=== PATIENT | female | born 1940 | race Caucasian/White ===

== ENCOUNTER → 2017-11-03 | Outpatient (CLI) | payer OTHER, SELFPAY ==
[~2017-11-03] MED LIST: ACIPHEX 20 MG T20 MG PO; ALBUTEROL INH INH; ALBUTEROL INHAL17 GM IH; ALLOPURINOL 10100 M3 PO; AMRIX30 MG PO; ANTACID650 MG PO; APAP500 PO; AUGMENTIN 500-1 EACH PO; AVELOX400 MG PO; AZITHROMYCIN; B 12 INJECTION; B12INJ IM; BACTRIM DS TAB1 EACH PO; CALCITRIOL0.25 MCG PO; CALCIUM CITRATE PO; CARAFATE 1 GM TA1 G1 PO; CARAFATE1 GM/10 ML PO; CIPRO; CIPRO250 M1 PO; CLEOCIN HCL300 MG PO; COLACE100 MG PO; CYCLOBENZAPRINE10 MG PO; DEXILANT60 MG PO; ENOXAPARIN30 MG/0.3 SQ; ERY-TAB250 MG PO; ESTRACE0.5 MG PO; FLEXERIL PO; FLUCONAZOLE 10100 MG PO; FLUZONE 2045 MCG/011; GABAPENTIN100 MG PO; HYDROCODON-ACE1 EAC5 PO; HYDROCODON-ACE1 EAC7 PO; HYDROCODONE-AP1 EAC6 PO; K-DUR 20 MEQ T20 MEQ PO; LEVAQUIN 250 M250 MG PO; LEVAQUIN 500 M500 M1 PO; LEVAQUIN 500 M500 MG PO; LEVOFLOXACIN250 MG PO; LEVOTHYROXIN0.137 M1 PO; LOPID600 MG PO; MACROBID 100 M100 M1 PO; MEDROL DOSPAK21 TA1 PO; MEDROLDOSEPACK PO; MIDODRINE HCL 55 M1 PO; NORCO 5-325 TA1 EACH PO; OSTERA TABLET1 EACH PO; OXYCODONE HCL 55 MG PO; PARICALCITOL1 MCG PO; PAXIL10 MG PO; PERCOCET 5-3251 EACH PO; PHENAZOPYRIDIN200 M2 PO; PNEUMOVAX25 MCG/0.5; POTASSIUM20 IV; PREDNISONE 10 M10 M1 PO; PREMARIN PO; PRILOSEC 20 MG20 MG PO; PROAIR HFA8.5 GM IH; PROMETHAZINE12.5 M1 PO; REGLAN 5 MG TAB5 M1 PO; REGLAN 5 MG TAB5 MG PO; ROCALTROL0.5 MCG PO; SODIUM BICARBO650 M3 PO; SYNTHROID PO; SYNTHROID137 MCG PO; TESSALON PERLE100 MG PO; TESSALON200 MG PO; TIZANIDINE HCL4 M1 PO; TOPROL XL25 MG PO; TUSSIONEX PENN115 ML PO; VANC750 IV; VANCO IV; VIT C 500 MG-E500 MG PO; VITAMIN D32000 UNIT PO; ZANTAC 150MG T150 MG PO; ZENPEP DR 20,01 EACH PO; ZENPEP PO; ZINC PO; ZOFRAN ODT4 MG PO; ZPAK PO; ZYVOX600 MG; [UNRECOGNIZED DRUG - MIXTURE]; [UNRECOGNIZED DRUG - OTHER] PO
[2017-11-03 09:04] VITALS: BP 121/68
[2017-11-03 09:54] LABS: MAGNESIUM 1.9 mg/dL (1.8-2.4); PHOSPHORUS* 3.5 mg/dL (2.5-4.9)
--- NOTE | 2017-11-03 12:55 | NUR ---
ARRIVED AMBULATORY. PORT A CATH ACCESSED. PORT PATENT WITH GOOD BLOOD RETURN AND EASY FLUSH. INFUSION COMPLETED AND TOLERATED WELL. PORT FLUSHED PER HOSPITAL POLICY. PORT LEFT ACCESSED FOR USE LATER IN THE WEEK. DENIES QUESTIONS OR NEEDS AT DISCHARGE.
[2017-11-03 14:04] LABS: CALCIUM 8.8 mg/dL (8.5-10.1); CREATININE 2.1 mg/dL (0.6-1.3)
[2017-11-03 14:09] LABS: CALCIUM 8.1 mg/dL (8.5-10.1); CREATININE 1.9 mg/dL (0.6-1.3); MAGNESIUM 1.9 mg/dL (1.8-2.4); PHOSPHORUS* 2.8 mg/dL (2.5-4.9)
== END ==
LOC: M.INFUS 09:00
PROVIDERS: Internal Medicine Nephrology
DX: N18.4 Chronic kidney disease, stage 4 (severe) (principal); E86.0 Dehydration

== ENCOUNTER → 2017-11-05 | Outpatient (CLI) | payer OTHER, SELFPAY ==
[2017-11-05 09:20] VITALS: BP 132/70
--- NOTE | 2017-11-05 09:30 | NUR ---
ASSUMED CARE OF ALYSIA FROM HOME. PT IS DOING WELL SHE IS WALKING STEADY AND HAS NO CO OF FALLING. SHE WAS EDUCATED ON PLAN OF CARE AND DISEASE PROCESS. SHE HAS NO CO OF PAIN OR NAUSEA. WILL CONTINUE TO MONITOR.
[2017-11-05 12:38] LABS: CREATININE 2.1 mg/dL (0.6-1.3); MAGNESIUM 1.6 mg/dL (1.8-2.4); PHOSPHORUS* 3.4 mg/dL (2.5-4.9); POTASSIUM 4.4 mmol/L (3.5-5.1)
[2017-11-05 12:55] VITALS: BP 122/68
--- NOTE | 2017-11-05 13:09 | NUR ---
INFUSION COMPLETED AND TOLERATED WELL. DENIES QUESTIONS OR NEEDS AT DISCHARGE.
[2017-11-05 13:27] LABS: CALCIUM 8.3 mg/dL (8.5-10.1); CREATININE 1.9 mg/dL (0.6-1.3); MAGNESIUM 1.8 mg/dL (1.8-2.4); PHOSPHORUS* 2.8 mg/dL (2.5-4.9); POTASSIUM 4.9 mmol/L (3.5-5.1)
== END ==
LOC: M.INFUS 05:03
PROVIDERS: Internal Medicine Nephrology
DX: N18.4 Chronic kidney disease, stage 4 (severe) (principal); E86.0 Dehydration

== ENCOUNTER → 2017-11-10 | Outpatient (CLI) | payer OTHER, SELFPAY ==
[2017-11-10 09:30] VITALS: BP 113/71
--- NOTE | 2017-11-10 09:51 | NUR ---
ARRIVED AMBULATORY. MADE SELF COMFORTABLE IN RECLINER. PORT A CATH ACCESSED WITH OUT DIFFICULTY. GOOD BRISKB LOOD RETURN NOTED AND FLUSHED WITH EASE. DENIES ADVERSE REACTION TO MULTIPLE PRIOR INFUSIONS OF SAME. INFUSION STARTED AND RUNNIG WELL. DENIES CURRENT NEEDS. CALL LIGHT IN REACH.
[2017-11-10 10:05] LABS: CALCIUM 8.5 mg/dL (8.5-10.1); CREATININE 2.5 mg/dL (0.6-1.3); MAGNESIUM 1.6 mg/dL (1.8-2.4); PHOSPHORUS* 4.3 mg/dL (2.5-4.9); POTASSIUM 4.6 mmol/L (3.5-5.1)
[2017-11-10 13:34] VITALS: BP 102/68
--- NOTE | 2017-11-10 13:46 | NUR ---
INFUSION COMPLETED AND TOLERATED WELL. DENIES QUESTIONS OR NEEDS AT DISCHARGE.
[2017-11-10 13:59] LABS: CALCIUM 7.8 mg/dL (8.5-10.1); CREATININE 2.2 mg/dL (0.6-1.3); MAGNESIUM 1.8 mg/dL (1.8-2.4); PHOSPHORUS* 3.2 mg/dL (2.5-4.9); POTASSIUM 4.9 mmol/L (3.5-5.1)
== END ==
LOC: M.INFUS 00:09
PROVIDERS: Internal Medicine Nephrology
DX: N18.4 Chronic kidney disease, stage 4 (severe) (principal); E86.0 Dehydration

== ENCOUNTER → 2017-11-11 | Outpatient (CLI) | payer OTHER, SELFPAY ==
[2017-11-11 08:50] VITALS: BP 110/65
== END ==
LOC: M.INFUS 06:19
DX: N18.4 Chronic kidney disease, stage 4 (severe) (principal); E86.0 Dehydration

== ENCOUNTER → 2017-11-13 | Outpatient (CLI) | payer OTHER, SELFPAY ==
[2017-11-13 09:05] VITALS: BP 121/67
[2017-11-13 10:29] LABS: MAGNESIUM 1.7 mg/dL (1.8-2.4); PHOSPHORUS* 4.3 mg/dL (2.5-4.9); POTASSIUM 4.4 mmol/L (3.5-5.1)
[2017-11-13 12:42] VITALS: BP 132/76
--- NOTE | 2017-11-13 13:48 | NUR ---
INFUSION COMPLETED AND TOLERATED WELL. PORT FLUSHED AND DEACCESSED. DENIES QUESTIONS OR NEEDS AT DISCHARGE.
[2017-11-13 16:22] LABS: CALCIUM 8.5 mg/dL (8.5-10.1); CREATININE 1.8 mg/dL (0.6-1.3); MAGNESIUM 1.9 mg/dL (1.8-2.4); PHOSPHORUS* 3.2 mg/dL (2.5-4.9); POTASSIUM 4.8 mmol/L (3.5-5.1)
== END ==
LOC: M.INFUS 06:26
PROVIDERS: Internal Medicine Nephrology
DX: N18.4 Chronic kidney disease, stage 4 (severe) (principal); E86.0 Dehydration

== ENCOUNTER → 2017-11-16 | Outpatient (CLI) | payer OTHER, SELFPAY ==
[2017-11-16 10:15] VITALS: BP 140/63
[2017-11-16 11:06] LABS: CALCIUM 8.8 mg/dL (8.5-10.1); CREATININE 1.8 mg/dL (0.6-1.3); MAGNESIUM 1.6 mg/dL (1.8-2.4); PHOSPHORUS* 3.4 mg/dL (2.5-4.9); POTASSIUM 3.9 mmol/L (3.5-5.1)
[2017-11-16 13:55] VITALS: BP 122/58
[2017-11-16 14:27] LABS: CALCIUM 8.3 mg/dL (8.5-10.1); CREATININE 1.6 mg/dL (0.6-1.3); MAGNESIUM 1.7 mg/dL (1.8-2.4); PHOSPHORUS* 2.1 mg/dL (2.5-4.9); POTASSIUM 4.3 mmol/L (3.5-5.1)
--- NOTE | 2017-11-16 15:06 | NUR ---
ARRIVED AMBULATORY. MADE SELF COMFORTABLE IN RECLINER. PORT A CATH ACCESSED WITH OUT DIFFICULTY. GOOD BRISK BLOOD RETURN NOTED AND FLUSHED WITH EASE. INFUSION COMPLETED AND TOELRATED WELL. PORT FLUSHED AND LEFT ACCESSED FOR USE LATER IN THE WEEK.
== END ==
LOC: M.INFUS 06:10
PROVIDERS: Internal Medicine Nephrology
DX: N18.4 Chronic kidney disease, stage 4 (severe) (principal); E86.0 Dehydration

== ENCOUNTER → 2017-11-18 | Outpatient (CLI) | payer OTHER, SELFPAY ==
[2017-11-18 08:55] VITALS: BP 112/60
[2017-11-18 13:07] VITALS: BP 118/48
== END ==
LOC: M.INFUS 06:14
DX: N18.4 Chronic kidney disease, stage 4 (severe) (principal); E86.0 Dehydration

== ENCOUNTER → 2017-11-20 | Outpatient (CLI) | payer OTHER, SELFPAY ==
--- NOTE | 2017-11-20 09:30 | NUR ---
ASSUMED CARE OF PATIENT THIS MORNING FROM HOME. PT IS DOING WELL, SHE WAS EDUCATED ON PLAN OF CARE AND DISEASE PROCESS. HER FAMILY WAS AT BEDSIDE. SHE HAS NO CO OF PAIN OR NAUSEA. WILL CONTINUE TO MONITOR.
[2017-11-20 10:00] VITALS: BP 124/52
[2017-11-20 15:31] LABS: CALCIUM 8.3 mg/dL (8.5-10.1); CREATININE 1.8 mg/dL (0.6-1.3); MAGNESIUM 1.7 mg/dL (1.8-2.4); PHOSPHORUS* 2.7 mg/dL (2.5-4.9); POTASSIUM 4.6 mmol/L (3.5-5.1)
[2017-11-20 16:01] LABS: CALCIUM 8.9 mg/dL (8.5-10.1); MAGNESIUM 1.5 mg/dL (1.8-2.4); PHOSPHORUS* 3.3 mg/dL (2.5-4.9); POTASSIUM 4.3 mmol/L (3.5-5.1)
== END ==
LOC: M.INFUS 04:59
PROVIDERS: Internal Medicine Nephrology
DX: N18.4 Chronic kidney disease, stage 4 (severe) (principal); E86.0 Dehydration

== ENCOUNTER → 2017-11-23 | Outpatient (CLI) | payer OTHER, SELFPAY ==
[2017-11-23 10:00] VITALS: BP 113/60
[2017-11-23 10:45] LABS: CREATININE 1.9 mg/dL (0.6-1.3); MAGNESIUM 1.7 mg/dL (1.8-2.4); PHOSPHORUS* 3.5 mg/dL (2.5-4.9); POTASSIUM 4.7 mmol/L (3.5-5.1)
[2017-11-23 13:26] VITALS: BP 118/62
--- NOTE | 2017-11-23 13:33 | NUR ---
ARRIVED AMBULATORY MADE SELF COMFORTABLE IN RECLINER. PORT A CATH ACCESSED WITHOUT DIFFICULTY. GOOD BRISK BLOOD RETURN NOTED AND FLUSHED WITH EASE. INFSUION COMPLETED AND TOELRATED WELL. PORT FLUSHED AND LEFT ACCESSED FOR USE LATER IN THE WEEK.
[2017-11-23 16:22] LABS: CALCIUM 8.2 mg/dL (8.5-10.1); CREATININE 1.9 mg/dL (0.6-1.3); MAGNESIUM 1.8 mg/dL (1.8-2.4); PHOSPHORUS* 2.3 mg/dL (2.5-4.9); POTASSIUM 4.4 mmol/L (3.5-5.1)
== END ==
LOC: M.INFUS 06:02
PROVIDERS: Internal Medicine Nephrology
DX: N18.4 Chronic kidney disease, stage 4 (severe) (principal); E86.0 Dehydration

== ENCOUNTER → 2017-11-25 | Outpatient (CLI) | payer OTHER, SELFPAY ==
[2017-11-25 11:40] VITALS: BP 135/55
--- NOTE | 2017-11-25 12:26 | NUR ---
ARRIVED AMBULATORY. MADE SELF COMFORTABLE. PORT A CATH ALREADY ACCESSED. DRESSING C.D.I AND PORT PATENT WITH GOOD FLUSH AND BRISK BLOOD RETURN. INFUSION COMPLETED AND TOLERATED WELL. PORT FLUSHED AND LEFT ACCESSED FOR USE LATER IN THE WEEK. DENEIS NEEDS OR QUESTIOSN AT DISCHARGE.
== END ==
LOC: M.INFUS 04:20
DX: N18.4 Chronic kidney disease, stage 4 (severe) (principal); E87.1 Hypo-osmolality and hyponatremia; E86.0 Dehydration

== ENCOUNTER 2017-11-27 08:58 | Emergency (ER) | payer OTHER ==
[~2017-11-27] VITALS: Ht 167.6 cm; Wt 71.7 kg
[~2017-11-27 08:58] MED LIST changes: -ACIPHEX 20 MG T20 MG PO; -LEVOFLOXACIN250 MG PO; -PHENAZOPYRIDIN200 M2 PO; -ROCALTROL0.5 MCG PO; -TUSSIONEX PENN115 ML PO; -[UNRECOGNIZED DRUG - MIXTURE]
[2017-11-27] MEDS ORDERED: ROCALTROL0.5 MCG PO (09:10)
[2017-11-27] MEDS ORDERED: [UNRECOGNIZED DRUG - MIXTURE] (09:11)
[2017-11-27 09:51] LABS: ABSOLUTE BASOPHILS 0.1 thou/uL (0.0-0.2); ABSOLUTE EOSINOPHILS 0.2 thou/uL (0.0-0.7); ABSOLUTE LYMPHOCYTES 1.9 thou/uL (0.8-5.3); ABSOLUTE MONOCYTES 0.4 thou/uL (0.0-1.2); ABSOLUTE NEUTROPHILS 3.5 thou/uL (1.6-8.1); BASOPHILS 1.2 %; EOSINOPHILS 2.8 %; HEMATOCRIT 35.3 % (37.0-47.0); HEMOGLOBIN 11.3 gm/dL (12.0-15.0); LYMPHOCYTES 31.2 %; MCH 29.5 pg (26.0-34.0); MCHC 31.9 g/dL (28.0-37.0); MCV 92.4 fL (80.0-100.0); MPV 7.6 fl. (7.2-11.1); NUCLEATED RBCS 0 /100WBC; PLATELET COUNT* 246 thou/uL (150-400); POLYS 57.8 %; RBC 3.82 mil/uL (4.20-5.00); RDW-CV 16.5 % (10.5-14.5)
[2017-11-27 10:03] LABS: CALCIUM 8.9 mg/dL (8.5-10.1); CREATININE 1.8 mg/dL (0.6-1.3); POTASSIUM 4.3 mmol/L (3.5-5.1)
[2017-11-27 10:15] LABS: ALBUMIN 3.1 g/dL (3.4-5.0); TOTAL BILIRUBIN 0.1 mg/dL (<0.1-1.0); TOTAL PROTEIN 6.9 g/dL (6.4-8.2)
[2017-11-27] MEDS ORDERED: TUSSIONEX PENN115 ML PO (10:44)
[2017-11-27] MEDS ORDERED: ACIPHEX 20 MG T20 MG PO (10:44)
[2017-11-27] MEDS ORDERED: ZOFRAN ODT4 MG PO (10:44)
[2017-11-27 10:51] VITALS: BP 124/56
== END 2017-11-27 10:52 | disposition home or self-care (01) ==
LOC: M.ERS 08:58
PROVIDERS: Emergency Medicine
DX: R11.10 Vomiting, unspecified (principal); R05 Cough; N18.3 Chronic kidney disease, stage 3 (moderate); E03.9 Hypothyroidism, unspecified; M19.90 Unspecified osteoarthritis, unspecified site; F32.9 Major depressive disorder, single episode, unspecified; K21.9 Gastro-esophageal reflux disease without esophagitis; Z87.11 Personal history of peptic ulcer disease; Z85.828 Personal history of other malignant neoplasm of skin; Z98.890 Other specified postprocedural states; Z88.6 Allergy status to analgesic agent; Z88.1 Allergy status to other antibiotic agents; Z88.8 Allergy status to other drugs, medicaments and biological substances

== ENCOUNTER → 2017-11-30 | Outpatient (CLI) | payer OTHER, SELFPAY ==
[~2017-11-30] MED LIST changes: +ACIPHEX 20 MG T20 MG PO; +LEVOFLOXACIN250 MG PO; +PHENAZOPYRIDIN200 M2 PO; +ROCALTROL0.5 MCG PO; +TUSSIONEX PENN115 ML PO; +[UNRECOGNIZED DRUG - MIXTURE]
[2017-11-30 09:10] VITALS: BP 109/54
[2017-11-30 10:35] LABS: CALCIUM 8.5 mg/dL (8.5-10.1); CREATININE 2.9 mg/dL (0.6-1.3); MAGNESIUM 1.7 mg/dL (1.8-2.4); PHOSPHORUS* 4.7 mg/dL (2.5-4.9); POTASSIUM 4.4 mmol/L (3.5-5.1)
[2017-11-30 13:08] VITALS: BP 110/60
--- NOTE | 2017-11-30 13:56 | NUR ---
ARRIVED AMBULATORY, MADE SELF COFMORTABLE IN RECLINER. PORT A CATH ACCESSED WITH OUT DIFFICULTY. GOOD BRISK BLOOD RETURN NOTED AND FLUSHED WITH EASE. INFUSION COMPLETED AND TOLERATED WELL. PORT FLUSHED AND LEFT ACCESSED FOR USE LATER IN THE WEEK. DENIES NEEDS AT DISCHARGE.
[2017-11-30 14:11] LABS: CREATININE 2.3 mg/dL (0.6-1.3); PHOSPHORUS* 3.3 mg/dL (2.5-4.9); POTASSIUM 5.1 mmol/L (3.5-5.1)
== END ==
LOC: M.INFUS 06:49
PROVIDERS: Internal Medicine Nephrology
DX: N18.4 Chronic kidney disease, stage 4 (severe) (principal); E87.1 Hypo-osmolality and hyponatremia; E86.0 Dehydration

== ENCOUNTER → 2017-12-02 | Outpatient (CLI) | payer OTHER, SELFPAY ==
[2017-12-02 08:15] VITALS: BP 120/70
[2017-12-02 11:48] VITALS: BP 118/64
--- NOTE | 2017-12-02 13:04 | NUR ---
ARRIVED AMBULATORY, MADE SELF COMFORTABLE. PORT A CATH ALREADY ACCESSED. PORT PATENT WITH GOOD BRISK BLOOD RETURN AND EASY FLUSH. INFUSION COMPLETED AND TOLERATED WELL.
== END ==
LOC: M.INFUS 04:22
DX: N18.4 Chronic kidney disease, stage 4 (severe) (principal); E87.1 Hypo-osmolality and hyponatremia; E86.0 Dehydration

== ENCOUNTER → 2017-12-04 | Outpatient (CLI) | payer OTHER, SELFPAY ==
[2017-12-04 09:03] LABS: CALCIUM 8.9 mg/dL (8.5-10.1); CREATININE 2.1 mg/dL (0.6-1.3); MAGNESIUM 1.7 mg/dL (1.8-2.4); PHOSPHORUS* 3.5 mg/dL (2.5-4.9); POTASSIUM 4.6 mmol/L (3.5-5.1)
[2017-12-04 11:10] VITALS: BP 120/75
--- NOTE | 2017-12-04 12:08 | NUR ---
COMPLETED INFUSION. UP AD KRANTHI, GAIT STEADY, RIGHT CHEST PORT FLUSHED PER PROTOCOL AND DEACCESSED, NO BLEEDING, BAND AID APPLIED. DISMISSED HOME IN GOOD CONDITION.
[2017-12-04 12:53] LABS: CALCIUM 8.1 mg/dL (8.5-10.1); CREATININE 1.7 mg/dL (0.6-1.3); POTASSIUM 4.9 mmol/L (3.5-5.1)
[2017-12-04 12:57] LABS: MAGNESIUM 1.8 mg/dL (1.8-2.4); PHOSPHORUS* 2.5 mg/dL (2.5-4.9)
== END ==
LOC: M.INFUS 01:54
PROVIDERS: Internal Medicine Nephrology
DX: N18.4 Chronic kidney disease, stage 4 (severe) (principal); E87.1 Hypo-osmolality and hyponatremia; E86.0 Dehydration

== ENCOUNTER → 2017-12-07 | Outpatient (CLI) | payer OTHER, SELFPAY ==
[2017-12-07 10:00] LABS: CALCIUM 8.8 mg/dL (8.5-10.1); CREATININE 1.9 mg/dL (0.6-1.3); MAGNESIUM 1.6 mg/dL (1.8-2.4); POTASSIUM 4.2 mmol/L (3.5-5.1)
[2017-12-07 12:57] VITALS: BP 127/80
--- NOTE | 2017-12-07 13:08 | NUR ---
ARRIVED AMBULATORY. MADE SELF COMFORTABLE IN RECLINER. PORT A CATH ACCESSED WITH OUT DIFFICULTY. GOOD BRISK BLOOD RETURN NOTED AND FLUSHED WITH EASE. INFUSION AND LABS COMPLETED ORDERED. TOLERATED WELL. PORT FLUSHED AND LEFT ACCESSED FOR USE LATER THIS WEEK. DENIES NEEDS AT DISCHARGE.
[2017-12-07 13:51] LABS: CALCIUM 8.1 mg/dL (8.5-10.1); CREATININE 1.7 mg/dL (0.6-1.3); MAGNESIUM 1.9 mg/dL (1.8-2.4); PHOSPHORUS* 3.1 mg/dL (2.5-4.9)
== END ==
LOC: M.INFUS 00:59
PROVIDERS: Internal Medicine Nephrology
DX: N18.4 Chronic kidney disease, stage 4 (severe) (principal); E87.1 Hypo-osmolality and hyponatremia; E86.0 Dehydration

== ENCOUNTER → 2017-12-09 | Outpatient (CLI) | payer OTHER, SELFPAY ==
[2017-12-09 08:30] VITALS: BP 124/70
--- NOTE | 2017-12-09 08:48 | NUR ---
ARRIVED AMBULATORY. MADE SELF COMFORTABLE IN RECLINER. PORT ACCESSED EARLIER IN THE WEEK. PORT PATENT WITH GOOD BRISK BLOOD RETURN AND EASY FLUSH. INFUSION STARTED AND RUNNING WELL. DENIES CURRENT NEEDS
[2017-12-09 12:18] VITALS: BP 120/72
--- NOTE | 2017-12-09 12:59 | NUR ---
INFUSION COMPLETED AND TOLERATED WELL. PORT FLUSHED AND LEFT ACCESSED FOR USE LATER IN THE WEEK. DENIES NEEDS AT DISCHARGE.
== END ==
LOC: M.INFUS 04:02
DX: N18.4 Chronic kidney disease, stage 4 (severe) (principal); E87.1 Hypo-osmolality and hyponatremia; E86.0 Dehydration

== ENCOUNTER → 2017-12-11 | Outpatient (CLI) | payer OTHER, SELFPAY ==
[2017-12-11 08:55] VITALS: BP 142/65
[2017-12-11 10:17] LABS: CALCIUM 8.8 mg/dL (8.5-10.1); CREATININE 1.8 mg/dL (0.6-1.3); MAGNESIUM 1.7 mg/dL (1.8-2.4); PHOSPHORUS* 3.7 mg/dL (2.5-4.9); POTASSIUM 4.6 mmol/L (3.5-5.1)
[2017-12-11 12:20] VITALS: BP 138/70
[2017-12-11 13:17] LABS: CALCIUM 8.1 mg/dL (8.5-10.1); CREATININE 1.6 mg/dL (0.6-1.3); MAGNESIUM 1.9 mg/dL (1.8-2.4); PHOSPHORUS* 2.9 mg/dL (2.5-4.9); POTASSIUM 4.8 mmol/L (3.5-5.1)
--- NOTE | 2017-12-11 13:28 | NUR ---
PORT A CATH ALREADY ACCESSED. PORT PATNET WTIH GOOD BRISK BLOOD RETURN AND EASY FLUSH. INFUSION COMPLETED AND TOLERATED WELL. PORT FLUSHED AND DEACCESSED. DENIES NEEDS AT DISCHARGE.
== END ==
LOC: M.INFUS 06:03
PROVIDERS: Internal Medicine Nephrology
DX: N18.4 Chronic kidney disease, stage 4 (severe) (principal); E87.1 Hypo-osmolality and hyponatremia; E86.0 Dehydration

== ENCOUNTER → 2017-12-14 | Outpatient (CLI) | payer OTHER, SELFPAY ==
[2017-12-14 09:18] VITALS: BP 111/83
[2017-12-14 09:50] LABS: ABSOLUTE BASOPHILS 0.1 thou/uL (0.0-0.2); ABSOLUTE EOSINOPHILS 0.3 thou/uL (0.0-0.7); ABSOLUTE LYMPHOCYTES 2.5 thou/uL (0.8-5.3); ABSOLUTE MONOCYTES 0.6 thou/uL (0.0-1.2); ABSOLUTE NEUTROPHILS 4.6 thou/uL (1.6-8.1); BASOPHILS 0.9 %; HEMATOCRIT 38.3 % (37.0-47.0); HEMOGLOBIN 12.6 gm/dL (12.0-15.0); LYMPHOCYTES 30.6 %; MCH 30.2 pg (26.0-34.0); MCV 91.5 fL (80.0-100.0); MONOCYTES 7.1 %; MPV 7.9 fl. (7.2-11.1); NUCLEATED RBCS 0 /100WBC; PLATELET COUNT* 267 thou/uL (150-400); POLYS 57.4 %; RBC 4.19 mil/uL (4.20-5.00)
[2017-12-14 09:59] LABS: CALCIUM 8.9 mg/dL (8.5-10.1); MAGNESIUM 1.7 mg/dL (1.8-2.4); PHOSPHORUS* 3.3 mg/dL (2.5-4.9)
--- NOTE | 2017-12-14 10:27 | NUR ---
ARRIVED AMBULATORY. MADE SELF COMFORTABLE. PORT A CATH ACCESSED WITH OUT DIFFFICULTY. GOOD BRISK BLOOD RETURN AND EASY FLUSH. INFUSION STARTED AND RUNNING WELL. WARM BLANKET AND BREAKFAST FOR COMFORT. CALL LIGHT IN REACH.
[2017-12-14 12:35] VITALS: BP 118/76
[2017-12-14 13:12] LABS: CREATININE 1.8 mg/dL (0.6-1.3); PHOSPHORUS* 2.9 mg/dL (2.5-4.9); POTASSIUM 5.1 mmol/L (3.5-5.1)
--- NOTE | 2017-12-14 14:44 | NUR ---
INFUSION COMPLETED ADN TOLERATED WELL. PORT FLUSHED AND LEFT ACCESSED FOR USE LATER IN THE WEEK. DENIES NEEDS AT DISCHARGE.
== END ==
LOC: M.INFUS 06:28
PROVIDERS: Internal Medicine Nephrology
DX: N18.4 Chronic kidney disease, stage 4 (severe) (principal); E87.1 Hypo-osmolality and hyponatremia; E86.0 Dehydration

== ENCOUNTER → 2017-12-16 | Outpatient (CLI) | payer OTHER, SELFPAY ==
[2017-12-16 08:15] VITALS: BP 106/83
--- NOTE | 2017-12-16 09:31 | NUR ---
ARRIVED AMBULATORY. MADE SELF COMFORTABLE IN RECLINER. PORT A CATH ALREADY ACCESSED FROM EARLIER IN THE WEEK. PORT PATENT WITH GOOD BRISK BLOOD RETURN AND EASY FLUSH. INFUSION STARTED AND RUNNING WELL. CALL LIGHT IN REACH.
[2017-12-16 11:50] VITALS: BP 116/61
--- NOTE | 2017-12-16 14:27 | NUR ---
INFUSION COMPLETED AND TOLERATED WELL.
== END ==
LOC: M.INFUS 01:35
DX: N18.4 Chronic kidney disease, stage 4 (severe) (principal); E87.1 Hypo-osmolality and hyponatremia; E86.0 Dehydration

== ENCOUNTER → 2017-12-18 | Outpatient (CLI) | payer OTHER, SELFPAY ==
[2017-12-18 08:52] VITALS: BP 121/70
[2017-12-18 10:16] LABS: CALCIUM 8.8 mg/dL (8.5-10.1); CREATININE 1.9 mg/dL (0.6-1.3); MAGNESIUM 1.7 mg/dL (1.8-2.4); POTASSIUM 4.7 mmol/L (3.5-5.1)
[2017-12-18 12:32] VITALS: BP 128/74
[2017-12-18 13:03] LABS: CREATININE 1.7 mg/dL (0.6-1.3); MAGNESIUM 1.8 mg/dL (1.8-2.4); PHOSPHORUS* 2.8 mg/dL (2.5-4.9); POTASSIUM 5.1 mmol/L (3.5-5.1)
--- NOTE | 2017-12-18 13:21 | NUR ---
INFUSION COMPLETED AND TOLERATED WELL. PORT FLUSHED AND DEACCESSED. DENIES NEEDS AT DISCAHRGE.
== END ==
LOC: M.INFUS 01:25
PROVIDERS: Internal Medicine Nephrology
DX: N18.4 Chronic kidney disease, stage 4 (severe) (principal); E87.1 Hypo-osmolality and hyponatremia; E86.0 Dehydration

== ENCOUNTER 2017-12-19 18:16 | Emergency (ER) | payer OTHER ==
[~2017-12-19] VITALS: Ht 167.6 cm; Wt 70.8 kg
[~2017-12-19 18:16] MED LIST changes: -LEVOFLOXACIN250 MG PO; -PHENAZOPYRIDIN200 M2 PO
[2017-12-19 19:29] LABS: URINE BILIRUBIN NEGATIVE (Negative); URINE BLOOD 1+ (Negative); URINE CLARITY CLOUDY; URINE COLOR YELLOW; URINE GLUCOSE-RANDOM NEGATIVE (Negative); URINE KETONES TRACE (Negative); URINE PROTEIN 1+ (Negative); URINE SPECIFIC GRAVITY 1.025 (1.005-1.030); URINE UROBILINOGEN 0.2 E.U./dl (0.2-1.0)
[2017-12-19 19:31] LABS: URINE LEUKOCYTES-REFLEX 2+ (Negative); URINE NITRITE-REFLEX POSITIVE (Negative)
[2017-12-19] MEDS ORDERED: BACTRIM DS TAB1 EACH PO (19:39)
[2017-12-19] MEDS ORDERED: PHENAZOPYRIDIN200 M2 PO (19:40)
[2017-12-19 19:45] VITALS: BP 121/60
[2017-12-19 19:45] LABS: HYALINE CASTS 0-3 Few /LPF (None Seen); MUCUS None Seen strn/LPF (None Seen); URINE WBC-REFLEX >25 Many /HPF (0-5)
[2017-12-19 19:46] LABS: CRYSTALS None Seen /LPF (None Seen); SQUAMOUS >10 Many /LPF (0-3); URINE RBC 0-2 Rare /HPF (0-2); WBC CLUMPS Few (None Seen)
== END 2017-12-19 19:46 | disposition home or self-care (01) ==
LOC: M.ERS 18:16
PROVIDERS: Physician Assistant
DX: N39.0 Urinary tract infection, site not specified (principal); M79.7 Fibromyalgia; E03.9 Hypothyroidism, unspecified; M19.90 Unspecified osteoarthritis, unspecified site; F32.9 Major depressive disorder, single episode, unspecified; K21.9 Gastro-esophageal reflux disease without esophagitis; N18.4 Chronic kidney disease, stage 4 (severe); Z90.49 Acquired absence of other specified parts of digestive tract; Z86.2 Personal history of diseases of the blood and blood-forming organs and certain disorders involving the immune mechanism; Z96.653 Presence of artificial knee joint, bilateral; Z85.828 Personal history of other malignant neoplasm of skin; Z88.8 Allergy status to other drugs, medicaments and biological substances; Z88.1 Allergy status to other antibiotic agents

== ENCOUNTER → 2017-12-21 | Outpatient (CLI) | payer OTHER, SELFPAY ==
[~2017-12-21] MED LIST changes: +LEVOFLOXACIN250 MG PO; +PHENAZOPYRIDIN200 M2 PO
[2017-12-21 08:55] VITALS: BP 112/67
[2017-12-21 09:56] LABS: CALCIUM 9.1 mg/dL (8.5-10.1); CREATININE 2.6 mg/dL (0.6-1.3); MAGNESIUM 1.8 mg/dL (1.8-2.4); PHOSPHORUS* 3.9 mg/dL (2.5-4.9); POTASSIUM 4.5 mmol/L (3.5-5.1)
[2017-12-21 12:30] VITALS: BP 118/74
[2017-12-21 14:08] LABS: CALCIUM 8.6 mg/dL (8.5-10.1); CREATININE 2.3 mg/dL (0.6-1.3); MAGNESIUM 2.1 mg/dL (1.8-2.4); PHOSPHORUS* 2.9 mg/dL (2.5-4.9); POTASSIUM 5.3 mmol/L (3.5-5.1)
--- NOTE | 2017-12-21 14:19 | NUR ---
ARRIVED AMBULATORY. MADE SELF COMFORTABLE IN RECLINER. PROT A CATH ACCESSED WTIH OUT DIFFICULTY. GOOD BRISK BLOOD RETURN NOTED AND FLUSHED WITH EASE. INFUSION COMPLETED AND TOLERATED WELL. PORT FLUSHED AND LEFT ACCESSED FOR USE LATER IN THE WEEK. DENIES NEEDS AT DISCHARGE.
== END ==
LOC: M.INFUS 00:17
PROVIDERS: Internal Medicine Nephrology
DX: N18.4 Chronic kidney disease, stage 4 (severe) (principal); E87.1 Hypo-osmolality and hyponatremia; E86.0 Dehydration

== ENCOUNTER 2017-12-23 09:13 | Inpatient (IN) | payer OTHER, SELFPAY ==
[~2017-12-23] VITALS: Ht 167.6 cm; Wt 73.8 kg
[~2017-12-23 09:13] MED LIST changes: -LEVOFLOXACIN250 MG PO
[2017-12-23 09:31] VITALS: BP 128/75
[2017-12-23 09:54] LABS: ABSOLUTE BASOPHILS 0.1 thou/uL (0.0-0.2); ABSOLUTE EOSINOPHILS 0.2 thou/uL (0.0-0.7); ABSOLUTE LYMPHOCYTES 1.9 thou/uL (0.8-5.3); ABSOLUTE MONOCYTES 0.5 thou/uL (0.0-1.2); ABSOLUTE NEUTROPHILS 6.8 thou/uL (1.6-8.1); BASOPHILS 0.5 %; HEMATOCRIT 41.7 % (37.0-47.0); HEMOGLOBIN 13.5 gm/dL (12.0-15.0); LYMPHOCYTES 19.9 %; MCHC 32.4 g/dL (28.0-37.0); MCV 92.5 fL (80.0-100.0); MONOCYTES 5.7 %; NUCLEATED RBCS 0 /100WBC; PLATELET COUNT* 331 thou/uL (150-400); POLYS 71.9 %; RBC 4.51 mil/uL (4.20-5.00); WBC 9.4 thou/uL (4.0-11.0)
[2017-12-23 10:01] LABS: ANION GAP 14 mmol/L (7-16); BUN 64 mg/dL (7-18); CHLORIDE 102 mmol/L (98-107); CO2 16 mmol/L (21-32); CREATININE 4.3 mg/dL (0.6-1.3); GLUCOSE 203 mg/dL (70-99); POTASSIUM 4.3 mmol/L (3.5-5.1); SODIUM 132 mmol/L (136-145)
[2017-12-23 10:10] LABS: INFLUENZA A ANTIGEN None Detected (None Detect); INFLUENZA B ANTIGEN None Detected (None Detect)
[2017-12-23 10:12] LABS: ALBUMIN 3.6 g/dL (3.4-5.0); ALKALINE PHOSPHATASE 162 U/L (46-116); NT-PRO BRAIN NAT PEPTIDE 296 pg/mL (<300); SGOT 16 U/L (15-37); SGPT 15 U/L (30-65); TOTAL BILIRUBIN 0.3 mg/dL (<0.1-1.0); TOTAL PROTEIN 8.3 g/dL (6.4-8.2); TROPONIN-I LEVEL <0.06 ng/mL (<0.06)
[2017-12-23 10:50] LABS: URINE BILIRUBIN NEGATIVE (Negative); URINE BLOOD NEGATIVE (Negative); URINE CLARITY CLOUDY; URINE COLOR DARK YELLOW; URINE GLUCOSE-RANDOM NEGATIVE (Negative); URINE KETONES NEGATIVE (Negative); URINE LEUKOCYTES-REFLEX 1+ (Negative); URINE PROTEIN 1+ (Negative); URINE SPECIFIC GRAVITY >= 1.030 (1.005-1.030)
[2017-12-23 10:53] LABS: ICTOTEST (BILI CONFIRMATORY) Positive (Negative); URINE NITRITE-REFLEX POSITIVE (Negative)
[2017-12-23 11:11] LABS: SQUAMOUS >10 Many /LPF (0-3)
[2017-12-23 11:12] LABS: COARSE GRANULAR CASTS 4-10 Moderate /LPF (None Seen); URIC ACID CRYSTALS 4-10 Moderate /LPF (None Seen)
[2017-12-23 11:13] LABS: BACTERIA-REFLEX >30 Many /HPF (None Seen); URINE WBC-REFLEX >25 Many /HPF (0-5)
[2017-12-23 13:21] VITALS: BP 109/63
[2017-12-23 13:50] VITALS: BP 114/57
--- NOTE | 2017-12-23 16:20 | EKG ---
[place] [address] ELECTROCARDIOGRAM REPORT Name: SMITHANGELITAMAITE CR Room: [address] ADM IN M.R.#: [id number] Admission: 12/23/17 Attend Phys: Andres Nunez MD Discharge: Date of : 42 Report #: [id number] THIS REPORT FOR: //name// [facility] ED Test Date: 2017-12-23 Test Time: 09:48:16 Pat Name: ANGELITA SMITH Department: Room: [facility] Gender: F Manager Academic: Tatiana CHAMBERLAIN : 1940 Requested By: Madi Gaxiola Order Number: [id number] MD: Osbaldo Balderrama Measurements Intervals [place] Rate: 87 P: 48 HI: 178 QRS: -2 QRSD: 118 T: 57 QT: 375 QTc: 451 Interpretive Statements Sinus rhythm Minimal ST elevation, inferior leads Compared to ECG 09/08/2016 15:44:19 ST (T wave) deviation now present Electronically Signed On 12-23-2017 16:20:23 PLUMBER SUPERVISOR by Osbaldo Balderrama [email or web address] <ELECTRONICALLY SIGNED> By: Osbaldo Balderrama MD, [facility] 12/23/17 1620 0948 0948 Osbaldo Balderrama MD, [facility] /EPI
[2017-12-23 20:00] VITALS: BP 114/67
[2017-12-23 21:00] VITALS: BP 123/54
[2017-12-24 04:00] VITALS: BP 127/60
[2017-12-24 06:54] LABS: ABSOLUTE EOSINOPHILS 0.3 thou/uL (0.0-0.7); ABSOLUTE LYMPHOCYTES 1.8 thou/uL (0.8-5.3); ABSOLUTE MONOCYTES 0.6 thou/uL (0.0-1.2); ABSOLUTE NEUTROPHILS 3.4 thou/uL (1.6-8.1); BASOPHILS 0.5 %; EOSINOPHILS 4.6 %; HEMATOCRIT 32.2 % (37.0-47.0); LYMPHOCYTES 29.6 %; MCH 30.3 pg (26.0-34.0); MCHC 32.9 g/dL (28.0-37.0); MCV 92.2 fL (80.0-100.0); MONOCYTES 9.6 %; MPV 7.8 fl. (7.2-11.1); NUCLEATED RBCS 0 /100WBC; POLYS 55.7 %; RBC 3.49 mil/uL (4.20-5.00); WBC 6.1 thou/uL (4.0-11.0)
[2017-12-24 06:56] LABS: HEMOGLOBIN 10.6 gm/dL (12.0-15.0); PLATELET COUNT* 225 thou/uL (150-400)
[2017-12-24 07:01] LABS: POTASSIUM 4.4 mmol/L (3.5-5.1)
[2017-12-24 07:02] LABS: CREATININE 3.1 mg/dL (0.6-1.3)
[2017-12-24 07:28] VITALS: BP 104/55
[2017-12-24 16:00] VITALS: BP 118/46
[2017-12-24 20:00] VITALS: BP 110/51
[2017-12-24 23:58] VITALS: BP 107/55
[2017-12-25 05:14] LABS: ABSOLUTE EOSINOPHILS 0.3 thou/uL (0.0-0.7); ABSOLUTE LYMPHOCYTES 1.9 thou/uL (0.8-5.3); ABSOLUTE MONOCYTES 0.6 thou/uL (0.0-1.2); ABSOLUTE NEUTROPHILS 3.2 thou/uL (1.6-8.1); BASOPHILS 0.8 %; EOSINOPHILS 5.3 %; HEMATOCRIT 31.7 % (37.0-47.0); HEMOGLOBIN 10.3 gm/dL (12.0-15.0); LYMPHOCYTES 32.2 %; MCHC 32.6 g/dL (28.0-37.0); MONOCYTES 9.3 %; MPV 8.2 fl. (7.2-11.1); NUCLEATED RBCS 0 /100WBC; PLATELET COUNT* 229 thou/uL (150-400); POLYS 52.4 %; RBC 3.45 mil/uL (4.20-5.00)
[2017-12-25 05:46] LABS: ALBUMIN 2.6 g/dL (3.4-5.0); CREATININE 2.3 mg/dL (0.6-1.3); POTASSIUM 4.1 mmol/L (3.5-5.1); TOTAL BILIRUBIN 0.1 mg/dL (<0.1-1.0)
[2017-12-25 07:41] VITALS: BP 108/52
[2017-12-25] MEDS ORDERED: LEVOFLOXACIN250 MG PO (12:34)
[2017-12-25 12:48] VITALS: BP 108/52
[2017-12-25 14:38] VITALS: BP 108/52
--- NOTE | 2017-12-29 12:37 | CON ---
[address] [address] CONSULTATION Name: SMITHANGELITA TAYO Room: [address] IN M.R.#: [id number] Admission: 12/23/17 Attend Phys: Andres Nunez MD Discharge: 12/25/17 Date of : 42 Report #: [id number] THIS REPORT FOR: //name// CC: Russ Goldstein DATE OF SERVICE: 12/24/2017 CONSULTING PHYSICIAN: Andres Nunez MD ADMISSION DIAGNOSIS AND CHIEF COMPLAINT: Not feeling well. HISTORY OF PRESENT ILLNESS: This is a 77-year-old very pleasant female who has past medical history of ulcerative colitis, has a high output ostomy, has a history of short gut syndrome, gets IV fluids along with potassium and magnesium replacement about 3 times a week, chronic kidney disease stage 4 with creatinine at baseline around 1.9, follows with Dr. Goldstein, and other medical problems who came in after not feeling well. The patient was diagnosed with a UTI last week and was started on Bactrim. Her creatinine was 1.9 as an outpatient on 12/18/2017, but it was 4.3 as of yesterday. Bactrim was stopped and the IV fluids were started with which creatinine is now better to 3.1. The patient also has some evidence of metabolic acidosis. She has been started on Levaquin for treatment of her UTI. The patient is feeling somewhat better today. REVIEW OF SYSTEMS: The patient was generally not feeling well. Otherwise, a 10-point review of systems done, negative. ALLERGIES: Reviewed. PAST MEDICAL HISTORY: Includes: 1. History of short gut syndrome, hypomagnesemia, hypokalemia, fibromyalgia. 2. Hypothyroidism. 3. Detached retina. 4. Continent, ileostomy for ulcerative colitis. 5. Osteoarthritis. 6. Chronic kidney disease stage 4. 7. Aortic valve stenosis. 8. GERD. 9. Subdural hematoma. PAST SURGICAL HISTORY: Includes a total colectomy, cholecystectomy, surgery for her esophagus. 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 Bilateral cataract surgeries, skin cancer removal from left leg and abdomen, right Port-A-Cath, right total knee replacement [place] [address] CONSULTATION Name: ANGELITA SMITH Room: [address]#: [id number] Admission: 12/23/17 Attend Phys: Andres Nunez MD Discharge: 12/25/17 Date of : 42 Report #: [id number] the past. FAMILY HISTORY: Noncontributory. SOCIAL HISTORY: She is a former smoker, does not use any recreational drugs and alcohol. PHYSICAL EXAMINATION: VITAL SIGNS: Blood pressure is 104/55, pulse rate is 66, temperature 36.7, respiratory rate is 16, on room air pulse ox is 98%. GENERAL: She is awake, alert, oriented x 3, in no acute distress. HEAD, EYES, EARS, NOSE, THROAT: Mucous membranes are moist. NECK: No JVD. CHEST: Clear to auscultation bilaterally. No crackles or wheezing. CARDIOVASCULAR: S1, S2 normal. No murmurs heard. ABDOMEN: Soft, nondistended, nontender. Bowel sounds are present. She has a midline dressing in place at the site of her ostomy and the dressing is clean, dry and intact. EXTREMITIES: Lower extremities symmetrical, no edema. GENITOURINARY: No CVA tenderness. Anderson in place. NEUROLOGICAL: Gross neurological function intact. PSYCHIATRIC: Mood and affect seem to be normal. LABORATORY DATA: Hemoglobin 10.6. Sodium is 136, potassium is 4.4, CO2 is 16, BUN is 57, creatinine is 3.1. Other labs were reviewed. IMAGING: Renal ultrasound, chest x-ray and abdominal CT scan were reviewed. ASSESSMENT: 1. Acute kidney injury on chronic kidney disease stage 4 due to Bactrim and dehydration. 2. Lower tract urinary tract infection. 3. Non-gap and anion gap metabolic acidosis. 4. Hypertension. PLAN: Kidney function is getting better with IV fluids. Acute kidney injury was most likely because of dehydration, first of all because she has a high output ostomy, she also had UTI going on and also because of Bactrim. I agree with stopping Bactrim, and IV fluids. Continue IV fluids normal saline at 100 mL an hour. Renal ultrasound did not show any acute abnormalities. The patient does have history of dialysis requirement in the past, but there is no need for any renal replacement therapy as of now. She has evidence of metabolic acidosis, both high anion gap and non-gap, likely because of a high output ostomy as well as because of her chronic kidney disease stage 4. We will start her on sodium bicarbonate 1300 mg b.i.d. Blood pressure is currently controlled on current blood pressure medication regimen. [address] [place] [address] CONSULTATION Name: ANGELITA SMITH Room: [address] [facility] IN M.R.#: [id number] Admission: 12/23/17 Attend Phys: Andres Nunez MD Discharge: 12/25/17 Date of : 42 Report #: [id number] Thank you for this consultation and I will continue to follow along with you. <ELECTRONICALLY SIGNED> By: Beckie Galvan MD 12/29/17 1237 1035 [id number] Galvan MD /nt
== END 2017-12-25 14:39 | disposition home or self-care (01) | DRG 682 ==
LOC: M.TBA-ER 11:09 → M.3W 11:09
PROVIDERS: Emergency Medicine Emergency Medical Services; ADMIT Internal Medicine
DX: N17.9 Acute kidney failure, unspecified (principal); G93.40 Encephalopathy, unspecified; R65.11 Systemic inflammatory response syndrome (SIRS) of non-infectious origin with acute organ dysfunction; N39.0 Urinary tract infection, site not specified; K91.2 Postsurgical malabsorption, not elsewhere classified; E87.2 Acidosis; E83.42 Hypomagnesemia; E03.9 Hypothyroidism, unspecified; M19.90 Unspecified osteoarthritis, unspecified site; I12.9 Hypertensive chronic kidney disease with stage 1 through stage 4 chronic kidney disease, or unspecified chronic kidney disease; F32.9 Major depressive disorder, single episode, unspecified; N18.4 Chronic kidney disease, stage 4 (severe); K21.9 Gastro-esophageal reflux disease without esophagitis; Z96.651 Presence of right artificial knee joint; D64.9 Anemia, unspecified; E87.6 Hypokalemia; E86.0 Dehydration; Z98.42 Cataract extraction status, left eye; Z98.41 Cataract extraction status, right eye; Z79.899 Other long term (current) drug therapy; Z93.2 Ileostomy status; Z90.49 Acquired absence of other specified parts of digestive tract; Z87.891 Personal history of nicotine dependence; Z88.8 Allergy status to other drugs, medicaments and biological substances

== ENCOUNTER → 2017-12-30 | Outpatient (CLI) | payer OTHER, SELFPAY ==
[~2017-12-30] MED LIST changes: +LEVOFLOXACIN250 MG PO
[2017-12-30 11:10] VITALS: BP 132/65
[2017-12-30 11:27] LABS: CALCIUM 9.1 mg/dL (8.5-10.1); CREATININE 2.1 mg/dL (0.6-1.3); MAGNESIUM 1.5 mg/dL (1.8-2.4); PHOSPHORUS* 4.1 mg/dL (2.5-4.9); POTASSIUM 4.4 mmol/L (3.5-5.1)
[2017-12-30 14:24] VITALS: BP 124/62
--- NOTE | 2017-12-30 14:30 | NUR ---
ARRIVED AMBULATORY. MADE SELF COMFORTABLE IN RECLINER. PORT A CATH ACCESSED WITH OUT DIFFICULTY. GOOD BRISK BLOOD RETURN NOTED AND FLUSHED WITH EASE. INFUSION COMPLETED AND TOLERATED WELL. PRE AND POST INFUSION LABS DRAWN PER STANDING ORDER. PORT FLUSHED AND LEFT ACCESSED FOR USE LATER IN THE WEEK. DENIES NEEDS AT DISCHARGE.
[2017-12-30 14:45] LABS: CALCIUM 8.1 mg/dL (8.5-10.1); CREATININE 1.8 mg/dL (0.6-1.3); MAGNESIUM 1.8 mg/dL (1.8-2.4); PHOSPHORUS* 2.6 mg/dL (2.5-4.9)
== END ==
LOC: M.INFUS 01:32
PROVIDERS: Family Medicine; Internal Medicine Nephrology
DX: N18.4 Chronic kidney disease, stage 4 (severe) (principal); E87.1 Hypo-osmolality and hyponatremia; E86.0 Dehydration

== ENCOUNTER → 2018-01-01 | Outpatient (CLI) | payer OTHER, SELFPAY ==
[2018-01-01 08:40] VITALS: BP 122/68
[2018-01-01 09:20] LABS: CALCIUM 8.4 mg/dL (8.5-10.1); CREATININE 2.2 mg/dL (0.6-1.3); MAGNESIUM 1.6 mg/dL (1.8-2.4); PHOSPHORUS* 3.9 mg/dL (2.5-4.9); POTASSIUM 3.9 mmol/L (3.5-5.1)
[2018-01-01 12:56] LABS: CALCIUM 7.9 mg/dL (8.5-10.1); CREATININE 1.8 mg/dL (0.6-1.3)
--- NOTE | 2018-01-01 12:59 | NUR ---
ARRIVED AMBULATORY. MADE SELF COMFORTABLE IN RELCINER. PORT ALREADY ACCESSED. PORT PATENT WITH GOOD BRISK BLOOD RETURN AND EASY FLUSH. INFUSION COMPLETED AND TOLERATED WELL. PORT FLUSHED AND DEACCESSED. DENEIS NEEDS AT DISHCARGE.
[2018-01-01 13:00] LABS: MAGNESIUM 1.9 mg/dL (1.8-2.4); PHOSPHORUS* 3.1 mg/dL (2.5-4.9)
== END ==
LOC: M.INFUS 00:43
PROVIDERS: Internal Medicine Nephrology
DX: N18.4 Chronic kidney disease, stage 4 (severe) (principal); E87.1 Hypo-osmolality and hyponatremia; E86.0 Dehydration

== ENCOUNTER → 2018-01-04 | Outpatient (CLI) | payer OTHER, SELFPAY ==
[2018-01-04 09:52] VITALS: BP 1124/60
[2018-01-04 10:16] LABS: CALCIUM 8.4 mg/dL (8.5-10.1); CREATININE 1.9 mg/dL (0.6-1.3); MAGNESIUM 1.7 mg/dL (1.8-2.4); PHOSPHORUS* 3.9 mg/dL (2.5-4.9); POTASSIUM 4.5 mmol/L (3.5-5.1)
--- NOTE | 2018-01-04 13:30 | NUR ---
0900:PT. MADE COMFORTABLE IN RECLINER. 0952:RT CHEST PAC ACCESSED BY Niall GALICIA RN. 1ST ATTEMPT UNSUCCESSFUL BY THIS RN, 2ND ATTEMPT SUCCESSFUL BY Niall GALICIA RN. NS STARTED AT 350ML/HR. 1122:NS + KCL + MG STARTED AT 330ML/HR. PT TOLERATED BAG #1 WELL. 1315:FLUIDS DONE AT 1308. HEPARIN FLUSH GIVEN IV AT 1311 AND PT. LEFT AT THIS TIME IN STABLE CONDITION WITH ANCA.
[2018-01-04 14:03] LABS: CREATININE 1.7 mg/dL (0.6-1.3); MAGNESIUM 1.9 mg/dL (1.8-2.4); PHOSPHORUS* 2.9 mg/dL (2.5-4.9); POTASSIUM 4.8 mmol/L (3.5-5.1)
== END ==
LOC: M.INFUS 01:58
PROVIDERS: Internal Medicine Nephrology
DX: N18.4 Chronic kidney disease, stage 4 (severe) (principal); E87.1 Hypo-osmolality and hyponatremia; E86.0 Dehydration

== ENCOUNTER → 2018-01-06 | Outpatient (CLI) | payer OTHER, SELFPAY ==
[2018-01-06 10:20] VITALS: BP 120/59
== END ==
LOC: M.INFUS 03:08
DX: N18.4 Chronic kidney disease, stage 4 (severe) (principal); E87.1 Hypo-osmolality and hyponatremia; E86.0 Dehydration

== ENCOUNTER → 2018-01-08 | Outpatient (CLI) | payer OTHER, SELFPAY ==
--- NOTE | 2018-01-08 08:55 | NUR ---
PATIENT ARRIVAL AMBULATORY FROM HOME. MADE SELF COMFORTABLE IN RECLINER. CALL LIGHT AND REMOTE GIVEN TO PATIENT. HISTORY AND ORDERS REVIEWED. REASSESSMENT AND VS OBTAINED. RT CHEST PORTACATH ALREADY ACCESSED. DRESSING C/D/I AND SITE WITHOUT REDNESS. BRISK BLOOD RETURN OBTAINED AND PORT FLUSHES WELL. IVF OF NS THEN STARTED PER EMAR AND ORDERS.
[2018-01-08 09:00] VITALS: BP 113/59
[2018-01-08 09:50] LABS: CALCIUM 8.6 mg/dL (8.5-10.1); CREATININE 1.6 mg/dL (0.6-1.3); MAGNESIUM 1.6 mg/dL (1.8-2.4); PHOSPHORUS* 3.9 mg/dL (2.5-4.9); POTASSIUM 4.5 mmol/L (3.5-5.1)
--- NOTE | 2018-01-08 12:25 | NUR ---
INFUSION THERAPY COMPLETED. PATIENT TOLERATES INFUSION WELL. PATIENT DENIES CONCERNS. POST LABS DRAWN ORDERED. PORT THEN FLUSHED WITH NS 20MLS FOLLOWED BY HEPARIN 5MLS OF 100UNIT/ML SOLUTION. PORT THEN DEACCESSED AND BANDAID APPLIED. PATIENT THEN DEPARTS FOR HOME, AMBULATORY, WITH SPOUSE PRESENT WITH CAR.
[2018-01-08 13:47] LABS: CALCIUM 7.9 mg/dL (8.5-10.1); CREATININE 1.5 mg/dL (0.6-1.3); POTASSIUM 4.9 mmol/L (3.5-5.1)
[2018-01-08 13:50] LABS: MAGNESIUM 1.8 mg/dL (1.8-2.4); PHOSPHORUS* 3.5 mg/dL (2.5-4.9)
== END ==
LOC: M.INFUS 01:53
PROVIDERS: Internal Medicine Nephrology
DX: N18.4 Chronic kidney disease, stage 4 (severe) (principal); E87.1 Hypo-osmolality and hyponatremia; E86.0 Dehydration

== ENCOUNTER → 2018-01-11 | Outpatient (CLI) | payer OTHER, SELFPAY ==
[2018-01-11 09:26] LABS: CALCIUM 8.5 mg/dL (8.5-10.1); CREATININE 1.8 mg/dL (0.6-1.3); MAGNESIUM 1.7 mg/dL (1.8-2.4); PHOSPHORUS* 3.5 mg/dL (2.5-4.9); POTASSIUM 4.1 mmol/L (3.5-5.1)
--- NOTE | 2018-01-11 12:24 | NUR ---
ARRIVED AMBULATORY. MADE SELF COMFORTABLE. PORT A CATH ACCESSED WTIH OUT DIFFICULTY. GOOD BRISK BLOOD RETUN AND EASY FLUSH. PRE AND POST LABS DRAWN FROM PORT. INFUSION COMPLETED AND TOLERATED WELL. DENIES NEEDS AT DISCHARGE.
[2018-01-11 12:28] LABS: CALCIUM 7.7 mg/dL (8.5-10.1); CREATININE 1.6 mg/dL (0.6-1.3); MAGNESIUM 1.9 mg/dL (1.8-2.4); PHOSPHORUS* 2.6 mg/dL (2.5-4.9); POTASSIUM 4.6 mmol/L (3.5-5.1)
== END ==
LOC: M.INFUS 00:10
PROVIDERS: Internal Medicine Nephrology
DX: N18.4 Chronic kidney disease, stage 4 (severe) (principal); E87.1 Hypo-osmolality and hyponatremia; E86.0 Dehydration

== ENCOUNTER → 2018-01-13 | Outpatient (CLI) | payer OTHER, SELFPAY ==
[2018-01-13 09:07] VITALS: BP 128/65
--- NOTE | 2018-01-13 14:13 | NUR ---
ARRIVED AMBULATORY. MADE SELF COMFORTABLE. PORT A CATH IS ALREADY ACCESSED FROM USE EARLIER IN THE WEEK. PORT DRESSING C/D/I. PORT PATENT WITH GOOD BRISK BLOOD RETURN AND EASY FLUSH. INFUSION COMPLETED AND TOLERATED WELL. PORT FLUSHED AND LEFT ACCESSED FOR USE LATER IN THE WEEK. DENEIS QUESTION OR NEED AT DISCHARGE.
== END ==
LOC: M.INFUS 04:41
DX: N18.4 Chronic kidney disease, stage 4 (severe) (principal); E87.1 Hypo-osmolality and hyponatremia; E86.0 Dehydration

== ENCOUNTER → 2018-01-15 | Outpatient (CLI) | payer OTHER, SELFPAY ==
[2018-01-15 08:50] VITALS: BP 126/58
[2018-01-15 10:06] LABS: CALCIUM 8.4 mg/dL (8.5-10.1); CREATININE 1.7 mg/dL (0.6-1.3); MAGNESIUM 1.5 mg/dL (1.8-2.4); PHOSPHORUS* 3.4 mg/dL (2.5-4.9)
--- NOTE | 2018-01-15 12:16 | NUR ---
ARRIVED AMBULATROY, MADE SLEF COMFORTABLE IN RECLINER. PORT A CATH ALREADY ACCESSED FROM USE EARLIER IN THE WEEK. PORT PATNET WITH GOOD BLOOD RETURN AND EASY FLUSH. PRE AND POST LABS DRAWN FROM PORT PER ORDER. INFUSION COMPLETED AND TOLERLATED WELL. PORT FLUSHED AND DEACCESSED. DENEIS QUESTIONS OR NEEDS AT DISCHARGE.
[2018-01-15 13:04] LABS: CREATININE 1.5 mg/dL (0.6-1.3); MAGNESIUM 1.8 mg/dL (1.8-2.4); PHOSPHORUS* 3.1 mg/dL (2.5-4.9); POTASSIUM 4.7 mmol/L (3.5-5.1)
== END ==
LOC: M.INFUS 01:46
PROVIDERS: Internal Medicine Nephrology
DX: N18.4 Chronic kidney disease, stage 4 (severe) (principal); E87.1 Hypo-osmolality and hyponatremia; E86.0 Dehydration

== ENCOUNTER → 2018-01-19 | Outpatient (CLI) | payer OTHER, SELFPAY ==
[2018-01-19 09:27] VITALS: BP 115/56
[2018-01-19 10:31] LABS: CALCIUM 8.7 mg/dL (8.5-10.1); CREATININE 1.8 mg/dL (0.6-1.3); MAGNESIUM 1.8 mg/dL (1.8-2.4); PHOSPHORUS* 3.9 mg/dL (2.5-4.9); POTASSIUM 4.7 mmol/L (3.5-5.1)
--- NOTE | 2018-01-19 12:35 | NUR ---
HYDRATION/MEDICATION THERAPY COMPLETED. PATIENT DENIES CONCERNS. POST INFUSION LABS DRAWN. RT CHEST PORTACATH FLUSHED WITH NS 20MLS FOLLOWED BY HEPARIN 5MLS OF 100UNIT/ML SOLUTION. PATIENT THEN DEPARTS FOR HOME WITH SPOUSE PRESENT TO DRIVE HER.
[2018-01-19 13:17] LABS: CALCIUM 8.1 mg/dL (8.5-10.1); CREATININE 1.6 mg/dL (0.6-1.3); MAGNESIUM 1.9 mg/dL (1.8-2.4); PHOSPHORUS* 3.2 mg/dL (2.5-4.9); POTASSIUM 4.9 mmol/L (3.5-5.1)
== END ==
LOC: M.INFUS 02:43
PROVIDERS: Internal Medicine Nephrology
DX: N18.4 Chronic kidney disease, stage 4 (severe) (principal); E87.1 Hypo-osmolality and hyponatremia; E87.6 Hypokalemia

== ENCOUNTER → 2018-01-22 | Outpatient (CLI) | payer OTHER, SELFPAY ==
[2018-01-22 09:00] VITALS: BP 120/61
[2018-01-22 09:48] LABS: CALCIUM 9.1 mg/dL (8.5-10.1); CREATININE 1.9 mg/dL (0.6-1.3); MAGNESIUM 1.7 mg/dL (1.8-2.4); PHOSPHORUS* 4.2 mg/dL (2.5-4.9); POTASSIUM 4.3 mmol/L (3.5-5.1)
[2018-01-22 13:00] LABS: CALCIUM 8.3 mg/dL (8.5-10.1); CREATININE 1.6 mg/dL (0.6-1.3); MAGNESIUM 1.9 mg/dL (1.8-2.4); PHOSPHORUS* 3.4 mg/dL (2.5-4.9); POTASSIUM 4.8 mmol/L (3.5-5.1)
--- NOTE | 2018-01-22 13:49 | NUR ---
ARRIVED AMBULATORY. MADE SELF COMFORTABLE IN RECLINER. PORT A CATH TO RIGHT CHEST ALREADY ACCESSED FROM USE EARLIER THIS WEEK. PORT PATNET WITH GOOD BLOOD RETURN AND EASY FLUSH. INFUSION COMPLETED AND TOLERATED WELL. PORT DEACCESSED. DENIES NEEDS OR QUESTIONS AT DISCHARGE.
== END ==
LOC: M.INFUS 01:33
PROVIDERS: Internal Medicine Nephrology
DX: N18.4 Chronic kidney disease, stage 4 (severe) (principal); E87.1 Hypo-osmolality and hyponatremia; E86.0 Dehydration

== ENCOUNTER → 2018-01-27 | Outpatient (CLI) | payer OTHER, SELFPAY ==
[2018-01-27 09:35] VITALS: BP 120/61
--- NOTE | 2018-01-27 09:50 | NUR ---
Pt arrived at 0910 and ambulated into infusion department and seated self in recliner. Pt had missed apt on thursday so will have lab drawn today and Thursday for her 2x a week lab draws. Pt's port was accessed with out difficulty at 0932 brisk blood return and lab of bmp, mag,& phos were drawn and sent to lab. Line flused easily and pt tolerated access well. 0944 500ml NS hung at 350ml/ hr. Pt does not want to order lunch tray as of now. Reviewed meds and medical history with no changes or updates needed. Port was accessed on right chest with 20g 3/4in bent needle.
[2018-01-27 10:26] LABS: CALCIUM 8.8 mg/dL (8.5-10.1); CREATININE 1.9 mg/dL (0.6-1.3); MAGNESIUM 1.6 mg/dL (1.8-2.4); PHOSPHORUS* 3.9 mg/dL (2.5-4.9); POTASSIUM 4.8 mmol/L (3.5-5.1)
[2018-01-27 13:05] VITALS: BP 118/62
--- NOTE | 2018-01-27 13:49 | NUR ---
INFUSION COMPLETED AND TOLERATED WELL. POST LABS DRAWN PER STANDING ORDER. PORT A CATH FLUSHED AND LEFT ACCESSED. DENIES NEEDS OR QUESTIONS AT DISCHARGE.
[2018-01-27 13:59] LABS: CALCIUM 8.2 mg/dL (8.5-10.1); CREATININE 1.7 mg/dL (0.6-1.3); MAGNESIUM 1.8 mg/dL (1.8-2.4); PHOSPHORUS* 3.3 mg/dL (2.5-4.9)
[2018-01-27 14:00] LABS: POTASSIUM 5.2 mmol/L (3.5-5.1)
== END ==
LOC: M.INFUS 06:06
PROVIDERS: Internal Medicine Nephrology
DX: N18.4 Chronic kidney disease, stage 4 (severe) (principal); E87.1 Hypo-osmolality and hyponatremia; E86.0 Dehydration

== ENCOUNTER → 2018-01-29 | Outpatient (CLI) | payer OTHER, SELFPAY ==
[2018-01-29 09:00] VITALS: BP 122/74
[2018-01-29 09:52] LABS: ABSOLUTE BASOPHILS 0.1 thou/uL (0.0-0.2); ABSOLUTE EOSINOPHILS 0.2 thou/uL (0.0-0.7); ABSOLUTE LYMPHOCYTES 1.5 thou/uL (0.8-5.3); ABSOLUTE MONOCYTES 0.3 thou/uL (0.0-1.2); ABSOLUTE NEUTROPHILS 3.3 thou/uL (1.6-8.1); EOSINOPHILS 3.8 %; HEMATOCRIT 34.3 % (37.0-47.0); LYMPHOCYTES 27.3 %; MCH 29.2 pg (26.0-34.0); MCHC 32.1 g/dL (28.0-37.0); MONOCYTES 6.4 %; MPV 7.7 fl. (7.2-11.1); NUCLEATED RBCS 0 /100WBC; PLATELET COUNT* 247 thou/uL (150-400); POLYS 61.5 %; RBC 3.77 mil/uL (4.20-5.00); RDW-CV 15.5 % (10.5-14.5); WBC 5.3 thou/uL (4.0-11.0)
[2018-01-29 10:17] LABS: CALCIUM 8.7 mg/dL (8.5-10.1); CREATININE 1.7 mg/dL (0.6-1.3); MAGNESIUM 1.6 mg/dL (1.8-2.4); PHOSPHORUS* 3.4 mg/dL (2.5-4.9); POTASSIUM 4.2 mmol/L (3.5-5.1); TOTAL BILIRUBIN 0.3 mg/dL (<0.1-1.0); TOTAL PROTEIN 6.7 g/dL (6.4-8.2)
[2018-01-29 11:11] LABS: ESR (SEDRATE) 25 mm/hr (0-30)
[2018-01-29 12:12] VITALS: BP 110/74
--- NOTE | 2018-01-29 12:24 | NUR ---
ARRIVED AMBULATORY. MADE SELF COMFORTABLE IN RECLINER. PORT A CATH ALEARDY ACCESSED. DIFFICULT FLUSH AND NO BLOOD RETURN. PORT DEACCESSED AND REACCESSED. GOOD BLOOD RETURN NOTED AND FLUSHED WITH EASE. LABS DRAWN PER STANDING ORDER AND EXTRA LABS FROM DR. FREEDMAN. INFUSION COMPLETED AND TOELRATED WELL. PORT DEACCESSED FOR WEEKEND. DENIES NEEDS AT DISCHARGE.
== END ==
LOC: M.INFUS 01:38
PROVIDERS: Internal Medicine Gastroenterology
DX: N18.4 Chronic kidney disease, stage 4 (severe) (principal); E87.1 Hypo-osmolality and hyponatremia; E86.0 Dehydration

== ENCOUNTER → 2018-02-03 | Outpatient (CLI) | payer OTHER ==
[2018-02-03 08:55] VITALS: BP 128/70
[2018-02-03 10:18] LABS: CALCIUM 9.1 mg/dL (8.5-10.1); CREATININE 2.1 mg/dL (0.6-1.3); MAGNESIUM 1.6 mg/dL (1.8-2.4); PHOSPHORUS* 3.8 mg/dL (2.5-4.9); POTASSIUM 4.2 mmol/L (3.5-5.1)
[2018-02-03 13:02] VITALS: BP 112/57
--- NOTE | 2018-02-03 13:08 | NUR ---
ARRIVED AMBULATORY. PORT A CATH ACCESSED WITH OUT DIFFICULTY. GOOD BLOOD RETURN AND EASY FLUSH. INFUSION COMPLETED AND TOLERATED WELL. PORT FLUSHED AND LEFT ACCESSED FOR USE LATER IN THE WEEK.
[2018-02-03 13:31] LABS: CALCIUM 8.2 mg/dL (8.5-10.1); CREATININE 1.9 mg/dL (0.6-1.3); MAGNESIUM 1.9 mg/dL (1.8-2.4); PHOSPHORUS* 2.9 mg/dL (2.5-4.9); POTASSIUM 4.4 mmol/L (3.5-5.1)
== END ==
LOC: M.INFUS 06:02
PROVIDERS: Internal Medicine Nephrology
DX: N18.4 Chronic kidney disease, stage 4 (severe) (principal); E87.1 Hypo-osmolality and hyponatremia; E86.0 Dehydration

== ENCOUNTER → 2018-02-05 | Outpatient (CLI) | payer OTHER ==
[2018-02-05 08:45] VITALS: BP 128/69
--- NOTE | 2018-02-05 09:00 | NUR ---
0840 Pt arrived to pre-op area for infusion. Ambulated to our area & seated self in recliner. Reviewed meds and medical history with no updates needed. Pt does not want to order lunch today but did bring her own bkfst. Port-a-cath is already accessed from Wednesdays infusion. Flushed easily and brisk blood return was noted. Lab draw obtained for pre-infusion bmp, mg, & phos @ 0848. Pt NS 500ml infusion started at 0854.
[2018-02-05 09:35] LABS: CALCIUM 9.1 mg/dL (8.5-10.1); CREATININE 1.9 mg/dL (0.6-1.3); MAGNESIUM 1.8 mg/dL (1.8-2.4); PHOSPHORUS* 3.5 mg/dL (2.5-4.9); POTASSIUM 4.9 mmol/L (3.5-5.1)
--- NOTE | 2018-02-05 12:10 | NUR ---
COMPLETED INFUSION WITHOUT DIFFICULTY. UP AD KRANTHI TO BATHROOM, GAIT STEADY. POST HYDRATION LABS OBTAINED. RIGHT CHEST PORT FLUSHED, LABS OBTAINED. FLUSHED PER PROTOCOL AND DE ACCESSED, BAND AID APPLIED. DISMISSED HOME IN GOOD CONDITION.
[2018-02-05 12:21] LABS: CALCIUM 8.5 mg/dL (8.5-10.1); CREATININE 1.7 mg/dL (0.6-1.3)
[2018-02-05 12:25] LABS: PHOSPHORUS* 2.8 mg/dL (2.5-4.9)
== END ==
LOC: M.INFUS 02:07
PROVIDERS: Internal Medicine Nephrology
DX: N18.4 Chronic kidney disease, stage 4 (severe) (principal); E87.1 Hypo-osmolality and hyponatremia; E86.0 Dehydration

== ENCOUNTER → 2018-02-08 | Outpatient (CLI) | payer OTHER ==
[2018-02-08 09:48] VITALS: BP 119/60
[2018-02-08 11:27] LABS: CALCIUM 8.6 mg/dL (8.5-10.1); CREATININE 1.9 mg/dL (0.6-1.3); MAGNESIUM 1.7 mg/dL (1.8-2.4); PHOSPHORUS* 3.4 mg/dL (2.5-4.9); POTASSIUM 4.6 mmol/L (3.5-5.1)
[2018-02-08 13:18] VITALS: BP 122/64
[2018-02-08 15:40] LABS: CALCIUM 8.2 mg/dL (8.5-10.1); CREATININE 1.7 mg/dL (0.6-1.3); MAGNESIUM 1.9 mg/dL (1.8-2.4); POTASSIUM 4.6 mmol/L (3.5-5.1)
--- NOTE | 2018-02-08 15:42 | NUR ---
ARRIVED AMBULATORY. MADE SELF COMFORTABLE. PORT A CATH ACCESSED WITH EASE. GOOD BRISK BLOOD RETURN AND EASY FLUSH. INFUSION COMPLETED AND TOLERATED WELL. DENIES NEEDS OR QUESTIONS AT DISCHARGE.
== END ==
LOC: M.INFUS 01:21
PROVIDERS: Internal Medicine Nephrology
DX: N18.4 Chronic kidney disease, stage 4 (severe) (principal); E87.1 Hypo-osmolality and hyponatremia; E86.0 Dehydration

== ENCOUNTER → 2018-02-10 | Outpatient (CLI) | payer OTHER ==
[2018-02-10 08:56] VITALS: BP 141/58
--- NOTE | 2018-02-10 15:15 | NUR ---
ARRIVED AMBULATRY. PORT A CATH ALREADY ACCESSED FROM EARLIER IN THE WEEK. INFUSION COMPLETED AND TOLERATED WELL. PORT FLUSHED AND LEFT ACCESSED. DENIES NEEDS AT DISCHARGE.
== END ==
LOC: M.INFUS 01:54
DX: N18.4 Chronic kidney disease, stage 4 (severe) (principal); E87.1 Hypo-osmolality and hyponatremia; E86.0 Dehydration

== ENCOUNTER → 2018-02-12 | Outpatient (CLI) | payer OTHER ==
[2018-02-12 08:50] VITALS: BP 120/61
[2018-02-12 09:39] LABS: CALCIUM 8.9 mg/dL (8.5-10.1); MAGNESIUM 1.6 mg/dL (1.8-2.4); PHOSPHORUS* 3.8 mg/dL (2.5-4.9); POTASSIUM 4.2 mmol/L (3.5-5.1)
[2018-02-12 13:28] LABS: CALCIUM 8.3 mg/dL (8.5-10.1); CREATININE 1.7 mg/dL (0.6-1.3); MAGNESIUM 1.9 mg/dL (1.8-2.4); PHOSPHORUS* 2.9 mg/dL (2.5-4.9); POTASSIUM 4.8 mmol/L (3.5-5.1)
== END ==
LOC: M.INFUS 00:34
PROVIDERS: Internal Medicine Nephrology
DX: N18.4 Chronic kidney disease, stage 4 (severe) (principal); E87.1 Hypo-osmolality and hyponatremia; E86.0 Dehydration

== ENCOUNTER → 2018-02-15 | Outpatient (CLI) | payer OTHER ==
[2018-02-15 09:30] VITALS: BP 131/69
[2018-02-15 10:34] LABS: CALCIUM 8.6 mg/dL (8.5-10.1); CREATININE 1.8 mg/dL (0.6-1.3); MAGNESIUM 1.6 mg/dL (1.8-2.4); PHOSPHORUS* 3.9 mg/dL (2.5-4.9); POTASSIUM 4.4 mmol/L (3.5-5.1)
[2018-02-15 11:40] VITALS: BP 122/71
--- NOTE | 2018-02-15 12:41 | NUR ---
ARRIVED AMBULATORY. MADE SELF COMFORTABLE IN RECLINER. PORT A CATH ACCESSED WITH OUT DIFFICULTY. GOOD BRISK BLOOD RETURN NOTED AND FLUSHED WITH EASE. INFUSION COMPLETED AND TOLERATED WELL. PORT FLUSHED WITH 20ML NACL. PT HAS SCHEDULED EGD IN [facility] AT 2PM TODAY. THEY WILL HEP LOCK WHEN PROCEDURE FINISHED. ISAI NEEDS AT DSICHARGE.
== END ==
LOC: M.INFUS 02:10
PROVIDERS: Internal Medicine Nephrology
DX: N18.4 Chronic kidney disease, stage 4 (severe) (principal); E87.1 Hypo-osmolality and hyponatremia; E86.0 Dehydration

== ENCOUNTER → 2018-02-19 | Outpatient (CLI) | payer OTHER ==
[2018-02-19 09:20] VITALS: BP 134/64
[2018-02-19 09:44] LABS: CALCIUM 8.7 mg/dL (8.5-10.1); CREATININE 1.7 mg/dL (0.6-1.3); MAGNESIUM 1.5 mg/dL (1.8-2.4); PHOSPHORUS* 3.4 mg/dL (2.5-4.9); POTASSIUM 4.3 mmol/L (3.5-5.1)
--- NOTE | 2018-02-19 12:56 | NUR ---
PT'S INFUSION PROCEEDED NORMAL. NO CHANGES, NO COMPLICATIONS.
[2018-02-19 13:41] LABS: CREATININE 1.6 mg/dL (0.6-1.3); MAGNESIUM 1.7 mg/dL (1.8-2.4); PHOSPHORUS* 2.9 mg/dL (2.5-4.9); POTASSIUM 4.2 mmol/L (3.5-5.1)
== END ==
LOC: M.INFUS 01:31
PROVIDERS: Internal Medicine Nephrology
DX: N18.4 Chronic kidney disease, stage 4 (severe) (principal); E87.1 Hypo-osmolality and hyponatremia; E86.0 Dehydration

== ENCOUNTER → 2018-02-22 | Outpatient (CLI) | payer OTHER ==
[2018-02-22 09:13] VITALS: BP 95/55
[2018-02-22 10:04] LABS: CALCIUM 8.9 mg/dL (8.5-10.1); MAGNESIUM 1.6 mg/dL (1.8-2.4); PHOSPHORUS* 3.5 mg/dL (2.5-4.9)
[2018-02-22 13:46] LABS: CALCIUM 8.4 mg/dL (8.5-10.1); CREATININE 1.8 mg/dL (0.6-1.3); MAGNESIUM 1.9 mg/dL (1.8-2.4); PHOSPHORUS* 3.4 mg/dL (2.5-4.9); POTASSIUM 4.5 mmol/L (3.5-5.1)
== END ==
LOC: M.INFUS 01:40
PROVIDERS: Internal Medicine Nephrology
DX: N18.4 Chronic kidney disease, stage 4 (severe) (principal); E87.1 Hypo-osmolality and hyponatremia; E86.0 Dehydration

== ENCOUNTER → 2018-02-24 | Outpatient (CLI) | payer OTHER ==
[2018-02-24 09:14] VITALS: BP 113/73
[2018-02-24 10:12] LABS: CREATININE 1.8 mg/dL (0.6-1.3); MAGNESIUM 1.7 mg/dL (1.8-2.4); PHOSPHORUS* 3.6 mg/dL (2.5-4.9); POTASSIUM 4.2 mmol/L (3.5-5.1)
[2018-02-24 12:50] VITALS: BP 140/71
--- NOTE | 2018-02-24 13:05 | NUR ---
Pt's infusion completed at 1250. Lab drawn from port-a-cath then flushed with 20ml NS and 5cc heprin flush. Pt left accessed bc she will be returning on Thursday for next infusion. Did note a little sluggish on the line to flush then patient pressed down on Port access and flushed and rashaun blood easily at that moment. Pt ambulated out for home discharge at 1305.
[2018-02-24 14:32] LABS: CALCIUM 8.1 mg/dL (8.5-10.1); CREATININE 1.6 mg/dL (0.6-1.3); MAGNESIUM 1.9 mg/dL (1.8-2.4); PHOSPHORUS* 2.4 mg/dL (2.5-4.9); POTASSIUM 4.2 mmol/L (3.5-5.1)
== END ==
LOC: M.INFUS 02:40
PROVIDERS: Internal Medicine Nephrology
DX: N18.4 Chronic kidney disease, stage 4 (severe) (principal); E87.1 Hypo-osmolality and hyponatremia

== ENCOUNTER → 2018-02-26 | Outpatient (CLI) | payer OTHER ==
[2018-02-26 09:15] VITALS: BP 108/60
--- NOTE | 2018-02-26 12:50 | NUR ---
0900:PT. ARRIVED AMBULATORY TO INFUSION TODAY, MADE COMFORTABLE IN RECLINER. RT. CHEST PAC WAS ACCESSED Thursday02/22/18-MARIAM. INTACT. 0922:PAC FLUSHED WITH NS, FLUSHED EASILY WITH BRISK BLOOD RETURN UPON ASPIRATION. LABS DRAWN FOR PRE-INFUSION. NS STARTED AT 350ML/HR. 1244: BAG #2 DONE AT 1235 (SEE EMAR)--PT. TOLERATED INFUSION WELL TODAY. LABS DRAWN FOR POST INFUSION, THEN PAC FLUSHED WITH 20ML NS AND THEN 5ML OF HEPARIN FLUSH (100 UNITS/ML). PAC THEN DEACCESSED BY THIS RN WITHOUT DIFFICULTY. PT. TOLERATED WELL. BANDAID APPLIED TO RT. CHEST PAC AREA. 1250:PT. LEFT IN STABLE CONDITION WITH ALL BELONGINGS. WILL MONITOR POST LABS AND FAX BOTH TO DR. TONY'S OFFICE LATER TODAY.
[2018-02-26 14:06] LABS: CALCIUM 8.4 mg/dL (8.5-10.1); CREATININE 1.6 mg/dL (0.6-1.3); PHOSPHORUS* 3.2 mg/dL (2.5-4.9); POTASSIUM 4.9 mmol/L (3.5-5.1)
[2018-02-26 17:43] LABS: MAGNESIUM 1.7 mg/dL (1.8-2.4); PHOSPHORUS* 3.9 mg/dL (2.5-4.9); POTASSIUM 4.3 mmol/L (3.5-5.1)
== END ==
LOC: M.INFUS 03:00
PROVIDERS: Internal Medicine Nephrology
DX: N18.4 Chronic kidney disease, stage 4 (severe) (principal); E87.1 Hypo-osmolality and hyponatremia

== ENCOUNTER → 2018-03-03 | Outpatient (CLI) | payer OTHER ==
[2018-03-03 08:48] VITALS: BP 123/63
[2018-03-03 09:36] LABS: CALCIUM 8.8 mg/dL (8.5-10.1); CREATININE 2.4 mg/dL (0.6-1.3); MAGNESIUM 1.7 mg/dL (1.8-2.4); PHOSPHORUS* 4.1 mg/dL (2.5-4.9); POTASSIUM 4.6 mmol/L (3.5-5.1)
[2018-03-03 12:30] VITALS: BP 118/67
--- NOTE | 2018-03-03 14:26 | NUR ---
ARRIVED AMBULATORY. MADE SELF COMFORTABLE. PORT A CATH ACCESSED WITH OUT DIFFICULTY. GOOD BRISK BLOOD RETURN AND FLUSHES WITH EASE. INFUSION COMPLETED AND TOLERATED WELL. PORT FLUSHED AND LEFT ACCESSED.
[2018-03-03 14:37] LABS: CALCIUM 8.3 mg/dL (8.5-10.1); CREATININE 2.2 mg/dL (0.6-1.3); PHOSPHORUS* 3.3 mg/dL (2.5-4.9); POTASSIUM 4.9 mmol/L (3.5-5.1)
== END ==
LOC: M.INFUS 02:10
PROVIDERS: Internal Medicine Nephrology
DX: N18.4 Chronic kidney disease, stage 4 (severe) (principal); E87.1 Hypo-osmolality and hyponatremia; E86.0 Dehydration

== ENCOUNTER → 2018-03-05 | Outpatient (CLI) | payer OTHER ==
[2018-03-05 09:18] VITALS: BP 117/62
[2018-03-05 09:27] LABS: CALCIUM 8.7 mg/dL (8.5-10.1); CREATININE 2.2 mg/dL (0.6-1.3); MAGNESIUM 1.9 mg/dL (1.8-2.4); PHOSPHORUS* 4.3 mg/dL (2.5-4.9); POTASSIUM 4.5 mmol/L (3.5-5.1)
[2018-03-05 12:27] VITALS: BP 122/60
[2018-03-05 12:56] LABS: CALCIUM 7.9 mg/dL (8.5-10.1); CREATININE 1.9 mg/dL (0.6-1.3); MAGNESIUM 2.1 mg/dL (1.8-2.4); PHOSPHORUS* 3.3 mg/dL (2.5-4.9); POTASSIUM 4.6 mmol/L (3.5-5.1)
== END ==
LOC: M.INFUS 01:36
PROVIDERS: Internal Medicine Nephrology
DX: N18.4 Chronic kidney disease, stage 4 (severe) (principal); E87.1 Hypo-osmolality and hyponatremia; E86.0 Dehydration

== ENCOUNTER → 2018-03-08 | Outpatient (CLI) | payer OTHER ==
[2018-03-08 09:15] VITALS: BP 112/60
[2018-03-08 10:46] LABS: CREATININE 2.2 mg/dL (0.6-1.3); MAGNESIUM 1.7 mg/dL (1.8-2.4); PHOSPHORUS* 3.6 mg/dL (2.5-4.9); POTASSIUM 4.3 mmol/L (3.5-5.1)
[2018-03-08 13:02] VITALS: BP 118/74
--- NOTE | 2018-03-08 13:24 | NUR ---
ARRIVED AMBULATORY. MADE SELF COMFORTABLE IN RECLINER. PORT A CATH ACCESSED WITH OUT DIFFICULTY. GOOD BRISK BLOOD RETURN NOTED AND FLUSHED WITH EASE. INFUSION COMPLETED AND TOLERATED WELL. PORT FLUSHED AND LEFT ACCESSED. DENEIS NEEDS AT DISCHARGE.
[2018-03-08 13:56] LABS: MAGNESIUM 1.9 mg/dL (1.8-2.4); PHOSPHORUS* 2.7 mg/dL (2.5-4.9); POTASSIUM 4.4 mmol/L (3.5-5.1)
== END ==
LOC: M.INFUS 00:08
PROVIDERS: Internal Medicine Nephrology
DX: N18.4 Chronic kidney disease, stage 4 (severe) (principal); E87.1 Hypo-osmolality and hyponatremia

== ENCOUNTER → 2018-03-10 | Outpatient (CLI) | payer OTHER ==
[2018-03-10 08:35] VITALS: BP 119/58
[2018-03-10 11:04] VITALS: BP 124/62
--- NOTE | 2018-03-10 12:25 | NUR ---
ARRIVED AMBULATORY. MADE SELF COMFORTABLE. PORT A CATH ALREADY ACCESSED. PORT PATENT WITH NO SIGN OF INFECTION. PT STATES SHE MUST LEAVE BY 1100 TO TAKE DAUGHTER TO THE DOCTOR. INFUSION STARTED AND RUN UNTIL 1100. PER PT REQUEST INFUSION STOPPED AND PORT FLUSHED AND LEFT ACCESSED FOR LATER USE.
== END ==
LOC: M.INFUS 05:56
DX: N18.4 Chronic kidney disease, stage 4 (severe) (principal); E87.1 Hypo-osmolality and hyponatremia; E86.0 Dehydration

== ENCOUNTER → 2018-03-12 | Outpatient (CLI) | payer OTHER ==
[2018-03-12 08:50] VITALS: BP 112/65
[2018-03-12 09:39] LABS: CALCIUM 8.6 mg/dL (8.5-10.1); MAGNESIUM 1.7 mg/dL (1.8-2.4); PHOSPHORUS* 3.4 mg/dL (2.5-4.9); POTASSIUM 4.2 mmol/L (3.5-5.1)
[2018-03-12 12:20] VITALS: BP 118/66
[2018-03-12 12:52] LABS: CALCIUM 8.1 mg/dL (8.5-10.1); CREATININE 1.7 mg/dL (0.6-1.3); POTASSIUM 4.7 mmol/L (3.5-5.1)
--- NOTE | 2018-03-12 13:33 | NUR ---
ARRIVED AMBULATORY. MADE SELF COMFORTABLE IN RECLINER. PORT A CATH ALREADY ACCESSED. PORT PATENT. INFUSION COMPLETED AND TOLERATED WELL. PORT FLUSHED AND DEACCESSED.
== END ==
LOC: M.INFUS 01:29
PROVIDERS: Internal Medicine Nephrology
DX: N18.4 Chronic kidney disease, stage 4 (severe) (principal); E87.1 Hypo-osmolality and hyponatremia; E86.0 Dehydration

== ENCOUNTER → 2018-03-15 | Outpatient (CLI) | payer OTHER ==
--- NOTE | 2018-03-15 09:20 | NUR ---
PATIENT ARRIVAL AMBULATORY FROM HOME TO OP INFUSION AREA. MADE SELF COMFORTABLE IN RECLINER. CALL LIGHT AND REMOTE WITHIN REACH. RT CHEST PORTACATH ACCESSED. SITE WITHOUT REDNESS OR SWELLING. BRISK BLOOD RETURN OBTAINED FROM BASILIO AND PORT FLUSHES WELL WITH PRE-INFUSION LAB DRAW.
[2018-03-15 09:23] VITALS: BP 126/59
[2018-03-15 11:15] LABS: CALCIUM 8.5 mg/dL (8.5-10.1); CREATININE 1.8 mg/dL (0.6-1.3); MAGNESIUM 1.6 mg/dL (1.8-2.4); PHOSPHORUS* 3.2 mg/dL (2.5-4.9); POTASSIUM 4.6 mmol/L (3.5-5.1)
--- NOTE | 2018-03-15 13:00 | NUR ---
INFUSION COMPLETED WITHOUT DIFFICULTIES. PATIENT TOLERATES WELL. DENIES CONCERNS. POST INFUSION LABS DRAWN. RT CHEST PORTACATH FLUSHED WITH NS 20MLS FOLLOWED BY HEPARIN 5MLS OF 100UNIT/ML SOLUTION. PORT THEN LEFT ACCESSED FOR INFUSION ON THURSDAY. PORT DRESSING REMAINS C/D/I. PATIENT DEPARTS FOR HOME WITH SPOUSE AT 1310.
[2018-03-15 13:27] LABS: CALCIUM 7.9 mg/dL (8.5-10.1); CREATININE 1.6 mg/dL (0.6-1.3); MAGNESIUM 1.8 mg/dL (1.8-2.4); PHOSPHORUS* 2.8 mg/dL (2.5-4.9); POTASSIUM 4.9 mmol/L (3.5-5.1)
== END ==
LOC: M.INFUS 00:06
PROVIDERS: Internal Medicine Nephrology
DX: N18.4 Chronic kidney disease, stage 4 (severe) (principal); E87.1 Hypo-osmolality and hyponatremia; E86.0 Dehydration

== ENCOUNTER → 2018-03-16 | Outpatient (CLI) | payer OTHER ==
[2018-03-16 09:05] VITALS: BP 112/60
[2018-03-16 13:05] VITALS: BP 118/62
--- NOTE | 2018-03-16 13:58 | NUR ---
INFUSION COMPLETED AND TOELRATED WELL. PORT FLUSHED AND LEFT ACCESSED FOR USE LATER IN THE WEEK. DENEIS NEEDS AT DISCHARGE.
== END ==
LOC: M.INFUS 03:51
DX: N18.4 Chronic kidney disease, stage 4 (severe) (principal); E87.1 Hypo-osmolality and hyponatremia; E86.0 Dehydration

== ENCOUNTER → 2018-03-19 | Outpatient (CLI) | payer OTHER ==
--- NOTE | 2018-03-19 09:30 | NUR ---
ARRIVED AMBULATORY. MADE SELF COMFORTABLE. SINGLE LUMEN PORT-A-CATH TO RIGHT CHEST INTACT W/DRESSING C/D/I AND PATENT W/EASY FLUSH AND GOOD BLOOD RETURN. PRE AND POST LABS DRAWN FROM PORT. PT HAD EXTRA LABS THIS WEEK FROM THE [facility] TO BE DRAWN-CBC W/DIFF AND IRON AND FERRITIN. INFUSION COMPLETED AND TOLERATED WELL. DENIES NEEDS AT DISCHARGE. SINGLE LUMEN PORT-A-CATH TO RIGHT CHEST FLUSHED W/20 ML NORMAL SALINE AND 5 ML HEPARIN FLUSH BEFORE DEACCESSING. PT DEACCESSED AND BANDAID APPLIED OVER RIGHT CHEST PORT-A-CATH ACCESS SITE.
[2018-03-19 09:35] VITALS: BP 125/64
[2018-03-19 09:56] LABS: CALCIUM 8.9 mg/dL (8.5-10.1); CREATININE 1.9 mg/dL (0.6-1.3); POTASSIUM 4.7 mmol/L (3.5-5.1)
[2018-03-19 09:59] LABS: MAGNESIUM 1.7 mg/dL (1.8-2.4); PHOSPHORUS* 4.1 mg/dL (2.5-4.9)
[2018-03-19 10:01] LABS: ABSOLUTE EOSINOPHILS 0.3 thou/uL (0.0-0.7); ABSOLUTE LYMPHOCYTES 2.2 thou/uL (0.8-5.3); ABSOLUTE MONOCYTES 0.6 thou/uL (0.0-1.2); ABSOLUTE NEUTROPHILS 4.3 thou/uL (1.6-8.1); BASOPHILS 0.6 %; HEMATOCRIT 33.4 % (37.0-47.0); HEMOGLOBIN 10.7 gm/dL (12.0-15.0); LYMPHOCYTES 29.8 %; MCH 27.9 pg (26.0-34.0); MCHC 32.1 g/dL (28.0-37.0); MCV 86.8 fL (80.0-100.0); MONOCYTES 7.7 %; MPV 7.8 fl. (7.2-11.1); NUCLEATED RBCS 0 /100WBC; PLATELET COUNT* 296 thou/uL (150-400); POLYS 57.9 %; RBC 3.85 mil/uL (4.20-5.00); RDW-CV 16.1 % (10.5-14.5); WBC 7.4 thou/uL (4.0-11.0)
[2018-03-19 10:23] LABS: % SATURATION 8 % (20-39); IRON 31 ug/dL (50-175)
[2018-03-19 13:29] LABS: CALCIUM 8.2 mg/dL (8.5-10.1); CREATININE 1.7 mg/dL (0.6-1.3); POTASSIUM 4.6 mmol/L (3.5-5.1)
[2018-03-19 13:32] LABS: MAGNESIUM 1.8 mg/dL (1.8-2.4); PHOSPHORUS* 2.9 mg/dL (2.5-4.9)
== END ==
LOC: M.INFUS 01:17
PROVIDERS: Internal Medicine Nephrology
DX: D50.8 Other iron deficiency anemias (principal); N18.4 Chronic kidney disease, stage 4 (severe); E87.1 Hypo-osmolality and hyponatremia; E86.0 Dehydration

== ENCOUNTER → 2018-03-22 | Outpatient (CLI) | payer OTHER ==
--- NOTE | 2018-03-22 09:00 | NUR ---
PATIENT ARRIVAL FROM HOME TO OP INFUSION AREA. MADE SELF COMFORTABLE IN RECLINER. HISTORY AND ORDERS REVIEWED. REASSESSMENT AND VS OBTAINED. CALL LIGHT AND REMOTE WITHIN REACH. RT CHEST PORT ACCESSED UNDER STERILE TECHNIQUE. BRISK BLOOD RETURN OBTAINED FROM PORT WITH PRE INFUSION LAB DRAWS. PORT FLUSHES EASILY. NO REDNESS OR SWELLING AT SITE OF PORT. NS IVF FLUID STARTED PER MAR. PATIENT DENIES CONCERNS.
[2018-03-22 09:05] VITALS: BP 128/66
[2018-03-22 10:22] LABS: CALCIUM 8.6 mg/dL (8.5-10.1); MAGNESIUM 1.8 mg/dL (1.8-2.4); PHOSPHORUS* 3.6 mg/dL (2.5-4.9); POTASSIUM 4.4 mmol/L (3.5-5.1)
--- NOTE | 2018-03-22 12:41 | NUR ---
MEDICATION INFUSION COMPLETED NOW. PATIENT DENIES CONCERNS. VS REMAIN STABLE. POST INFUSION LABS DRAWN ORDERED FROM RT CHEST PORT. PORT FLUSHED WITH NS 20MLS FOLLOWED BY HEPARIN 5MLS OF 100UNIT/ML SOLUTION. PORT LEFT ACCESSED FOR INFUSION AGAIN ON THURSDAY. PATIENT THEN DEPARTS FOR HOME AT 1247.
[2018-03-22 12:43] VITALS: BP 130/61
[2018-03-22 15:37] LABS: CALCIUM 8.2 mg/dL (8.5-10.1); CREATININE 1.8 mg/dL (0.6-1.3); PHOSPHORUS* 3.2 mg/dL (2.5-4.9); POTASSIUM 4.9 mmol/L (3.5-5.1)
--- NOTE | 2018-03-22 15:45 | NUR ---
LAB RESULTS FAXED TO DR. TONY'S OFFICE.
== END ==
LOC: M.INFUS 01:32
PROVIDERS: Internal Medicine Nephrology
DX: D50.8 Other iron deficiency anemias (principal); N18.4 Chronic kidney disease, stage 4 (severe); E87.1 Hypo-osmolality and hyponatremia; E86.0 Dehydration

== ENCOUNTER → 2018-03-24 | Outpatient (CLI) | payer OTHER ==
[2018-03-24 09:15] VITALS: BP 128/70
[2018-03-24 12:44] VITALS: BP 118/70
--- NOTE | 2018-03-24 15:07 | NUR ---
INFUSION COMPLETED AND TOLERATED WELL.
== END ==
LOC: M.INFUS 03:32
DX: N18.4 Chronic kidney disease, stage 4 (severe) (principal); D50.8 Other iron deficiency anemias; E87.1 Hypo-osmolality and hyponatremia; E86.0 Dehydration

== ENCOUNTER → 2018-03-26 | Outpatient (CLI) | payer OTHER ==
[2018-03-26 09:03] VITALS: BP 130/62
[2018-03-26 09:46] LABS: CALCIUM 8.4 mg/dL (8.5-10.1); MAGNESIUM 1.6 mg/dL (1.8-2.4); PHOSPHORUS* 3.1 mg/dL (2.5-4.9); POTASSIUM 4.7 mmol/L (3.5-5.1)
[2018-03-26 12:20] VITALS: BP 122/68
--- NOTE | 2018-03-26 12:28 | NUR ---
ARRIVED AMBULATORY. MADE SELF COMFORTABLE IN RECLINER. PORT PATENT WITH GOOD BLOOD RETURN AND EASY FLUSH. INFUSION COMPLETED PER ORDER WITH PRE AND POST LAB PER ORDER. PORT FLUSHED AT END AND DEACCESSED. BANDAID APPLIED
[2018-03-26 13:04] LABS: CALCIUM 7.4 mg/dL (8.5-10.1); CREATININE 1.8 mg/dL (0.6-1.3); MAGNESIUM 1.8 mg/dL (1.8-2.4); PHOSPHORUS* 2.3 mg/dL (2.5-4.9); POTASSIUM 4.6 mmol/L (3.5-5.1)
== END ==
LOC: M.INFUS 01:54
PROVIDERS: Internal Medicine Nephrology
DX: N18.4 Chronic kidney disease, stage 4 (severe) (principal); E87.1 Hypo-osmolality and hyponatremia

== ENCOUNTER → 2018-03-29 | Outpatient (CLI) | payer OTHER ==
[2018-03-29 09:20] VITALS: BP 132/74
[2018-03-29 10:26] LABS: CALCIUM 8.3 mg/dL (8.5-10.1); CREATININE 1.7 mg/dL (0.6-1.3); MAGNESIUM 1.7 mg/dL (1.8-2.4); PHOSPHORUS* 3.9 mg/dL (2.5-4.9); POTASSIUM 4.8 mmol/L (3.5-5.1)
[2018-03-29 13:00] VITALS: BP 112/60
[2018-03-29 13:47] LABS: CALCIUM 7.9 mg/dL (8.5-10.1); CREATININE 1.6 mg/dL (0.6-1.3); MAGNESIUM 2.1 mg/dL (1.8-2.4); PHOSPHORUS* 3.6 mg/dL (2.5-4.9); POTASSIUM 5.1 mmol/L (3.5-5.1)
--- NOTE | 2018-03-29 14:27 | NUR ---
ARRIVED AMBULATORY. MADE SELF COMFORTABLE IN RECLINER. PORT ACCESSED WITH OUT DIFFICULTY. GOOD BLOOD RETURN NOTED AND EASY FLUSH. INFUSION COMPLETED AND TOLERATED WELL. PORT FLUSHED AND LEFT ACCESSED. DENEIS NEEDS AT DISCHARGE.
== END ==
LOC: M.INFUS 01:41
PROVIDERS: Internal Medicine Nephrology
DX: N18.4 Chronic kidney disease, stage 4 (severe) (principal); E87.1 Hypo-osmolality and hyponatremia; E86.0 Dehydration; D50.8 Other iron deficiency anemias

== ENCOUNTER → 2018-03-31 | Outpatient (CLI) | payer OTHER ==
[2018-03-31 09:10] VITALS: BP 120/60
[2018-03-31 12:36] VITALS: BP 112/64
--- NOTE | 2018-03-31 13:10 | NUR ---
PORT INTACT AND PATNET. INFUSION COMPLETED AND TOLERATED WELL.
== END ==
LOC: M.INFUS 01:59
DX: D50.8 Other iron deficiency anemias (principal); N18.4 Chronic kidney disease, stage 4 (severe); E87.1 Hypo-osmolality and hyponatremia; E86.0 Dehydration

== ENCOUNTER → 2018-04-02 | Outpatient (CLI) | payer OTHER ==
[2018-04-02 09:06] VITALS: BP 122/59
--- NOTE | 2018-04-02 09:20 | NUR ---
ARRIVED AMBULATORY. MADE SELF COMFORTABLE IN RECLINER. PORT ALREADY ACCESSED BY INFUSION NURSE ON 03/29/18. GOOD BLOOD RETURN NOTED AND EASY FLUSH. PRE INFUSION LABS OBTAINED AND SENT TO LAB. INFUSION COMPLETED AND TOLERATED WELL. POST INFUSION LABS OBTAINED AND SENT TO LAB. PORT FLUSHED W/20 ML NS AND HEPARIN. PORT DEACCESSED W/OUT DIFFICULTY. DENIES NEEDS AT DISCHARGE.
[2018-04-02 09:58] LABS: CALCIUM 8.4 mg/dL (8.5-10.1); CREATININE 1.7 mg/dL (0.6-1.3); MAGNESIUM 1.6 mg/dL (1.8-2.4); PHOSPHORUS* 3.9 mg/dL (2.5-4.9); POTASSIUM 4.5 mmol/L (3.5-5.1)
[2018-04-02 13:23] LABS: CALCIUM 7.7 mg/dL (8.5-10.1); CREATININE 1.6 mg/dL (0.6-1.3); MAGNESIUM 1.9 mg/dL (1.8-2.4); PHOSPHORUS* 3.4 mg/dL (2.5-4.9); POTASSIUM 5.1 mmol/L (3.5-5.1)
== END ==
LOC: M.INFUS 05:45
PROVIDERS: Internal Medicine Nephrology
DX: E87.1 Hypo-osmolality and hyponatremia (principal); E86.0 Dehydration; N18.4 Chronic kidney disease, stage 4 (severe); D50.8 Other iron deficiency anemias

== ENCOUNTER → 2018-04-19 | Outpatient (CLI) | payer OTHER ==
[2018-04-19 09:15] VITALS: BP 106/56
[2018-04-19 09:43] LABS: CALCIUM 8.4 mg/dL (8.5-10.1); CREATININE 2.1 mg/dL (0.6-1.3); POTASSIUM 4.8 mmol/L (3.5-5.1)
[2018-04-19 09:46] LABS: MAGNESIUM 1.8 mg/dL (1.8-2.4); PHOSPHORUS* 4.1 mg/dL (2.5-4.9)
--- NOTE | 2018-04-19 10:31 | NUR ---
ARRIVED FOR OUTPT TREATMENT, AMBULATING WITH STEADY GAIT, SETTLED INTO RECLINER INDEPENDENTLY. RIGHT CHEST PORT ACCESSED FROM PREVIOUS VISIT WHILE ON VACATION AT ANOTHER FACILITY. DRESSING C/D/I, +BRISK BLOOD RETURN, FLUSHED EASILY. LABS OBTAINED, IVF'S INFUSING WITHOUT DIFFICULTY. CLARIFICATION ORDERS RECEIVED FROM DR. TONY OFFICE.
== END ==
LOC: M.INFUS 06:00
PROVIDERS: Internal Medicine Nephrology
DX: N18.4 Chronic kidney disease, stage 4 (severe) (principal)

== ENCOUNTER → 2018-04-28 | Outpatient (CLI) | payer OTHER ==
[2018-04-28 09:00] VITALS: BP 112/62
[2018-04-28 10:09] LABS: CALCIUM 8.9 mg/dL (8.5-10.1); CREATININE 1.7 mg/dL (0.6-1.3); MAGNESIUM 1.6 mg/dL (1.8-2.4); PHOSPHORUS* 3.4 mg/dL (2.5-4.9); POTASSIUM 4.7 mmol/L (3.5-5.1)
[2018-04-28 12:40] VITALS: BP 110/66
[2018-04-28 13:54] LABS: CALCIUM 7.8 mg/dL (8.5-10.1); CREATININE 1.5 mg/dL (0.6-1.3); MAGNESIUM 1.9 mg/dL (1.8-2.4); PHOSPHORUS* 2.7 mg/dL (2.5-4.9); POTASSIUM 4.5 mmol/L (3.5-5.1)
== END ==
LOC: M.INFUS 03:59
PROVIDERS: Internal Medicine Nephrology
DX: N18.4 Chronic kidney disease, stage 4 (severe) (principal)

== ENCOUNTER → 2018-06-04 | Outpatient (CLI) | payer OTHER ==
[2018-06-04 09:18] VITALS: BP 140/79
[2018-06-04 10:01] LABS: CALCIUM 9.1 mg/dL (8.5-10.1); CREATININE 2.2 mg/dL (0.6-1.3); MAGNESIUM 1.7 mg/dL (1.8-2.4); PHOSPHORUS* 4.1 mg/dL (2.5-4.9); POTASSIUM 4.3 mmol/L (3.5-5.1)
[2018-06-04 12:41] VITALS: BP 122/74
--- NOTE | 2018-06-04 12:57 | NUR ---
INFUSION COMPLETED AND TOLERATED WELL. PORT FLUSHED AND DEACCESSED. DENIES NEEDS AT DISCHARGE.
[2018-06-04 13:09] LABS: CALCIUM 7.9 mg/dL (8.5-10.1); MAGNESIUM 1.9 mg/dL (1.8-2.4); PHOSPHORUS* 3.4 mg/dL (2.5-4.9); POTASSIUM 4.8 mmol/L (3.5-5.1)
== END ==
LOC: M.INFUS 01:44
PROVIDERS: Internal Medicine Nephrology
DX: N18.4 Chronic kidney disease, stage 4 (severe) (principal); E86.0 Dehydration

== ENCOUNTER → 2018-06-07 | Outpatient (CLI) | payer OTHER ==
[2018-06-07 10:52] LABS: CALCIUM 8.9 mg/dL (8.5-10.1); CREATININE 2.1 mg/dL (0.6-1.3); MAGNESIUM 1.8 mg/dL (1.8-2.4); PHOSPHORUS* 4.8 mg/dL (2.5-4.9); POTASSIUM 4.7 mmol/L (3.5-5.1)
[2018-06-07 13:47] LABS: CREATININE 1.9 mg/dL (0.6-1.3); MAGNESIUM 1.9 mg/dL (1.8-2.4); PHOSPHORUS* 4.1 mg/dL (2.5-4.9); POTASSIUM 5.2 mmol/L (3.5-5.1)
--- NOTE | 2018-06-07 13:53 | NUR ---
PORT ACCESSED WITH OUT DIFFICULTY. GOOD BLOOD RETURN NOTED AND FLUSHED WITH EASE. INFUSION COMPLETED AND TOELRATED WELL. PORT FLUSHED AND LEFT ACCESSED FOR USE LATER IN THE WEEK. DEINS NEEDS AT DISCHARG.
--- NOTE | 2018-06-07 13:56 | NUR ---
PORT FLUSHED AT END WITH 5ML HEPARIN SOLUTION 1:100.
== END ==
LOC: M.INFUS 01:18
PROVIDERS: Internal Medicine Nephrology
DX: N18.4 Chronic kidney disease, stage 4 (severe) (principal); E86.0 Dehydration

== ENCOUNTER → 2018-06-09 | Outpatient (CLI) | payer OTHER ==
[2018-06-09 09:14] VITALS: BP 125/52
[2018-06-09 09:53] LABS: CALCIUM 8.8 mg/dL (8.5-10.1); MAGNESIUM 1.7 mg/dL (1.8-2.4); PHOSPHORUS* 3.8 mg/dL (2.5-4.9); POTASSIUM 4.4 mmol/L (3.5-5.1)
[2018-06-09 13:21] LABS: CALCIUM 8.4 mg/dL (8.5-10.1); CREATININE 1.8 mg/dL (0.6-1.3); MAGNESIUM 2.1 mg/dL (1.8-2.4); PHOSPHORUS* 3.2 mg/dL (2.5-4.9); POTASSIUM 4.5 mmol/L (3.5-5.1)
== END ==
LOC: M.INFUS 02:54
PROVIDERS: Internal Medicine Nephrology
DX: N18.4 Chronic kidney disease, stage 4 (severe) (principal); E86.0 Dehydration

== ENCOUNTER → 2018-06-11 | Outpatient (CLI) | payer OTHER ==
[2018-06-11 09:53] VITALS: BP 106/51
[2018-06-11 10:18] LABS: CALCIUM 8.9 mg/dL (8.5-10.1); CREATININE 2.4 mg/dL (0.6-1.3); POTASSIUM 4.1 mmol/L (3.5-5.1)
[2018-06-11 10:21] LABS: MAGNESIUM 1.7 mg/dL (1.8-2.4); PHOSPHORUS* 3.7 mg/dL (2.5-4.9)
--- NOTE | 2018-06-11 12:30 | NUR ---
PT HERE FOR OUTPT IVF'S VIA STEADY GAIT, SETTLING SELF INTO RECLINER, CALL LIGHT IN REACH. RIGHT CHEST PORT ACCESSED FROM PREVIOUS VISIT, WITH BRISK BLOOD RETURN, FLUSHED EASILY. LABS OBTAINED PRE AND POST HYDRATION. TOLERATED INFUSION WELL. UP AD KRANTHI INDEPENDENTLY. DISMISSED HOME IN GOOD CONDITI
[2018-06-11 13:07] LABS: CALCIUM 8.5 mg/dL (8.5-10.1); CREATININE 2.2 mg/dL (0.6-1.3); POTASSIUM 4.4 mmol/L (3.5-5.1)
[2018-06-11 13:10] LABS: MAGNESIUM 2.1 mg/dL (1.8-2.4); PHOSPHORUS* 2.8 mg/dL (2.5-4.9)
== END ==
LOC: M.INFUS 01:38
PROVIDERS: Family Medicine
DX: N18.4 Chronic kidney disease, stage 4 (severe) (principal); E86.0 Dehydration

== ENCOUNTER → 2018-06-16 | Outpatient (CLI) | payer OTHER ==
[2018-06-16 08:30] VITALS: BP 101/55
[2018-06-16 09:37] LABS: CALCIUM 8.9 mg/dL (8.5-10.1); CREATININE 2.1 mg/dL (0.6-1.3); MAGNESIUM 1.7 mg/dL (1.8-2.4); PHOSPHORUS* 3.4 mg/dL (2.5-4.9); POTASSIUM 4.4 mmol/L (3.5-5.1)
--- NOTE | 2018-06-16 12:13 | NUR ---
ARRIVED AMBULATORY. MADE SELF COMFORTABLE. PORT A CATH ALREADY ACCESSED. DRESSING C/D/I AND LINE PATENT WITH GOOD BLOOD RETURN AND EASY FLUSH. INFUSION COMPLETED AND TOELRATED WELL. PORT FLUSHED AND LEFT ACCESSED FOR USE LATER IN THE WEEK. DENIES QUESTIONS OR NEEDS AT DICHARGE.
[2018-06-16 12:15] LABS: CALCIUM 8.2 mg/dL (8.5-10.1); PHOSPHORUS* 2.5 mg/dL (2.5-4.9); POTASSIUM 4.8 mmol/L (3.5-5.1)
== END ==
LOC: M.INFUS 03:58
PROVIDERS: Internal Medicine Nephrology
DX: N18.4 Chronic kidney disease, stage 4 (severe) (principal); E86.0 Dehydration

== ENCOUNTER → 2018-06-18 | Outpatient (CLI) | payer OTHER ==
[2018-06-18 09:05] VITALS: BP 118/74
[2018-06-18 09:32] LABS: CALCIUM 9.1 mg/dL (8.5-10.1); CREATININE 1.9 mg/dL (0.6-1.3); MAGNESIUM 1.7 mg/dL (1.8-2.4); PHOSPHORUS* 3.8 mg/dL (2.5-4.9); POTASSIUM 4.1 mmol/L (3.5-5.1)
[2018-06-18 12:08] VITALS: BP 110/70
[2018-06-18 13:15] LABS: CALCIUM 8.4 mg/dL (8.5-10.1); CREATININE 1.8 mg/dL (0.6-1.3); PHOSPHORUS* 3.2 mg/dL (2.5-4.9); POTASSIUM 4.5 mmol/L (3.5-5.1)
--- NOTE | 2018-06-18 13:47 | NUR ---
ARRIVED AMBULATORY. MADE SELF COMFORTABLE IN RECLINER. PORT PATENT WITH DRESSING C/D/I. INFUSION COMPLETED AND TOLERATED WELL. PORT FLUSHED AND DEACCESSED. DENIES NEEDS AT DISCHARGE.
== END ==
LOC: M.INFUS 01:13
PROVIDERS: Internal Medicine Nephrology
DX: N18.4 Chronic kidney disease, stage 4 (severe) (principal); E86.0 Dehydration

== ENCOUNTER → 2018-06-21 | Outpatient (CLI) | payer OTHER ==
[2018-06-21 09:00] VITALS: BP 100/55
[2018-06-21 09:54] LABS: CALCIUM 8.6 mg/dL (8.5-10.1); CREATININE 2.4 mg/dL (0.6-1.3); MAGNESIUM 1.5 mg/dL (1.8-2.4)
[2018-06-21 12:30] VITALS: BP 112/58
--- NOTE | 2018-06-21 12:53 | NUR ---
ARRIVED AMBULATORY. MADE SELF COMFORTABLE IN RECLINER. PORT A CATH ACCESSED WTIH OUT DIFFICULTY. GOOD BRISK BLOOD RETURN NOTED AND FLUSHED WITH EASE. PRE AND POST LABS DRAWN FROM PORT PER ORDER. INFUSION COMPLETED AND TOLERATED WELL. PORT FLUSHED AND LEFT ACCESSED FOR USE LATER THIS WEEK. DENIES NEEDS AT DISCHARGE.
[2018-06-21 12:55] LABS: CALCIUM 7.6 mg/dL (8.5-10.1); CREATININE 2.2 mg/dL (0.6-1.3); POTASSIUM 4.4 mmol/L (3.5-5.1)
[2018-06-21 12:58] LABS: MAGNESIUM 1.9 mg/dL (1.8-2.4); PHOSPHORUS* 3.4 mg/dL (2.5-4.9)
== END ==
LOC: M.INFUS 05:21
PROVIDERS: Internal Medicine Nephrology
DX: N18.4 Chronic kidney disease, stage 4 (severe) (principal); E86.0 Dehydration

== ENCOUNTER → 2018-06-23 | Outpatient (CLI) | payer OTHER ==
[2018-06-23 09:00] VITALS: BP 112/72
[2018-06-23 09:37] LABS: CALCIUM 8.8 mg/dL (8.5-10.1); CREATININE 2.4 mg/dL (0.6-1.3); MAGNESIUM 1.9 mg/dL (1.8-2.4); PHOSPHORUS* 4.6 mg/dL (2.5-4.9); POTASSIUM 4.8 mmol/L (3.5-5.1)
[2018-06-23 12:30] VITALS: BP 108/68
[2018-06-23 12:59] LABS: CALCIUM 8.1 mg/dL (8.5-10.1); CREATININE 2.3 mg/dL (0.6-1.3); MAGNESIUM 2.1 mg/dL (1.8-2.4); PHOSPHORUS* 3.6 mg/dL (2.5-4.9); POTASSIUM 4.5 mmol/L (3.5-5.1)
--- NOTE | 2018-06-23 13:59 | NUR ---
ARRIVED AMBULATORY. MADE SELF COMFORTABLE IN RECLINER. PORT A CATH ALREADY ACCESSED. DRESSING C/D/I WITH NO SIGN OF INFECTION. PORT PATENT WITH GOOD BRISK BLOOD RETURN AND EASY FLUSH. INFUSION COMPLETED AND TOLERATED WELL. PORT FLUSHED AND LEFT ACCESSED FOR USE WITH INFUSION TOMORROW. DENIES QUESTIONS OR NEEDS AT DISCHARGE.
== END ==
LOC: M.INFUS 03:12
PROVIDERS: Internal Medicine Nephrology
DX: N18.4 Chronic kidney disease, stage 4 (severe) (principal); E86.0 Dehydration

== ENCOUNTER → 2018-06-24 | Outpatient (CLI) | payer OTHER ==
[2018-06-24 08:52] VITALS: BP 118/70
[2018-06-24 09:28] LABS: CALCIUM 8.4 mg/dL (8.5-10.1); CREATININE 2.3 mg/dL (0.6-1.3); PHOSPHORUS* 3.8 mg/dL (2.5-4.9)
[2018-06-24 12:15] VITALS: BP 112/68
[2018-06-24 12:46] LABS: CALCIUM 7.8 mg/dL (8.5-10.1); MAGNESIUM 2.1 mg/dL (1.8-2.4); PHOSPHORUS* 3.3 mg/dL (2.5-4.9); POTASSIUM 5.3 mmol/L (3.5-5.1)
== END ==
LOC: M.INFUS 04:45
PROVIDERS: Internal Medicine Nephrology
DX: N18.4 Chronic kidney disease, stage 4 (severe) (principal); E86.0 Dehydration

== ENCOUNTER → 2018-06-30 | Outpatient (CLI) | payer OTHER ==
[2018-06-30 08:30] VITALS: BP 123/54
[2018-06-30 09:22] LABS: CALCIUM 8.3 mg/dL (8.5-10.1); CREATININE 2.4 mg/dL (0.6-1.3); MAGNESIUM 1.6 mg/dL (1.8-2.4); PHOSPHORUS* 3.8 mg/dL (2.5-4.9); POTASSIUM 4.5 mmol/L (3.5-5.1)
[2018-06-30 11:55] VITALS: BP 118/64
--- NOTE | 2018-06-30 12:22 | NUR ---
ARRIVED AMBULATORY. MADE SELF COMFORTABLE. PORT A CATH ACCESSED WITH OUT DIFFICULTY. GOOD BRISK BLOOD RETURN NOTED AND FLUSHED WITH EASE. INFUSION COMPLETED AND TOLERATED WELL. PORT FLUSHED AND LEFT ACCESSED FOR USE LATER IN WEEK. DENIES NEEDS AT DISCHARGE.
[2018-06-30 12:46] LABS: CREATININE 2.1 mg/dL (0.6-1.3); PHOSPHORUS* 2.8 mg/dL (2.5-4.9)
== END ==
LOC: M.INFUS 03:27
PROVIDERS: Internal Medicine Nephrology
DX: N18.4 Chronic kidney disease, stage 4 (severe) (principal); E86.0 Dehydration

== ENCOUNTER → 2018-07-02 | Outpatient (CLI) | payer OTHER ==
[2018-07-02 08:50] VITALS: BP 118/57
[2018-07-02 10:05] LABS: CALCIUM 8.7 mg/dL (8.5-10.1); CREATININE 2.2 mg/dL (0.6-1.3); MAGNESIUM 1.8 mg/dL (1.8-2.4); PHOSPHORUS* 4.1 mg/dL (2.5-4.9); POTASSIUM 4.6 mmol/L (3.5-5.1)
[2018-07-02 12:08] VITALS: BP 122/61
--- NOTE | 2018-07-02 12:11 | NUR ---
ARRIVED AMBULATORY. PORT A CATH ALREADY ACESSED. DRESSING C/D/I. PORT PATENT. INFUSION COMPLETED AND TOLERATED WELL. PORT FLUSHED AND DEACCESSED. DENEIS QUESTIONS OR NEEDS AT DISCHARGE.
[2018-07-02 12:25] LABS: CALCIUM 7.8 mg/dL (8.5-10.1); CREATININE 1.9 mg/dL (0.6-1.3); MAGNESIUM 1.8 mg/dL (1.8-2.4); PHOSPHORUS* 3.1 mg/dL (2.5-4.9); POTASSIUM 4.6 mmol/L (3.5-5.1)
== END ==
LOC: M.INFUS 03:35
PROVIDERS: Internal Medicine Nephrology
DX: N18.4 Chronic kidney disease, stage 4 (severe) (principal); E86.0 Dehydration

== ENCOUNTER → 2018-07-05 | Outpatient (CLI) | payer OTHER ==
[2018-07-05 08:40] VITALS: BP 113/57
[2018-07-05 09:09] LABS: CALCIUM 8.2 mg/dL (8.5-10.1); MAGNESIUM 1.6 mg/dL (1.8-2.4); PHOSPHORUS* 3.7 mg/dL (2.5-4.9); POTASSIUM 4.8 mmol/L (3.5-5.1)
[2018-07-05 12:11] VITALS: BP 110/64
--- NOTE | 2018-07-05 12:41 | NUR ---
ARRIVED AMUBLATORY. MADE SELF COMFORTABLE. PORT A CATH ACCESSED WITH OUT DIFFICULTY. GOOD BRISK BLOOD RETURN NOTED AND FLUSHED WITH EASE. PRE AND POST LABS FROM PORT A CATH. INFUSION COMPLETED AND TOLERATED WELL. PORT FLUSHED AND LEFT ACCESSED FOR USE LATER THIS WEEK. DENIES NEEDS AT DISCHARGE.
[2018-07-05 13:08] LABS: CALCIUM 7.7 mg/dL (8.5-10.1); CREATININE 1.7 mg/dL (0.6-1.3); MAGNESIUM 1.9 mg/dL (1.8-2.4); PHOSPHORUS* 2.8 mg/dL (2.5-4.9); POTASSIUM 4.7 mmol/L (3.5-5.1)
== END ==
LOC: M.INFUS 02:02
PROVIDERS: Internal Medicine Nephrology
DX: N18.4 Chronic kidney disease, stage 4 (severe) (principal); E86.0 Dehydration

== ENCOUNTER → 2018-07-07 | Outpatient (CLI) | payer OTHER ==
[2018-07-07 08:43] VITALS: BP 120/59
[2018-07-07 12:28] VITALS: BP 124/67
[2018-07-07 14:04] LABS: CALCIUM 8.1 mg/dL (8.5-10.1); CREATININE 1.7 mg/dL (0.6-1.3); MAGNESIUM 1.9 mg/dL (1.8-2.4); PHOSPHORUS* 3.5 mg/dL (2.5-4.9); POTASSIUM 5.1 mmol/L (3.5-5.1)
--- NOTE | 2018-07-07 14:11 | NUR ---
INFUSION COMPLETED AND TOLERATED WELL. PORT FLUSHED AND LEFT ACCESSED FOR USE LATER THIS WEEK. DENIES NEEDS AT DISCHARGE.
== END ==
LOC: M.INFUS 04:25
PROVIDERS: Internal Medicine Nephrology
DX: N18.4 Chronic kidney disease, stage 4 (severe) (principal); E86.0 Dehydration

== ENCOUNTER → 2018-07-09 | Outpatient (CLI) | payer OTHER ==
[2018-07-09 09:04] VITALS: BP 125/57
[2018-07-09 10:11] LABS: CALCIUM 8.3 mg/dL (8.5-10.1); CREATININE 1.8 mg/dL (0.6-1.3); MAGNESIUM 1.5 mg/dL (1.8-2.4); PHOSPHORUS* 3.9 mg/dL (2.5-4.9); POTASSIUM 4.3 mmol/L (3.5-5.1)
[2018-07-09 12:28] VITALS: BP 120/60
[2018-07-09 13:02] LABS: CALCIUM 7.8 mg/dL (8.5-10.1); CREATININE 1.6 mg/dL (0.6-1.3); MAGNESIUM 1.7 mg/dL (1.8-2.4); PHOSPHORUS* 3.1 mg/dL (2.5-4.9); POTASSIUM 4.7 mmol/L (3.5-5.1)
--- NOTE | 2018-07-09 13:37 | NUR ---
PORT A CATH ALREADY ACCESSED. DRESSING C/D/I AND LINE PATENT. INFUSION COMPLETED AND TOLREATED WELL. LINE FLUSHED AND DEACCESSED. DENIES NEEDS AT DISCHARGE.
== END ==
LOC: M.INFUS 02:30
PROVIDERS: Internal Medicine Nephrology
DX: N18.4 Chronic kidney disease, stage 4 (severe) (principal); E86.0 Dehydration

== ENCOUNTER → 2018-07-13 | Outpatient (CLI) | payer OTHER ==
[2018-07-13 09:35] VITALS: BP 108/74
[2018-07-13 10:34] LABS: CALCIUM 8.3 mg/dL (8.5-10.1); CREATININE 2.1 mg/dL (0.6-1.3); MAGNESIUM 1.5 mg/dL (1.8-2.4); PHOSPHORUS* 4.2 mg/dL (2.5-4.9); POTASSIUM 4.4 mmol/L (3.5-5.1)
[2018-07-13 13:20] VITALS: BP 112/56
--- NOTE | 2018-07-13 13:37 | NUR ---
ARRIVED AMBULATORY, MADE SELF COMFORTABLE IN RECLINER. PORT A CATH ACCESSED WITH OUT DIFFICULTY. GOOD BRISKB LOOD RETURN NOTED AND FLUSHED WITH EASE. PRE AND POST LABS DRAWN FROM PORT. INFUSION COMPLETED AND TOELRATED WELL. PORT FLUSHED AND LEFT ACCESSED FOR USE TOMORROW. DENIES NEEDS AT DISCHARGE.
[2018-07-13 14:00] LABS: CALCIUM 7.8 mg/dL (8.5-10.1); CREATININE 1.8 mg/dL (0.6-1.3); MAGNESIUM 1.7 mg/dL (1.8-2.4); PHOSPHORUS* 3.4 mg/dL (2.5-4.9); POTASSIUM 4.9 mmol/L (3.5-5.1)
== END ==
LOC: M.INFUS 08:30
PROVIDERS: Internal Medicine Nephrology
DX: N18.4 Chronic kidney disease, stage 4 (severe) (principal); E86.0 Dehydration

== ENCOUNTER → 2018-07-14 | Outpatient (CLI) | payer OTHER ==
[2018-07-14 08:55] VITALS: BP 122/60
[2018-07-14 09:54] LABS: CALCIUM 8.7 mg/dL (8.5-10.1); CREATININE 1.9 mg/dL (0.6-1.3); MAGNESIUM 1.7 mg/dL (1.8-2.4); PHOSPHORUS* 4.1 mg/dL (2.5-4.9); POTASSIUM 4.6 mmol/L (3.5-5.1)
[2018-07-14 12:57] LABS: CALCIUM 8.1 mg/dL (8.5-10.1); CREATININE 1.6 mg/dL (0.6-1.3); MAGNESIUM 1.9 mg/dL (1.8-2.4); PHOSPHORUS* 3.7 mg/dL (2.5-4.9); POTASSIUM 4.8 mmol/L (3.5-5.1)
[2018-07-14 13:45] VITALS: BP 118/46
--- NOTE | 2018-07-14 13:56 | NUR ---
ARRIVED AMBULATORY. PORT A CATH ALREADY ACCESSED FROM USE YESTERDAY. PORT PATENT WITH GOOD BRISK BLOOD RETURN AND EASY FLUSH. PRE AND POST INFUSION LABS DRAWN PER ORDER. INFUSION COMPLETED AND TOLERATED WELL. PORT FLUSHED AND LEFT ACCESSED FOR USE LATER IN THE WEEK.
== END ==
LOC: M.INFUS 04:34
PROVIDERS: Internal Medicine Nephrology
DX: N18.4 Chronic kidney disease, stage 4 (severe) (principal); E86.0 Dehydration

== ENCOUNTER → 2018-07-16 | Outpatient (CLI) | payer OTHER ==
[2018-07-16 09:08] VITALS: BP 133/60
[2018-07-16 09:47] LABS: CALCIUM 8.6 mg/dL (8.5-10.1); CREATININE 1.9 mg/dL (0.6-1.3); MAGNESIUM 1.7 mg/dL (1.8-2.4); PHOSPHORUS* 4.3 mg/dL (2.5-4.9); POTASSIUM 4.6 mmol/L (3.5-5.1)
[2018-07-16 12:15] VITALS: BP 128/64
[2018-07-16 12:55] LABS: CREATININE 1.7 mg/dL (0.6-1.3); MAGNESIUM 1.9 mg/dL (1.8-2.4); PHOSPHORUS* 3.9 mg/dL (2.5-4.9); POTASSIUM 4.8 mmol/L (3.5-5.1)
--- NOTE | 2018-07-16 14:23 | NUR ---
ARRIVED AMBULATORY. MADE SELF COMFORTABLE IN RECLINER. PORT A CATH ALREADY ACCESSED. PORT PATENT WITH GOOD BRISK BLOOD RETURN NOTED AND FLUSHED WITH EASE. INFUSION COMPLETED AND TOLERATED WELL. PORT FLUSHED AND DEACCESSED. DENIES NEEDS AT DISCHARGE.
== END ==
LOC: M.INFUS 02:16
PROVIDERS: Internal Medicine Nephrology
DX: N18.4 Chronic kidney disease, stage 4 (severe) (principal); E86.0 Dehydration

== ENCOUNTER → 2018-07-19 | Outpatient (CLI) | payer OTHER ==
[2018-07-19 09:08] VITALS: BP 121/57
[2018-07-19 10:20] LABS: CALCIUM 8.8 mg/dL (8.5-10.1); CREATININE 2.3 mg/dL (0.6-1.3); MAGNESIUM 1.7 mg/dL (1.8-2.4); PHOSPHORUS* 3.7 mg/dL (2.5-4.9); POTASSIUM 4.3 mmol/L (3.5-5.1)
[2018-07-19 12:35] VITALS: BP 128/64
--- NOTE | 2018-07-19 12:47 | NUR ---
ARRIVED AMBULATORY. MADE SELF COMFORTABLE IN RECLINER. PORT A CATH ACCESSED WITH EASE. GOOD BRISK BLOOD RETURN AND EASY FLUSH. INFUSION COMPLETED AND TOLERATED WELL. PORT FLUHSED AND LEFT ACCESSED FOR USE LATER IN THE WEEK. DENIES NEEDS AT DISCHARGE.
[2018-07-19 13:12] LABS: CREATININE 1.9 mg/dL (0.6-1.3); POTASSIUM 4.8 mmol/L (3.5-5.1)
[2018-07-19 13:26] LABS: PHOSPHORUS* 3.2 mg/dL (2.5-4.9)
== END ==
LOC: M.INFUS 01:28
PROVIDERS: Internal Medicine Nephrology
DX: N18.4 Chronic kidney disease, stage 4 (severe) (principal); E86.0 Dehydration

== ENCOUNTER → 2018-07-21 | Outpatient (CLI) | payer OTHER ==
[2018-07-21 09:10] VITALS: BP 128/74
[2018-07-21 09:56] LABS: CALCIUM 8.4 mg/dL (8.5-10.1); CREATININE 2.1 mg/dL (0.6-1.3); MAGNESIUM 1.7 mg/dL (1.8-2.4); PHOSPHORUS* 4.3 mg/dL (2.5-4.9); POTASSIUM 4.6 mmol/L (3.5-5.1)
[2018-07-21 12:40] VITALS: BP 118/70
[2018-07-21 13:09] LABS: CREATININE 1.8 mg/dL (0.6-1.3); MAGNESIUM 1.8 mg/dL (1.8-2.4); PHOSPHORUS* 3.4 mg/dL (2.5-4.9); POTASSIUM 4.7 mmol/L (3.5-5.1)
--- NOTE | 2018-07-21 14:50 | NUR ---
PORT A CATH ALREADY ACCESSED. PORT PATENT LABS DRAWN FROM PORT PRE AND POST. INFUSION COMPLETED ADN TOLERAETD WELL. PORT LEFT ACCESSED. DENEIS NEEDS AT DISCHARGE.
== END ==
LOC: M.INFUS 03:00
PROVIDERS: Internal Medicine Nephrology
DX: N18.4 Chronic kidney disease, stage 4 (severe) (principal); E86.0 Dehydration

== ENCOUNTER → 2018-07-23 | Outpatient (CLI) | payer OTHER ==
[2018-07-23 09:00] VITALS: BP 113/56
[2018-07-23 09:49] LABS: CALCIUM 8.6 mg/dL (8.5-10.1); MAGNESIUM 1.7 mg/dL (1.8-2.4); PHOSPHORUS* 4.3 mg/dL (2.5-4.9); POTASSIUM 4.5 mmol/L (3.5-5.1)
[2018-07-23 12:46] VITALS: BP 110/64
--- NOTE | 2018-07-23 13:09 | NUR ---
ARRIVED AMBULATORY. MADE SELF COMFORTABLE. PORT ALREADY ACCESSED. PORT PATENT. INFUSION COMPLETED AND TOERLATED WELL. PRE AND POST LABS PER ORDER. PORT FLUSHED AND DEACCESSED. TOLERATED WELL. DENIES QUESTIONS OR NEEDS AT DISCHARGE.
[2018-07-23 13:22] LABS: CALCIUM 8.1 mg/dL (8.5-10.1); CREATININE 1.7 mg/dL (0.6-1.3); MAGNESIUM 1.8 mg/dL (1.8-2.4); PHOSPHORUS* 3.7 mg/dL (2.5-4.9); POTASSIUM 4.6 mmol/L (3.5-5.1)
== END ==
LOC: M.INFUS 02:52
PROVIDERS: Internal Medicine Nephrology
DX: N18.4 Chronic kidney disease, stage 4 (severe) (principal); E86.0 Dehydration

== ENCOUNTER → 2018-07-26 | Outpatient (CLI) | payer OTHER ==
[2018-07-26 09:07] VITALS: BP 121/55
[2018-07-26 09:38] LABS: CALCIUM 8.6 mg/dL (8.5-10.1); MAGNESIUM 1.7 mg/dL (1.8-2.4); PHOSPHORUS* 3.5 mg/dL (2.5-4.9); POTASSIUM 4.4 mmol/L (3.5-5.1)
[2018-07-26 12:20] VITALS: BP 118/60
--- NOTE | 2018-07-26 12:25 | NUR ---
ARRIVED AMBULATORY. MADE SELF COMFORTABLE IN RELCINER. PORT A CATH ACCESSED WITHOUT DIFFICULTY. GOOD BRISK BLOOD RETURN AND EASY FLUSH NOTED. PRE AND POST INFUSION LABS PER STANDING ORDER FROM PORT. INFUSION COMPLETED AND TOLERAETED WELL. PORT FLUSHED AND LEFT ACCESSED FOR USE LATER THIS WEEK. DENIES NEEDS AT DISCHARGE.
[2018-07-26 13:09] LABS: CALCIUM 7.9 mg/dL (8.5-10.1); CREATININE 1.7 mg/dL (0.6-1.3); PHOSPHORUS* 2.8 mg/dL (2.5-4.9); POTASSIUM 4.8 mmol/L (3.5-5.1)
== END ==
LOC: M.INFUS 01:55
PROVIDERS: Internal Medicine Nephrology
DX: N18.4 Chronic kidney disease, stage 4 (severe) (principal); E86.0 Dehydration

== ENCOUNTER → 2018-07-28 | Outpatient (CLI) | payer OTHER ==
--- NOTE | 2018-07-28 08:50 | NUR ---
ARRIVED AMBULATORY. MADE SELF COMORTABLE IN RECLINER. RIGHT SINGLE LUMEN PORT A CATH ALREADY ACCESSED BY TORIE PRAKASH ON 07/26/18. PORT FLUSHES WELL W/GOOD BRISK BLOOD RETURN. PRE INFUSION LABS OBTAINED. PT TOLERATED INFUSION. POST LABS OBTAINED. PT LEFT AMBULATORY FOR DISCHARGE HOME TO SELF CARE.
[2018-07-28 09:00] VITALS: BP 136/55
[2018-07-28 09:31] LABS: CALCIUM 8.6 mg/dL (8.5-10.1); MAGNESIUM 1.6 mg/dL (1.8-2.4); PHOSPHORUS* 3.8 mg/dL (2.5-4.9); POTASSIUM 4.3 mmol/L (3.5-5.1)
[2018-07-28 13:00] LABS: CALCIUM 8.3 mg/dL (8.5-10.1); CREATININE 1.9 mg/dL (0.6-1.3); MAGNESIUM 1.9 mg/dL (1.8-2.4); PHOSPHORUS* 3.3 mg/dL (2.5-4.9)
== END ==
LOC: M.INFUS 05:14
PROVIDERS: Internal Medicine Nephrology
DX: N18.4 Chronic kidney disease, stage 4 (severe) (principal); E86.0 Dehydration

== ENCOUNTER → 2018-07-30 | Outpatient (CLI) | payer OTHER ==
[2018-07-30 09:20] VITALS: BP 128/56
[2018-07-30 09:50] LABS: CALCIUM 8.8 mg/dL (8.5-10.1); MAGNESIUM 1.7 mg/dL (1.8-2.4); PHOSPHORUS* 4.1 mg/dL (2.5-4.9); POTASSIUM 4.3 mmol/L (3.5-5.1)
[2018-07-30 12:48] VITALS: BP 122/60
[2018-07-30 13:14] LABS: CALCIUM 8.3 mg/dL (8.5-10.1); CREATININE 1.8 mg/dL (0.6-1.3); PHOSPHORUS* 3.1 mg/dL (2.5-4.9); POTASSIUM 4.5 mmol/L (3.5-5.1)
--- NOTE | 2018-07-30 13:26 | NUR ---
ARRIVED AMBULATORY. MADE SELF COMFORTABLE IN RECLINER. PORT A CATH ACCESSED EARLIER IN THE WEEK. PORT PATENT WITH DRESSING C/D/I. INFSUION COMPLETED AND TOLERATED WELL. PRE AND POST LABS PER ORDER FROM PORT. PORT FLUSHED AND DEACCESSED. DENEIS QUESTIONS OR NEEDS AT DISCHARGE.
== END ==
LOC: M.INFUS 05:23
PROVIDERS: Internal Medicine Nephrology
DX: N18.4 Chronic kidney disease, stage 4 (severe) (principal); E86.0 Dehydration

== ENCOUNTER → 2018-08-02 | Outpatient (CLI) | payer OTHER ==
[2018-08-02 09:00] VITALS: BP 125/52
[2018-08-02 09:54] LABS: CREATININE 2.3 mg/dL (0.6-1.3); MAGNESIUM 1.7 mg/dL (1.8-2.4); PHOSPHORUS* 4.2 mg/dL (2.5-4.9); POTASSIUM 4.3 mmol/L (3.5-5.1)
[2018-08-02 12:32] VITALS: BP 122/60
[2018-08-02 12:50] LABS: PHOSPHORUS* 3.5 mg/dL (2.5-4.9); POTASSIUM 4.8 mmol/L (3.5-5.1)
== END ==
LOC: M.INFUS 01:28
PROVIDERS: Internal Medicine Nephrology
DX: D50.9 Iron deficiency anemia, unspecified (principal); N18.4 Chronic kidney disease, stage 4 (severe); E86.0 Dehydration

== ENCOUNTER → 2018-08-04 | Outpatient (CLI) | payer OTHER ==
[2018-08-04 09:10] VITALS: BP 119/57
[2018-08-04 09:40] LABS: CALCIUM 8.9 mg/dL (8.5-10.1); CREATININE 1.9 mg/dL (0.6-1.3); MAGNESIUM 1.6 mg/dL (1.8-2.4); PHOSPHORUS* 4.1 mg/dL (2.5-4.9); POTASSIUM 4.4 mmol/L (3.5-5.1)
[2018-08-04 12:35] VITALS: BP 122/64
--- NOTE | 2018-08-04 12:43 | NUR ---
ARRIVED AMBULATORY. MADE SELF COMFORTABLE IN RECLINER. PORT A CATH ALREADY ACCESSED. PORT PATNET WITH GOOD BRISK BLOOD RETURN AND EASY FLUSH. INFUSION COMPLETED AND TOLERATED WELL. DENIES NEEDS AT DISCHARGE.
[2018-08-04 13:00] LABS: CALCIUM 8.6 mg/dL (8.5-10.1); CREATININE 1.7 mg/dL (0.6-1.3); MAGNESIUM 1.8 mg/dL (1.8-2.4); PHOSPHORUS* 3.1 mg/dL (2.5-4.9); POTASSIUM 4.9 mmol/L (3.5-5.1)
== END ==
LOC: M.INFUS 04:23
PROVIDERS: Internal Medicine Nephrology
DX: N18.4 Chronic kidney disease, stage 4 (severe) (principal); E86.0 Dehydration

== ENCOUNTER → 2018-08-09 | Outpatient (CLI) | payer OTHER ==
[2018-08-09 09:00] VITALS: BP 122/74
[2018-08-09 09:30] LABS: CALCIUM 8.7 mg/dL (8.5-10.1); CREATININE 2.6 mg/dL (0.6-1.3); MAGNESIUM 1.6 mg/dL (1.8-2.4); PHOSPHORUS* 3.6 mg/dL (2.5-4.9); POTASSIUM 4.4 mmol/L (3.5-5.1)
[2018-08-09 12:30] VITALS: BP 130/74
[2018-08-09 12:54] LABS: CALCIUM 8.4 mg/dL (8.5-10.1); CREATININE 2.3 mg/dL (0.6-1.3); MAGNESIUM 1.9 mg/dL (1.8-2.4); PHOSPHORUS* 2.8 mg/dL (2.5-4.9); POTASSIUM 5.2 mmol/L (3.5-5.1)
--- NOTE | 2018-08-09 13:00 | NUR ---
ARRIVED AMBULATORY. MADE SELF COMFORTABLE IN RECLINER. PORT ACCESSED WITH OUT DIFFICULTY. GOOD BRISK BLOOD RETURN NOTED AND FLUSHED WITH EASE. INFUSION COMPLETED AND TOLERATED WELL. PORT FLUSHED AND LEFT ACCESSED FOR USE LATER IN THE WEEK. DENIES NEEDS AT DISCHARGE.
== END ==
LOC: M.INFUS 01:10
PROVIDERS: Internal Medicine Nephrology
DX: N18.4 Chronic kidney disease, stage 4 (severe) (principal); E86.0 Dehydration

== ENCOUNTER → 2018-08-11 | Outpatient (CLI) | payer OTHER ==
[2018-08-11 09:00] VITALS: BP 126/58
[2018-08-11 10:39] LABS: CALCIUM 9.1 mg/dL (8.5-10.1); CREATININE 2.5 mg/dL (0.6-1.3); MAGNESIUM 1.7 mg/dL (1.8-2.4); PHOSPHORUS* 4.2 mg/dL (2.5-4.9); POTASSIUM 4.6 mmol/L (3.5-5.1)
[2018-08-11 12:40] VITALS: BP 115/58
[2018-08-11 13:06] LABS: CALCIUM 8.5 mg/dL (8.5-10.1); CREATININE 2.1 mg/dL (0.6-1.3); MAGNESIUM 1.9 mg/dL (1.8-2.4); PHOSPHORUS* 2.7 mg/dL (2.5-4.9); POTASSIUM 4.9 mmol/L (3.5-5.1)
--- NOTE | 2018-08-11 13:29 | NUR ---
PATIENT ARIVED AT 09:00, IMPLANTABLE PORT ACCESSED ON THURSDAY. INFUSION OF NS 500ML STARTED AND COMPLETE WITH NO DIFFICULTY. ELECTORLYTE INFUSION STARTED AT APPROXIMATLEY 11:00 AND COMPLETE BY 12:40 WITH NO ADVERSE EFFECTS. IMPLANTABLE PORT FLUSHES AND PACKED WITH HEPARIN, ALL LABS FAXED TO DR SANTIZO AND [facility].
== END ==
LOC: M.INFUS 03:51
PROVIDERS: Internal Medicine Nephrology
DX: N18.4 Chronic kidney disease, stage 4 (severe) (principal); E86.0 Dehydration

== ENCOUNTER → 2018-08-13 | Outpatient (CLI) | payer OTHER ==
[2018-08-13 09:44] LABS: CREATININE 2.1 mg/dL (0.6-1.3); MAGNESIUM 1.6 mg/dL (1.8-2.4); POTASSIUM 4.6 mmol/L (3.5-5.1)
[2018-08-13 13:23] LABS: CALCIUM 8.3 mg/dL (8.5-10.1); CREATININE 1.9 mg/dL (0.6-1.3); MAGNESIUM 1.8 mg/dL (1.8-2.4); POTASSIUM 4.7 mmol/L (3.5-5.1)
== END ==
LOC: M.INFUS 04:49
PROVIDERS: Internal Medicine Nephrology
DX: N18.4 Chronic kidney disease, stage 4 (severe) (principal); E86.0 Dehydration

== ENCOUNTER → 2018-08-16 | Outpatient (CLI) | payer OTHER ==
[2018-08-16 09:23] VITALS: BP 125/52
[2018-08-16 09:54] LABS: CALCIUM 9.3 mg/dL (8.5-10.1); CREATININE 2.3 mg/dL (0.6-1.3); MAGNESIUM 1.7 mg/dL (1.8-2.4); PHOSPHORUS* 3.6 mg/dL (2.5-4.9); POTASSIUM 5.2 mmol/L (3.5-5.1)
[2018-08-16 12:57] VITALS: BP 128/60
--- NOTE | 2018-08-16 13:41 | NUR ---
ARRIVED AMBULATORY. MADE SLEF COMFORTABLE IN RELCINER. PORT A CATH ACCESSED WITH OUT DIFFICULTY. GOOD BRISK BLOOD RETURN NOTED AND FLUSHED WITH EASE. INFUSION COMPLETED AND TOLERATED WELL. PORT FLUSHED AND POST LAB DRAW AND PORT LEFT ACCESSED FOR USE WITH SCHEDULED APPOINTMENT LATER IN WEEK. DENIES QUESTIONS OR NEEDS AT DICHARGE.
[2018-08-16 15:47] LABS: CALCIUM 8.6 mg/dL (8.5-10.1); CREATININE 2.1 mg/dL (0.6-1.3); PHOSPHORUS* 3.2 mg/dL (2.5-4.9); POTASSIUM 5.7 mmol/L (3.5-5.1)
== END ==
LOC: M.INFUS 01:27
PROVIDERS: Internal Medicine Nephrology
DX: D50.9 Iron deficiency anemia, unspecified (principal); N18.4 Chronic kidney disease, stage 4 (severe); E86.0 Dehydration

== ENCOUNTER → 2018-08-18 | Outpatient (CLI) | payer OTHER ==
[2018-08-18 09:05] VITALS: BP 120/74
[2018-08-18 09:41] LABS: CALCIUM 9.3 mg/dL (8.5-10.1); CREATININE 2.4 mg/dL (0.6-1.3); MAGNESIUM 1.8 mg/dL (1.8-2.4); PHOSPHORUS* 3.8 mg/dL (2.5-4.9); POTASSIUM 4.7 mmol/L (3.5-5.1)
[2018-08-18 12:00] VITALS: BP 128/76
--- NOTE | 2018-08-18 12:20 | NUR ---
ARRIVED AMBULATORY. MADE SELF COFMORTABLE. PORT A CATH ALREADY ACCEESSED. DRESSING C/D/I. PORT PATNET WITH GOOD BLOOD RETURN AND EASTY FLUSH. INFUSION COMPLETED AND TOLERATED WELL. PT C/O BACK PAIN AND STATED HAS BEEN TO [facility] LAST TWO DAYS AND GOING TODAY. NOTICED SLOW GAIT AND LEANING FORWARD. ESCORTED HER IN AND TO CAR POST. DENIES NEEDS AT DISCHARGE.
[2018-08-18 16:45] LABS: CALCIUM 8.7 mg/dL (8.5-10.1); PHOSPHORUS* 3.5 mg/dL (2.5-4.9)
[2018-08-18 16:47] LABS: POTASSIUM 5.7 mmol/L (3.5-5.1)
== END ==
LOC: M.INFUS 01:29
PROVIDERS: Internal Medicine Nephrology
DX: N18.4 Chronic kidney disease, stage 4 (severe) (principal); E86.0 Dehydration

== ENCOUNTER → 2018-08-20 | Outpatient (CLI) | payer OTHER ==
[2018-08-20 09:00] VITALS: BP 122/70
[2018-08-20 09:40] LABS: CALCIUM 9.2 mg/dL (8.5-10.1); CREATININE 1.9 mg/dL (0.6-1.3); MAGNESIUM 1.4 mg/dL (1.8-2.4); PHOSPHORUS* 3.3 mg/dL (2.5-4.9); POTASSIUM 4.5 mmol/L (3.5-5.1)
[2018-08-20 12:20] VITALS: BP 118/70
[2018-08-20 12:35] LABS: CALCIUM 8.5 mg/dL (8.5-10.1); CREATININE 1.6 mg/dL (0.6-1.3); MAGNESIUM 1.8 mg/dL (1.8-2.4); PHOSPHORUS* 2.6 mg/dL (2.5-4.9); POTASSIUM 4.9 mmol/L (3.5-5.1)
== END ==
LOC: M.INFUS 04:59
PROVIDERS: Internal Medicine Nephrology
DX: N18.4 Chronic kidney disease, stage 4 (severe) (principal); E86.0 Dehydration

== ENCOUNTER → 2018-08-23 | Outpatient (CLI) | payer OTHER ==
[2018-08-23 09:53] LABS: CALCIUM 9.4 mg/dL (8.5-10.1); CREATININE 1.9 mg/dL (0.6-1.3); MAGNESIUM 1.5 mg/dL (1.8-2.4); POTASSIUM 4.3 mmol/L (3.5-5.1)
[2018-08-23 12:59] LABS: CALCIUM 8.5 mg/dL (8.5-10.1); CREATININE 1.7 mg/dL (0.6-1.3); MAGNESIUM 1.8 mg/dL (1.8-2.4); PHOSPHORUS* 2.4 mg/dL (2.5-4.9); POTASSIUM 4.5 mmol/L (3.5-5.1)
== END ==
LOC: M.INFUS 02:03
PROVIDERS: Internal Medicine Nephrology
DX: N18.4 Chronic kidney disease, stage 4 (severe) (principal); E86.0 Dehydration

== ENCOUNTER → 2018-08-25 | Outpatient (CLI) | payer OTHER ==
[2018-08-25 09:05] VITALS: BP 123/71
[2018-08-25 09:39] LABS: CALCIUM 9.2 mg/dL (8.5-10.1); CREATININE 2.1 mg/dL (0.6-1.3); MAGNESIUM 1.6 mg/dL (1.8-2.4); PHOSPHORUS* 2.9 mg/dL (2.5-4.9); POTASSIUM 4.8 mmol/L (3.5-5.1)
[2018-08-25 12:30] VITALS: BP 128/75
[2018-08-25 13:17] LABS: CALCIUM 8.4 mg/dL (8.5-10.1); MAGNESIUM 1.7 mg/dL (1.8-2.4); POTASSIUM 4.6 mmol/L (3.5-5.1)
--- NOTE | 2018-08-25 14:29 | NUR ---
ARRIVED AMBULATORY. MADE SELF COMFORTABLE IN RECLINER. PORT A CATH ALREADY ACCESSED FOR USE EARLIER IN WEEK. PORT PATENT WITH GOOD BRISKB LOOD RETURN AND EASY FLUSH. INFUSION COMPLETED AND TOELRAETED WELL. PORT FLUSHED AND LEFT ACCESSED FOR USE LATER IN THE WEEK. KETTY NEEDS AT DISCHARGE.
== END ==
LOC: M.INFUS 05:21
PROVIDERS: Internal Medicine Nephrology
DX: N18.4 Chronic kidney disease, stage 4 (severe) (principal); E86.0 Dehydration

== ENCOUNTER → 2018-08-27 | Outpatient (CLI) | payer OTHER ==
[2018-08-27 09:10] VITALS: BP 127/58
[2018-08-27 12:57] VITALS: BP 134/60
[2018-08-27 13:19] LABS: CALCIUM 9.2 mg/dL (8.5-10.1); CREATININE 1.9 mg/dL (0.6-1.3); MAGNESIUM 1.9 mg/dL (1.8-2.4); PHOSPHORUS* 2.9 mg/dL (2.5-4.9); POTASSIUM 4.9 mmol/L (3.5-5.1)
--- NOTE | 2018-08-27 13:33 | NUR ---
PORT A CATH PATENT. INFUSION COMPLETED AND TOLERATED WELL. PORT FLUSHED AND DEACCESSED. BANDAID APPLIED. DENIES QUESTIONS OR NEEDS AT DISHCARGE.
[2018-08-27 14:07] LABS: CALCIUM 9.7 mg/dL (8.5-10.1); CREATININE 2.1 mg/dL (0.6-1.3); MAGNESIUM 1.6 mg/dL (1.8-2.4); PHOSPHORUS* 3.3 mg/dL (2.5-4.9); POTASSIUM 4.6 mmol/L (3.5-5.1)
== END ==
LOC: M.INFUS 04:35
PROVIDERS: Internal Medicine Nephrology
DX: N18.4 Chronic kidney disease, stage 4 (severe) (principal); E86.0 Dehydration

== ENCOUNTER → 2018-08-30 | Outpatient (CLI) | payer OTHER ==
[2018-08-30 09:00] VITALS: BP 87/41
[2018-08-30 10:23] LABS: CALCIUM 9.5 mg/dL (8.5-10.1); CREATININE 2.1 mg/dL (0.6-1.3); MAGNESIUM 1.6 mg/dL (1.8-2.4); PHOSPHORUS* 3.2 mg/dL (2.5-4.9); POTASSIUM 4.7 mmol/L (3.5-5.1)
[2018-08-30 12:33] VITALS: BP 102/54
--- NOTE | 2018-08-30 12:53 | NUR ---
ARRIVED AMBULATORT. MADE SELF COMFORTABLE IN RELCINER. PORT A CATH ACCESSED WITH OUT DIFFICULTY. GOOD BRISK BLOOD RETURN AND EASY FLUSH. INFUSION COMPLETED AND TOLERATED WELL. DENIES NEEDS AT DISCHARGE.
[2018-08-30 13:15] LABS: CALCIUM 8.6 mg/dL (8.5-10.1); CREATININE 1.9 mg/dL (0.6-1.3); MAGNESIUM 1.8 mg/dL (1.8-2.4); PHOSPHORUS* 2.1 mg/dL (2.5-4.9); POTASSIUM 4.5 mmol/L (3.5-5.1)
== END ==
LOC: M.INFUS 01:49
PROVIDERS: Internal Medicine Nephrology
DX: N18.4 Chronic kidney disease, stage 4 (severe) (principal); E86.0 Dehydration

== ENCOUNTER → 2018-09-01 | Outpatient (CLI) | payer OTHER ==
[2018-09-01 09:10] VITALS: BP 100/64
[2018-09-01 09:54] LABS: CALCIUM 9.3 mg/dL (8.5-10.1); CREATININE 2.2 mg/dL (0.6-1.3); MAGNESIUM 1.7 mg/dL (1.8-2.4); PHOSPHORUS* 3.5 mg/dL (2.5-4.9); POTASSIUM 4.1 mmol/L (3.5-5.1)
[2018-09-01 12:30] VITALS: BP 118/74
[2018-09-01 13:26] LABS: CALCIUM 8.2 mg/dL (8.5-10.1); PHOSPHORUS* 2.8 mg/dL (2.5-4.9); POTASSIUM 4.7 mmol/L (3.5-5.1)
--- NOTE | 2018-09-01 14:51 | NUR ---
ARRIVED AMBULATORY. MADE SELF COMFORTABLE IN RECLINER. PORT A CATH ALREADY ACCESSED. PORT PATENT WITH GOOD BRISK BLOOD RETURN AND FLUSHED WITH EASE. INFUSION COMPLETED AND TOELRATED WELL. PORT FLUSHED AND LEFT ACCESSED FOR USE LATER IN THE WEEK. DENIES NEEDS AT DISCHARGE.
== END ==
LOC: M.INFUS 04:17
PROVIDERS: Internal Medicine Nephrology
DX: N18.4 Chronic kidney disease, stage 4 (severe) (principal); E86.0 Dehydration

== ENCOUNTER → 2018-09-03 | Outpatient (CLI) | payer OTHER ==
[2018-09-03 09:05] VITALS: BP 104/62
[2018-09-03 09:22] LABS: CALCIUM 8.9 mg/dL (8.5-10.1); CREATININE 2.1 mg/dL (0.6-1.3); MAGNESIUM 1.7 mg/dL (1.8-2.4); PHOSPHORUS* 3.2 mg/dL (2.5-4.9); POTASSIUM 4.2 mmol/L (3.5-5.1)
[2018-09-03 12:30] VITALS: BP 112/60
--- NOTE | 2018-09-03 12:51 | NUR ---
ARRIVED AMBULATORY. MADE SELF COMFORTABLE IN RECLIENR. PORT A CATH ALREADY ACCESSED. PORT PATENT WITH GOOD BRISKB LOOD RETURN AND EASY FLUSH. PRE AND POST LABS PER PORT. INFUSION COMPLETED AND TOLERATED WELL. PORT FLUSHED AND DEACCESSED. TOLERATED WELL.
[2018-09-03 13:25] LABS: CALCIUM 8.6 mg/dL (8.5-10.1); CREATININE 1.8 mg/dL (0.6-1.3); MAGNESIUM 1.9 mg/dL (1.8-2.4); PHOSPHORUS* 2.5 mg/dL (2.5-4.9); POTASSIUM 4.6 mmol/L (3.5-5.1)
== END ==
LOC: M.INFUS 05:21
PROVIDERS: Internal Medicine Nephrology
DX: N18.4 Chronic kidney disease, stage 4 (severe) (principal); E86.0 Dehydration

== ENCOUNTER → 2018-09-06 | Outpatient (CLI) | payer OTHER ==
[2018-09-06 09:00] VITALS: BP 133/78
[2018-09-06 09:50] LABS: CALCIUM 9.3 mg/dL (8.5-10.1); CREATININE 1.9 mg/dL (0.6-1.3); MAGNESIUM 1.5 mg/dL (1.8-2.4); PHOSPHORUS* 3.4 mg/dL (2.5-4.9); POTASSIUM 4.3 mmol/L (3.5-5.1)
[2018-09-06 13:48] LABS: CALCIUM 8.3 mg/dL (8.5-10.1); CREATININE 1.7 mg/dL (0.6-1.3); MAGNESIUM 1.7 mg/dL (1.8-2.4); PHOSPHORUS* 2.9 mg/dL (2.5-4.9); POTASSIUM 4.4 mmol/L (3.5-5.1)
--- NOTE | 2018-09-06 13:58 | NUR ---
ARRIVED AMBULATORY. PORT A CATH ACCESSED WITH OUT DIFFICULTY. GOOD BRISK BLOOD RETURN NOTED AND FLUSHED WITH EASE. PRE AND POST INFUSION LABS DRAWN FROM PORT. PORT FLUSHED AT END AND LEFT ACCESSED.
== END ==
LOC: M.INFUS 07:26
PROVIDERS: Internal Medicine Nephrology
DX: D50.9 Iron deficiency anemia, unspecified (principal); N18.4 Chronic kidney disease, stage 4 (severe); E86.0 Dehydration

== ENCOUNTER → 2018-09-08 | Outpatient (CLI) | payer OTHER ==
[2018-09-08 13:23] LABS: CALCIUM 8.2 mg/dL (8.5-10.1); CREATININE 1.7 mg/dL (0.6-1.3); MAGNESIUM 1.8 mg/dL (1.8-2.4); PHOSPHORUS* 2.8 mg/dL (2.5-4.9); POTASSIUM 4.4 mmol/L (3.5-5.1)
--- NOTE | 2018-09-28 11:30 | NUR ---
LATE ENTRY FOR 09/08/18 NACL START 903 STOP 1100
== END ==
LOC: M.INFUS 02:08
PROVIDERS: Internal Medicine Nephrology
DX: N18.4 Chronic kidney disease, stage 4 (severe) (principal); E86.0 Dehydration

== ENCOUNTER → 2018-09-10 | Outpatient (CLI) | payer OTHER ==
[2018-09-10 09:05] VITALS: BP 104/66
[2018-09-10 11:39] LABS: CALCIUM 8.9 mg/dL (8.5-10.1); CREATININE 1.9 mg/dL (0.6-1.3); MAGNESIUM 1.7 mg/dL (1.8-2.4); PHOSPHORUS* 3.6 mg/dL (2.5-4.9); POTASSIUM 4.6 mmol/L (3.5-5.1)
[2018-09-10 12:45] VITALS: BP 108/70
== END ==
LOC: M.INFUS 03:40
PROVIDERS: Internal Medicine Nephrology
DX: N18.4 Chronic kidney disease, stage 4 (severe) (principal); E86.0 Dehydration

== ENCOUNTER → 2018-09-13 | Outpatient (CLI) | payer OTHER ==
[2018-09-13 09:00] VITALS: BP 119/59
[2018-09-13 11:04] LABS: CALCIUM 8.9 mg/dL (8.5-10.1); CREATININE 2.2 mg/dL (0.6-1.3); MAGNESIUM 1.6 mg/dL (1.8-2.4); POTASSIUM 4.7 mmol/L (3.5-5.1)
[2018-09-13 13:41] LABS: CALCIUM 8.3 mg/dL (8.5-10.1); MAGNESIUM 1.9 mg/dL (1.8-2.4); PHOSPHORUS* 2.9 mg/dL (2.5-4.9); POTASSIUM 4.8 mmol/L (3.5-5.1)
== END ==
LOC: M.INFUS 00:35
PROVIDERS: Internal Medicine Nephrology
DX: N18.4 Chronic kidney disease, stage 4 (severe) (principal); E86.0 Dehydration

== ENCOUNTER → 2018-09-15 | Outpatient (CLI) | payer OTHER ==
[~2018-09-15] MED LIST changes: +AUGMENTIN 875-1 EACH PO; +TETRACYCLINE H500 MG PO
[2018-09-15 09:00] VITALS: BP 122/64
[2018-09-15 09:41] LABS: MAGNESIUM 1.6 mg/dL (1.8-2.4); POTASSIUM 4.5 mmol/L (3.5-5.1)
[2018-09-15 12:48] VITALS: BP 118/64
--- NOTE | 2018-09-15 12:59 | NUR ---
ARRIVED AMBULATORY. PORT A CATH ALREADY ACCESSED. PORT PATNET WITH GOOD BLOOD RETURN AND EASY FLUSH. INFUSION COMPLETED AND TOLERATED WELL. PORT FLUSHED AND LEFT ACCESSED FOR USE LATER THIS WEEK. DENIES NEEDS AT DISCHARGE.
[2018-09-15 13:24] LABS: CALCIUM 8.5 mg/dL (8.5-10.1); CREATININE 1.8 mg/dL (0.6-1.3); MAGNESIUM 1.8 mg/dL (1.8-2.4); PHOSPHORUS* 3.2 mg/dL (2.5-4.9); POTASSIUM 4.7 mmol/L (3.5-5.1)
== END ==
LOC: M.INFUS 03:03
PROVIDERS: Internal Medicine Nephrology
DX: N18.4 Chronic kidney disease, stage 4 (severe) (principal); E86.0 Dehydration

== ENCOUNTER → 2018-09-17 | Outpatient (CLI) | payer OTHER ==
[~2018-09-17] MED LIST changes: -AUGMENTIN 875-1 EACH PO; -TETRACYCLINE H500 MG PO
[2018-09-17 10:00] VITALS: BP 115/57
[2018-09-17 13:35] VITALS: BP 122/64
[2018-09-17 13:35] LABS: CALCIUM 9.1 mg/dL (8.5-10.1); CREATININE 1.9 mg/dL (0.6-1.3); MAGNESIUM 1.6 mg/dL (1.8-2.4); PHOSPHORUS* 3.4 mg/dL (2.5-4.9); POTASSIUM 4.8 mmol/L (3.5-5.1)
--- NOTE | 2018-09-17 14:15 | NUR ---
ARRIVED AMBULATORY. MADE SELF COMFORTABLE IN RECLIENR. PORT A CATH ALREADY ACCESSED. PORT PATENT WITH GOOD BRISK BLOOD RETURN AND EASY FLUSH. INFUSION COMPLETED AND TOLERATED WELL. PORT FLUSHED AND DEACCESSED. DENEIS NEEDS AT DISCHARGE.
[2018-09-17 14:43] LABS: CALCIUM 8.4 mg/dL (8.5-10.1); CREATININE 1.7 mg/dL (0.6-1.3); MAGNESIUM 1.8 mg/dL (1.8-2.4); PHOSPHORUS* 2.6 mg/dL (2.5-4.9); POTASSIUM 4.8 mmol/L (3.5-5.1)
== END ==
LOC: M.INFUS 05:56
PROVIDERS: Internal Medicine Nephrology
DX: N18.4 Chronic kidney disease, stage 4 (severe) (principal); E86.0 Dehydration

== ENCOUNTER → 2018-09-21 | Outpatient (CLI) | payer OTHER ==
[2018-09-21 10:00] VITALS: BP 108/62
[2018-09-21 10:43] LABS: CALCIUM 9.3 mg/dL (8.5-10.1); CREATININE 2.1 mg/dL (0.6-1.3); MAGNESIUM 1.6 mg/dL (1.8-2.4); PHOSPHORUS* 3.1 mg/dL (2.5-4.9); POTASSIUM 4.3 mmol/L (3.5-5.1)
[2018-09-21 13:20] VITALS: BP 115/52
[2018-09-21 13:38] LABS: CALCIUM 8.1 mg/dL (8.5-10.1); CREATININE 1.9 mg/dL (0.6-1.3); MAGNESIUM 1.8 mg/dL (1.8-2.4); PHOSPHORUS* 2.2 mg/dL (2.5-4.9); POTASSIUM 4.4 mmol/L (3.5-5.1)
== END ==
LOC: M.INFUS 04:14
PROVIDERS: Internal Medicine Nephrology
DX: N18.4 Chronic kidney disease, stage 4 (severe) (principal); E86.0 Dehydration

== ENCOUNTER → 2018-09-22 | Outpatient (CLI) | payer OTHER ==
--- NOTE | 2018-09-22 08:45 | NUR ---
PT ARRIVED AMBULATORY. MADE SELF COMFORTABLE IN RECLINER. PORT A CATH ALREADY ACCESSED. PORT PATENT W/GOOD BRISK BLOOD RETURN AND EASY FLUSH. PRE INFUSION LABS DRAWN. INFUSION COMPLETED AND TOLERATED WELL. POST INFUSION LABS DRAWN. PORT FLUSHED AND LEFT ACCESSED FOR 3RD TREATMENT THIS WEEK. DENIES NEEDS AT DISCHARGE. PT LEFT AMBULATORY FOR D/CHARGE HOME TO SELF CARE.
[2018-09-22 08:52] VITALS: BP 117/57
[2018-09-22 09:33] LABS: CALCIUM 8.8 mg/dL (8.5-10.1); CREATININE 1.9 mg/dL (0.6-1.3); POTASSIUM 4.1 mmol/L (3.5-5.1)
[2018-09-22 09:36] LABS: MAGNESIUM 1.8 mg/dL (1.8-2.4); PHOSPHORUS* 2.6 mg/dL (2.5-4.9)
[2018-09-22 12:49] LABS: CALCIUM 8.2 mg/dL (8.5-10.1); CREATININE 1.6 mg/dL (0.6-1.3); POTASSIUM 4.8 mmol/L (3.5-5.1)
[2018-09-22 12:52] LABS: MAGNESIUM 1.9 mg/dL (1.8-2.4); PHOSPHORUS* 2.4 mg/dL (2.5-4.9)
== END ==
LOC: M.INFUS 04:55
PROVIDERS: Internal Medicine Nephrology
DX: N18.4 Chronic kidney disease, stage 4 (severe) (principal); E86.0 Dehydration

== ENCOUNTER → 2018-09-23 | Outpatient (CLI) | payer OTHER ==
[2018-09-23 08:50] VITALS: BP 122/62
[2018-09-23 09:33] LABS: CALCIUM 8.8 mg/dL (8.5-10.1); CREATININE 1.7 mg/dL (0.6-1.3); MAGNESIUM 1.8 mg/dL (1.8-2.4); PHOSPHORUS* 2.6 mg/dL (2.5-4.9); POTASSIUM 4.7 mmol/L (3.5-5.1)
[2018-09-23 12:30] VITALS: BP 118/74
[2018-09-23 13:12] LABS: CALCIUM 8.3 mg/dL (8.5-10.1); CREATININE 1.5 mg/dL (0.6-1.3); PHOSPHORUS* 2.2 mg/dL (2.5-4.9); POTASSIUM 4.8 mmol/L (3.5-5.1)
== END ==
LOC: M.INFUS 08:30
PROVIDERS: Internal Medicine Nephrology
DX: N18.4 Chronic kidney disease, stage 4 (severe) (principal); E86.0 Dehydration

== ENCOUNTER → 2018-09-27 | Outpatient (CLI) | payer OTHER ==
[2018-09-27 09:26] VITALS: BP 113/54
[2018-09-27 09:39] LABS: CALCIUM 9.3 mg/dL (8.5-10.1); CREATININE 1.9 mg/dL (0.6-1.3); MAGNESIUM 1.6 mg/dL (1.8-2.4); PHOSPHORUS* 3.1 mg/dL (2.5-4.9); POTASSIUM 4.4 mmol/L (3.5-5.1)
[2018-09-27 12:20] VITALS: BP 118/64
[2018-09-27 12:43] LABS: CALCIUM 8.2 mg/dL (8.5-10.1); CREATININE 1.7 mg/dL (0.6-1.3); MAGNESIUM 1.9 mg/dL (1.8-2.4); PHOSPHORUS* 2.6 mg/dL (2.5-4.9); POTASSIUM 4.6 mmol/L (3.5-5.1)
--- NOTE | 2018-09-27 12:46 | NUR ---
ARRIVED AMBULATORY. MADE SELF COMFORTABLE IN RECLINER. PORT ACCESSED WITH OUT DIFFICULTY. GOOD BRISK BLOOD RETURN NOTED ADN EASY FLUSH. INFUSION COMPLETED AND TOLERATED WELL. PRE AND POST LABS FROM PORT. KETTY NEEDS AT DISCHARGE.
== END ==
LOC: M.INFUS 01:03
PROVIDERS: Internal Medicine Nephrology
DX: N18.4 Chronic kidney disease, stage 4 (severe) (principal); E86.0 Dehydration

== ENCOUNTER → 2018-09-29 | Outpatient (CLI) | payer OTHER ==
[2018-09-29 09:15] VITALS: BP 97/49
[2018-09-29 09:41] LABS: CALCIUM 8.6 mg/dL (8.5-10.1); CREATININE 1.7 mg/dL (0.6-1.3); MAGNESIUM 1.6 mg/dL (1.8-2.4); PHOSPHORUS* 2.7 mg/dL (2.5-4.9); POTASSIUM 4.1 mmol/L (3.5-5.1)
[2018-09-29 12:50] VITALS: BP 100/56
[2018-09-29 13:29] LABS: CALCIUM 8.5 mg/dL (8.5-10.1); CREATININE 1.6 mg/dL (0.6-1.3); PHOSPHORUS* 2.6 mg/dL (2.5-4.9); POTASSIUM 4.7 mmol/L (3.5-5.1)
--- NOTE | 2018-09-29 13:33 | NUR ---
ARRIVED AMUBLATORY. PORT A CATH ALREADY ACCESSED. PORT PATENT. PRE AND POST LABS PER PORT. INFUSION COMPELTED AND TOERLATED WELL. PORT FLUSHED AND DEACCESSED AT PT REQUEST. DENIES NEEDS AT DISCHARGE.
== END ==
LOC: M.INFUS 04:56
PROVIDERS: Internal Medicine Nephrology
DX: N18.4 Chronic kidney disease, stage 4 (severe) (principal)

== ENCOUNTER → 2018-10-06 | Outpatient (CLI) | payer OTHER ==
[2018-10-06 10:11] LABS: CALCIUM 9.3 mg/dL (8.5-10.1); CREATININE 2.4 mg/dL (0.6-1.3); MAGNESIUM 1.8 mg/dL (1.8-2.4); PHOSPHORUS* 4.1 mg/dL (2.5-4.9); POTASSIUM 4.6 mmol/L (3.5-5.1)
[2018-10-06 13:33] LABS: CALCIUM 8.2 mg/dL (8.5-10.1); CREATININE 2.2 mg/dL (0.6-1.3); PHOSPHORUS* 2.9 mg/dL (2.5-4.9); POTASSIUM 4.7 mmol/L (3.5-5.1)
== END ==
LOC: M.INFUS 02:21
PROVIDERS: Internal Medicine Nephrology
DX: N18.4 Chronic kidney disease, stage 4 (severe) (principal)

== ENCOUNTER → 2018-10-08 | Outpatient (CLI) | payer OTHER ==
[2018-10-08 09:00] VITALS: BP 122/58
[2018-10-08 09:45] LABS: CALCIUM 8.9 mg/dL (8.5-10.1); MAGNESIUM 1.9 mg/dL (1.8-2.4); PHOSPHORUS* 3.4 mg/dL (2.5-4.9); POTASSIUM 4.8 mmol/L (3.5-5.1)
[2018-10-08 14:47] LABS: CALCIUM 8.3 mg/dL (8.5-10.1); CREATININE 1.9 mg/dL (0.6-1.3); MAGNESIUM 1.8 mg/dL (1.8-2.4); PHOSPHORUS* 2.4 mg/dL (2.5-4.9); POTASSIUM 4.8 mmol/L (3.5-5.1)
== END ==
LOC: M.INFUS 04:31
PROVIDERS: Internal Medicine Nephrology
DX: N18.4 Chronic kidney disease, stage 4 (severe) (principal)

== ENCOUNTER → 2018-10-13 | Outpatient (CLI) | payer OTHER ==
[2018-10-13 09:35] VITALS: BP 118/63
[2018-10-13 10:11] LABS: CALCIUM 8.9 mg/dL (8.5-10.1); CREATININE 2.3 mg/dL (0.6-1.3); MAGNESIUM 1.6 mg/dL (1.8-2.4); PHOSPHORUS* 3.7 mg/dL (2.5-4.9); POTASSIUM 4.3 mmol/L (3.5-5.1)
[2018-10-13 12:55] VITALS: BP 120/66
--- NOTE | 2018-10-13 13:02 | NUR ---
PORT ACCESSED WITH EASE. GOOD BRISK BLOOD RETURN NOTED AND FLUSHED WITH EASE. PRE AND POST LABS DRAWN FROM PORT. INFUSION COMPLETED AND TOELRTED WELL. PORT FLUSHED AND LEFT ACCESSED FOR USE LATER IN THE WEEK. KETTY NEEDS AT DISCHARGE.
[2018-10-13 13:33] LABS: CALCIUM 8.2 mg/dL (8.5-10.1); MAGNESIUM 1.8 mg/dL (1.8-2.4); PHOSPHORUS* 3.1 mg/dL (2.5-4.9); POTASSIUM 4.7 mmol/L (3.5-5.1)
== END ==
LOC: M.INFUS 05:29
PROVIDERS: Internal Medicine Nephrology
DX: N18.4 Chronic kidney disease, stage 4 (severe) (principal); E86.0 Dehydration

== ENCOUNTER → 2018-10-15 | Outpatient (CLI) | payer OTHER ==
[2018-10-15 09:00] VITALS: BP 103/54
[2018-10-15 10:31] LABS: CALCIUM 8.8 mg/dL (8.5-10.1); MAGNESIUM 1.6 mg/dL (1.8-2.4); PHOSPHORUS* 3.7 mg/dL (2.5-4.9)
== END ==
LOC: M.INFUS 04:29
PROVIDERS: Internal Medicine Nephrology
DX: N18.4 Chronic kidney disease, stage 4 (severe) (principal); E86.0 Dehydration

== ENCOUNTER → 2018-11-05 | Outpatient (CLI) | payer OTHER ==
[~2018-11-05] MED LIST changes: +AUGMENTIN 875-1 EACH PO; +CREON DR 24,001 EACH PO; +TETRACYCLINE H500 MG PO
[2018-11-05 10:03] VITALS: BP 116/60
[2018-11-05 10:27] LABS: CALCIUM 9.2 mg/dL (8.5-10.1); CREATININE 2.4 mg/dL (0.6-1.3); POTASSIUM 4.7 mmol/L (3.5-5.1)
[2018-11-05 10:31] LABS: MAGNESIUM 1.9 mg/dL (1.8-2.4)
[2018-11-05 13:28] VITALS: BP 122/64
[2018-11-05 13:52] LABS: CALCIUM 8.4 mg/dL (8.5-10.1); CREATININE 2.2 mg/dL (0.6-1.3); PHOSPHORUS* 3.1 mg/dL (2.5-4.9); POTASSIUM 4.8 mmol/L (3.5-5.1)
--- NOTE | 2018-11-05 13:54 | NUR ---
ARRIVED AMBULATORY. MADE SELF COMEFORTABLE IN RECLINER. PORT PATENT WITH GOOD BLOOD RETURN AND EASY FLUSH. INFUSION COMPLETED AND TOELRATED WELL. PORT FLUSHED AND DEACCESSED.
== END ==
LOC: M.INFUS 04:33
PROVIDERS: Internal Medicine Nephrology
DX: N18.4 Chronic kidney disease, stage 4 (severe) (principal); E86.0 Dehydration

== ENCOUNTER 2018-11-07 12:18 | Emergency (ER) | payer OTHER ==
[~2018-11-07] VITALS: Ht 167.6 cm; Wt 65.8 kg
[~2018-11-07 12:18] MED LIST changes: -AUGMENTIN 875-1 EACH PO; -CREON DR 24,001 EACH PO; -TETRACYCLINE H500 MG PO
[2018-11-07 12:55] LABS: URINE BILIRUBIN NEGATIVE (Negative); URINE BLOOD TRACE (Negative); URINE CLARITY CLEAR; URINE COLOR YELLOW; URINE GLUCOSE-RANDOM NEGATIVE (Negative); URINE KETONES NEGATIVE (Negative); URINE LEUKOCYTES-REFLEX 1+ (Negative); URINE PROTEIN NEGATIVE (Negative); URINE SPECIFIC GRAVITY 1.025 (1.005-1.030); URINE UROBILINOGEN 0.2 E.U./dl (0.2-1.0)
[2018-11-07 12:58] LABS: URINE NITRITE-REFLEX POSITIVE (Negative)
[2018-11-07] MEDS ORDERED: BACTRIM DS TAB1 EACH PO (13:02)
[2018-11-07] MEDS ORDERED: PHENAZOPYRIDIN200 M2 PO ×2 (13:03→13:15)
[2018-11-07 13:04] LABS: BACTERIA-REFLEX >30 Many /HPF (None Seen); CASTS None Seen /LPF (None Seen); CRYSTALS None Seen /LPF (None Seen); MUCUS 4-6 Moderate strn/LPF (None Seen); SQUAMOUS 4-10 Moderate /LPF (0-3); URINE RBC 0-2 Rare /HPF (0-2); URINE WBC-REFLEX 6-15 Few /HPF (0-5)
[2018-11-07] MEDS ORDERED: AUGMENTIN 875-1 EACH PO (13:15)
[2018-11-07 13:21] VITALS: BP 133/66
== END 2018-11-07 13:21 | disposition home or self-care (01) ==
LOC: M.ERS 12:18
PROVIDERS: Emergency Medicine Emergency Medical Services
DX: N39.0 Urinary tract infection, site not specified (principal); K21.9 Gastro-esophageal reflux disease without esophagitis; M79.7 Fibromyalgia; E03.9 Hypothyroidism, unspecified; M19.90 Unspecified osteoarthritis, unspecified site; F32.9 Major depressive disorder, single episode, unspecified; N18.4 Chronic kidney disease, stage 4 (severe); Z86.2 Personal history of diseases of the blood and blood-forming organs and certain disorders involving the immune mechanism; Z85.828 Personal history of other malignant neoplasm of skin; Z88.8 Allergy status to other drugs, medicaments and biological substances; Z88.2 Allergy status to sulfonamides; Z90.49 Acquired absence of other specified parts of digestive tract; Z96.651 Presence of right artificial knee joint

== ENCOUNTER → 2018-11-08 | Outpatient (CLI) | payer OTHER ==
[~2018-11-08] MED LIST changes: +AUGMENTIN 875-1 EACH PO; +TETRACYCLINE H500 MG PO
[2018-11-08 09:30] VITALS: BP 118/74
[2018-11-08 09:34] LABS: CALCIUM 9.2 mg/dL (8.5-10.1); CREATININE 2.1 mg/dL (0.6-1.3); MAGNESIUM 1.6 mg/dL (1.8-2.4); PHOSPHORUS* 3.9 mg/dL (2.5-4.9); POTASSIUM 4.5 mmol/L (3.5-5.1)
[2018-11-08 12:30] VITALS: BP 108/64
--- NOTE | 2018-11-08 12:58 | NUR ---
ARRIVED AMUBLATORY. MADE SELF COMFORTABLE IN RECLINER. PORT A CATH ACCESSED WITH OUT DIFICULTY. GOOD BRISK BLOOD RETURN NOTED AND FLUSHED WITH EASE. INFUSION COMPELTED AND TOLERATED WELL. PORT FLUSHED AND LEFT ACCESSED FOR USE LATER IN THE WEEK.
[2018-11-08 13:29] LABS: CALCIUM 8.5 mg/dL (8.5-10.1); CREATININE 1.9 mg/dL (0.6-1.3); MAGNESIUM 1.8 mg/dL (1.8-2.4); PHOSPHORUS* 2.9 mg/dL (2.5-4.9); POTASSIUM 4.4 mmol/L (3.5-5.1)
== END ==
LOC: M.INFUS 02:15
PROVIDERS: Internal Medicine Nephrology
DX: N18.4 Chronic kidney disease, stage 4 (severe) (principal); E86.0 Dehydration

== ENCOUNTER → 2018-11-10 | Outpatient (CLI) | payer OTHER ==
[~2018-11-10] MED LIST changes: +CREON DR 24,001 EACH PO
[2018-11-10 09:15] VITALS: BP 122/75
[2018-11-10 09:47] LABS: CALCIUM 9.3 mg/dL (8.5-10.1); CREATININE 2.1 mg/dL (0.6-1.3); MAGNESIUM 1.5 mg/dL (1.8-2.4); PHOSPHORUS* 3.1 mg/dL (2.5-4.9); POTASSIUM 4.3 mmol/L (3.5-5.1)
[2018-11-10 12:27] VITALS: BP 110/74
[2018-11-10 13:27] LABS: CALCIUM 8.5 mg/dL (8.5-10.1); CREATININE 1.8 mg/dL (0.6-1.3); MAGNESIUM 1.8 mg/dL (1.8-2.4); PHOSPHORUS* 1.9 mg/dL (2.5-4.9); POTASSIUM 4.2 mmol/L (3.5-5.1)
== END ==
LOC: M.INFUS 08:30
PROVIDERS: Internal Medicine Nephrology
DX: N18.4 Chronic kidney disease, stage 4 (severe) (principal); E86.0 Dehydration

== ENCOUNTER → 2018-11-12 | Outpatient (CLI) | payer OTHER ==
[~2018-11-12] MED LIST changes: -CREON DR 24,001 EACH PO
[2018-11-12 09:05] VITALS: BP 123/70
[2018-11-12 09:41] LABS: CALCIUM 8.8 mg/dL (8.5-10.1); CREATININE 2.3 mg/dL (0.6-1.3); MAGNESIUM 1.4 mg/dL (1.8-2.4); PHOSPHORUS* 3.8 mg/dL (2.5-4.9); POTASSIUM 4.4 mmol/L (3.5-5.1)
[2018-11-12 12:47] VITALS: BP 130/74
--- NOTE | 2018-11-12 12:50 | NUR ---
ARRIVED AMBULATORY. MADE SELF COMFORTABLE IN RECLINER. PORT PATENT. PRE AND POST LABS PER ORDER FROM PORT. INFUSION COMPELTED AND TOELRATED WELL. DENIES NEEDS AT DISCHARGE.
[2018-11-12 13:13] LABS: CALCIUM 8.4 mg/dL (8.5-10.1); MAGNESIUM 1.7 mg/dL (1.8-2.4); PHOSPHORUS* 2.9 mg/dL (2.5-4.9); POTASSIUM 4.6 mmol/L (3.5-5.1)
== END ==
LOC: M.INFUS 05:19
PROVIDERS: Internal Medicine Nephrology
DX: N18.4 Chronic kidney disease, stage 4 (severe) (principal); E86.0 Dehydration

== ENCOUNTER → 2018-11-15 | Outpatient (CLI) | payer OTHER ==
[2018-11-15 09:48] VITALS: BP 121/62
[2018-11-15 10:35] LABS: CALCIUM 9.3 mg/dL (8.5-10.1); CREATININE 1.9 mg/dL (0.6-1.3); MAGNESIUM 1.6 mg/dL (1.8-2.4); PHOSPHORUS* 3.9 mg/dL (2.5-4.9); POTASSIUM 4.3 mmol/L (3.5-5.1)
[2018-11-15 13:18] VITALS: BP 128/70
[2018-11-15 13:34] LABS: CALCIUM 8.6 mg/dL (8.5-10.1); CREATININE 1.8 mg/dL (0.6-1.3); MAGNESIUM 2.7 mg/dL (1.8-2.4); PHOSPHORUS* 3.2 mg/dL (2.5-4.9); POTASSIUM 4.6 mmol/L (3.5-5.1)
--- NOTE | 2018-11-15 13:47 | NUR ---
PORT INTACT AND PATENT. PRE AND POST LABS PER ORDER. PORT FLUSHED AND LEFT ACCESSED FOR USE LATER IN WEEK. DENIES NEEDS AT DISCHARGE.
== END ==
LOC: M.INFUS 08:30
PROVIDERS: Internal Medicine Nephrology
DX: N18.4 Chronic kidney disease, stage 4 (severe) (principal); E86.0 Dehydration

== ENCOUNTER → 2018-11-17 | Outpatient (CLI) | payer OTHER ==
[2018-11-17 09:10] VITALS: BP 118/74
[2018-11-17 09:34] LABS: CALCIUM 9.6 mg/dL (8.5-10.1); CREATININE 1.9 mg/dL (0.6-1.3); MAGNESIUM 1.7 mg/dL (1.8-2.4); PHOSPHORUS* 4.1 mg/dL (2.5-4.9); POTASSIUM 4.1 mmol/L (3.5-5.1)
[2018-11-17 12:10] VITALS: BP 122/75
[2018-11-17 12:37] LABS: CALCIUM 9.1 mg/dL (8.5-10.1); CREATININE 1.9 mg/dL (0.6-1.3); MAGNESIUM 1.8 mg/dL (1.8-2.4); PHOSPHORUS* 3.3 mg/dL (2.5-4.9); POTASSIUM 4.4 mmol/L (3.5-5.1)
--- NOTE | 2018-11-17 15:28 | NUR ---
ARRIVED AMBULATORY. MADE SELF COMFORTABLE IN RECLINER. PORT ALREADY ACCESSED AND NOTED TO BE PATENT. PRE AND POST LABS PER ORDER. INFUSION COMPELTED AND TOLERATED WELL. PORT FLUSHED AND LEFT ACCESSED FRO USE LATER THIS WEEK. DENIES NEEDS AT DISCHARGE.
== END ==
LOC: M.INFUS 02:13
PROVIDERS: Internal Medicine Nephrology
DX: N18.4 Chronic kidney disease, stage 4 (severe) (principal); E86.0 Dehydration

== ENCOUNTER → 2018-11-19 | Outpatient (CLI) | payer OTHER ==
[~2018-11-19] MED LIST changes: +CREON DR 24,001 EACH PO
[2018-11-19 09:37] LABS: CALCIUM 9.2 mg/dL (8.5-10.1); CREATININE 1.8 mg/dL (0.6-1.3); MAGNESIUM 1.5 mg/dL (1.8-2.4); PHOSPHORUS* 3.9 mg/dL (2.5-4.9); POTASSIUM 4.1 mmol/L (3.5-5.1)
[2018-11-19 09:40] VITALS: BP 120/74
[2018-11-19 12:30] VITALS: BP 118/72
[2018-11-19 13:20] LABS: CALCIUM 8.8 mg/dL (8.5-10.1); CREATININE 1.6 mg/dL (0.6-1.3); MAGNESIUM 1.7 mg/dL (1.8-2.4); PHOSPHORUS* 2.4 mg/dL (2.5-4.9); POTASSIUM 4.3 mmol/L (3.5-5.1)
--- NOTE | 2018-11-19 13:27 | NUR ---
INFUSION COMPLETED AND TOELRATED WELL. PORT FLUSHED AND DEACCESSED.
== END ==
LOC: M.INFUS 04:42
PROVIDERS: Internal Medicine Nephrology
DX: N18.4 Chronic kidney disease, stage 4 (severe) (principal); E86.0 Dehydration

== ENCOUNTER → 2018-11-22 | Outpatient (CLI) | payer OTHER ==
[2018-11-22 09:10] VITALS: BP 143/45
[2018-11-22 09:43] LABS: CALCIUM 9.2 mg/dL (8.5-10.1); CREATININE 1.9 mg/dL (0.6-1.3); MAGNESIUM 1.4 mg/dL (1.8-2.4); PHOSPHORUS* 3.5 mg/dL (2.5-4.9); POTASSIUM 4.3 mmol/L (3.5-5.1)
[2018-11-22 12:20] VITALS: BP 132/57
--- NOTE | 2018-11-22 12:34 | NUR ---
ARRIVED AMUBLATORY. MADE SELF COMFORTABLE IN RECLINER. PORT ACCESSED WITH OUT DIFFICULTY. GOOD BRISK BLOOD RETURN NOTED AND EASY FLUSH. INFUSION COMPLETED AND TOELRAETD WELL. DENIES NEEDS AT DISCHARGE.
[2018-11-22 12:46] LABS: CALCIUM 8.5 mg/dL (8.5-10.1); CREATININE 1.6 mg/dL (0.6-1.3); MAGNESIUM 1.6 mg/dL (1.8-2.4); PHOSPHORUS* 2.6 mg/dL (2.5-4.9); POTASSIUM 4.3 mmol/L (3.5-5.1)
== END ==
LOC: M.INFUS 03:18
PROVIDERS: Internal Medicine Nephrology
DX: N18.4 Chronic kidney disease, stage 4 (severe) (principal); E86.0 Dehydration

== ENCOUNTER → 2018-11-24 | Outpatient (CLI) | payer OTHER ==
[2018-11-24 09:25] VITALS: BP 137/66
[2018-11-24 10:21] LABS: CALCIUM 8.9 mg/dL (8.5-10.1); CREATININE 2.1 mg/dL (0.6-1.3); MAGNESIUM 1.6 mg/dL (1.8-2.4); PHOSPHORUS* 3.7 mg/dL (2.5-4.9); POTASSIUM 4.8 mmol/L (3.5-5.1)
[2018-11-24 12:50] VITALS: BP 132/68
--- NOTE | 2018-11-24 13:07 | NUR ---
MADE SELF COMFORTABLE IN RECLINER. PORT A CATH PATENT WITH GOOD BRISK BLOOD RETURN AND EASY FLUSH. INFUSION COMPELTED AND TOLERATED WELL. PORT FLUSHED AND LEFT ACCESSED FOR USE LATER THIS WEEK. DENIES NEEDS AT DISCHARGE.
[2018-11-24 13:51] LABS: CALCIUM 8.3 mg/dL (8.5-10.1); CREATININE 1.9 mg/dL (0.6-1.3); MAGNESIUM 1.7 mg/dL (1.8-2.4); PHOSPHORUS* 2.8 mg/dL (2.5-4.9); POTASSIUM 5.2 mmol/L (3.5-5.1)
== END ==
LOC: M.INFUS 04:30
PROVIDERS: Internal Medicine Nephrology
DX: N18.4 Chronic kidney disease, stage 4 (severe) (principal); E86.0 Dehydration

== ENCOUNTER → 2018-11-26 | Outpatient (CLI) | payer OTHER ==
[2018-11-26 09:15] VITALS: BP 112/70
[2018-11-26 10:10] LABS: CALCIUM 9.1 mg/dL (8.5-10.1); MAGNESIUM 1.5 mg/dL (1.8-2.4); PHOSPHORUS* 3.9 mg/dL (2.5-4.9); POTASSIUM 4.4 mmol/L (3.5-5.1)
--- NOTE | 2018-11-26 13:06 | NUR ---
ARRIVED AMBULATORY. MADE SELF COMFORTABLE IN RECLINER. PORT A CATH ALREADY ACCESSED AND PATENT. PRE AND POST INFUSION LABS COMPLETED PER ORDER. INFUSION COMPLETED AND TOLERATED WELL. PORT FLUSHED AND DEACCESSED.
[2018-11-26 14:39] LABS: CALCIUM 8.3 mg/dL (8.5-10.1); CREATININE 1.9 mg/dL (0.6-1.3); MAGNESIUM 1.7 mg/dL (1.8-2.4); PHOSPHORUS* 3.2 mg/dL (2.5-4.9); POTASSIUM 4.4 mmol/L (3.5-5.1)
== END ==
LOC: M.INFUS 05:41
PROVIDERS: Internal Medicine Nephrology
DX: N18.4 Chronic kidney disease, stage 4 (severe) (principal); E86.0 Dehydration

== ENCOUNTER 2018-11-29 13:06 | Emergency (ER) | payer OTHER ==
[~2018-11-29] VITALS: Ht 167.6 cm; Wt 68.0 kg
[~2018-11-29 13:06] MED LIST changes: -CREON DR 24,001 EACH PO; -TETRACYCLINE H500 MG PO
[2018-11-29 14:38] LABS: URINE BILIRUBIN NEGATIVE (Negative); URINE BLOOD NEGATIVE (Negative); URINE CLARITY CLEAR; URINE COLOR YELLOW; URINE GLUCOSE-RANDOM NEGATIVE (Negative); URINE KETONES NEGATIVE (Negative); URINE LEUKOCYTES-REFLEX 1+ (Negative); URINE NITRITE-REFLEX NEGATIVE (Negative); URINE PROTEIN NEGATIVE (Negative); URINE SPECIFIC GRAVITY 1.025 (1.005-1.030); URINE UROBILINOGEN 0.2 E.U./dl (0.2-1.0)
[2018-11-29 14:43] LABS: ABSOLUTE BASOPHILS 0.1 thou/uL (0.0-0.2); ABSOLUTE EOSINOPHILS 0.4 thou/uL (0.0-0.7); ABSOLUTE MONOCYTES 0.5 thou/uL (0.0-1.2); ABSOLUTE NEUTROPHILS 3.6 thou/uL (1.6-8.1); BASOPHILS 1.3 %; EOSINOPHILS 5.6 %; HEMATOCRIT 34.7 % (37.0-47.0); HEMOGLOBIN 11.3 gm/dL (12.0-15.0); MCH 31.3 pg (26.0-34.0); MCHC 32.6 g/dL (28.0-37.0); MCV 95.9 fL (80.0-100.0); MONOCYTES 8.3 %; NUCLEATED RBCS 0 /100WBC; PLATELET COUNT* 213 thou/uL (150-400); POLYS 54.8 %; RBC 3.62 mil/uL (4.20-5.00); RDW-CV 15.9 % (10.5-14.5); WBC 6.5 thou/uL (4.0-11.0)
[2018-11-29 14:43] LABS: SQUAMOUS 4-10 Moderate /LPF (0-3)
[2018-11-29 14:44] LABS: BACTERIA-REFLEX 1-9 Few /HPF (None Seen); COARSE GRANULAR CASTS 0-3 Few /LPF (None Seen); CRYSTALS None Seen /LPF (None Seen); HYALINE CASTS 0-3 Few /LPF (None Seen); URINE RBC 0-2 Rare /HPF (0-2); WBC CASTS 0-3 /LPF
[2018-11-29 14:54] LABS: ANION GAP 8 mmol/L (7-16); BUN 30 mg/dL (7-18); CALCIUM 8.4 mg/dL (8.5-10.1); CHLORIDE 111 mmol/L (98-107); CO2 20 mmol/L (21-32); CREATININE 1.9 mg/dL (0.6-1.3); GLUCOSE 90 mg/dL (70-99); POTASSIUM 4.2 mmol/L (3.5-5.1); SODIUM 139 mmol/L (136-145)
[2018-11-29 15:01] LABS: ALBUMIN 2.8 g/dL (3.4-5.0); ALKALINE PHOSPHATASE 93 U/L (46-116); LIPASE 278 U/L (73-393); SGOT 12 U/L (15-37); SGPT 9 U/L (30-65); TOTAL BILIRUBIN 0.2 mg/dL (<0.1-1.0); TOTAL PROTEIN 6.3 g/dL (6.4-8.2); TROPONIN-I LEVEL <0.06 ng/mL (<0.06)
[2018-11-29] MEDS ORDERED: TETRACYCLINE H500 MG PO (15:12)
[2018-11-29] MEDS ORDERED: HYDROCODONE-AP1 EAC6 PO (15:13)
[2018-11-29 15:47] VITALS: BP 128/76
--- NOTE | 2018-11-29 15:56 | EKG ---
[place] [address] ELECTROCARDIOGRAM REPORT Name: ANGELITA SMITH Room: [facility]#: [id number] Admission: 11/29/18 Attend Phys: Discharge: 11/29/18 Date of : 42 Report #: [id number] THIS REPORT FOR: //name// [facility] ED Test Date: 2018-11-29 Test Time: 14:02:19 Pat Name: ANGELITA SMITH Department: Room: Gender: F Corporate Officer: SHELBY : 1940 Requested By: Madi Gaxiola Order Number: [id number] MD: Michael Hollis Measurements Intervals [place] Rate: 57 P: 10 HI: 210 QRS: -20 QRSD: 108 T: 69 QT: 450 QTc: 439 Interpretive Statements Sinus bradycardia Anterior infarct, old Compared to ECG 12/23/2017 09:48 rate slowed Electronically Signed On 11-29-2018 15:56:01 MIXER OPERATOR by Michael Hollis [email or web address] <ELECTRONICALLY SIGNED> By: Michael Hollis MD, [facility] 11/29/18 1556 1402 1402 Michael Hollis MD, FACC /EPI
== END 2018-11-29 15:26 | disposition home or self-care (01) ==
LOC: M.ERS 13:06
PROVIDERS: Emergency Medicine Emergency Medical Services
DX: N39.0 Urinary tract infection, site not specified (principal); E03.9 Hypothyroidism, unspecified; M79.7 Fibromyalgia; M19.90 Unspecified osteoarthritis, unspecified site; Z88.2 Allergy status to sulfonamides; Z88.8 Allergy status to other drugs, medicaments and biological substances

== ENCOUNTER → 2018-11-29 | Outpatient (CLI) | payer OTHER ==
[2018-11-29 09:30] VITALS: BP 118/75
[2018-11-29 10:08] LABS: CALCIUM 9.1 mg/dL (8.5-10.1); MAGNESIUM 1.5 mg/dL (1.8-2.4); PHOSPHORUS* 3.7 mg/dL (2.5-4.9); POTASSIUM 4.3 mmol/L (3.5-5.1)
[2018-11-29 12:50] VITALS: BP 121/76
--- NOTE | 2018-11-29 14:30 | NUR ---
PORT A CATH ACCESSED WITH OUT DIFFICULTY. GOOD BRISK BLOOD RETURN NOTED AND FLUSHED WITH EASE. INFUSION COMPELTED AND TOELERATED WELL. PORT FLUSHED AND LEFT ACCESSED FOR USE LATER IN THE WEEK. DENIES NEEDS AT DISCHARGE.
== END ==
LOC: M.INFUS 04:32
PROVIDERS: Internal Medicine Nephrology
DX: N18.4 Chronic kidney disease, stage 4 (severe) (principal); E86.0 Dehydration

== ENCOUNTER → 2018-12-03 | Outpatient (CLI) | payer OTHER ==
[~2018-12-03] MED LIST changes: +CREON DR 24,001 EACH PO; +TETRACYCLINE H500 MG PO
[2018-12-03 09:10] VITALS: BP 114/54
[2018-12-03 10:10] LABS: CALCIUM 8.8 mg/dL (8.5-10.1); CREATININE 2.3 mg/dL (0.6-1.3); MAGNESIUM 1.5 mg/dL (1.8-2.4); PHOSPHORUS* 5.4 mg/dL (2.5-4.9)
[2018-12-03 12:53] VITALS: BP 118/74
--- NOTE | 2018-12-03 12:55 | NUR ---
INFUSOPN COMPLETED AND TOLERATED WELL. PORT FLUSHED AND DEACCESSED.
[2018-12-03 13:40] LABS: CALCIUM 8.2 mg/dL (8.5-10.1); CREATININE 2.1 mg/dL (0.6-1.3); MAGNESIUM 1.8 mg/dL (1.8-2.4); PHOSPHORUS* 4.8 mg/dL (2.5-4.9); POTASSIUM 4.4 mmol/L (3.5-5.1)
== END ==
LOC: M.INFUS 04:31
PROVIDERS: Internal Medicine Nephrology; Surgery
DX: N18.4 Chronic kidney disease, stage 4 (severe) (principal); E86.0 Dehydration

== ENCOUNTER → 2018-12-06 | Outpatient (CLI) | payer OTHER ==
[2018-12-06 09:29] LABS: CALCIUM 9.6 mg/dL (8.5-10.1); CREATININE 2.3 mg/dL (0.6-1.3); MAGNESIUM 1.4 mg/dL (1.8-2.4); PHOSPHORUS* 5.5 mg/dL (2.5-4.9); POTASSIUM 3.8 mmol/L (3.5-5.1)
[2018-12-06 09:30] VITALS: BP 118/70
[2018-12-06 12:19] VITALS: BP 110/74
--- NOTE | 2018-12-06 12:32 | NUR ---
ARRIVED AMBULATORUY. MADE SELF COMFORTABLE IN RECLINER. PORT ACCESSED WITH OUT DIFFICULTY. GOOD BRISK BLOOD RETURN NOTED AND FLUSHED WITH EASE. INFUSION COMPLETED AND TOLERATED WELL. PORT FLUSHED AND LEFT ACCESSED. DENIES NEEDS AT DISCHARGE.
[2018-12-06 16:11] LABS: CALCIUM 8.6 mg/dL (8.5-10.1); CREATININE 2.1 mg/dL (0.6-1.3); MAGNESIUM 1.5 mg/dL (1.8-2.4); PHOSPHORUS* 4.5 mg/dL (2.5-4.9); POTASSIUM 4.1 mmol/L (3.5-5.1)
== END ==
LOC: M.INFUS 06:15
PROVIDERS: Internal Medicine Nephrology
DX: N18.4 Chronic kidney disease, stage 4 (severe) (principal); E86.0 Dehydration

== ENCOUNTER → 2018-12-10 | Outpatient (CLI) | payer OTHER ==
[2018-12-10 09:08] VITALS: BP 122/78
[2018-12-10 10:38] LABS: CALCIUM 9.3 mg/dL (8.5-10.1); CREATININE 2.3 mg/dL (0.6-1.3); MAGNESIUM 1.3 mg/dL (1.8-2.4); PHOSPHORUS* 4.3 mg/dL (2.5-4.9); POTASSIUM 3.6 mmol/L (3.5-5.1)
[2018-12-10 12:15] VITALS: BP 127/75
--- NOTE | 2018-12-10 12:47 | NUR ---
ARRIVED AMBULATORY. MADE SELF COMFORTABLE IN RECLINER. PORT A CATH ALREADY ACCESSED. PORT PATENT. INFUSION COMPLETED AND TOELRATED WELL. PORT FLUSHED AND DEACCESSED. DENIES NEEDS AT DISCHARGE.
[2018-12-10 12:56] LABS: CALCIUM 8.5 mg/dL (8.5-10.1); CREATININE 2.3 mg/dL (0.6-1.3); MAGNESIUM 1.6 mg/dL (1.8-2.4); PHOSPHORUS* 3.6 mg/dL (2.5-4.9); POTASSIUM 4.1 mmol/L (3.5-5.1)
== END ==
LOC: M.INFUS 03:23
PROVIDERS: Internal Medicine Nephrology
DX: N18.4 Chronic kidney disease, stage 4 (severe) (principal); E86.0 Dehydration

== ENCOUNTER → 2018-12-13 | Outpatient (CLI) | payer OTHER ==
[2018-12-13 09:00] VITALS: BP 126/59
[2018-12-13 09:58] LABS: CALCIUM 9.1 mg/dL (8.5-10.1); CREATININE 2.1 mg/dL (0.6-1.3); MAGNESIUM 1.3 mg/dL (1.8-2.4); PHOSPHORUS* 4.2 mg/dL (2.5-4.9); POTASSIUM 3.6 mmol/L (3.5-5.1)
[2018-12-13 12:38] VITALS: BP 128/64
[2018-12-13 13:01] LABS: CALCIUM 8.6 mg/dL (8.5-10.1); MAGNESIUM 1.7 mg/dL (1.8-2.4); PHOSPHORUS* 3.7 mg/dL (2.5-4.9)
--- NOTE | 2018-12-13 15:14 | NUR ---
ARRIVED AMBULATORY. PT STATES SHE FEELS TIERD AND NOT HERSELF. SPOKE WITH WHO STATED SHE WAS FALLING ALOT YESTERDAY AND NOTICED SOME CONFUSION. PT A+O X4 TODAY. PORT ACCESSED AND INFUSION COMPLETED AND TOLERATED WELL. PORT LEFT ACCESSED FOR USE LATER IN THE WEEK. PT AND INSTRUCTED TO COME TO ED IF CONFUSION AND FALLING CONTINUE.
--- NOTE | 2019-02-03 14:40 | NUR ---
ADDENDUM LATE ENTRY FOR 12/13/18 MEDICATION START AND STOP TIME CORRECTION SODIUM CHLORIDE START-0902 STOP 1031 POTASSIUM/MAGNESIUM START-1031 STOP 1234
== END ==
LOC: M.INFUS 01:09
PROVIDERS: Internal Medicine Nephrology
DX: N18.4 Chronic kidney disease, stage 4 (severe) (principal); E86.0 Dehydration

== ENCOUNTER → 2018-12-17 | Outpatient (CLI) | payer OTHER ==
[~2018-12-17] MED LIST changes: -CREON DR 24,001 EACH PO
[2018-12-17 09:25] VITALS: BP 108/74
[2018-12-17 10:04] LABS: CALCIUM 9.6 mg/dL (8.5-10.1); MAGNESIUM 1.5 mg/dL (1.8-2.4); PHOSPHORUS* 3.1 mg/dL (2.5-4.9)
[2018-12-17 13:15] VITALS: BP 112/70
[2018-12-17 16:00] LABS: CALCIUM 8.5 mg/dL (8.5-10.1); CREATININE 1.8 mg/dL (0.6-1.3); MAGNESIUM 1.7 mg/dL (1.8-2.4); PHOSPHORUS* 2.2 mg/dL (2.5-4.9); POTASSIUM 4.2 mmol/L (3.5-5.1)
== END ==
LOC: M.INFUS 05:06
PROVIDERS: Internal Medicine Nephrology
DX: N18.4 Chronic kidney disease, stage 4 (severe) (principal)

== ENCOUNTER → 2018-12-20 | Outpatient (CLI) | payer OTHER ==
[~2018-12-20] MED LIST changes: +CREON DR 24,001 EACH PO
[2018-12-20 10:37] LABS: CALCIUM 8.8 mg/dL (8.5-10.1); CREATININE 1.9 mg/dL (0.6-1.3); MAGNESIUM 1.3 mg/dL (1.8-2.4); PHOSPHORUS* 2.3 mg/dL (2.5-4.9); POTASSIUM 4.1 mmol/L (3.5-5.1)
== END ==
LOC: M.INFUS 12-19 00:45
PROVIDERS: Internal Medicine Nephrology
DX: N18.4 Chronic kidney disease, stage 4 (severe) (principal); E86.0 Dehydration

== ENCOUNTER → 2018-12-24 | Outpatient (CLI) | payer OTHER ==
[2018-12-24 09:00] VITALS: BP 122/84
[2018-12-24 09:29] LABS: CALCIUM 9.3 mg/dL (8.5-10.1); MAGNESIUM 1.4 mg/dL (1.8-2.4); PHOSPHORUS* 3.5 mg/dL (2.5-4.9); POTASSIUM 4.9 mmol/L (3.5-5.1)
[2018-12-24 11:58] VITALS: BP 118/74
--- NOTE | 2018-12-24 12:23 | NUR ---
PORT PATENT. INFUSION COMPLETED AND TOLERATED WELL. PORT FLUSHED AND DEACCESSED. DENIES NEEDS AT DISCHARGE.
[2018-12-24 12:32] LABS: CALCIUM 8.4 mg/dL (8.5-10.1); CREATININE 1.9 mg/dL (0.6-1.3); MAGNESIUM 1.7 mg/dL (1.8-2.4); PHOSPHORUS* 2.9 mg/dL (2.5-4.9); POTASSIUM 4.8 mmol/L (3.5-5.1)
== END ==
LOC: M.INFUS 05:02
PROVIDERS: Internal Medicine Nephrology
DX: N18.4 Chronic kidney disease, stage 4 (severe) (principal); E86.0 Dehydration

== ENCOUNTER → 2018-12-27 | Outpatient (CLI) | payer OTHER, SELFPAY ==
[2018-12-27 09:00] VITALS: BP 122/75
[2018-12-27 09:43] LABS: CALCIUM 8.9 mg/dL (8.5-10.1); MAGNESIUM 1.4 mg/dL (1.8-2.4); PHOSPHORUS* 3.3 mg/dL (2.5-4.9); POTASSIUM 4.2 mmol/L (3.5-5.1)
[2018-12-27 12:32] VITALS: BP 119/70
--- NOTE | 2018-12-27 13:30 | NUR ---
ARRIVED AMBULATORY. PORT A CATH ACCESED WITH OUT DIFFCIULTY. GOOD BRISK BLOOD RETURN NOTED AND FLUSHED WITH EASE. INFUSION COMPLETED AND TOLERATED WELL. PORT FLUSHED AND LEFT ACCESSED FOR USE LATER IN WEEK.
[2018-12-27 13:35] LABS: CALCIUM 8.3 mg/dL (8.5-10.1); CREATININE 1.9 mg/dL (0.6-1.3); MAGNESIUM 1.7 mg/dL (1.8-2.4); POTASSIUM 4.7 mmol/L (3.5-5.1)
== END ==
LOC: M.INFUS 01:15
PROVIDERS: Internal Medicine Nephrology
DX: N18.4 Chronic kidney disease, stage 4 (severe) (principal); E86.0 Dehydration

== ENCOUNTER → 2018-12-31 | Outpatient (CLI) | payer OTHER ==
[~2018-12-31] MED LIST changes: -CREON DR 24,001 EACH PO
[2018-12-31 09:05] VITALS: BP 122/75
[2018-12-31 09:53] LABS: CALCIUM 9.1 mg/dL (8.5-10.1); CREATININE 2.2 mg/dL (0.6-1.3); MAGNESIUM 1.3 mg/dL (1.8-2.4); PHOSPHORUS* 3.6 mg/dL (2.5-4.9); POTASSIUM 4.2 mmol/L (3.5-5.1)
[2018-12-31 12:08] VITALS: BP 118/74
[2018-12-31 12:50] LABS: CALCIUM 8.4 mg/dL (8.5-10.1); CREATININE 2.1 mg/dL (0.6-1.3); MAGNESIUM 1.5 mg/dL (1.8-2.4); PHOSPHORUS* 2.4 mg/dL (2.5-4.9); POTASSIUM 4.2 mmol/L (3.5-5.1)
--- NOTE | 2018-12-31 13:44 | NUR ---
ARRIVED AMBULATORY. MADE SELF COMFORTABLE IN RECLINER. PORT INTACT AND PATENT. INFUSION COMPLETED AND TOLERATED WELL. PORT FLUSHED AND DEACCESSED. DENIES NEEDS AT DISCHARGE.
== END ==
LOC: M.INFUS 04:39
PROVIDERS: Internal Medicine Nephrology
DX: N18.4 Chronic kidney disease, stage 4 (severe) (principal); E86.0 Dehydration

== ENCOUNTER → 2019-01-03 | Outpatient (CLI) | payer OTHER ==
[2019-01-03 09:35] LABS: CREATININE 2.1 mg/dL (0.6-1.3); MAGNESIUM 1.6 mg/dL (1.8-2.4); POTASSIUM 4.4 mmol/L (3.5-5.1)
[2019-01-03 12:58] LABS: CALCIUM 8.9 mg/dL (8.5-10.1); CREATININE 1.9 mg/dL (0.6-1.3); MAGNESIUM 1.8 mg/dL (1.8-2.4); PHOSPHORUS* 2.9 mg/dL (2.5-4.9); POTASSIUM 4.8 mmol/L (3.5-5.1)
== END ==
LOC: M.INFUS 01:08
PROVIDERS: Internal Medicine Nephrology
DX: N18.4 Chronic kidney disease, stage 4 (severe) (principal); E86.0 Dehydration

== ENCOUNTER → 2019-01-07 | Outpatient (CLI) | payer OTHER ==
[2019-01-07 09:10] VITALS: BP 132/74
[2019-01-07 11:21] LABS: CALCIUM 9.2 mg/dL (8.5-10.1); MAGNESIUM 1.5 mg/dL (1.8-2.4); PHOSPHORUS* 3.7 mg/dL (2.5-4.9); POTASSIUM 4.5 mmol/L (3.5-5.1)
[2019-01-07 12:22] VITALS: BP 112/74
[2019-01-07 12:42] LABS: CALCIUM 8.6 mg/dL (8.5-10.1); CREATININE 1.8 mg/dL (0.6-1.3); MAGNESIUM 1.7 mg/dL (1.8-2.4); POTASSIUM 4.6 mmol/L (3.5-5.1)
== END ==
LOC: M.INFUS 03:33
PROVIDERS: Internal Medicine Nephrology
DX: N18.4 Chronic kidney disease, stage 4 (severe) (principal); E86.0 Dehydration

== ENCOUNTER → 2019-01-12 | Outpatient (CLI) | payer OTHER, SELFPAY ==
[~2019-01-12] MED LIST changes: +CREON DR 24,001 EACH PO
[2019-01-12 09:15] VITALS: BP 112/70
[2019-01-12 09:47] LABS: CALCIUM 10.1 mg/dL (8.5-10.1); CREATININE 2.3 mg/dL (0.6-1.3); MAGNESIUM 1.4 mg/dL (1.8-2.4); PHOSPHORUS* 4.4 mg/dL (2.5-4.9); POTASSIUM 4.4 mmol/L (3.5-5.1)
[2019-01-12 12:32] VITALS: BP 108/74
[2019-01-12 13:27] LABS: CALCIUM 9.2 mg/dL (8.5-10.1); CREATININE 1.9 mg/dL (0.6-1.3); MAGNESIUM 1.6 mg/dL (1.8-2.4); PHOSPHORUS* 3.5 mg/dL (2.5-4.9); POTASSIUM 4.6 mmol/L (3.5-5.1)
== END ==
LOC: M.INFUS 04:44
PROVIDERS: Internal Medicine Nephrology
DX: N18.4 Chronic kidney disease, stage 4 (severe) (principal); E86.0 Dehydration

== ENCOUNTER → 2019-01-14 | Outpatient (CLI) | payer OTHER, SELFPAY ==
[2019-01-14 08:40] VITALS: BP 118/74
[2019-01-14 09:17] LABS: CALCIUM 9.3 mg/dL (8.5-10.1); CREATININE 2.3 mg/dL (0.6-1.3); MAGNESIUM 1.5 mg/dL (1.8-2.4); PHOSPHORUS* 3.6 mg/dL (2.5-4.9); POTASSIUM 4.4 mmol/L (3.5-5.1)
[2019-01-14 12:10] VITALS: BP 128/78
--- NOTE | 2019-01-14 12:21 | NUR ---
INFUSION COMPLETED AND TOERLATED WELL. DENIE NEEDS OR QUESTIONS AT DISCHARGE.
[2019-01-14 14:31] LABS: CALCIUM 8.6 mg/dL (8.5-10.1); CREATININE 1.9 mg/dL (0.6-1.3); MAGNESIUM 1.8 mg/dL (1.8-2.4); PHOSPHORUS* 3.3 mg/dL (2.5-4.9); POTASSIUM 4.8 mmol/L (3.5-5.1)
== END ==
LOC: M.INFUS 05:04
PROVIDERS: Internal Medicine Nephrology
DX: N18.4 Chronic kidney disease, stage 4 (severe) (principal); E86.0 Dehydration

== ENCOUNTER → 2019-01-17 | Outpatient (CLI) | payer OTHER, SELFPAY ==
[2019-01-17 09:10] VITALS: BP 115/61
[2019-01-17 11:40] LABS: CALCIUM 9.5 mg/dL (8.5-10.1); CREATININE 2.5 mg/dL (0.6-1.3); MAGNESIUM 1.5 mg/dL (1.8-2.4); PHOSPHORUS* 4.8 mg/dL (2.5-4.9); POTASSIUM 4.4 mmol/L (3.5-5.1)
[2019-01-17 12:39] VITALS: BP 121/72
--- NOTE | 2019-01-17 12:43 | NUR ---
ARRIVED AMBULATORY. MADE SELF COMFORTABLE IN RECLINER. PORT A CATH ACCESSED WITH OUT DIFFICULTY. GOOD BRISK BLOOD RETURN NOTED AND FLUSHED WITH EASE. INFUSION COMPLETED AND TOLERATED WELL. PORT FLUSHED AND LEFT ACCESSED. DENIES NEEDS AT DISCHARGE.
[2019-01-17 13:34] LABS: CALCIUM 8.8 mg/dL (8.5-10.1); CREATININE 2.2 mg/dL (0.6-1.3); MAGNESIUM 1.6 mg/dL (1.8-2.4); PHOSPHORUS* 2.9 mg/dL (2.5-4.9); POTASSIUM 4.5 mmol/L (3.5-5.1)
== END ==
LOC: M.INFUS 01:03
PROVIDERS: Internal Medicine Nephrology
DX: N18.4 Chronic kidney disease, stage 4 (severe) (principal); E86.0 Dehydration; K52.9 Noninfective gastroenteritis and colitis, unspecified

== ENCOUNTER → 2019-01-19 | Outpatient (CLI) | payer OTHER, SELFPAY ==
[2019-01-19 09:45] VITALS: BP 119/57
[2019-01-19 10:18] LABS: CALCIUM 8.9 mg/dL (8.5-10.1); CREATININE 2.1 mg/dL (0.6-1.3); MAGNESIUM 1.5 mg/dL (1.8-2.4); PHOSPHORUS* 3.8 mg/dL (2.5-4.9); POTASSIUM 4.7 mmol/L (3.5-5.1)
[2019-01-19 14:01] LABS: CALCIUM 8.4 mg/dL (8.5-10.1); MAGNESIUM 1.7 mg/dL (1.8-2.4); PHOSPHORUS* 2.4 mg/dL (2.5-4.9); POTASSIUM 4.7 mmol/L (3.5-5.1)
== END ==
LOC: M.INFUS 05:33
PROVIDERS: Internal Medicine Nephrology
DX: N18.4 Chronic kidney disease, stage 4 (severe) (principal); E86.0 Dehydration; K52.9 Noninfective gastroenteritis and colitis, unspecified

== ENCOUNTER → 2019-01-21 | Outpatient (CLI) | payer OTHER, SELFPAY ==
[2019-01-21 09:10] VITALS: BP 122/74
[2019-01-21 10:59] LABS: CALCIUM 8.9 mg/dL (8.5-10.1); CREATININE 2.5 mg/dL (0.6-1.3); MAGNESIUM 1.4 mg/dL (1.8-2.4); PHOSPHORUS* 3.4 mg/dL (2.5-4.9); POTASSIUM 4.6 mmol/L (3.5-5.1)
[2019-01-21 12:00] VITALS: BP 128/70
--- NOTE | 2019-01-21 12:13 | NUR ---
PORT A CATH PATENT WITH GOOD BRISK BLOOD RETURN AND EASY FLUSH. INFUSION COMPLETED AND TOLERATED WELL. PORT FLUSHED AND DEACCESSED. DENEIS NEEDS AT DISCHARGE.
[2019-01-21 12:46] LABS: CALCIUM 8.2 mg/dL (8.5-10.1); CREATININE 2.2 mg/dL (0.6-1.3); MAGNESIUM 1.7 mg/dL (1.8-2.4); PHOSPHORUS* 2.2 mg/dL (2.5-4.9); POTASSIUM 4.8 mmol/L (3.5-5.1)
== END ==
LOC: M.INFUS 02:06
PROVIDERS: Internal Medicine Nephrology
DX: N18.4 Chronic kidney disease, stage 4 (severe) (principal); E86.0 Dehydration; K52.9 Noninfective gastroenteritis and colitis, unspecified

== ENCOUNTER → 2019-01-24 | Outpatient (CLI) | payer OTHER, SELFPAY ==
[2019-01-24 09:05] VITALS: BP 122/70
[2019-01-24 09:45] LABS: CALCIUM 9.2 mg/dL (8.5-10.1); CREATININE 2.1 mg/dL (0.6-1.3); MAGNESIUM 1.3 mg/dL (1.8-2.4); PHOSPHORUS* 3.8 mg/dL (2.5-4.9); POTASSIUM 4.4 mmol/L (3.5-5.1)
[2019-01-24 12:15] VITALS: BP 118/70
[2019-01-24 13:04] LABS: CALCIUM 8.6 mg/dL (8.5-10.1); MAGNESIUM 1.5 mg/dL (1.8-2.4); PHOSPHORUS* 3.1 mg/dL (2.5-4.9); POTASSIUM 4.4 mmol/L (3.5-5.1)
== END ==
LOC: M.INFUS 04:40
PROVIDERS: Internal Medicine Nephrology
DX: N18.4 Chronic kidney disease, stage 4 (severe) (principal); E86.0 Dehydration; K52.9 Noninfective gastroenteritis and colitis, unspecified

== ENCOUNTER → 2019-01-26 | Outpatient (CLI) | payer OTHER, SELFPAY ==
[2019-01-26 09:05] VITALS: BP 111/62
[2019-01-26 10:30] LABS: CALCIUM 9.3 mg/dL (8.5-10.1); CREATININE 2.1 mg/dL (0.6-1.3); MAGNESIUM 1.2 mg/dL (1.8-2.4); PHOSPHORUS* 4.2 mg/dL (2.5-4.9); POTASSIUM 4.1 mmol/L (3.5-5.1)
[2019-01-26 12:36] VITALS: BP 108/68
[2019-01-26 13:22] LABS: CALCIUM 9.3 mg/dL (8.5-10.1); CREATININE 1.9 mg/dL (0.6-1.3); MAGNESIUM 1.5 mg/dL (1.8-2.4); PHOSPHORUS* 3.4 mg/dL (2.5-4.9)
== END ==
LOC: M.INFUS 04:57
PROVIDERS: Internal Medicine Nephrology
DX: N18.4 Chronic kidney disease, stage 4 (severe) (principal); E86.0 Dehydration

== ENCOUNTER → 2019-01-28 | Outpatient (CLI) | payer OTHER, SELFPAY ==
[2019-01-28 08:55] VITALS: BP 122/66
[2019-01-28 09:30] LABS: CALCIUM 9.3 mg/dL (8.5-10.1); MAGNESIUM 1.3 mg/dL (1.8-2.4); POTASSIUM 4.3 mmol/L (3.5-5.1)
[2019-01-28 13:31] LABS: CALCIUM 9.5 mg/dL (8.5-10.1); CREATININE 1.7 mg/dL (0.6-1.3); MAGNESIUM 1.6 mg/dL (1.8-2.4); PHOSPHORUS* 3.2 mg/dL (2.5-4.9); POTASSIUM 4.5 mmol/L (3.5-5.1)
== END ==
LOC: M.INFUS 04:20
PROVIDERS: Internal Medicine Nephrology
DX: N18.4 Chronic kidney disease, stage 4 (severe) (principal); E86.0 Dehydration

== ENCOUNTER → 2019-01-31 | Outpatient (CLI) | payer OTHER, SELFPAY ==
[2019-01-31 08:56] VITALS: BP 124/57
[2019-01-31 09:46] LABS: CALCIUM 10.8 mg/dL (8.5-10.1); MAGNESIUM 1.3 mg/dL (1.8-2.4); PHOSPHORUS* 4.6 mg/dL (2.5-4.9); POTASSIUM 4.3 mmol/L (3.5-5.1)
[2019-01-31 12:44] LABS: CALCIUM 10.2 mg/dL (8.5-10.1); CREATININE 1.9 mg/dL (0.6-1.3); MAGNESIUM 1.7 mg/dL (1.8-2.4); PHOSPHORUS* 4.1 mg/dL (2.5-4.9); POTASSIUM 4.7 mmol/L (3.5-5.1)
--- NOTE | 2019-01-31 12:55 | NUR ---
ARRIVED AMBULATORY. MADE SELF COMFORTABLE IN RECLINER. PORT A CATH ACCESSED. INFUSION COMPELTED ADN TOLERATED WELL. PORT FLUSHED AND LEFT ACCESSED.
== END ==
LOC: M.INFUS 01:13
PROVIDERS: Internal Medicine Nephrology
DX: N18.4 Chronic kidney disease, stage 4 (severe) (principal); E86.0 Dehydration; K52.9 Noninfective gastroenteritis and colitis, unspecified

== ENCOUNTER → 2019-02-02 | Outpatient (CLI) | payer OTHER, SELFPAY ==
[2019-02-02 09:20] VITALS: BP 114/57
[2019-02-02 10:49] LABS: CREATININE 2.4 mg/dL (0.6-1.3); MAGNESIUM 1.4 mg/dL (1.8-2.4); PHOSPHORUS* 4.7 mg/dL (2.5-4.9); POTASSIUM 4.4 mmol/L (3.5-5.1)
[2019-02-02 12:37] VITALS: BP 118/56
--- NOTE | 2019-02-02 12:45 | NUR ---
Pt ambulated in for infusion and seated self in recliner. Reviewed meds and medical history and updated her medlist with med change. Labs drawn at 0918 for pre-infusion. NS 500 started at 0918 and copleted at 1035. Mg/K+ bag then started at 1040 and completed at 1230. Post infusion labs drawn at 1232 and Hep flushed at 1235. Port-a- cath was removed d/t pt not coming the rest of the week for her infusion on Thursday. Pt ambulated out for home with at 1245.
[2019-02-02 13:03] LABS: CALCIUM 9.2 mg/dL (8.5-10.1); CREATININE 2.1 mg/dL (0.6-1.3); MAGNESIUM 1.6 mg/dL (1.8-2.4); PHOSPHORUS* 3.9 mg/dL (2.5-4.9); POTASSIUM 4.7 mmol/L (3.5-5.1)
== END ==
LOC: M.INFUS 04:20
PROVIDERS: Internal Medicine Nephrology
DX: N18.4 Chronic kidney disease, stage 4 (severe) (principal); E86.0 Dehydration

== ENCOUNTER → 2019-02-07 | Outpatient (CLI) | payer OTHER, SELFPAY ==
[2019-02-07 10:03] VITALS: BP 125/72
[2019-02-07 10:52] LABS: CALCIUM 10.3 mg/dL (8.5-10.1); CREATININE 2.8 mg/dL (0.6-1.3); MAGNESIUM 1.3 mg/dL (1.8-2.4); PHOSPHORUS* 5.2 mg/dL (2.5-4.9); POTASSIUM 4.3 mmol/L (3.5-5.1)
--- NOTE | 2019-02-07 13:22 | NUR ---
Pt ambulated into infusion lab and seated self in recliner. Greg accessed Port-a-cath and infusion began at 1015 after lab drawn. Pt tolerated infusion well and apon review of meds and medical history nothing new was needed to be added or taken away. Post labs were drawn at 1319 and port was then flushed with NS and Hep. Left patient accessed for Thursday infusion. Pt ambulated out for home at 1322.
[2019-02-07 14:59] LABS: CALCIUM 9.3 mg/dL (8.5-10.1); CREATININE 2.5 mg/dL (0.6-1.3); MAGNESIUM 1.4 mg/dL (1.8-2.4); PHOSPHORUS* 4.2 mg/dL (2.5-4.9); POTASSIUM 4.7 mmol/L (3.5-5.1)
--- NOTE | 2019-02-07 16:56 | NUR ---
Faxed lab results to Dr. Goldstein and Dr. Locke.
== END ==
LOC: M.INFUS 01:00
PROVIDERS: Internal Medicine Nephrology
DX: N18.4 Chronic kidney disease, stage 4 (severe) (principal); E86.0 Dehydration; K52.9 Noninfective gastroenteritis and colitis, unspecified

== ENCOUNTER → 2019-02-09 | Outpatient (CLI) | payer OTHER, SELFPAY ==
[~2019-02-09] VITALS: Ht 167.6 cm; Wt 68.0 kg
[2019-02-09 07:52] VITALS: BP 120/54
[2019-02-09 08:28] LABS: HEMATOCRIT 36.3 % (37.0-47.0); HEMOGLOBIN 11.7 gm/dL (12.0-15.0); MCH 30.8 pg (26.0-34.0); MCHC 32.2 g/dL (28.0-37.0); MCV 95.6 fL (80.0-100.0); MPV 8.9 fl. (7.2-11.1); RBC 3.79 mil/uL (4.20-5.00); RDW-CV 16.4 % (10.5-14.5); WBC 6.7 thou/uL (4.0-11.0)
[2019-02-09 08:39] LABS: APTT 29.3 Seconds (25.0-31.3); PROTIME 9.8 Seconds (9.20-11.50)
[2019-02-09 08:40] LABS: CALCIUM 9.8 mg/dL (8.5-10.1); CREATININE 2.3 mg/dL (0.6-1.3); MAGNESIUM 1.5 mg/dL (1.8-2.4); PHOSPHORUS* 4.4 mg/dL (2.5-4.9)
--- NOTE | 2019-02-09 10:40 | NUR ---
Pt was able to get her infusion of NS and MG/K+ IV dose by IR staff during her IR procedure.
[2019-02-09 12:19] LABS: CALCIUM 9.3 mg/dL (8.5-10.1); CREATININE 2.1 mg/dL (0.6-1.3); MAGNESIUM 1.7 mg/dL (1.8-2.4); PHOSPHORUS* 2.8 mg/dL (2.5-4.9)
== END ==
LOC: M.INT 07:13
PROVIDERS: Radiology Diagnostic Radiology
DX: Z45.2 Encounter for adjustment and management of vascular access device (principal); M79.7 Fibromyalgia; E03.9 Hypothyroidism, unspecified; M19.90 Unspecified osteoarthritis, unspecified site; Z98.890 Other specified postprocedural states; F32.9 Major depressive disorder, single episode, unspecified; D64.9 Anemia, unspecified; Z98.41 Cataract extraction status, right eye; Z98.42 Cataract extraction status, left eye; K21.9 Gastro-esophageal reflux disease without esophagitis; N18.4 Chronic kidney disease, stage 4 (severe)

== ENCOUNTER → 2019-02-14 | Outpatient (CLI) | payer OTHER, SELFPAY ==
[2019-02-14 09:48] LABS: CALCIUM 9.5 mg/dL (8.5-10.1); CREATININE 2.6 mg/dL (0.6-1.3); MAGNESIUM 1.3 mg/dL (1.8-2.4); PHOSPHORUS* 4.1 mg/dL (2.5-4.9); POTASSIUM 4.2 mmol/L (3.5-5.1)
[2019-02-14 13:30] LABS: CALCIUM 8.8 mg/dL (8.5-10.1); CREATININE 2.3 mg/dL (0.6-1.3); MAGNESIUM 1.7 mg/dL (1.8-2.4); PHOSPHORUS* 2.6 mg/dL (2.5-4.9); POTASSIUM 4.6 mmol/L (3.5-5.1)
== END ==
LOC: M.INFUS 01:02
PROVIDERS: Internal Medicine Nephrology
DX: N18.4 Chronic kidney disease, stage 4 (severe) (principal); E86.0 Dehydration

== ENCOUNTER → 2019-02-16 | Outpatient (CLI) | payer OTHER, SELFPAY ==
[2019-02-16 09:05] VITALS: BP 122/75
[2019-02-16 09:45] LABS: CALCIUM 9.6 mg/dL (8.5-10.1); CREATININE 2.3 mg/dL (0.6-1.3); MAGNESIUM 1.4 mg/dL (1.8-2.4); POTASSIUM 4.3 mmol/L (3.5-5.1)
[2019-02-16 12:52] VITALS: BP 118/68
[2019-02-16 13:19] LABS: CALCIUM 8.9 mg/dL (8.5-10.1); CREATININE 1.9 mg/dL (0.6-1.3); MAGNESIUM 1.7 mg/dL (1.8-2.4); POTASSIUM 4.7 mmol/L (3.5-5.1)
--- NOTE | 2019-02-16 14:34 | NUR ---
ARRIVED AMBULATORY. MADE SELF COMFORTABLE IN RECLINER. PORT ALEADY ACCESSED. PORT PATENT WITH GOOD BRISK BLOOD RETURN AND EASY FLUSH. PRE AND POET LABS DRAWN FROM PORT. INFUSION COMPLETED AND TOELRATED WELL. PORT FLUHED AND LEFT ACCESSED FOR USE LATER IN THE WEEK.
== END ==
LOC: M.INFUS 04:56
PROVIDERS: Internal Medicine Nephrology
DX: N18.4 Chronic kidney disease, stage 4 (severe) (principal); E86.0 Dehydration

== ENCOUNTER → 2019-02-18 | Outpatient (CLI) | payer OTHER, SELFPAY ==
[2019-02-18 09:02] VITALS: BP 132/74
[2019-02-18 09:39] LABS: CALCIUM 9.7 mg/dL (8.5-10.1); CREATININE 2.3 mg/dL (0.6-1.3); MAGNESIUM 1.4 mg/dL (1.8-2.4); POTASSIUM 4.2 mmol/L (3.5-5.1)
[2019-02-18 12:32] VITALS: BP 128/70
--- NOTE | 2019-02-18 12:49 | NUR ---
ARRIVED AMBULATORY. MADE SELF COMFORTABLE IN RECLINER. PORT PATENT. INFUSION COMPLETED AND TOELRATED WELL. PORT FLUSHED AND DEACCESSED.
[2019-02-18 13:06] LABS: CALCIUM 9.1 mg/dL (8.5-10.1); CREATININE 1.9 mg/dL (0.6-1.3); MAGNESIUM 1.7 mg/dL (1.8-2.4); PHOSPHORUS* 3.2 mg/dL (2.5-4.9); POTASSIUM 4.6 mmol/L (3.5-5.1)
== END ==
LOC: M.INFUS 05:40
PROVIDERS: Internal Medicine Nephrology
DX: N18.4 Chronic kidney disease, stage 4 (severe) (principal); E86.0 Dehydration

== ENCOUNTER → 2019-02-21 | Outpatient (CLI) | payer OTHER, SELFPAY ==
[2019-02-21 09:10] VITALS: BP 112/55
[2019-02-21 09:50] LABS: CALCIUM 9.4 mg/dL (8.5-10.1); CREATININE 2.3 mg/dL (0.6-1.3); MAGNESIUM 1.4 mg/dL (1.8-2.4); POTASSIUM 3.9 mmol/L (3.5-5.1)
[2019-02-21 14:18] LABS: CALCIUM 8.7 mg/dL (8.5-10.1); MAGNESIUM 1.6 mg/dL (1.8-2.4); PHOSPHORUS* 3.5 mg/dL (2.5-4.9); POTASSIUM 4.5 mmol/L (3.5-5.1)
== END ==
LOC: M.INFUS 02:58
PROVIDERS: Internal Medicine Nephrology
DX: E86.0 Dehydration (principal); N18.4 Chronic kidney disease, stage 4 (severe); K52.9 Noninfective gastroenteritis and colitis, unspecified

== ENCOUNTER → 2019-02-23 | Outpatient (CLI) | payer OTHER, SELFPAY ==
[2019-02-23 09:09] LABS: CALCIUM 9.9 mg/dL (8.5-10.1); CREATININE 2.1 mg/dL (0.6-1.3); MAGNESIUM 1.6 mg/dL (1.8-2.4); PHOSPHORUS* 3.7 mg/dL (2.5-4.9); POTASSIUM 4.4 mmol/L (3.5-5.1)
[2019-02-23 12:16] LABS: CREATININE 1.9 mg/dL (0.6-1.3); MAGNESIUM 1.6 mg/dL (1.8-2.4); PHOSPHORUS* 3.2 mg/dL (2.5-4.9); POTASSIUM 4.9 mmol/L (3.5-5.1)
== END ==
LOC: M.INFUS 05:13
PROVIDERS: Internal Medicine Nephrology
DX: N18.4 Chronic kidney disease, stage 4 (severe) (principal); E86.0 Dehydration; K52.9 Noninfective gastroenteritis and colitis, unspecified

== ENCOUNTER → 2019-03-04 | Outpatient (CLI) | payer OTHER, SELFPAY ==
[2019-03-04 09:39] VITALS: BP 125/67
[2019-03-04 10:09] LABS: CALCIUM 9.9 mg/dL (8.5-10.1); CREATININE 2.5 mg/dL (0.6-1.3); MAGNESIUM 1.3 mg/dL (1.8-2.4); PHOSPHORUS* 3.5 mg/dL (2.5-4.9); POTASSIUM 4.1 mmol/L (3.5-5.1)
[2019-03-04 14:44] LABS: CALCIUM 9.1 mg/dL (8.5-10.1); CREATININE 2.2 mg/dL (0.6-1.3); MAGNESIUM 1.6 mg/dL (1.8-2.4); PHOSPHORUS* 2.8 mg/dL (2.5-4.9); POTASSIUM 4.9 mmol/L (3.5-5.1)
== END ==
LOC: M.INFUS 05:03
PROVIDERS: Internal Medicine Nephrology
DX: N18.4 Chronic kidney disease, stage 4 (severe) (principal); E86.0 Dehydration

== ENCOUNTER → 2019-03-07 | Outpatient (CLI) | payer OTHER, SELFPAY ==
[2019-03-07 09:30] VITALS: BP 119/50
[2019-03-07 10:44] LABS: CALCIUM 9.7 mg/dL (8.5-10.1); CREATININE 2.5 mg/dL (0.6-1.3); MAGNESIUM 1.6 mg/dL (1.8-2.4); POTASSIUM 4.3 mmol/L (3.5-5.1)
[2019-03-07 13:59] LABS: CREATININE 2.2 mg/dL (0.6-1.3); POTASSIUM 4.3 mmol/L (3.5-5.1)
== END ==
LOC: M.INFUS 01:15
PROVIDERS: Internal Medicine Nephrology
DX: N18.4 Chronic kidney disease, stage 4 (severe) (principal); E86.0 Dehydration; K52.9 Noninfective gastroenteritis and colitis, unspecified

== ENCOUNTER → 2019-03-09 | Outpatient (CLI) | payer OTHER, SELFPAY ==
[2019-03-09 09:25] VITALS: BP 110/46
[2019-03-09 10:36] LABS: CALCIUM 9.2 mg/dL (8.5-10.1); CREATININE 2.2 mg/dL (0.6-1.3); MAGNESIUM 1.4 mg/dL (1.8-2.4); POTASSIUM 4.1 mmol/L (3.5-5.1)
[2019-03-09 12:55] VITALS: BP 115/52
[2019-03-09 13:29] LABS: CALCIUM 8.3 mg/dL (8.5-10.1); CREATININE 1.9 mg/dL (0.6-1.3); MAGNESIUM 1.6 mg/dL (1.8-2.4); PHOSPHORUS* 2.6 mg/dL (2.5-4.9); POTASSIUM 4.8 mmol/L (3.5-5.1)
--- NOTE | 2019-03-09 14:10 | NUR ---
ARRIVED AMBULATORY. MADE SELF COMFORTABLE IN RECLINER. PORT A CATH ALREADY ACCESSED. PORT PATENT WITH GOOD BRISK BLOOD RETURN AND EASY FLUSH. INFUSION COMPLETED AND TOLERATED WELL. DENIES QUESTIONS OR NEEDS AT DISCHARGE.
== END ==
LOC: M.INFUS 05:13
PROVIDERS: Internal Medicine Nephrology
DX: N18.4 Chronic kidney disease, stage 4 (severe) (principal); E86.0 Dehydration

== ENCOUNTER → 2019-03-11 | Outpatient (CLI) | payer OTHER, SELFPAY ==
[2019-03-11 09:41] LABS: CALCIUM 9.1 mg/dL (8.5-10.1); CREATININE 2.1 mg/dL (0.6-1.3); MAGNESIUM 1.5 mg/dL (1.8-2.4); PHOSPHORUS* 2.9 mg/dL (2.5-4.9); POTASSIUM 4.5 mmol/L (3.5-5.1)
--- NOTE | 2019-03-11 13:13 | NUR ---
ARRIVED AMBULATORY. MADE SELF COMFORTABLE IN RECLINER. PORT PATENT WITH GOOD BLOOD RETURN AND EASY FLUSH. INFUSION COMPLETED AND TOLERATED WELL. PORT FLUSHED AND DEACCESSED. DENIES NEEDS AT DISCHARGE.
[2019-03-11 16:28] LABS: CALCIUM 8.3 mg/dL (8.5-10.1); CREATININE 1.8 mg/dL (0.6-1.3); MAGNESIUM 1.8 mg/dL (1.8-2.4); PHOSPHORUS* 1.8 mg/dL (2.5-4.9); POTASSIUM 4.7 mmol/L (3.5-5.1)
== END ==
LOC: M.INFUS 02-25 08:30
PROVIDERS: Internal Medicine Nephrology
DX: E86.0 Dehydration (principal); N18.4 Chronic kidney disease, stage 4 (severe); K52.9 Noninfective gastroenteritis and colitis, unspecified

== ENCOUNTER → 2019-03-14 | Outpatient (CLI) | payer OTHER, SELFPAY ==
[2019-03-14 09:35] VITALS: BP 122/74
[2019-03-14 11:04] LABS: CALCIUM 9.5 mg/dL (8.5-10.1); CREATININE 2.1 mg/dL (0.6-1.3); MAGNESIUM 1.5 mg/dL (1.8-2.4); PHOSPHORUS* 4.3 mg/dL (2.5-4.9); POTASSIUM 4.2 mmol/L (3.5-5.1)
[2019-03-14 13:15] VITALS: BP 118/70
[2019-03-14 14:15] LABS: CALCIUM 8.9 mg/dL (8.5-10.1); CREATININE 1.9 mg/dL (0.6-1.3); MAGNESIUM 1.6 mg/dL (1.8-2.4); PHOSPHORUS* 3.2 mg/dL (2.5-4.9); POTASSIUM 4.5 mmol/L (3.5-5.1)
== END ==
LOC: M.INFUS 02-28 08:30
PROVIDERS: Internal Medicine Nephrology
DX: E86.0 Dehydration (principal); K52.9 Noninfective gastroenteritis and colitis, unspecified; N18.4 Chronic kidney disease, stage 4 (severe)

== ENCOUNTER → 2019-03-18 | Outpatient (CLI) | payer OTHER, SELFPAY ==
[2019-03-18 09:00] VITALS: BP 117/59
[2019-03-18 11:05] LABS: CALCIUM 9.8 mg/dL (8.5-10.1); CREATININE 2.2 mg/dL (0.6-1.3); MAGNESIUM 1.4 mg/dL (1.8-2.4); PHOSPHORUS* 5.1 mg/dL (2.5-4.9); POTASSIUM 4.3 mmol/L (3.5-5.1)
[2019-03-18 12:55] VITALS: BP 120/62
--- NOTE | 2019-03-18 13:00 | NUR ---
INFUSION COMPLETED AND TOLERATED WELL. PORT FLUSHED AND DEACCESSED. DENIES NEEDS AT DISCHARGE.
[2019-03-18 13:24] LABS: CALCIUM 8.9 mg/dL (8.5-10.1); CREATININE 1.9 mg/dL (0.6-1.3); MAGNESIUM 1.7 mg/dL (1.8-2.4); PHOSPHORUS* 4.3 mg/dL (2.5-4.9); POTASSIUM 4.9 mmol/L (3.5-5.1)
== END ==
LOC: M.INFUS 00:40
PROVIDERS: Internal Medicine Nephrology
DX: D50.9 Iron deficiency anemia, unspecified (principal)

== ENCOUNTER → 2019-03-21 | Outpatient (CLI) | payer OTHER, SELFPAY ==
[2019-03-21 09:32] LABS: CALCIUM 9.5 mg/dL (8.5-10.1); CREATININE 2.2 mg/dL (0.6-1.3); MAGNESIUM 1.5 mg/dL (1.8-2.4); PHOSPHORUS* 4.3 mg/dL (2.5-4.9); POTASSIUM 4.3 mmol/L (3.5-5.1)
--- NOTE | 2019-03-21 12:51 | NUR ---
INFUSION COMPELTED AND TOLERATED WELL. PORT FLUSHED AND LEFT ACCESSED. KETTY QUESTIONS OR NEEDS AT DISCHARGE.
[2019-03-21 13:04] LABS: CALCIUM 8.7 mg/dL (8.5-10.1); CREATININE 1.9 mg/dL (0.6-1.3); MAGNESIUM 1.8 mg/dL (1.8-2.4); PHOSPHORUS* 3.1 mg/dL (2.5-4.9); POTASSIUM 4.8 mmol/L (3.5-5.1)
== END ==
LOC: M.INFUS 00:57
PROVIDERS: Internal Medicine Nephrology
DX: N18.4 Chronic kidney disease, stage 4 (severe) (principal); E86.0 Dehydration; K52.9 Noninfective gastroenteritis and colitis, unspecified

== ENCOUNTER → 2019-03-23 | Outpatient (CLI) | payer OTHER, SELFPAY ==
[2019-03-23 08:44] VITALS: BP 123/53
[2019-03-23 09:19] LABS: CALCIUM 9.2 mg/dL (8.5-10.1); CREATININE 2.1 mg/dL (0.6-1.3); MAGNESIUM 1.6 mg/dL (1.8-2.4); PHOSPHORUS* 3.3 mg/dL (2.5-4.9); POTASSIUM 4.3 mmol/L (3.5-5.1)
[2019-03-23 13:22] LABS: CALCIUM 8.2 mg/dL (8.5-10.1); CREATININE 1.8 mg/dL (0.6-1.3); MAGNESIUM 1.9 mg/dL (1.8-2.4); PHOSPHORUS* 2.5 mg/dL (2.5-4.9); POTASSIUM 4.5 mmol/L (3.5-5.1)
--- NOTE | 2019-03-23 13:40 | NUR ---
ARRIV AMBULATORY. PORT ALREADY ACCESSED. PORT PATENT WTIHJ GOOD BLOOD RETURN AND EASY FLUSH. INFUSION INCLUDING WEEKLY IRON COMPLETED AND TOLERATED WELL. PRE AND POST LABS PER STANDING ORDER. PORT FLUHED AND LEFT ACCESSED FOR USE LATER THIS WEEK. DENIES NEEDS AT DISCHARGE.
== END ==
LOC: M.INFUS 05:34
PROVIDERS: Internal Medicine Nephrology
DX: E86.0 Dehydration (principal); N18.4 Chronic kidney disease, stage 4 (severe); D63.1 Anemia in chronic kidney disease; D50.9 Iron deficiency anemia, unspecified

== ENCOUNTER → 2019-03-25 | Outpatient (CLI) | payer OTHER, SELFPAY ==
[2019-03-25 09:30] VITALS: BP 122/74
[2019-03-25 10:23] LABS: CALCIUM 9.7 mg/dL (8.5-10.1); CREATININE 1.8 mg/dL (0.6-1.3); MAGNESIUM 1.5 mg/dL (1.8-2.4); PHOSPHORUS* 3.4 mg/dL (2.5-4.9); POTASSIUM 4.3 mmol/L (3.5-5.1)
[2019-03-25 13:00] VITALS: BP 118/74
--- NOTE | 2019-03-25 13:28 | NUR ---
ARRIVED AMBULATORY. MADE SELF COMFORTABLE IN RECLINER. PORT ALREADY ACCESSED. PORT PATENT. INFUSION COMPLETED AND TOLERATED WELL. PORT FLUSHED AND DEACCESSED. DENEIS NEEDS AT DISCHARGE.
[2019-03-25 14:45] LABS: CALCIUM 8.9 mg/dL (8.5-10.1); CREATININE 1.7 mg/dL (0.6-1.3); MAGNESIUM 1.7 mg/dL (1.8-2.4); PHOSPHORUS* 2.2 mg/dL (2.5-4.9); POTASSIUM 4.1 mmol/L (3.5-5.1)
== END ==
LOC: M.INFUS 05:12
PROVIDERS: Internal Medicine Nephrology
DX: N18.4 Chronic kidney disease, stage 4 (severe) (principal); E86.0 Dehydration; K52.9 Noninfective gastroenteritis and colitis, unspecified

== ENCOUNTER → 2019-03-28 | Outpatient (CLI) | payer OTHER, SELFPAY ==
[2019-03-28 09:25] VITALS: BP 115/55
[2019-03-28 10:20] LABS: CALCIUM 9.6 mg/dL (8.5-10.1); CREATININE 1.8 mg/dL (0.6-1.3); MAGNESIUM 1.3 mg/dL (1.8-2.4); PHOSPHORUS* 3.7 mg/dL (2.5-4.9); POTASSIUM 4.4 mmol/L (3.5-5.1)
[2019-03-28 15:25] LABS: CALCIUM 9.1 mg/dL (8.5-10.1); CREATININE 1.7 mg/dL (0.6-1.3); MAGNESIUM 1.6 mg/dL (1.8-2.4); POTASSIUM 4.3 mmol/L (3.5-5.1)
== END ==
LOC: M.INFUS 00:57
PROVIDERS: Internal Medicine Nephrology
DX: N18.4 Chronic kidney disease, stage 4 (severe) (principal); E86.0 Dehydration

== ENCOUNTER → 2019-03-31 | Outpatient (CLI) | payer OTHER, SELFPAY ==
[2019-03-31 08:55] VITALS: BP 101/57
[2019-03-31 10:57] LABS: CALCIUM 9.7 mg/dL (8.5-10.1); CREATININE 2.2 mg/dL (0.6-1.3); POTASSIUM 4.1 mmol/L (3.5-5.1)
[2019-03-31 11:07] LABS: MAGNESIUM 1.4 mg/dL (1.8-2.4)
[2019-03-31 12:55] VITALS: BP 122/68
[2019-03-31 14:07] LABS: CALCIUM 9.2 mg/dL (8.5-10.1); CREATININE 1.8 mg/dL (0.6-1.3); MAGNESIUM 1.7 mg/dL (1.8-2.4); PHOSPHORUS* 4.3 mg/dL (2.5-4.9)
[2019-03-31 14:08] LABS: POTASSIUM 5.4 mmol/L (3.5-5.1)
== END ==
LOC: M.INFUS 02:35
PROVIDERS: Internal Medicine Nephrology
DX: E86.0 Dehydration (principal); D50.9 Iron deficiency anemia, unspecified; K52.9 Noninfective gastroenteritis and colitis, unspecified

== ENCOUNTER → 2019-04-01 | Outpatient (CLI) | payer OTHER, SELFPAY ==
[2019-04-01 08:30] VITALS: BP 125/59
[2019-04-01 10:41] LABS: CALCIUM 9.3 mg/dL (8.5-10.1); MAGNESIUM 1.5 mg/dL (1.8-2.4); PHOSPHORUS* 4.4 mg/dL (2.5-4.9); POTASSIUM 4.7 mmol/L (3.5-5.1)
[2019-04-01 12:40] VITALS: BP 122/62
[2019-04-01 12:42] LABS: CALCIUM 8.8 mg/dL (8.5-10.1); CREATININE 1.9 mg/dL (0.6-1.3); MAGNESIUM 1.6 mg/dL (1.8-2.4); PHOSPHORUS* 3.6 mg/dL (2.5-4.9); POTASSIUM 4.8 mmol/L (3.5-5.1)
== END ==
LOC: M.INFUS 00:16
PROVIDERS: Internal Medicine Nephrology
DX: N18.4 Chronic kidney disease, stage 4 (severe) (principal); E86.0 Dehydration; K52.9 Noninfective gastroenteritis and colitis, unspecified

== ENCOUNTER → 2019-04-05 | Outpatient (CLI) | payer OTHER, SELFPAY ==
[2019-04-05 09:35] VITALS: BP 122/74
[2019-04-05 10:16] LABS: MAGNESIUM 1.4 mg/dL (1.8-2.4); PHOSPHORUS* 4.8 mg/dL (2.5-4.9); POTASSIUM 4.1 mmol/L (3.5-5.1)
[2019-04-05 13:04] VITALS: BP 118/70
[2019-04-05 13:56] LABS: CALCIUM 9.2 mg/dL (8.5-10.1); CREATININE 1.8 mg/dL (0.6-1.3); MAGNESIUM 1.7 mg/dL (1.8-2.4); PHOSPHORUS* 3.8 mg/dL (2.5-4.9); POTASSIUM 4.6 mmol/L (3.5-5.1)
== END ==
LOC: M.INFUS 08:30
PROVIDERS: Internal Medicine Nephrology
DX: N18.4 Chronic kidney disease, stage 4 (severe) (principal); E86.0 Dehydration

== ENCOUNTER → 2019-04-07 | Outpatient (CLI) | payer OTHER, SELFPAY ==
[2019-04-07 09:39] LABS: CREATININE 1.9 mg/dL (0.6-1.3); MAGNESIUM 1.3 mg/dL (1.8-2.4); PHOSPHORUS* 4.3 mg/dL (2.5-4.9); POTASSIUM 4.3 mmol/L (3.5-5.1)
[2019-04-07 09:50] VITALS: BP 136/60
[2019-04-07 12:45] VITALS: BP 128/67
--- NOTE | 2019-04-07 13:01 | NUR ---
INFUSION COMPLETED AND TOELRATED WELL. PORT FLUSHED AND DEACCESSED. DENIES NEEDS AT DISCHARGE.
[2019-04-07 14:25] LABS: CREATININE 1.6 mg/dL (0.6-1.3); MAGNESIUM 1.7 mg/dL (1.8-2.4); PHOSPHORUS* 3.7 mg/dL (2.5-4.9); POTASSIUM 4.6 mmol/L (3.5-5.1)
== END ==
LOC: M.INFUS 04:51
PROVIDERS: Internal Medicine Nephrology
DX: N18.4 Chronic kidney disease, stage 4 (severe) (principal); D50.9 Iron deficiency anemia, unspecified; E86.0 Dehydration

== ENCOUNTER → 2019-04-11 | Outpatient (CLI) | payer OTHER, SELFPAY ==
[2019-04-11 08:55] VITALS: BP 132/74
[2019-04-11 09:31] LABS: CALCIUM 10.9 mg/dL (8.5-10.1); CREATININE 2.5 mg/dL (0.6-1.3); MAGNESIUM 1.3 mg/dL (1.8-2.4); PHOSPHORUS* 5.1 mg/dL (2.5-4.9); POTASSIUM 4.6 mmol/L (3.5-5.1)
[2019-04-11 12:34] VITALS: BP 118/70
--- NOTE | 2019-04-11 12:44 | NUR ---
INFUSION COMPLETED AND TOELRATED WELL. PORT FLUSHED AND LEFT ACCESSED. DENIES NEEDS AT DISCHARGE.
[2019-04-11 13:10] LABS: CREATININE 2.1 mg/dL (0.6-1.3); MAGNESIUM 1.2 mg/dL (1.8-2.4); PHOSPHORUS* 4.3 mg/dL (2.5-4.9); POTASSIUM 4.9 mmol/L (3.5-5.1)
== END ==
LOC: M.INFUS 01:12
PROVIDERS: Internal Medicine Nephrology
DX: N18.4 Chronic kidney disease, stage 4 (severe) (principal); E86.0 Dehydration

== ENCOUNTER → 2019-04-13 | Outpatient (CLI) | payer OTHER, SELFPAY ==
[2019-04-13 09:15] VITALS: BP 122/74
[2019-04-13 09:38] LABS: HEMATOCRIT 37.3 % (37.0-47.0); HEMOGLOBIN 12.2 gm/dL (12.0-15.0); MCH 30.7 pg (26.0-34.0); MCHC 32.8 g/dL (28.0-37.0); MCV 93.6 fL (80.0-100.0); MPV 8.3 fl. (7.2-11.1); RBC 3.98 mil/uL (4.20-5.00); RDW-CV 15.6 % (10.5-14.5); WBC 8.3 thou/uL (4.0-11.0)
[2019-04-13 09:44] LABS: CALCIUM 10.6 mg/dL (8.5-10.1); MAGNESIUM 1.3 mg/dL (1.8-2.4); PHOSPHORUS* 4.2 mg/dL (2.5-4.9); POTASSIUM 4.2 mmol/L (3.5-5.1)
[2019-04-13 12:02] VITALS: BP 118/62
[2019-04-13 14:08] LABS: CALCIUM 9.4 mg/dL (8.5-10.1); CREATININE 1.7 mg/dL (0.6-1.3); MAGNESIUM 1.5 mg/dL (1.8-2.4); PHOSPHORUS* 2.8 mg/dL (2.5-4.9); POTASSIUM 4.4 mmol/L (3.5-5.1)
== END ==
LOC: M.INFUS 05:13
PROVIDERS: Internal Medicine Nephrology
DX: N18.4 Chronic kidney disease, stage 4 (severe) (principal)

== ENCOUNTER → 2019-04-15 | Outpatient (CLI) | payer OTHER, SELFPAY ==
[2019-04-15 09:00] VITALS: BP 111/65
[2019-04-15 09:47] LABS: CALCIUM 10.3 mg/dL (8.5-10.1); CREATININE 2.1 mg/dL (0.6-1.3); MAGNESIUM 1.4 mg/dL (1.8-2.4); PHOSPHORUS* 3.9 mg/dL (2.5-4.9); POTASSIUM 4.4 mmol/L (3.5-5.1)
[2019-04-15 15:13] LABS: CALCIUM 9.4 mg/dL (8.5-10.1); CREATININE 1.8 mg/dL (0.6-1.3); MAGNESIUM 1.8 mg/dL (1.8-2.4); PHOSPHORUS* 2.7 mg/dL (2.5-4.9); POTASSIUM 4.9 mmol/L (3.5-5.1)
== END ==
LOC: M.INFUS 04:41
PROVIDERS: Internal Medicine Nephrology
DX: N18.4 Chronic kidney disease, stage 4 (severe) (principal); E86.0 Dehydration

== ENCOUNTER → 2019-04-18 | Outpatient (CLI) | payer OTHER, SELFPAY ==
[2019-04-18 09:49] VITALS: BP 119/56
[2019-04-18 10:21] LABS: CALCIUM 9.8 mg/dL (8.5-10.1); CREATININE 2.1 mg/dL (0.6-1.3); MAGNESIUM 1.5 mg/dL (1.8-2.4); POTASSIUM 4.2 mmol/L (3.5-5.1)
--- NOTE | 2019-04-18 12:45 | NUR ---
Pt ambulated in to infusion area and seated self in recliner @ 0918. Ckd meds and increase in Vt D was noted. Pt denies any other changes to medical care. Port -a- cath to right chest accessed without difficulty @ 0940 with 3/4 in bent 20g. Sterile dressing applied. Flushed well and Pre-infusion labs drawn at 0942. NS 500 xyrty5nm at 0943 at 350cc/hr IVPB and completed with out side effects at 1110. MG .5gm with K+ 20meq starting IVPB at 1114 and completed at 1238. Pt tolerated infusion well. Post infusion labs drawn at 1240. Flushed port with NS then Hep solution. Pt ambulated out for appointment for Echo. Port-a-cath left accessed for infusion later this week.
[2019-04-18 13:08] LABS: CREATININE 1.8 mg/dL (0.6-1.3); MAGNESIUM 1.7 mg/dL (1.8-2.4); PHOSPHORUS* 2.8 mg/dL (2.5-4.9); POTASSIUM 4.3 mmol/L (3.5-5.1)
--- NOTE | 2019-04-18 16:07 | 2DMMODE ---
[place] [address] 2 D/M-MODE ECHOCARDIOGRAM Name: SMITHANGELITA TAYO Room: [facility]#: [id number] Admission: 04/18/19 Attend Phys: Aminata Kaye Discharge: Date of : 42 Date of Service: 04/18/19 1607 Report #: [id number] THIS REPORT FOR: //name// APPROVED REPORT Study performed: 04/18/2019 12:59:40 EXAM: Comprehensive 2D, Doppler, and color-flow Echocardiogram Patient Location: Out-Patient BSA: 1.76 HR: 64 bpm BP: 124/72 mmHg Other Information Study Quality: Good 2D Dimensions IVSd: 10.24 (7-11mm) LVOT Diam: 20.35 (18-24mm) LVDd: 45.36 mm PWd: 11.68 (7-11mm) Ascending Ao: 32.98 (22-36mm) LVDs: 30.05 (25-40mm) Aortic Root: 28.13 mm Volumes Left Atrial Volume (Systole) LA ESV Index: 17.20 mL/m2 Aortic Valve AoV Peak Ruben.: 1.90 m/s AO Peak Gr.: 14.45 mmHg LVOT Max P.29 mmHg AO Mean Gr.: 8.83 mmHg LVOT Mean P.79 mmHg LVOT Max V: 1.25 m/s AO V2 VTI: 45.94 cm LVOT Mean V: 0.75 m/s PIPER (VTI): 2.04 cm2 LVOT V1 VTI: 28.75 cm Mitral Valve E/A Ratio: 1.01 MV Decel. Time: 207.19 ms MV E Max Ruben.: 0.83 m/s MV PHT: 60.09 ms MVA (PHT): 3.66 cm2 TDI E/Lateral E': 7.55 E/Medial E': 6.92 [place] [address] 2 D/M-MODE ECHOCARDIOGRAM Name: ANGELITA SMITH Room: [facility]#: [id number] Admission: 04/18/19 Attend Phys: Aminata Kaye Discharge: Date of : 42 Date of Service: 04/18/19 1607 Report #: [id number] Medial E' Ruben.: 0.12 m/s Lateral E' Ruben.: 0.11 m/s Pulmonary Valve PV Peak Ruben.: 0.93 m/s PV Peak Gr.: 3.45 mmHg Tricuspid Valve RAP Estimate: 5.00 mmHg TR Peak Gr.: 17.54 mmHg RVSP: 22.54 mmHg PA Pressure: 22.54 mmHg Left Ventricle The left ventricle is normal size. There is normal LV segmental wall motion. There is normal left ventricular wall thickness. Left ventricular systolic function is normal. The left ventricular ejection fraction is within the normal range. LVEF is 55-60%. Grade I - abnormal relaxation pattern. Right Ventricle The right ventricle is normal size. The right ventricular systolic function is normal. Atria The left atrium size is normal. The right atrium size is normal. Aortic Valve Mild aortic valve sclerosis. No aortic regurgitation is present. No hemodynamically significant valvular aortic stenosis. Mitral Valve The mitral valve is normal in structure. Mild mitral regurgitation. No evidence of mitral valve stenosis. Tricuspid Valve The tricuspid valve is normal in structure. Mild tricuspid regurgitation. Pulmonic Valve The pulmonary valve is normal in structure. Mild pulmonic regurgitation. Great Vessels The aortic root is normal in size. IVC is normal in size and collapses >50% [place] [address] 2 D/M-MODE ECHOCARDIOGRAM Name: ANGELITA SMITH Room: [facility]#: [id number] Admission: 04/18/19 Attend Phys: Aminata Kaye Discharge: Date of : 42 Date of Service: 04/18/19 1607 Report #: [id number] Pericardium There is no pericardial effusion. <Conclusion> The left ventricle is normal size. There is normal left ventricular wall thickness. Left ventricular systolic function is normal. The left ventricular ejection fraction is within the normal range. LVEF is 55-60%. Grade I - abnormal relaxation pattern. The right ventricle is normal size. The left atrium size is normal. Mild aortic valve sclerosis. No aortic regurgitation is present. No hemodynamically significant valvular aortic stenosis. The mitral valve is normal in structure. Mild mitral regurgitation. The tricuspid valve is normal in structure. Mild tricuspid regurgitation. IVC is normal in size and collapses >50% with inspiration. There is no pericardial effusion. There is normal LV segmental wall motion. <ELECTRONICALLY SIGNED> By: Osbaldo Balderrama MD, FACC 04/18/19 1607 1607 1607 Osbaldo Balderrama MD, FACC /INF
== END ==
LOC: M.INFUS 01:04
PROVIDERS: Internal Medicine Nephrology
DX: N18.4 Chronic kidney disease, stage 4 (severe) (principal); E86.0 Dehydration

== ENCOUNTER → 2019-04-20 | Outpatient (CLI) | payer OTHER, SELFPAY ==
[2019-04-20 09:10] VITALS: BP 126/68
[2019-04-20 09:42] LABS: CALCIUM 9.3 mg/dL (8.5-10.1); CREATININE 1.9 mg/dL (0.6-1.3); MAGNESIUM 1.6 mg/dL (1.8-2.4); PHOSPHORUS* 3.5 mg/dL (2.5-4.9); POTASSIUM 4.5 mmol/L (3.5-5.1)
[2019-04-20 12:23] VITALS: BP 122/66
[2019-04-20 12:54] LABS: CALCIUM 8.6 mg/dL (8.5-10.1); CREATININE 1.7 mg/dL (0.6-1.3); MAGNESIUM 1.7 mg/dL (1.8-2.4); PHOSPHORUS* 2.6 mg/dL (2.5-4.9); POTASSIUM 4.7 mmol/L (3.5-5.1)
== END ==
LOC: M.INFUS 05:20
PROVIDERS: Internal Medicine Nephrology; Surgery Surgery of the Hand
DX: N18.4 Chronic kidney disease, stage 4 (severe) (principal); D50.9 Iron deficiency anemia, unspecified; E86.0 Dehydration

== ENCOUNTER → 2019-04-22 | Outpatient (CLI) | payer OTHER, SELFPAY ==
[2019-04-22 09:00] VITALS: BP 121/71
[2019-04-22 10:07] LABS: CALCIUM 9.9 mg/dL (8.5-10.1); CREATININE 1.9 mg/dL (0.6-1.3); MAGNESIUM 1.5 mg/dL (1.8-2.4); PHOSPHORUS* 3.8 mg/dL (2.5-4.9); POTASSIUM 4.3 mmol/L (3.5-5.1)
[2019-04-22 12:20] VITALS: BP 122/68
[2019-04-22 13:10] LABS: CALCIUM 9.1 mg/dL (8.5-10.1); CREATININE 1.7 mg/dL (0.6-1.3); MAGNESIUM 1.7 mg/dL (1.8-2.4); PHOSPHORUS* 3.1 mg/dL (2.5-4.9); POTASSIUM 4.5 mmol/L (3.5-5.1)
== END ==
LOC: M.INFUS 04:58
PROVIDERS: Internal Medicine Nephrology
DX: N18.4 Chronic kidney disease, stage 4 (severe) (principal)

== ENCOUNTER → 2019-04-25 | Outpatient (CLI) | payer OTHER, SELFPAY ==
[2019-04-25 09:40] LABS: CALCIUM 9.9 mg/dL (8.5-10.1); CREATININE 1.8 mg/dL (0.6-1.3); MAGNESIUM 1.5 mg/dL (1.8-2.4); POTASSIUM 4.1 mmol/L (3.5-5.1)
[2019-04-25 13:28] VITALS: BP 117/74
== END ==
LOC: M.INFUS 00:39
PROVIDERS: Internal Medicine Nephrology
DX: N18.4 Chronic kidney disease, stage 4 (severe) (principal); E86.0 Dehydration

== ENCOUNTER → 2019-04-27 | Outpatient (CLI) | payer OTHER, SELFPAY ==
[2019-04-27 08:57] VITALS: BP 111/54
[2019-04-27 09:27] LABS: CALCIUM 9.7 mg/dL (8.5-10.1); CREATININE 1.7 mg/dL (0.6-1.3); MAGNESIUM 1.5 mg/dL (1.8-2.4); PHOSPHORUS* 3.7 mg/dL (2.5-4.9); POTASSIUM 4.3 mmol/L (3.5-5.1)
[2019-04-27 12:15] VITALS: BP 122/78
[2019-04-27 12:40] LABS: CALCIUM 8.8 mg/dL (8.5-10.1); CREATININE 1.6 mg/dL (0.6-1.3); MAGNESIUM 1.7 mg/dL (1.8-2.4); PHOSPHORUS* 2.5 mg/dL (2.5-4.9); POTASSIUM 4.7 mmol/L (3.5-5.1)
--- NOTE | 2019-04-27 12:52 | NUR ---
PORT IS ALREADY ACCESSED FOR USE EARLIER IN THE WEEK. PORT PATENT WITH GOOD BRISK BLOOD RETURN AND EASY FLUSH. INFUSION COMPLETED AND TOLERATED WELL. PORT FLUSHED AND LEFT ACCESSED FOR USE LATER THIS WEEK.
== END ==
LOC: M.INFUS 00:40
PROVIDERS: Internal Medicine Nephrology
DX: N18.4 Chronic kidney disease, stage 4 (severe) (principal); E86.0 Dehydration

== ENCOUNTER → 2019-05-02 | Outpatient (CLI) | payer OTHER, SELFPAY ==
[2019-05-02 08:50] VITALS: BP 123/56
[2019-05-02 09:35] LABS: CALCIUM 10.7 mg/dL (8.5-10.1); CREATININE 2.2 mg/dL (0.6-1.3); MAGNESIUM 1.6 mg/dL (1.8-2.4); PHOSPHORUS* 4.2 mg/dL (2.5-4.9); POTASSIUM 4.4 mmol/L (3.5-5.1)
[2019-05-02 12:25] VITALS: BP 120/64
--- NOTE | 2019-05-02 12:40 | NUR ---
INFUSION COMPLETED AND TOLERTED WELL.
[2019-05-02 12:44] LABS: CALCIUM 9.6 mg/dL (8.5-10.1); MAGNESIUM 1.7 mg/dL (1.8-2.4); PHOSPHORUS* 2.8 mg/dL (2.5-4.9); POTASSIUM 4.4 mmol/L (3.5-5.1)
== END ==
LOC: M.INFUS 01:16
PROVIDERS: Internal Medicine Nephrology
DX: N18.4 Chronic kidney disease, stage 4 (severe) (principal); E86.0 Dehydration

== ENCOUNTER → 2019-05-04 | Outpatient (CLI) | payer OTHER, SELFPAY ==
[2019-05-04 10:17] LABS: CALCIUM 10.1 mg/dL (8.5-10.1); CREATININE 2.3 mg/dL (0.6-1.3); MAGNESIUM 1.2 mg/dL (1.8-2.4); PHOSPHORUS* 4.5 mg/dL (2.5-4.9); POTASSIUM 4.2 mmol/L (3.5-5.1)
[2019-05-04 13:14] LABS: CALCIUM 9.6 mg/dL (8.5-10.1); MAGNESIUM 1.4 mg/dL (1.8-2.4); PHOSPHORUS* 3.5 mg/dL (2.5-4.9); POTASSIUM 4.5 mmol/L (3.5-5.1)
== END ==
LOC: M.INFUS 05:16
PROVIDERS: Internal Medicine Nephrology
DX: N18.4 Chronic kidney disease, stage 4 (severe) (principal); E86.0 Dehydration

== ENCOUNTER → 2019-05-06 | Outpatient (CLI) | payer OTHER, SELFPAY ==
[2019-05-06 08:40] VITALS: BP 116/68
[2019-05-06 09:01] LABS: CALCIUM 10.1 mg/dL (8.5-10.1); MAGNESIUM 1.3 mg/dL (1.8-2.4); PHOSPHORUS* 3.7 mg/dL (2.5-4.9); POTASSIUM 4.2 mmol/L (3.5-5.1)
[2019-05-06 12:00] VITALS: BP 118/72
--- NOTE | 2019-05-06 12:06 | NUR ---
INFSUION COMPLETED AND TOLERATED WELL. PORT FLUSHED AND DEACCESSED.
[2019-05-06 12:30] LABS: CALCIUM 9.3 mg/dL (8.5-10.1); CREATININE 1.8 mg/dL (0.6-1.3); MAGNESIUM 1.6 mg/dL (1.8-2.4); PHOSPHORUS* 2.4 mg/dL (2.5-4.9); POTASSIUM 4.3 mmol/L (3.5-5.1)
== END ==
LOC: M.INFUS 04:38
PROVIDERS: Internal Medicine Nephrology
DX: E86.0 Dehydration (principal); N18.4 Chronic kidney disease, stage 4 (severe)

== ENCOUNTER → 2019-05-09 | Outpatient (CLI) | payer OTHER, SELFPAY ==
[2019-05-09 09:05] VITALS: BP 100/56
[2019-05-09 09:41] LABS: CREATININE 2.1 mg/dL (0.6-1.3); MAGNESIUM 1.2 mg/dL (1.8-2.4); PHOSPHORUS* 4.6 mg/dL (2.5-4.9); POTASSIUM 4.2 mmol/L (3.5-5.1)
[2019-05-09 09:42] LABS: CALCIUM 11.3 mg/dL (8.5-10.1)
[2019-05-09 13:06] LABS: CALCIUM 9.9 mg/dL (8.5-10.1); CREATININE 1.7 mg/dL (0.6-1.3); MAGNESIUM 1.6 mg/dL (1.8-2.4); POTASSIUM 4.8 mmol/L (3.5-5.1)
== END ==
LOC: M.INFUS 02:21
PROVIDERS: Internal Medicine Nephrology
DX: E86.0 Dehydration (principal); N18.4 Chronic kidney disease, stage 4 (severe)

== ENCOUNTER → 2019-05-11 | Outpatient (CLI) | payer OTHER, SELFPAY ==
[2019-05-11 08:40] VITALS: BP 105/55
[2019-05-11 09:12] LABS: CALCIUM 10.5 mg/dL (8.5-10.1); CREATININE 1.9 mg/dL (0.6-1.3); MAGNESIUM 1.3 mg/dL (1.8-2.4); PHOSPHORUS* 3.8 mg/dL (2.5-4.9); POTASSIUM 4.3 mmol/L (3.5-5.1)
[2019-05-11 12:10] VITALS: BP 115/60
[2019-05-11 12:51] LABS: CALCIUM 9.9 mg/dL (8.5-10.1); CREATININE 1.8 mg/dL (0.6-1.3); MAGNESIUM 1.6 mg/dL (1.8-2.4); PHOSPHORUS* 3.3 mg/dL (2.5-4.9); POTASSIUM 4.9 mmol/L (3.5-5.1)
== END ==
LOC: M.INFUS 05:03
PROVIDERS: Internal Medicine Nephrology
DX: E86.0 Dehydration (principal); N18.4 Chronic kidney disease, stage 4 (severe)

== ENCOUNTER → 2019-05-16 | Outpatient (CLI) | payer OTHER, SELFPAY ==
[2019-05-16 09:18] VITALS: BP 108/54
[2019-05-16 09:59] LABS: CALCIUM 9.7 mg/dL (8.5-10.1); CREATININE 2.6 mg/dL (0.6-1.3); MAGNESIUM 1.4 mg/dL (1.8-2.4); PHOSPHORUS* 4.2 mg/dL (2.5-4.9)
[2019-05-16 12:30] VITALS: BP 110/58
--- NOTE | 2019-05-16 12:50 | NUR ---
ARRIVED AMBULATORY. MADE SELF COMFORTABLE IN RECLINER. PORT A CTH ACCESSED WITH OUT DIFFICULTY AND NOTED TO BE WIDLEY PATENT. INFUSION COMPELTED AND TOLERATED WELL. PORT FLUSHED AND LEFT ACCESSED FOR INFUSION NEEDS LATER IN WEEK. DENIES NEEDS AT DISCHARGE.
[2019-05-16 13:13] LABS: CALCIUM 8.9 mg/dL (8.5-10.1); CREATININE 2.3 mg/dL (0.6-1.3); MAGNESIUM 1.7 mg/dL (1.8-2.4); PHOSPHORUS* 3.4 mg/dL (2.5-4.9); POTASSIUM 4.3 mmol/L (3.5-5.1)
== END ==
LOC: M.INFUS 04:54
PROVIDERS: Internal Medicine Nephrology
DX: E86.0 Dehydration (principal); N18.4 Chronic kidney disease, stage 4 (severe)

== ENCOUNTER → 2019-05-18 | Outpatient (CLI) | payer OTHER, SELFPAY ==
[2019-05-18 08:45] VITALS: BP 127/55
[2019-05-18 09:53] LABS: CALCIUM 9.9 mg/dL (8.5-10.1); CREATININE 2.2 mg/dL (0.6-1.3); MAGNESIUM 1.5 mg/dL (1.8-2.4); POTASSIUM 4.2 mmol/L (3.5-5.1)
[2019-05-18 15:07] LABS: CALCIUM 9.2 mg/dL (8.5-10.1); CREATININE 2.1 mg/dL (0.6-1.3); MAGNESIUM 1.8 mg/dL (1.8-2.4); PHOSPHORUS* 2.8 mg/dL (2.5-4.9); POTASSIUM 4.7 mmol/L (3.5-5.1)
== END ==
LOC: M.INFUS 03:39
PROVIDERS: Internal Medicine Nephrology
DX: N18.4 Chronic kidney disease, stage 4 (severe) (principal); E86.0 Dehydration

== ENCOUNTER → 2019-05-20 | Outpatient (CLI) | payer OTHER, SELFPAY ==
[2019-05-20 09:42] LABS: HEMOGLOBIN 11.8 gm/dL (12.0-15.0); MCH 29.7 pg (26.0-34.0); MCV 92.9 fL (80.0-100.0); MPV 8.2 fl. (7.2-11.1); RBC 3.98 mil/uL (4.20-5.00); RDW-CV 15.9 % (10.5-14.5); WBC 6.7 thou/uL (4.0-11.0)
[2019-05-20 10:04] LABS: ALBUMIN 3.1 g/dL (3.4-5.0); CALCIUM 9.9 mg/dL (8.5-10.1); CREATININE 1.9 mg/dL (0.6-1.3); TOTAL BILIRUBIN 0.3 mg/dL (<0.1-1.0); TOTAL PROTEIN 6.9 g/dL (6.4-8.2)
[2019-05-20 13:09] LABS: CALCIUM 9.1 mg/dL (8.5-10.1); CREATININE 1.6 mg/dL (0.6-1.3); MAGNESIUM 1.6 mg/dL (1.8-2.4); PHOSPHORUS* 2.4 mg/dL (2.5-4.9); POTASSIUM 4.7 mmol/L (3.5-5.1)
--- NOTE | 2019-05-20 14:23 | NUR ---
INFUSION COMPLETED AND TOELRATED WELL. PORT FLUSHED AND DEACCESED.
== END ==
LOC: M.INFUS 04:07
PROVIDERS: Internal Medicine Gastroenterology; Internal Medicine Nephrology
DX: N18.4 Chronic kidney disease, stage 4 (severe) (principal); D51.9 Vitamin B12 deficiency anemia, unspecified; D50.9 Iron deficiency anemia, unspecified; E86.0 Dehydration

== ENCOUNTER → 2019-05-23 | Outpatient (CLI) | payer OTHER, SELFPAY ==
[2019-05-23 09:50] LABS: CALCIUM 9.9 mg/dL (8.5-10.1); MAGNESIUM 1.4 mg/dL (1.8-2.4); PHOSPHORUS* 3.8 mg/dL (2.5-4.9); POTASSIUM 4.4 mmol/L (3.5-5.1)
[2019-05-23 13:09] LABS: CALCIUM 9.2 mg/dL (8.5-10.1); MAGNESIUM 1.5 mg/dL (1.8-2.4); PHOSPHORUS* 2.3 mg/dL (2.5-4.9); POTASSIUM 4.5 mmol/L (3.5-5.1)
--- NOTE | 2019-05-23 14:27 | NUR ---
ARRIVED AMBULATORY. MADE SELF COMFORTABLE IN RECLINER. PORT ACCESSED WITH OUT DIFFICULTY. GOOD BRISK BLOOD RETURN NOTED AND FLUSED WITH EASE. INFUSION COMPLETED AND TOLERATED WELL. PORT FLUSHED AND LEFT ACCESSED FOR USE LATER IN WEEK.
== END ==
LOC: M.INFUS 04:37
PROVIDERS: Internal Medicine Nephrology
DX: N18.4 Chronic kidney disease, stage 4 (severe) (principal); E86.0 Dehydration

== ENCOUNTER → 2019-05-25 | Outpatient (CLI) | payer OTHER, SELFPAY ==
[2019-05-25 09:00] VITALS: BP 122/74
[2019-05-25 10:11] LABS: CALCIUM 9.7 mg/dL (8.5-10.1); CREATININE 2.1 mg/dL (0.6-1.3); MAGNESIUM 1.5 mg/dL (1.8-2.4); PHOSPHORUS* 3.6 mg/dL (2.5-4.9); POTASSIUM 4.5 mmol/L (3.5-5.1)
[2019-05-25 12:12] VITALS: BP 122/78
[2019-05-25 12:53] LABS: CALCIUM 8.9 mg/dL (8.5-10.1); CREATININE 1.9 mg/dL (0.6-1.3); MAGNESIUM 1.6 mg/dL (1.8-2.4); PHOSPHORUS* 2.8 mg/dL (2.5-4.9)
== END ==
LOC: M.INFUS 05:28
PROVIDERS: Internal Medicine Nephrology
DX: N18.4 Chronic kidney disease, stage 4 (severe) (principal); E86.0 Dehydration

== ENCOUNTER → 2019-05-27 | Outpatient (CLI) | payer OTHER, SELFPAY ==
[2019-05-27 08:45] VITALS: BP 123/75
[2019-05-27 09:13] LABS: CALCIUM 9.8 mg/dL (8.5-10.1); MAGNESIUM 1.6 mg/dL (1.8-2.4); PHOSPHORUS* 3.6 mg/dL (2.5-4.9); POTASSIUM 4.8 mmol/L (3.5-5.1)
[2019-05-27 12:15] VITALS: BP 118/62
[2019-05-27 12:30] LABS: CREATININE 1.8 mg/dL (0.6-1.3); MAGNESIUM 1.8 mg/dL (1.8-2.4); PHOSPHORUS* 2.8 mg/dL (2.5-4.9); POTASSIUM 4.8 mmol/L (3.5-5.1)
--- NOTE | 2019-05-27 12:45 | NUR ---
ARRIVED AMBULATORY. MADE SELF COMFORTABLE IN RECLINER. PORT A CATH ACCESSED ON 05/26/19 IS INTACT AND PATENT WITH NO SIGN OF INFECTION. INFUSION COMPLETED AND TOERLATED WELL. PORT FLUSHED AND DEACCESSED. DENEIS NEEDS AT DISCHARGE.
== END ==
LOC: M.INFUS 05:08
PROVIDERS: Internal Medicine Nephrology
DX: N18.4 Chronic kidney disease, stage 4 (severe) (principal)

== ENCOUNTER → 2019-05-30 | Outpatient (CLI) | payer OTHER, SELFPAY ==
[2019-05-30 09:10] VITALS: BP 118/70
[2019-05-30 09:38] LABS: CALCIUM 9.9 mg/dL (8.5-10.1); MAGNESIUM 1.4 mg/dL (1.8-2.4); PHOSPHORUS* 3.4 mg/dL (2.5-4.9); POTASSIUM 4.4 mmol/L (3.5-5.1)
[2019-05-30 12:25] VITALS: BP 112/68
--- NOTE | 2019-05-30 13:35 | NUR ---
ARRIVED AMBULATROY. MADE SELF COMFORTABLE IN RECLINER. PORT A CATH ACCESSED WITH OUT DICCICULTY. GOOD BRISK BLOOD RETURN NOTED AND FLUSHED WITH EASE. PRE AND POST LAB FROM PORT. INFUSION COMPLETED AND TOLERATED WELL. PORT FLUSHED AND LEFT ACCESSED FOR USE LATER IN WEEK. DENIES QUESTIONS OR NEEDS AT DISCHARGE.
[2019-05-30 13:53] LABS: CALCIUM 8.9 mg/dL (8.5-10.1); CREATININE 1.8 mg/dL (0.6-1.3); MAGNESIUM 1.8 mg/dL (1.8-2.4); POTASSIUM 4.6 mmol/L (3.5-5.1)
== END ==
LOC: M.INFUS 05:03
PROVIDERS: Internal Medicine Nephrology
DX: N18.4 Chronic kidney disease, stage 4 (severe) (principal); E86.0 Dehydration

== ENCOUNTER → 2019-06-06 | Outpatient (CLI) | payer OTHER, SELFPAY ==
[2019-06-06 10:30] VITALS: BP 124/55
[2019-06-06 10:51] LABS: CALCIUM 9.4 mg/dL (8.5-10.1); CREATININE 2.5 mg/dL (0.6-1.3); MAGNESIUM 1.6 mg/dL (1.8-2.4); PHOSPHORUS* 3.8 mg/dL (2.5-4.9); POTASSIUM 4.4 mmol/L (3.5-5.1)
--- NOTE | 2019-06-06 10:56 | NUR ---
ARRIVED AMBULATORY. MADE SELF COMFORTABLE. PORT A CATH ACCESSED WITH OUT DIFFICULTY. GOOD BRISK BLOOD RETURN AND FLUSED WITH EASE. PT WAS ON VACATIONLAST WEEK AND HAS NOT HAD INFUSION X 1 WEEK. CR NOTED TO BE ELEVATED AT 2.5 INFUSION STARTED AND RUNING WELL.
[2019-06-06 13:50] VITALS: BP 120/62
--- NOTE | 2019-06-06 14:16 | NUR ---
INFUSION COMPLETED AND TOLERATED WELL. POST LABS DRAWN. PORT FLUSHED AND LEFT INTACT FOR USE LATER IN THE WEEK.
[2019-06-06 14:29] LABS: CALCIUM 8.9 mg/dL (8.5-10.1); CREATININE 2.2 mg/dL (0.6-1.3); MAGNESIUM 1.8 mg/dL (1.8-2.4); PHOSPHORUS* 3.1 mg/dL (2.5-4.9)
== END ==
LOC: M.INFUS 01:26
PROVIDERS: Internal Medicine Nephrology
DX: N18.4 Chronic kidney disease, stage 4 (severe) (principal); E86.0 Dehydration

== ENCOUNTER → 2019-06-08 | Outpatient (CLI) | payer OTHER, SELFPAY ==
[2019-06-08 10:30] VITALS: BP 118/70
[2019-06-08 11:12] LABS: CALCIUM 9.9 mg/dL (8.5-10.1); CREATININE 2.3 mg/dL (0.6-1.3); MAGNESIUM 1.7 mg/dL (1.8-2.4); PHOSPHORUS* 3.6 mg/dL (2.5-4.9); POTASSIUM 4.6 mmol/L (3.5-5.1)
[2019-06-08 14:05] VITALS: BP 110/68
--- NOTE | 2019-06-08 14:35 | NUR ---
ARRIVED AMBULATORY. PORT ALREADY ACCESSED FROM [facility] THIS WEEK. PORT PATNET WITH GOOD BLOOD RETURN AND EASY FLUSH. INFUSION COMPLETED AND TOLERATED WELL. PORT FLUSHED AND LEFT ACCESSED FRO USE THIS THURSDAY. DENIES NEEDS AT DISCHARGE
[2019-06-08 15:20] LABS: CREATININE 2.1 mg/dL (0.6-1.3); MAGNESIUM 1.9 mg/dL (1.8-2.4); PHOSPHORUS* 2.2 mg/dL (2.5-4.9); POTASSIUM 4.8 mmol/L (3.5-5.1)
== END ==
LOC: M.INFUS 05:18
PROVIDERS: Internal Medicine Nephrology
DX: N18.4 Chronic kidney disease, stage 4 (severe) (principal); E86.0 Dehydration

== ENCOUNTER → 2019-06-10 | Outpatient (CLI) | payer OTHER, SELFPAY ==
[2019-06-10 10:34] VITALS: BP 111/56
[2019-06-10 11:13] LABS: CALCIUM 10.2 mg/dL (8.5-10.1); CREATININE 2.1 mg/dL (0.6-1.3); MAGNESIUM 1.5 mg/dL (1.8-2.4); PHOSPHORUS* 3.3 mg/dL (2.5-4.9); POTASSIUM 4.6 mmol/L (3.5-5.1)
[2019-06-10 14:41] LABS: CREATININE 1.8 mg/dL (0.6-1.3); MAGNESIUM 1.8 mg/dL (1.8-2.4); POTASSIUM 4.7 mmol/L (3.5-5.1)
[2019-06-10 14:58] LABS: PHOSPHORUS* 2.6 mg/dL (2.5-4.9)
--- NOTE | 2019-06-10 14:58 | NUR ---
ARRIVED AMBULATORY. MADE SELF COMFORTABLE IN RECLINER. PORT ALREADY ACCESSED. PORT PATENT WITH GOOD BLOOD RETURN AND EASY FLUSH. INFUSION COMPLETED AND TOLERATED WELL.
== END ==
LOC: M.INFUS 05:35
PROVIDERS: Internal Medicine Nephrology
DX: N18.4 Chronic kidney disease, stage 4 (severe) (principal); E86.0 Dehydration

== ENCOUNTER → 2019-06-13 | Outpatient (CLI) | payer OTHER, SELFPAY ==
[2019-06-13 09:00] VITALS: BP 118/75
[2019-06-13 09:37] LABS: CALCIUM 9.9 mg/dL (8.5-10.1); CREATININE 1.9 mg/dL (0.6-1.3); MAGNESIUM 1.4 mg/dL (1.8-2.4); POTASSIUM 4.3 mmol/L (3.5-5.1)
[2019-06-13 12:30] VITALS: BP 120/68
[2019-06-13 12:47] LABS: CREATININE 1.7 mg/dL (0.6-1.3); MAGNESIUM 1.7 mg/dL (1.8-2.4); PHOSPHORUS* 3.2 mg/dL (2.5-4.9); POTASSIUM 4.5 mmol/L (3.5-5.1)
--- NOTE | 2019-06-13 13:39 | NUR ---
ARRIVED AMBULATORY. MADE SELF COMFORTABLE. PORT A CATH ACCESSED WITH OUT DIFFICULTY. GOOD BRISK BLOOD RETURN NOTED AND FLUSHED WITH EASE. INFUSION COMPLETED AND TOLERATED WELL. PORT FLUSHED AND LEFT ACCESSED FOR THE WEEK 2 MORE INFUSIONS OF SAME ARE SCHEDULED. KETTY QUESTIONS OR NEEDS AT DISCHARGE.
== END ==
LOC: M.INFUS 01:03
PROVIDERS: Internal Medicine Nephrology
DX: N18.4 Chronic kidney disease, stage 4 (severe) (principal); E86.0 Dehydration

== ENCOUNTER → 2019-06-17 | Outpatient (CLI) | payer OTHER, SELFPAY ==
[2019-06-17 10:00] VITALS: BP 120/60
[2019-06-17 10:27] LABS: CALCIUM 9.7 mg/dL (8.5-10.1); POTASSIUM 4.3 mmol/L (3.5-5.1)
[2019-06-17 10:30] LABS: MAGNESIUM 1.5 mg/dL (1.8-2.4); PHOSPHORUS* 3.9 mg/dL (2.5-4.9)
[2019-06-17 15:37] LABS: CALCIUM 8.6 mg/dL (8.5-10.1); CREATININE 1.8 mg/dL (0.6-1.3); MAGNESIUM 1.9 mg/dL (1.8-2.4); POTASSIUM 4.7 mmol/L (3.5-5.1)
== END ==
LOC: M.INFUS 05:11
PROVIDERS: Internal Medicine Nephrology
DX: N18.4 Chronic kidney disease, stage 4 (severe) (principal); E86.0 Dehydration

== ENCOUNTER → 2019-06-20 | Outpatient (CLI) | payer OTHER, SELFPAY ==
[2019-06-20 10:15] VITALS: BP 104/58
[2019-06-20 11:00] LABS: CALCIUM 9.6 mg/dL (8.5-10.1); CREATININE 2.3 mg/dL (0.6-1.3); MAGNESIUM 1.6 mg/dL (1.8-2.4); PHOSPHORUS* 3.4 mg/dL (2.5-4.9); POTASSIUM 4.3 mmol/L (3.5-5.1)
[2019-06-20 13:30] VITALS: BP 102/60
[2019-06-20 13:52] LABS: CALCIUM 8.7 mg/dL (8.5-10.1); CREATININE 1.9 mg/dL (0.6-1.3); MAGNESIUM 1.9 mg/dL (1.8-2.4); PHOSPHORUS* 2.8 mg/dL (2.5-4.9); POTASSIUM 4.5 mmol/L (3.5-5.1)
== END ==
LOC: M.INFUS 05:02
PROVIDERS: Internal Medicine Nephrology
DX: N18.4 Chronic kidney disease, stage 4 (severe) (principal); E86.0 Dehydration

== ENCOUNTER → 2019-06-22 | Outpatient (CLI) | payer OTHER, SELFPAY ==
[2019-06-22 09:35] VITALS: BP 122/70
[2019-06-22 10:09] LABS: CALCIUM 9.4 mg/dL (8.5-10.1); CREATININE 1.9 mg/dL (0.6-1.3); MAGNESIUM 1.5 mg/dL (1.8-2.4); PHOSPHORUS* 3.9 mg/dL (2.5-4.9); POTASSIUM 4.1 mmol/L (3.5-5.1)
[2019-06-22 12:50] VITALS: BP 122/75
[2019-06-22 13:06] LABS: CREATININE 1.8 mg/dL (0.6-1.3); MAGNESIUM 1.8 mg/dL (1.8-2.4); PHOSPHORUS* 3.1 mg/dL (2.5-4.9); POTASSIUM 4.8 mmol/L (3.5-5.1)
== END ==
LOC: M.INFUS 05:03
PROVIDERS: Internal Medicine Nephrology
DX: N18.4 Chronic kidney disease, stage 4 (severe) (principal); E86.0 Dehydration

== ENCOUNTER → 2019-06-24 | Outpatient (CLI) | payer OTHER, SELFPAY ==
[2019-06-24 09:50] VITALS: BP 107/59
[2019-06-24 10:19] LABS: CALCIUM 9.7 mg/dL (8.5-10.1); CREATININE 1.9 mg/dL (0.6-1.3); MAGNESIUM 1.5 mg/dL (1.8-2.4); PHOSPHORUS* 4.4 mg/dL (2.5-4.9); POTASSIUM 4.5 mmol/L (3.5-5.1)
[2019-06-24 12:58] VITALS: BP 112/68
--- NOTE | 2019-06-24 13:17 | NUR ---
INFUSION COMPLETED AND TOLERATED WELL. PORT FLUSHED AND DEACCESSED. DENEIS NEEDS AT DISCHARGE.
[2019-06-24 13:41] LABS: CREATININE 1.7 mg/dL (0.6-1.3); MAGNESIUM 1.6 mg/dL (1.8-2.4); PHOSPHORUS* 3.3 mg/dL (2.5-4.9); POTASSIUM 4.1 mmol/L (3.5-5.1)
--- NOTE | 2019-07-06 14:28 | NUR ---
ADDENDUM: LATE ENTRY FOR 06/24/19 TIME FOR SODIUM CHLORIDE ADMISITERED IS START 0954 STOP 1132 TIME FOR POTASSIUM/MAGNESIUM ADMINISTED IS START 1132 STOP 1250
== END ==
LOC: M.INFUS 05:10
PROVIDERS: Internal Medicine Nephrology
DX: N18.4 Chronic kidney disease, stage 4 (severe) (principal); E86.0 Dehydration

== ENCOUNTER → 2019-06-27 | Outpatient (CLI) | payer OTHER, SELFPAY ==
[2019-06-27 09:10] VITALS: BP 116/78
[2019-06-27 10:23] LABS: CALCIUM 9.9 mg/dL (8.5-10.1); MAGNESIUM 1.4 mg/dL (1.8-2.4); PHOSPHORUS* 4.1 mg/dL (2.5-4.9); POTASSIUM 4.2 mmol/L (3.5-5.1)
[2019-06-27 13:10] VITALS: BP 112/74
--- NOTE | 2019-06-27 13:23 | NUR ---
ARRIVED AMBULATORY. MADE SELF COMFORTABLE IN RECLINER. PORT A CATH ACCESSED WITH OUT DIFFICULTY. GOOD BRISK BLOOD RETURN AND EASY FLUSH. INFUSION COMPLETED AND TOELRATED WELL. PPORT FLUSHED AND LEFT ACCESSED FOR USE LATER IN THE WEEK. DENIES NEEDS AT DISCHARGE.
[2019-06-27 13:29] LABS: CALCIUM 9.4 mg/dL (8.5-10.1); CREATININE 1.9 mg/dL (0.6-1.3); MAGNESIUM 1.7 mg/dL (1.8-2.4); PHOSPHORUS* 2.5 mg/dL (2.5-4.9); POTASSIUM 4.2 mmol/L (3.5-5.1)
== END ==
LOC: M.INFUS 00:11
PROVIDERS: Internal Medicine Nephrology
DX: N18.4 Chronic kidney disease, stage 4 (severe) (principal); E86.0 Dehydration

== ENCOUNTER → 2019-06-29 | Outpatient (CLI) | payer OTHER, SELFPAY ==
[2019-06-29 09:35] VITALS: BP 119/57
[2019-06-29 10:29] LABS: POTASSIUM 4.2 mmol/L (3.5-5.1)
[2019-06-29 10:32] LABS: MAGNESIUM 1.4 mg/dL (1.8-2.4); PHOSPHORUS* 4.2 mg/dL (2.5-4.9)
--- NOTE | 2019-06-29 13:37 | NUR ---
PT ARRIVED AMBULATORY. MADE SELF COMFORTABLE IN RECLINER. RIGHT CHEST PORT A CATH ALREADY ACCESSED BY OLINDA LA RN ON THURSDAY, JUNE 27, 2019. RIGHT CHEST PORT A CATH FLUSHES EASILY AND GOOD BRISK BLOOD RETURN NOTED. PRE INFUSION LABS DRAWN AND SENT TO LABORATORY. INFUSION COMPLETED AND TOLERATED WELL. POST INFUSION LABS DRAWN AND SENT TO LABORATORY. PORT FLUSHED AND LEFT ACCESSED FOR LATER USE THIS WEEK. DENIES QUESTIONS OR NEEDS AT DISCHARGE.
[2019-06-29 13:39] LABS: CALCIUM 9.2 mg/dL (8.5-10.1); CREATININE 1.8 mg/dL (0.6-1.3); POTASSIUM 4.8 mmol/L (3.5-5.1)
[2019-06-29 13:42] LABS: MAGNESIUM 1.7 mg/dL (1.8-2.4); PHOSPHORUS* 3.7 mg/dL (2.5-4.9)
== END ==
LOC: M.INFUS 04:56
PROVIDERS: Internal Medicine Nephrology
DX: N18.4 Chronic kidney disease, stage 4 (severe) (principal); E86.0 Dehydration

== ENCOUNTER → 2019-07-01 | Outpatient (CLI) | payer OTHER, SELFPAY ==
[2019-07-01 10:15] VITALS: BP 119/57
[2019-07-01 10:59] LABS: CALCIUM 9.6 mg/dL (8.5-10.1); CREATININE 1.9 mg/dL (0.6-1.3); MAGNESIUM 1.4 mg/dL (1.8-2.4); PHOSPHORUS* 4.4 mg/dL (2.5-4.9); POTASSIUM 4.4 mmol/L (3.5-5.1)
[2019-07-01 13:21] VITALS: BP 122/60
[2019-07-01 14:54] LABS: CALCIUM 8.8 mg/dL (8.5-10.1); CREATININE 1.9 mg/dL (0.6-1.3); MAGNESIUM 1.6 mg/dL (1.8-2.4); PHOSPHORUS* 3.4 mg/dL (2.5-4.9); POTASSIUM 4.5 mmol/L (3.5-5.1)
== END ==
LOC: M.INFUS 01:50
PROVIDERS: Internal Medicine Nephrology
DX: N18.4 Chronic kidney disease, stage 4 (severe) (principal); E86.0 Dehydration

== ENCOUNTER → 2019-07-04 | Outpatient (CLI) | payer OTHER, SELFPAY ==
[2019-07-04 09:10] VITALS: BP 116/61
[2019-07-04 10:35] LABS: CALCIUM 9.6 mg/dL (8.5-10.1); CREATININE 1.9 mg/dL (0.6-1.3); MAGNESIUM 1.4 mg/dL (1.8-2.4); PHOSPHORUS* 3.7 mg/dL (2.5-4.9); POTASSIUM 3.9 mmol/L (3.5-5.1)
[2019-07-04 13:15] VITALS: BP 118/64
[2019-07-04 13:36] LABS: CALCIUM 8.7 mg/dL (8.5-10.1); CREATININE 1.7 mg/dL (0.6-1.3); MAGNESIUM 1.6 mg/dL (1.8-2.4); PHOSPHORUS* 2.8 mg/dL (2.5-4.9); POTASSIUM 4.4 mmol/L (3.5-5.1)
== END ==
LOC: M.INFUS 06:21
PROVIDERS: Internal Medicine Nephrology
DX: N18.4 Chronic kidney disease, stage 4 (severe) (principal); E86.0 Dehydration

== ENCOUNTER → 2019-07-08 | Outpatient (CLI) | payer OTHER, SELFPAY ==
[2019-07-08 09:42] VITALS: BP 111/71
[2019-07-08 09:52] LABS: CALCIUM 9.4 mg/dL (8.5-10.1); CREATININE 2.8 mg/dL (0.6-1.3); MAGNESIUM 1.4 mg/dL (1.8-2.4); PHOSPHORUS* 4.3 mg/dL (2.5-4.9); POTASSIUM 4.5 mmol/L (3.5-5.1)
[2019-07-08 12:35] VITALS: BP 113/75
--- NOTE | 2019-07-08 12:43 | NUR ---
ARRIVED AMBULATORY. PORT INTACT AND PATENT. INFUSION COMPLETED AND TOELRATED WELL. PORT FLUSHED AND DEACCESSED. DENIES QUESTIONS AT DISCHARGE.
[2019-07-08 15:53] LABS: CALCIUM 8.6 mg/dL (8.5-10.1); CREATININE 2.5 mg/dL (0.6-1.3); MAGNESIUM 1.8 mg/dL (1.8-2.4); PHOSPHORUS* 3.2 mg/dL (2.5-4.9); POTASSIUM 5.1 mmol/L (3.5-5.1)
== END ==
LOC: M.INFUS 04:47
PROVIDERS: Internal Medicine Nephrology
DX: N18.4 Chronic kidney disease, stage 4 (severe) (principal); E86.0 Dehydration

== ENCOUNTER 2019-07-12 14:06 | Inpatient (IN) | payer OTHER, SELFPAY ==
[~2019-07-12] VITALS: Ht 167.6 cm; Wt 67.1 kg
[2019-07-12 14:12] VITALS: BP 121/57
[2019-07-12 14:52] LABS: ABSOLUTE BASOPHILS 0.1 thou/uL (0.0-0.2); ABSOLUTE EOSINOPHILS 0.3 thou/uL (0.0-0.7); ABSOLUTE LYMPHOCYTES 1.7 thou/uL (0.8-5.3); ABSOLUTE MONOCYTES 0.6 thou/uL (0.0-1.2); ABSOLUTE NEUTROPHILS 4.7 thou/uL (1.6-8.1); BASOPHILS 0.9 %; EOSINOPHILS 3.9 %; HEMATOCRIT 40.8 % (37.0-47.0); HEMOGLOBIN 13.2 gm/dL (12.0-15.0); LYMPHOCYTES 23.1 %; MCH 30.6 pg (26.0-34.0); MCHC 32.3 g/dL (28.0-37.0); MCV 94.6 fL (80.0-100.0); MONOCYTES 7.9 %; MPV 8.1 fl. (7.2-11.1); NUCLEATED RBCS 0 /100WBC; PLATELET COUNT* 290 thou/uL (150-400); POLYS 64.2 %; RBC 4.31 mil/uL (4.20-5.00); RDW-CV 15.8 % (10.5-14.5); WBC 7.3 thou/uL (4.0-11.0)
[2019-07-12 15:07] LABS: APTT 21.6 Seconds (25.0-31.3)
[2019-07-12 15:14] LABS: ANION GAP 9 mmol/L (7-16); BUN 53 mg/dL (7-18); CHLORIDE 106 mmol/L (98-107); CO2 22 mmol/L (21-32); GLUCOSE 116 mg/dL (70-99); POTASSIUM 4.8 mmol/L (3.5-5.1); SODIUM 137 mmol/L (136-145)
[2019-07-12 15:25] LABS: ALBUMIN 3.4 g/dL (3.4-5.0); ALKALINE PHOSPHATASE 115 U/L (46-116); NT-PRO BRAIN NAT PEPTIDE 392 pg/mL (<300); SGOT 17 U/L (15-37); SGPT 24 U/L (30-65); TOTAL BILIRUBIN 0.3 mg/dL (<0.1-1.0); TOTAL PROTEIN 7.5 g/dL (6.4-8.2); TROPONIN-I LEVEL <0.06 ng/mL (<0.06)
[2019-07-12 15:46] LABS: URINE BILIRUBIN NEGATIVE (Negative); URINE BLOOD NEGATIVE (Negative); URINE CLARITY CLEAR; URINE COLOR YELLOW; URINE GLUCOSE-RANDOM NEGATIVE (Negative); URINE KETONES NEGATIVE (Negative); URINE LEUKOCYTES-REFLEX NEGATIVE (Negative); URINE NITRITE-REFLEX NEGATIVE (Negative); URINE PROTEIN NEGATIVE (Negative); URINE SPECIFIC GRAVITY 1.025 (1.005-1.030); URINE UROBILINOGEN 0.2 E.U./dl (0.2-1.0)
[2019-07-12 16:13] VITALS: BP 106/51
[2019-07-12 16:53] VITALS: BP 117/75
[2019-07-12 20:00] VITALS: BP 107/58
[2019-07-13 05:39] LABS: ABSOLUTE EOSINOPHILS 0.3 thou/uL (0.0-0.7); ABSOLUTE LYMPHOCYTES 1.8 thou/uL (0.8-5.3); ABSOLUTE MONOCYTES 0.5 thou/uL (0.0-1.2); ABSOLUTE NEUTROPHILS 3.5 thou/uL (1.6-8.1); BASOPHILS 0.8 %; EOSINOPHILS 5.2 %; HEMATOCRIT 34.6 % (37.0-47.0); HEMOGLOBIN 11.3 gm/dL (12.0-15.0); LYMPHOCYTES 28.7 %; MCH 30.6 pg (26.0-34.0); MCHC 32.6 g/dL (28.0-37.0); MCV 93.7 fL (80.0-100.0); MONOCYTES 8.2 %; MPV 7.8 fl. (7.2-11.1); NUCLEATED RBCS 0 /100WBC; PLATELET COUNT* 229 thou/uL (150-400); POLYS 57.1 %; RBC 3.69 mil/uL (4.20-5.00); RDW-CV 15.7 % (10.5-14.5); WBC 6.1 thou/uL (4.0-11.0)
[2019-07-13 05:47] LABS: CREATININE 2.3 mg/dL (0.6-1.3); POTASSIUM 4.4 mmol/L (3.5-5.1)
[2019-07-13 08:00] VITALS: BP 112/88
[2019-07-13 15:15] VITALS: BP 112/88
[2019-07-13 16:00] VITALS: BP 116/77
--- NOTE | 2019-07-13 18:13 | EKG ---
[place] [address] ELECTROCARDIOGRAM REPORT Name: ANGELITA SMITH Room: [address] ADM IN M.R.#: [id number] Admission: 07/12/19 Attend Phys: Andres Nunez MD Discharge: Date of : 42 Report #: [id number] THIS REPORT FOR: //name// [facility] ED Test Date: 2019-07-12 Test Time: 14:52:56 Pat Name: ANGELITA SMITH Department: Room: [facility] Gender: F Senior Net C Developer: [place] : 1940 Requested By: Isrrael Avendaño Order Number: [id number] MD: Ronak Elliott Measurements Intervals [place] Rate: 60 P: 8 MD: 200 QRS: -10 QRSD: 118 T: 46 QT: 419 QTc: 419 Interpretive Statements Sinus rhythm Ventricular premature complex Anterior infarct, old Compared to ECG 11/29/2018 14:02:19 Ventricular premature complex(es) now present Sinus bradycardia no longer present Myocardial infarct finding still present Electronically Signed On 07-13-2019 18:13:26 CDT by Ronak Elliott [email or web address] <ELECTRONICALLY SIGNED> By: Ronak Elliott MD, FACC 07/13/19 1813 1452 1452 Ronak Elliott MD, [facility] /EPI
--- NOTE | 2019-07-14 11:44 | CON ---
[address] [address] CONSULTATION Name: ANGELITA SMITH Room: [address] IN M.R.#: [id number] Admission: 07/12/19 Attend Phys: Andres Nunez MD Discharge: 07/13/19 Date of : 42 Report #: [id number] THIS REPORT FOR: //name// CC: Andres Patelon This is a consultation by Dr. Nunez for acute kidney injury on chronic kidney disease. HISTORY OF PRESENT ILLNESS: The patient is a very pleasant 79-year-old female who is well known to our practice. She has been followed by my partner, Dr. Goldstein, for many years. She has a high output ileostomy, and because of that she is IV fluid dependant. She gets fluids 3 times a week, gets approximately a liter of fluids with potassium and magnesium supplementation. Her last infusion was a few days ago. Because of the holidays, her schedule did get disrupted. She felt very fatigued, weak and tired. She denies any more than usual loose stools. No nausea or vomiting. No fevers, rigors or chills. She was brought in yesterday for the same complaint. She was found to be in acute kidney injury with creatinine over 3; her baseline is 2.1 to 2.3. She had received fluid overnight. She feels much better this morning. She has not been out of the bed yet this morning, hence does not know if she will be okay walking, which has been planned for the rest of the day. PAST MEDICAL HISTORY: Chronic kidney disease stage 4. Baseline creatinine 2.1 to 2.3. Chronic dehydration from high output ileostomy. She is IV fluid dependant, get them 3 times a week. 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 History of fibromyalgia. She also has history of total colectomy, cholecystectomy, surgery for her esophagus, compartment syndrome in the left leg requiring surgery, bilateral cataract surgery, skin cancer removal, Port-A-Cath placement. PERSONAL, SOCIAL AND FAMILY HISTORY: Reviewed. No smoking, no alcohol is reported. REVIEW OF SYSTEMS: She feels much better this morning. No fevers, rigors or chills. No chest pain, no shortness of breath. No abdominal pain, etc. PHYSICAL EXAMINATION: VITAL SIGNS: Blood pressure 112/88, pulse of 56. LUNGS: Diminished, but clear. HEENT: Mucous membranes are moist. ABDOMEN: Soft. Ileostomy is noted with liquid stools. EXTREMITIES: Showed no significant edema. NEUROLOGIC: [place] [address] CONSULTATION Name: ANGELITA SMITH Room: [address] IN [facility].#: [id number] Admission: 07/12/19 Attend Phys: Andres Nunez MD Discharge: 07/13/19 Date of : 42 Report #: [id number] SKIN AND JOINT: Normal. LABORATORY DATA: White count is 6.1, hemoglobin is 11.3. Sodium 135, potassium 4.4, chloride 109, bicarbonate 16, anion gap of 10, BUN 47, creatinine 2.3 down from 3.0 on admission yesterday, BUN was 53 on admission yesterday. Calcium is 9. Magnesium level has not been checked. We will add on to the lab. Urinalysis was relatively clear, but concentrated urine. Urine sodium was less than 5. ASSESSMENT: 1. Acute kidney injury. 2. Chronic kidney disease stage 4. 3. Chronic ileostomy with chronic fluid losses, high output ostomy, and need for intravenous infusions regularly. 4. History of fibromyalgia. 5. History of ulcerative colitis, and ileostomy for the same. PLAN: 1. Acute kidney injury has resolved. 2. Renal function almost back to baseline. 3. Intravenous fluids to continue. 4. Give 1 more liter of saline, and then if needed a discharge can be planned. 5. Check a magnesium level. 6. Thank you for the consultation. We will continue to follow and provide necessary support. I discussed personally with Dr. Nunez. <ELECTRONICALLY SIGNED> By: Yenifer Maldonado MD 07/14/19 1144 0840 [id number] Maldonado MD /nt
== END 2019-07-13 18:35 | disposition home or self-care (01) | DRG 683 ==
LOC: M.ERS 14:06 → M.TBA-ER 15:30 → M.ORTHSURG 15:30
PROVIDERS: Family Medicine; ADMIT Internal Medicine
DX: N17.9 Acute kidney failure, unspecified (principal); J98.11 Atelectasis; K91.2 Postsurgical malabsorption, not elsewhere classified; N18.4 Chronic kidney disease, stage 4 (severe); M79.7 Fibromyalgia; E03.9 Hypothyroidism, unspecified; M19.90 Unspecified osteoarthritis, unspecified site; F32.9 Major depressive disorder, single episode, unspecified; E86.0 Dehydration; K21.9 Gastro-esophageal reflux disease without esophagitis; Z96.651 Presence of right artificial knee joint; Z90.49 Acquired absence of other specified parts of digestive tract; Z93.2 Ileostomy status; Z98.42 Cataract extraction status, left eye; Z98.41 Cataract extraction status, right eye; Z85.828 Personal history of other malignant neoplasm of skin; Z79.899 Other long term (current) drug therapy; Z88.1 Allergy status to other antibiotic agents; Z88.2 Allergy status to sulfonamides; Z88.8 Allergy status to other drugs, medicaments and biological substances

== ENCOUNTER → 2019-07-15 | Outpatient (CLI) | payer OTHER, SELFPAY ==
[2019-07-15 09:02] VITALS: BP 122/70
[2019-07-15 12:20] VITALS: BP 118/60
[2019-07-15 12:46] LABS: CALCIUM 9.3 mg/dL (8.5-10.1); CREATININE 1.9 mg/dL (0.6-1.3); MAGNESIUM 1.5 mg/dL (1.8-2.4); PHOSPHORUS* 3.1 mg/dL (2.5-4.9)
[2019-07-15 13:06] LABS: CALCIUM 8.7 mg/dL (8.5-10.1); CREATININE 1.7 mg/dL (0.6-1.3); MAGNESIUM 1.8 mg/dL (1.8-2.4); PHOSPHORUS* 2.2 mg/dL (2.5-4.9)
== END ==
LOC: M.INFUS 05:05
PROVIDERS: Internal Medicine Nephrology
DX: N18.4 Chronic kidney disease, stage 4 (severe) (principal); E86.0 Dehydration

== ENCOUNTER → 2019-07-18 | Outpatient (CLI) | payer OTHER, SELFPAY ==
[2019-07-18 10:15] VITALS: BP 118/70
[2019-07-18 10:23] LABS: CALCIUM 9.8 mg/dL (8.5-10.1); CREATININE 1.8 mg/dL (0.6-1.3); MAGNESIUM 1.2 mg/dL (1.8-2.4); PHOSPHORUS* 3.8 mg/dL (2.5-4.9); POTASSIUM 4.2 mmol/L (3.5-5.1)
[2019-07-18 13:21] LABS: CALCIUM 8.9 mg/dL (8.5-10.1); CREATININE 1.7 mg/dL (0.6-1.3); MAGNESIUM 1.3 mg/dL (1.8-2.4); PHOSPHORUS* 2.6 mg/dL (2.5-4.9); POTASSIUM 4.1 mmol/L (3.5-5.1)
== END ==
LOC: M.INFUS 05:21
PROVIDERS: Internal Medicine Nephrology
DX: N18.4 Chronic kidney disease, stage 4 (severe) (principal); E86.0 Dehydration

== ENCOUNTER → 2019-07-22 | Outpatient (CLI) | payer OTHER, SELFPAY ==
[2019-07-22 09:40] VITALS: BP 132/74
[2019-07-22 10:13] LABS: CALCIUM 10.1 mg/dL (8.5-10.1); CREATININE 2.2 mg/dL (0.6-1.3); MAGNESIUM 1.3 mg/dL (1.8-2.4); PHOSPHORUS* 4.4 mg/dL (2.5-4.9); POTASSIUM 4.3 mmol/L (3.5-5.1)
[2019-07-22 12:30] VITALS: BP 122/70
--- NOTE | 2019-07-22 13:12 | NUR ---
ARRIVED AMBULATORY. MADE SELF COMFORTABLE IN RECLINER. PORT INTACT AND PATNET. INFUSION COMPLETED AND TOERLATED WELL. PORT FLUSHED AND DEACCESSED.
[2019-07-22 13:28] LABS: CALCIUM 9.3 mg/dL (8.5-10.1); MAGNESIUM 1.6 mg/dL (1.8-2.4); POTASSIUM 4.4 mmol/L (3.5-5.1)
== END ==
LOC: M.INFUS 04:56
PROVIDERS: Internal Medicine Nephrology
DX: N18.4 Chronic kidney disease, stage 4 (severe) (principal); E86.0 Dehydration

== ENCOUNTER → 2019-07-25 | Outpatient (CLI) | payer OTHER, SELFPAY ==
[2019-07-25 09:18] VITALS: BP 129/68
[2019-07-25 11:07] LABS: CALCIUM 9.6 mg/dL (8.5-10.1); CREATININE 2.8 mg/dL (0.6-1.3); MAGNESIUM 1.4 mg/dL (1.8-2.4); PHOSPHORUS* 4.2 mg/dL (2.5-4.9); POTASSIUM 4.6 mmol/L (3.5-5.1)
[2019-07-25 12:55] VITALS: BP 135/74
[2019-07-25 13:49] LABS: CALCIUM 8.8 mg/dL (8.5-10.1); CREATININE 2.5 mg/dL (0.6-1.3); MAGNESIUM 1.7 mg/dL (1.8-2.4); PHOSPHORUS* 3.1 mg/dL (2.5-4.9); POTASSIUM 4.9 mmol/L (3.5-5.1)
--- NOTE | 2019-07-25 15:32 | NUR ---
ARRIVED AMBULATORY. MADE SELF COMFORTABLE IN RECLINER. PORT A CATH ACCESSED WITH OUT DIFFICULTY. GOOD BRISK BLOOD RETURN NOTED AND FLUSHED WITH EASE. INFUSION COMPELTED AND TOLERATED WELL. PORT FLUSED AND LEFT ACCESSED FOR USE LATER IN WEEK. DENIES NEEDS AT DISCHARGE.
== END ==
LOC: M.INFUS 01:56
PROVIDERS: Internal Medicine Nephrology
DX: N18.4 Chronic kidney disease, stage 4 (severe) (principal); E86.0 Dehydration

== ENCOUNTER → 2019-07-27 | Outpatient (CLI) | payer OTHER, SELFPAY ==
[2019-07-27 10:05] VITALS: BP 128/64
[2019-07-27 10:11] LABS: CALCIUM 9.9 mg/dL (8.5-10.1); CREATININE 2.5 mg/dL (0.6-1.3); MAGNESIUM 1.5 mg/dL (1.8-2.4); PHOSPHORUS* 4.1 mg/dL (2.5-4.9); POTASSIUM 4.5 mmol/L (3.5-5.1)
[2019-07-27 13:15] VITALS: BP 118/70
--- NOTE | 2019-07-27 13:35 | NUR ---
ARRIVED AMBULATORY. MADE SELF COMFORTABLE. PORT A CATH TO RIGHT CHST INTACT AND PATENT. INFUSION COMPLETED AND TOLERATED WELL. PORT FLUSHED AND LEFT ACCESSED FOR USE LATER IN WEEK.
[2019-07-27 13:39] LABS: CALCIUM 9.1 mg/dL (8.5-10.1); CREATININE 2.2 mg/dL (0.6-1.3); MAGNESIUM 1.9 mg/dL (1.8-2.4); PHOSPHORUS* 3.3 mg/dL (2.5-4.9); POTASSIUM 5.2 mmol/L (3.5-5.1)
== END ==
LOC: M.INFUS 05:24
PROVIDERS: Internal Medicine Nephrology
DX: N18.4 Chronic kidney disease, stage 4 (severe) (principal); E86.0 Dehydration

== ENCOUNTER → 2019-07-29 | Outpatient (CLI) | payer OTHER, SELFPAY ==
[2019-07-29 07:38] LABS: ABSOLUTE BASOPHILS 0.1 thou/uL (0.0-0.2); ABSOLUTE EOSINOPHILS 0.3 thou/uL (0.0-0.7); ABSOLUTE LYMPHOCYTES 1.7 thou/uL (0.8-5.3); ABSOLUTE MONOCYTES 0.6 thou/uL (0.0-1.2); ABSOLUTE NEUTROPHILS 4.9 thou/uL (1.6-8.1); BASOPHILS 1.2 %; EOSINOPHILS 4.6 %; HEMATOCRIT 37.9 % (37.0-47.0); HEMOGLOBIN 12.5 gm/dL (12.0-15.0); LYMPHOCYTES 22.3 %; MCH 30.5 pg (26.0-34.0); MCV 92.6 fL (80.0-100.0); MONOCYTES 7.5 %; MPV 8.2 fl. (7.2-11.1); NUCLEATED RBCS 0 /100WBC; PLATELET COUNT* 299 thou/uL (150-400); POLYS 64.4 %; RDW-CV 15.6 % (10.5-14.5); WBC 7.5 thou/uL (4.0-11.0)
[2019-07-29 07:46] LABS: CALCIUM 10.4 mg/dL (8.5-10.1); CREATININE 2.4 mg/dL (0.6-1.3); POTASSIUM 4.7 mmol/L (3.5-5.1)
== END ==
LOC: M.LAB 05:22
PROVIDERS: Anesthesiology
DX: Z01.812 Encounter for preprocedural laboratory examination (principal); E86.0 Dehydration

== ENCOUNTER → 2019-07-29 | Outpatient (CLI) | payer OTHER, SELFPAY ==
[2019-07-29 10:30] VITALS: BP 121/62
[2019-07-29 11:00] LABS: CALCIUM 10.1 mg/dL (8.5-10.1); CREATININE 2.3 mg/dL (0.6-1.3); MAGNESIUM 1.5 mg/dL (1.8-2.4); PHOSPHORUS* 3.8 mg/dL (2.5-4.9); POTASSIUM 4.5 mmol/L (3.5-5.1)
[2019-07-29 11:43] VITALS: BP 122/62
--- NOTE | 2019-07-29 11:45 | NUR ---
PATIENT ARRIVED TO UNIT AT 09:15 POST ENDOSCOPY PROCEDURE FROM [facility]. VITALS STABLE WITH NO COMPLAINTS OF PAIN, SOA OR DIFFICULTIES OF ANY MENTION AFTER ASSESSED. RECIEVED 450ML OF NORMAL SALINE DURING PROCEDURE PER [facility]EL[facility]. OPTED OUT OF FIRST 500 ML OF SALINE HYDRATION FOR TODAY IN OUTPATIENT INFUSION CENTER. PATIENT RECIEVED 500 ML OF MAGNESIUM, PHOSPHOROUS AND SALINE PER ORDER. PATIENT TOLERATED PROCEDURE WELL AND DISCHARGED WITH TO HOME.
[2019-07-29 12:25] LABS: CALCIUM 9.2 mg/dL (8.5-10.1); CREATININE 2.1 mg/dL (0.6-1.3); MAGNESIUM 1.7 mg/dL (1.8-2.4); PHOSPHORUS* 3.2 mg/dL (2.5-4.9); POTASSIUM 4.7 mmol/L (3.5-5.1)
== END ==
LOC: M.INFUS 05:29
PROVIDERS: Internal Medicine Nephrology
DX: N18.4 Chronic kidney disease, stage 4 (severe) (principal); E86.0 Dehydration

== ENCOUNTER 2019-07-30 13:15 | Emergency (ER) | payer OTHER, SELFPAY ==
[~2019-07-30] VITALS: Ht 167.6 cm; Wt 65.8 kg
[2019-07-30 14:05] LABS: URINE BILIRUBIN NEGATIVE (Negative); URINE BLOOD NEGATIVE (Negative); URINE CLARITY CLEAR; URINE COLOR YELLOW; URINE GLUCOSE-RANDOM NEGATIVE (Negative); URINE KETONES NEGATIVE (Negative); URINE LEUKOCYTES-REFLEX NEGATIVE (Negative); URINE NITRITE-REFLEX NEGATIVE (Negative); URINE PROTEIN NEGATIVE (Negative); URINE SPECIFIC GRAVITY 1.015 (1.005-1.030); URINE UROBILINOGEN 0.2 E.U./dl (0.2-1.0)
[2019-07-30 14:14] LABS: ABSOLUTE EOSINOPHILS 0.3 thou/uL (0.0-0.7); ABSOLUTE LYMPHOCYTES 1.8 thou/uL (0.8-5.3); ABSOLUTE MONOCYTES 0.6 thou/uL (0.0-1.2); ABSOLUTE NEUTROPHILS 4.7 thou/uL (1.6-8.1); BASOPHILS 0.3 %; EOSINOPHILS 4.6 %; HEMATOCRIT 33.8 % (37.0-47.0); HEMOGLOBIN 11.4 gm/dL (12.0-15.0); LYMPHOCYTES 24.5 %; MCH 31.1 pg (26.0-34.0); MCHC 33.8 g/dL (28.0-37.0); MONOCYTES 7.9 %; NUCLEATED RBCS 0 /100WBC; PLATELET COUNT* 254 thou/uL (150-400); POLYS 62.7 %; RBC 3.68 mil/uL (4.20-5.00); RDW-CV 16.2 % (10.5-14.5); WBC 7.5 thou/uL (4.0-11.0)
[2019-07-30 14:21] LABS: ANION GAP 13 mmol/L (7-16); BUN 34 mg/dL (7-18); CALCIUM 10.1 mg/dL (8.5-10.1); CHLORIDE 106 mmol/L (98-107); CO2 17 mmol/L (21-32); CREATININE 2.1 mg/dL (0.6-1.3); GLUCOSE 99 mg/dL (70-99); POTASSIUM 4.2 mmol/L (3.5-5.1); SODIUM 136 mmol/L (136-145)
[2019-07-30 14:34] LABS: ALBUMIN 3.1 g/dL (3.4-5.0); ALKALINE PHOSPHATASE 89 U/L (46-116); SGOT 14 U/L (15-37); SGPT 16 U/L (30-65); TOTAL BILIRUBIN 0.3 mg/dL (<0.1-1.0); TOTAL PROTEIN 6.6 g/dL (6.4-8.2); TROPONIN-I LEVEL <0.06 ng/mL (<0.06)
[2019-07-30 16:57] VITALS: BP 113/50
--- NOTE | 2019-07-31 12:20 | EKG ---
[place] [address] ELECTROCARDIOGRAM REPORT Name: ANGELITA SMITH Olivia Room: [facility] [id number] Admission: 07/30/19 Attend Phys: Discharge: 07/30/19 Date of : 42 Report #: [id number] THIS REPORT FOR: //name// [facility] ED Test Date: 2019-07-30 Test Time: 14:51:09 Pat Name: ANGELITA SMITH Department: Room: Gender: F Delivery Manager: [place] : 1940 Requested By: Madi Gaxiola Order Number: [id number] MD: Michael Hollis Measurements Intervals [place] Rate: 57 P: 45 IA: 207 QRS: 12 QRSD: 117 T: 25 QT: 442 QTc: 431 Interpretive Statements Sinus rhythm Nonspecific intraventricular conduction delay Anteroseptal infarct, age indeterminate Compared to ECG 07/12/2019 14:52:56 Ventricular premature complex(es) no longer present Myocardial infarct finding still present Electronically Signed On 07-31-2019 12:20:09 CDT by Michael Hollis [email or web address] <ELECTRONICALLY SIGNED> By: Michael Hollis MD, [facility] 07/31/19 1220 1451 1451 Michael Hollis MD, [facility] /EPI
== END 2019-07-30 17:01 | disposition home or self-care (01) ==
LOC: M.ERS 13:15
PROVIDERS: Emergency Medicine Emergency Medical Services
DX: R53.1 Weakness (principal); R42 Dizziness and giddiness; R11.2 Nausea with vomiting, unspecified; M79.7 Fibromyalgia; E03.9 Hypothyroidism, unspecified; M19.90 Unspecified osteoarthritis, unspecified site; F32.9 Major depressive disorder, single episode, unspecified; K21.9 Gastro-esophageal reflux disease without esophagitis; N18.4 Chronic kidney disease, stage 4 (severe); Z85.828 Personal history of other malignant neoplasm of skin; Z86.2 Personal history of diseases of the blood and blood-forming organs and certain disorders involving the immune mechanism; Z90.49 Acquired absence of other specified parts of digestive tract; Z88.2 Allergy status to sulfonamides; Z88.1 Allergy status to other antibiotic agents; Z88.6 Allergy status to analgesic agent; Z88.8 Allergy status to other drugs, medicaments and biological substances; Z96.651 Presence of right artificial knee joint

== ENCOUNTER → 2019-08-01 | Outpatient (CLI) | payer OTHER, SELFPAY ==
[2019-08-01 08:35] VITALS: BP 122/64
[2019-08-01 09:58] LABS: CALCIUM 9.8 mg/dL (8.5-10.1); CREATININE 2.1 mg/dL (0.6-1.3); MAGNESIUM 1.4 mg/dL (1.8-2.4); PHOSPHORUS* 3.1 mg/dL (2.5-4.9); POTASSIUM 4.1 mmol/L (3.5-5.1)
[2019-08-01 12:07] VITALS: BP 118/50
--- NOTE | 2019-08-01 12:13 | NUR ---
ARRIVED AMBULATORY. MADE SELF COMFORTABLE IN RECLINER. PORT A CATH ACCESSED WITH OUT DIFFICULTY. GOOD BRISK BLOOD RETURN AND WASY FLUSH. INFUSION COMPLETED AND TOLERATED WELL. PORT FLUSHED AND LEFT ACCESSED.
== END ==
LOC: M.INFUS 04:58
PROVIDERS: Internal Medicine Nephrology
DX: N18.4 Chronic kidney disease, stage 4 (severe) (principal); E86.0 Dehydration

== ENCOUNTER → 2019-08-03 | Outpatient (CLI) | payer OTHER, SELFPAY ==
[~2019-08-03] MED LIST changes: +AZITHROMYCIN 2250 MG PO; +IPRAT-ALBUT 0.5-3 ML INH; +NEBULIZER MISCELL; +PROMETH-CODEIN 65 ML PO
[2019-08-03 09:45] VITALS: BP 113/69
[2019-08-03 10:15] LABS: CALCIUM 9.8 mg/dL (8.5-10.1); MAGNESIUM 1.4 mg/dL (1.8-2.4); PHOSPHORUS* 3.3 mg/dL (2.5-4.9); POTASSIUM 4.1 mmol/L (3.5-5.1)
[2019-08-03 12:59] VITALS: BP 116/68
[2019-08-03 13:40] LABS: CALCIUM 8.6 mg/dL (8.5-10.1); CREATININE 1.7 mg/dL (0.6-1.3); MAGNESIUM 1.6 mg/dL (1.8-2.4); PHOSPHORUS* 2.2 mg/dL (2.5-4.9); POTASSIUM 3.8 mmol/L (3.5-5.1)
== END ==
LOC: M.INFUS 04:58
PROVIDERS: Internal Medicine Nephrology
DX: N18.4 Chronic kidney disease, stage 4 (severe) (principal); E86.0 Dehydration

== ENCOUNTER → 2019-08-05 | Outpatient (CLI) | payer OTHER, SELFPAY ==
[2019-08-05 09:05] VITALS: BP 135/58
[2019-08-05 09:31] LABS: CALCIUM 9.6 mg/dL (8.5-10.1); CREATININE 2.1 mg/dL (0.6-1.3); MAGNESIUM 1.4 mg/dL (1.8-2.4); PHOSPHORUS* 3.5 mg/dL (2.5-4.9)
[2019-08-05 12:00] VITALS: BP 126/64
[2019-08-05 12:53] LABS: CALCIUM 8.7 mg/dL (8.5-10.1); CREATININE 1.8 mg/dL (0.6-1.3); MAGNESIUM 1.7 mg/dL (1.8-2.4); PHOSPHORUS* 2.6 mg/dL (2.5-4.9); POTASSIUM 4.6 mmol/L (3.5-5.1)
== END ==
LOC: M.INFUS 05:07
PROVIDERS: Internal Medicine Nephrology
DX: N18.4 Chronic kidney disease, stage 4 (severe) (principal); E86.0 Dehydration

== ENCOUNTER → 2019-08-08 | Outpatient (CLI) | payer OTHER, SELFPAY ==
[2019-08-08 09:45] VITALS: BP 122/70
[2019-08-08 10:06] LABS: CALCIUM 10.2 mg/dL (8.5-10.1); CREATININE 2.2 mg/dL (0.6-1.3); MAGNESIUM 1.7 mg/dL (1.8-2.4); PHOSPHORUS* 3.5 mg/dL (2.5-4.9); POTASSIUM 4.6 mmol/L (3.5-5.1)
[2019-08-08 12:55] VITALS: BP 110/63
--- NOTE | 2019-08-08 13:03 | NUR ---
ARRIVED AMBULATORY. MADE SELF COMFORTABLE IN RECLINER. PORT ACCESSED WITH EASE. INFUSION COMPLETED AND TOLERATED WELL. PORT LEFT ACCESSED FOR USE LATER IN WEEK.
[2019-08-08 13:19] LABS: CALCIUM 8.9 mg/dL (8.5-10.1); MAGNESIUM 1.8 mg/dL (1.8-2.4); PHOSPHORUS* 2.3 mg/dL (2.5-4.9); POTASSIUM 4.6 mmol/L (3.5-5.1)
== END ==
LOC: M.INFUS 01:24
PROVIDERS: Internal Medicine Nephrology
DX: N18.4 Chronic kidney disease, stage 4 (severe) (principal); E86.0 Dehydration

== ENCOUNTER → 2019-08-10 | Outpatient (CLI) | payer OTHER, SELFPAY ==
[~2019-08-10] MED LIST changes: -LEVOTHYROXIN0.137 M1 PO; +SYNTHROID112 MC1 PO
[2019-08-10 09:00] VITALS: BP 127/64
[2019-08-10 09:21] LABS: CALCIUM 9.6 mg/dL (8.5-10.1); CREATININE 2.1 mg/dL (0.6-1.3); MAGNESIUM 1.6 mg/dL (1.8-2.4); PHOSPHORUS* 3.5 mg/dL (2.5-4.9); POTASSIUM 4.2 mmol/L (3.5-5.1)
[2019-08-10 12:10] VITALS: BP 122/74
--- NOTE | 2019-08-10 12:25 | NUR ---
ARRIVED AMBULATORY. MADE SELF COMFORTABLE IN RECLINER. PORT ALREADY ACCESSED. PORT PATENT WITH GOOD BLOOD RETURN AND EASY FLUSH. INFUSION COMPLETED AND TOELRATED WELL. PORT FLUSHED AND LEFT ACCESSED FOR USE LATER IN WEEK. DENIES NEEDS AT DISCHARGE.
[2019-08-10 12:55] LABS: CALCIUM 8.4 mg/dL (8.5-10.1); CREATININE 1.8 mg/dL (0.6-1.3); MAGNESIUM 1.8 mg/dL (1.8-2.4); PHOSPHORUS* 2.5 mg/dL (2.5-4.9); POTASSIUM 4.6 mmol/L (3.5-5.1)
== END ==
LOC: M.INFUS 04:49
PROVIDERS: Internal Medicine Nephrology
DX: N18.4 Chronic kidney disease, stage 4 (severe) (principal); E86.0 Dehydration

== ENCOUNTER → 2019-08-12 | Outpatient (CLI) | payer OTHER ==
[~2019-08-12] MED LIST changes: +LEVOTHYROXIN0.137 M1 PO; -SYNTHROID112 MC1 PO
[2019-08-12 10:39] LABS: CALCIUM 9.5 mg/dL (8.5-10.1); CREATININE 2.2 mg/dL (0.6-1.3); MAGNESIUM 1.7 mg/dL (1.8-2.4); PHOSPHORUS* 3.3 mg/dL (2.5-4.9); POTASSIUM 3.8 mmol/L (3.5-5.1)
[2019-08-12 14:07] LABS: CALCIUM 8.6 mg/dL (8.5-10.1); MAGNESIUM 1.9 mg/dL (1.8-2.4); PHOSPHORUS* 2.6 mg/dL (2.5-4.9); POTASSIUM 4.3 mmol/L (3.5-5.1)
[2019-08-12 14:10] VITALS: BP 108/56
== END ==
LOC: M.INFUS 05:14
PROVIDERS: Internal Medicine Nephrology
DX: N18.4 Chronic kidney disease, stage 4 (severe) (principal); E86.0 Dehydration

== ENCOUNTER → 2019-08-17 | Outpatient (CLI) | payer OTHER ==
[2019-08-17 10:23] LABS: CALCIUM 9.9 mg/dL (8.5-10.1); CREATININE 2.7 mg/dL (0.6-1.3); MAGNESIUM 1.6 mg/dL (1.8-2.4); PHOSPHORUS* 4.1 mg/dL (2.5-4.9); POTASSIUM 4.2 mmol/L (3.5-5.1)
[2019-08-17 13:00] VITALS: BP 134/48
[2019-08-17 13:34] LABS: CALCIUM 9.1 mg/dL (8.5-10.1); CREATININE 2.3 mg/dL (0.6-1.3); POTASSIUM 4.3 mmol/L (3.5-5.1)
== END ==
LOC: M.INFUS 05:20
PROVIDERS: Internal Medicine Nephrology
DX: N18.4 Chronic kidney disease, stage 4 (severe) (principal); E86.0 Dehydration

== ENCOUNTER → 2019-08-19 | Outpatient (CLI) | payer OTHER ==
[2019-08-19 10:00] VITALS: BP 117/59
[2019-08-19 10:09] LABS: CALCIUM 10.1 mg/dL (8.5-10.1); CREATININE 2.3 mg/dL (0.6-1.3); MAGNESIUM 1.8 mg/dL (1.8-2.4); PHOSPHORUS* 3.9 mg/dL (2.5-4.9); POTASSIUM 4.5 mmol/L (3.5-5.1)
[2019-08-19 12:50] VITALS: BP 120/64
--- NOTE | 2019-08-19 13:47 | NUR ---
ARRIVED AMUBLATORY. MADE SELF COMFORTABLE IN RECLINER. PORT A CATH INTACT AND PATENT. INFUSION COMPELTED AND TOLERATED WELL. PORT FLUSHED AND DEACCESSED.
[2019-08-19 15:13] LABS: ALBUMIN 2.8 g/dL (3.4-5.0); CALCIUM 9.4 mg/dL (8.5-10.1); CREATININE 2.2 mg/dL (0.6-1.3); PHOSPHORUS* 3.1 mg/dL (2.5-4.9); POTASSIUM 4.5 mmol/L (3.5-5.1); TOTAL BILIRUBIN 0.2 mg/dL (<0.1-1.0); TOTAL PROTEIN 6.3 g/dL (6.4-8.2)
== END ==
LOC: M.INFUS 04:47
PROVIDERS: Internal Medicine Nephrology
DX: N18.4 Chronic kidney disease, stage 4 (severe) (principal); E86.0 Dehydration

== ENCOUNTER 2019-08-22 15:00 | Emergency (ER) | payer OTHER ==
[~2019-08-22] VITALS: Ht 167.6 cm; Wt 64.0 kg
[~2019-08-22 15:00] MED LIST changes: -AZITHROMYCIN 2250 MG PO; -IPRAT-ALBUT 0.5-3 ML INH; -NEBULIZER MISCELL; -PROMETH-CODEIN 65 ML PO
[2019-08-22 15:29] LABS: ABSOLUTE EOSINOPHILS 0.3 thou/uL (0.0-0.7); ABSOLUTE LYMPHOCYTES 2.3 thou/uL (0.8-5.3); ABSOLUTE MONOCYTES 0.5 thou/uL (0.0-1.2); BASOPHILS 0.2 %; EOSINOPHILS 2.8 %; HEMATOCRIT 38.1 % (37.0-47.0); HEMOGLOBIN 12.7 gm/dL (12.0-15.0); LYMPHOCYTES 22.4 %; MCH 31.2 pg (26.0-34.0); MCHC 33.3 g/dL (28.0-37.0); MCV 93.7 fL (80.0-100.0); MONOCYTES 5.4 %; MPV 8.2 fl. (7.2-11.1); NUCLEATED RBCS 0 /100WBC; PLATELET COUNT* 326 thou/uL (150-400); POLYS 69.2 %; RBC 4.06 mil/uL (4.20-5.00); RDW-CV 16.8 % (10.5-14.5); WBC 10.1 thou/uL (4.0-11.0)
[2019-08-22 15:31] LABS: URINE BILIRUBIN NEGATIVE (Negative); URINE BLOOD NEGATIVE (Negative); URINE CLARITY CLEAR; URINE COLOR YELLOW; URINE GLUCOSE-RANDOM NEGATIVE (Negative); URINE KETONES NEGATIVE (Negative); URINE LEUKOCYTES-REFLEX 1+ (Negative); URINE PROTEIN 1+ (Negative); URINE UROBILINOGEN 0.2 E.U./dl (0.2-1.0)
[2019-08-22 15:39] LABS: APTT 27.1 Seconds (25.0-31.3); INR 0.9; PROTIME 9.6 Seconds (9.20-11.50)
[2019-08-22 15:40] LABS: CALCIUM 9.9 mg/dL (8.5-10.1); CREATININE 2.7 mg/dL (0.6-1.3); POTASSIUM 3.8 mmol/L (3.5-5.1)
[2019-08-22 15:50] LABS: ALBUMIN 3.4 g/dL (3.4-5.0); TOTAL BILIRUBIN 0.2 mg/dL (<0.1-1.0); TOTAL PROTEIN 7.8 g/dL (6.4-8.2)
[2019-08-22 15:51] LABS: URINE NITRITE-REFLEX POSITIVE (Negative)
[2019-08-22 15:54] LABS: BACTERIA-REFLEX >30 Many /HPF (None Seen); CASTS None Seen /LPF (None Seen); CRYSTALS None Seen /LPF (None Seen); SQUAMOUS 0-3 Few /LPF (0-3); URINE RBC None Seen /HPF (0-2); URINE WBC-REFLEX >25 Many /HPF (0-5)
[2019-08-22 16:42] VITALS: BP 118/48
--- NOTE | 2019-08-23 13:31 | EKG ---
[place] [address] ELECTROCARDIOGRAM REPORT Name: ANGELITA SMITH Room: [facility]#: [id number] Admission: 08/22/19 Attend Phys: Discharge: 08/22/19 Date of : 42 Report #: [id number] THIS REPORT FOR: //name// [facility] ED Test Date: 2019-08-22 Test Time: 15:35:20 Pat Name: ANGELITA SMITH Department: Room: Gender: F Medical Pathologist: : 1940 Requested By: Isrrael Avendaño Order Number: [id number] MD: Ronak Elliott Measurements Intervals [place] Rate: 59 P: 15 DC: 207 QRS: -13 QRSD: 109 T: 61 QT: 434 QTc: 430 Interpretive Statements Sinus rhythm Multiple ventricular premature complexes Incomplete left bundle branch block Borderline low voltage, extremity leads Consider anterior infarct Compared to ECG 07/30/2019 14:51:09 Ventricular premature complex(es) now present Left bundle-branch block now present Myocardial infarct finding still present Electronically Signed On 08-23-2019 13:30:56 CDT by Ronak Elliott [email or web address] <ELECTRONICALLY SIGNED> By: Ronak Elliott MD, FACC 08/23/19 1330 1535 1535 Ronak Elliott MD, [facility] /EPI
== END 2019-08-22 16:44 | disposition home or self-care (01) ==
LOC: M.ERS 15:00
PROVIDERS: Family Medicine
DX: R53.1 Weakness (principal); M79.7 Fibromyalgia; M19.90 Unspecified osteoarthritis, unspecified site; F32.9 Major depressive disorder, single episode, unspecified; N18.4 Chronic kidney disease, stage 4 (severe); K21.9 Gastro-esophageal reflux disease without esophagitis; Z86.2 Personal history of diseases of the blood and blood-forming organs and certain disorders involving the immune mechanism; Z88.1 Allergy status to other antibiotic agents; Z90.49 Acquired absence of other specified parts of digestive tract; Z88.2 Allergy status to sulfonamides; Z88.8 Allergy status to other drugs, medicaments and biological substances; Z88.6 Allergy status to analgesic agent; Z85.828 Personal history of other malignant neoplasm of skin; Z96.651 Presence of right artificial knee joint

== ENCOUNTER → 2019-08-22 | Outpatient (CLI) | payer OTHER, SELFPAY ==
[2019-08-22 10:24] LABS: CALCIUM 10.6 mg/dL (8.5-10.1); MAGNESIUM 1.9 mg/dL (1.8-2.4); PHOSPHORUS* 4.6 mg/dL (2.5-4.9)
[2019-08-22 13:53] LABS: CALCIUM 9.3 mg/dL (8.5-10.1); CREATININE 2.7 mg/dL (0.6-1.3); MAGNESIUM 2.1 mg/dL (1.8-2.4); PHOSPHORUS* 3.6 mg/dL (2.5-4.9); POTASSIUM 4.3 mmol/L (3.5-5.1)
--- NOTE | 2019-08-22 14:59 | NUR ---
ARRIVED AMBULATORY. MADE SELF COMFORTABLE. PORT A CATH ACCESSED. GOOD BRISK BLOOD RETURN NOTED AND FLUSHED WITH EASE. INFUSION COMPLETED AND TOLERATED WELL. PORT FLUSHED. PT REPORTS FATIGUE. STATED SHE WAS GOING TO ED AT DISCHARGE.
== END ==
LOC: M.INFUS 01:43
PROVIDERS: Internal Medicine Nephrology
DX: N18.4 Chronic kidney disease, stage 4 (severe) (principal); E86.0 Dehydration

== ENCOUNTER → 2019-08-24 | Outpatient (CLI) | payer OTHER ==
[~2019-08-24] MED LIST changes: +AZITHROMYCIN 2250 MG PO; +IPRAT-ALBUT 0.5-3 ML INH; +NEBULIZER MISCELL; +PROMETH-CODEIN 65 ML PO
[2019-08-24 09:55] VITALS: BP 111/55
[2019-08-24 10:37] LABS: CALCIUM 9.9 mg/dL (8.5-10.1); CREATININE 2.8 mg/dL (0.6-1.3); MAGNESIUM 1.9 mg/dL (1.8-2.4); PHOSPHORUS* 3.8 mg/dL (2.5-4.9); POTASSIUM 3.9 mmol/L (3.5-5.1)
[2019-08-24 13:00] VITALS: BP 116/56
--- NOTE | 2019-08-24 14:21 | NUR ---
ARRIVED AMBULATORY. MADE SELF COMFORTABLE IN RECLINER. PORT ALREADY ACCESSED AND PATENT. INFUSION COMPLETED AND TOLERATED WELL. PORT FLUSHED AND LEFT ACCESSED FOR LATER USE. DENIES NEEDS AT DISCHARGE.
[2019-08-24 14:46] LABS: CALCIUM 9.1 mg/dL (8.5-10.1); CREATININE 2.4 mg/dL (0.6-1.3); MAGNESIUM 2.1 mg/dL (1.8-2.4); PHOSPHORUS* 3.1 mg/dL (2.5-4.9); POTASSIUM 4.4 mmol/L (3.5-5.1)
== END ==
LOC: M.INFUS 04:59
PROVIDERS: Internal Medicine Nephrology
DX: N18.4 Chronic kidney disease, stage 4 (severe) (principal); E86.0 Dehydration

== ENCOUNTER → 2019-08-26 | Outpatient (CLI) | payer OTHER ==
[2019-08-26 09:15] VITALS: BP 118/65
[2019-08-26 10:32] LABS: CALCIUM 10.5 mg/dL (8.5-10.1); CREATININE 2.2 mg/dL (0.6-1.3); MAGNESIUM 1.8 mg/dL (1.8-2.4); PHOSPHORUS* 3.8 mg/dL (2.5-4.9); POTASSIUM 3.8 mmol/L (3.5-5.1)
[2019-08-26 12:28] VITALS: BP 112/62
[2019-08-26 12:51] LABS: CALCIUM 9.7 mg/dL (8.5-10.1); MAGNESIUM 2.1 mg/dL (1.8-2.4); PHOSPHORUS* 2.9 mg/dL (2.5-4.9); POTASSIUM 4.2 mmol/L (3.5-5.1)
== END ==
LOC: M.INFUS 04:35
PROVIDERS: Internal Medicine Nephrology
DX: N18.4 Chronic kidney disease, stage 4 (severe) (principal); E86.0 Dehydration

== ENCOUNTER → 2019-08-29 | Outpatient (CLI) | payer OTHER ==
[2019-08-29 09:24] LABS: CALCIUM 10.3 mg/dL (8.5-10.1); CREATININE 2.6 mg/dL (0.6-1.3); MAGNESIUM 1.8 mg/dL (1.8-2.4); POTASSIUM 4.2 mmol/L (3.5-5.1)
[2019-08-29 15:32] LABS: ANION GAP 13 mmol/L (7-16); BUN 38 mg/dL (7-18); CALCIUM 9.2 mg/dL (8.5-10.1); CHLORIDE 110 mmol/L (98-107); CHOLESTEROL 162 mg/dL (<200); CO2 15 mmol/L (21-32); CREATININE 2.2 mg/dL (0.6-1.3); GLUCOSE 126 mg/dL (70-99); HDL CHOLESTEROL 37 mg/dL (>40); LDL CHOLESTEROL 54 mg/dL (<100); PHOSPHORUS* 3.2 mg/dL (2.5-4.9); POTASSIUM 4.4 mmol/L (3.5-5.1); SODIUM 138 mmol/L (136-145); TC:HDL 4.4 Ratio (Not establshd); TRIGLYCERIDE 355 mg/dL (<150); VLDL 71 mg/dL (<40)
[2019-08-29 15:35] LABS: SERUM ASSESSMENT Clear
== END ==
LOC: M.INFUS 04:46
PROVIDERS: Internal Medicine Nephrology
DX: N18.4 Chronic kidney disease, stage 4 (severe) (principal); E86.0 Dehydration; R00.2 Palpitations; R07.9 Chest pain, unspecified

== ENCOUNTER → 2019-08-31 | Outpatient (CLI) | payer OTHER ==
[2019-08-31 09:35] VITALS: BP 148/59
[2019-08-31 10:47] LABS: CALCIUM 10.2 mg/dL (8.5-10.1); CREATININE 2.2 mg/dL (0.6-1.3); MAGNESIUM 1.8 mg/dL (1.8-2.4); PHOSPHORUS* 3.6 mg/dL (2.5-4.9)
[2019-08-31 12:45] VITALS: BP 122/64
== END ==
LOC: M.INFUS 04:04
PROVIDERS: Internal Medicine Nephrology
DX: E86.0 Dehydration (principal); N18.4 Chronic kidney disease, stage 4 (severe)

== ENCOUNTER → 2019-09-02 | Outpatient (CLI) | payer OTHER, SELFPAY ==
[2019-09-02 09:20] VITALS: BP 107/65
[2019-09-02 09:48] LABS: CALCIUM 10.2 mg/dL (8.5-10.1); CREATININE 2.5 mg/dL (0.6-1.3); MAGNESIUM 1.9 mg/dL (1.8-2.4); PHOSPHORUS* 3.5 mg/dL (2.5-4.9); POTASSIUM 4.1 mmol/L (3.5-5.1)
[2019-09-02 12:28] VITALS: BP 112/47
--- NOTE | 2019-09-02 12:35 | NUR ---
PT ARRIVED TO UNIT AT 0910, SETTLED INTO RECLINER, LABS DRAWN AND 1ST INFUSION STARTED BY 0922. PT TOLERATED INFUSIONS WELL. ASSISTED SELF UP TO BATHROOM. 2ND INFUSION DONE AT 1227, LABS DRAWN, PORT FLUSHED WITH HEPARIN, DEACCESSED AND PT.DISCHARGED AT THIS TIME.
[2019-09-02 12:58] LABS: CREATININE 2.3 mg/dL (0.6-1.3); MAGNESIUM 2.1 mg/dL (1.8-2.4); PHOSPHORUS* 2.8 mg/dL (2.5-4.9); POTASSIUM 4.1 mmol/L (3.5-5.1)
== END ==
LOC: M.INFUS 01:30
PROVIDERS: Internal Medicine Nephrology
DX: E86.0 Dehydration (principal); N18.4 Chronic kidney disease, stage 4 (severe)

== ENCOUNTER → 2019-09-05 | Outpatient (CLI) | payer OTHER, SELFPAY ==
[2019-09-05 09:40] VITALS: BP 123/68
[2019-09-05 10:43] LABS: CALCIUM 10.3 mg/dL (8.5-10.1); CREATININE 2.9 mg/dL (0.6-1.3); MAGNESIUM 1.9 mg/dL (1.8-2.4); PHOSPHORUS* 3.8 mg/dL (2.5-4.9); POTASSIUM 4.1 mmol/L (3.5-5.1)
[2019-09-05 13:25] VITALS: BP 132/74
[2019-09-05 15:28] LABS: CALCIUM 9.4 mg/dL (8.5-10.1); CREATININE 2.6 mg/dL (0.6-1.3); PHOSPHORUS* 2.7 mg/dL (2.5-4.9); POTASSIUM 4.4 mmol/L (3.5-5.1)
--- NOTE | 2019-09-05 16:05 | NUR ---
ARRIVED AMBULATORY. MADE SELF COMFORTABLE. PORT A CATH ACCESSED WITH OUT DIFFICULTY. GOOD BRISK BLOOD RETURN NOTED AND FLUSHED WITUH EASE. INFUSION COMPLETED AND TOLERATED WELL. PORT FLUSHED AND LEFT ACCESSED FOR USE LATER THIS WEEK.
== END ==
LOC: M.INFUS 01:17
PROVIDERS: Internal Medicine Nephrology
DX: E86.0 Dehydration (principal); N18.4 Chronic kidney disease, stage 4 (severe)

== ENCOUNTER → 2019-09-07 | Outpatient (CLI) | payer OTHER ==
[2019-09-07 09:35] VITALS: BP 132/74
[2019-09-07 10:11] LABS: CALCIUM 9.8 mg/dL (8.5-10.1); CREATININE 3.1 mg/dL (0.6-1.3); MAGNESIUM 1.9 mg/dL (1.8-2.4); PHOSPHORUS* 4.7 mg/dL (2.5-4.9); POTASSIUM 4.3 mmol/L (3.5-5.1)
[2019-09-07 12:40] VITALS: BP 120/75
--- NOTE | 2019-09-07 12:55 | NUR ---
ARRIVED AMBULATORY. PORT ALREADY ACCESSED. PORT PATENT. INFUSION CCOMPLETED AND TOELRATED WELL. PRE INFUSION LAB NOTED TO HAVE ELEVATED CR. CALL PLACED TO DR. TONY'S OFFICE TO UPPDATED ON CURRENT LABS. MSG LEFT
[2019-09-07 13:19] LABS: CALCIUM 8.9 mg/dL (8.5-10.1); CREATININE 2.8 mg/dL (0.6-1.3); MAGNESIUM 2.2 mg/dL (1.8-2.4); PHOSPHORUS* 3.6 mg/dL (2.5-4.9); POTASSIUM 4.7 mmol/L (3.5-5.1)
== END ==
LOC: M.INFUS 05:25
PROVIDERS: Internal Medicine Nephrology
DX: N18.4 Chronic kidney disease, stage 4 (severe) (principal); E86.0 Dehydration

== ENCOUNTER → 2019-09-09 | Outpatient (CLI) | payer OTHER ==
[2019-09-09 09:35] VITALS: BP 146/78
[2019-09-09 10:54] LABS: ALBUMIN 3.1 g/dL (3.4-5.0); CALCIUM 9.5 mg/dL (8.5-10.1); CREATININE 2.6 mg/dL (0.6-1.3); MAGNESIUM 1.7 mg/dL (1.8-2.4); PHOSPHORUS* 3.4 mg/dL (2.5-4.9); POTASSIUM 3.9 mmol/L (3.5-5.1); TOTAL BILIRUBIN 0.3 mg/dL (<0.1-1.0); TOTAL PROTEIN 7.2 g/dL (6.4-8.2)
--- NOTE | 2019-09-09 13:20 | NUR ---
BLOOD CULTURES DRAWN FROM SEPARATE AC SPACES RIGHT AND LEFT.
[2019-09-09 13:53] LABS: ALBUMIN 2.7 g/dL (3.4-5.0); CALCIUM 8.3 mg/dL (8.5-10.1); CREATININE 2.4 mg/dL (0.6-1.3); MAGNESIUM 1.9 mg/dL (1.8-2.4); PHOSPHORUS* 2.6 mg/dL (2.5-4.9); POTASSIUM 4.4 mmol/L (3.5-5.1); TOTAL BILIRUBIN 0.2 mg/dL (<0.1-1.0); TOTAL PROTEIN 6.4 g/dL (6.4-8.2)
== END ==
LOC: M.INFUS 01:44
PROVIDERS: Internal Medicine Nephrology
DX: N18.4 Chronic kidney disease, stage 4 (severe) (principal); E86.0 Dehydration

== ENCOUNTER 2019-09-11 09:58 | Emergency (ER) | payer OTHER ==
[~2019-09-11] VITALS: Ht 167.6 cm; Wt 65.3 kg
[~2019-09-11 09:58] MED LIST changes: -AZITHROMYCIN 2250 MG PO; -IPRAT-ALBUT 0.5-3 ML INH; -NEBULIZER MISCELL; -PROMETH-CODEIN 65 ML PO
[2019-09-11 10:33] LABS: URINE BILIRUBIN NEGATIVE (Negative); URINE BLOOD NEGATIVE (Negative); URINE CLARITY SL CLOUDY; URINE COLOR YELLOW; URINE GLUCOSE-RANDOM NEGATIVE (Negative); URINE KETONES NEGATIVE (Negative); URINE LEUKOCYTES-REFLEX NEGATIVE (Negative); URINE NITRITE-REFLEX NEGATIVE (Negative); URINE PROTEIN TRACE (Negative); URINE SPECIFIC GRAVITY 1.025 (1.005-1.030); URINE UROBILINOGEN 0.2 E.U./dl (0.2-1.0)
[2019-09-11 10:36] LABS: SQUAMOUS >10 Many /LPF (0-3)
[2019-09-11 10:37] LABS: CRYSTALS None Seen /LPF (None Seen); HYALINE CASTS 4-10 Moderate /LPF (None Seen); MUCUS 4-6 Moderate strn/LPF (None Seen); URINE RBC 0-2 Rare /HPF (0-2); URINE WBC-REFLEX 0-5 Rare /HPF (0-5)
[2019-09-11 10:44] LABS: ABSOLUTE BASOPHILS 0.1 thou/uL (0.0-0.2); ABSOLUTE EOSINOPHILS 0.5 thou/uL (0.0-0.7); ABSOLUTE LYMPHOCYTES 1.6 thou/uL (0.8-5.3); ABSOLUTE MONOCYTES 0.6 thou/uL (0.0-1.2); ABSOLUTE NEUTROPHILS 7.1 thou/uL (1.6-8.1); BASOPHILS 0.8 %; EOSINOPHILS 4.6 %; HEMATOCRIT 35.8 % (37.0-47.0); HEMOGLOBIN 12.1 gm/dL (12.0-15.0); LYMPHOCYTES 16.2 %; MCH 31.1 pg (26.0-34.0); MCHC 33.7 g/dL (28.0-37.0); MCV 92.1 fL (80.0-100.0); MPV 7.6 fl. (7.2-11.1); NUCLEATED RBCS 0 /100WBC; PLATELET COUNT* 290 thou/uL (150-400); POLYS 72.4 %; RBC 3.89 mil/uL (4.20-5.00); RDW-CV 16.5 % (10.5-14.5); WBC 9.8 thou/uL (4.0-11.0)
[2019-09-11 10:51] LABS: CALCIUM 9.6 mg/dL (8.5-10.1); CREATININE 2.5 mg/dL (0.6-1.3); POTASSIUM 4.1 mmol/L (3.5-5.1)
[2019-09-11 10:56] LABS: ALBUMIN 3.2 g/dL (3.4-5.0); MAGNESIUM 1.7 mg/dL (1.8-2.4); TOTAL BILIRUBIN 0.4 mg/dL (<0.1-1.0); TOTAL PROTEIN 7.4 g/dL (6.4-8.2)
[2019-09-11] MEDS ORDERED: MEDROLDOSEPACK PO (11:27)
[2019-09-11] MEDS ORDERED: AZITHROMYCIN 2250 MG PO (11:27)
[2019-09-11] MEDS ORDERED: IPRAT-ALBUT 0.5-3 ML INH (11:27)
[2019-09-11] MEDS ORDERED: PROMETH-CODEIN 65 ML PO (11:29)
[2019-09-11] MEDS ORDERED: NEBULIZER MISCELL (11:30)
[2019-09-11 11:47] LABS: INFLUENZA A ANTIGEN Negative (Negative); INFLUENZA B ANTIGEN Negative (Negative)
[2019-09-11 11:49] VITALS: BP 132/66
--- NOTE | 2019-09-12 12:10 | EKG ---
[place] [address] ELECTROCARDIOGRAM REPORT Name: SMITHANGELITA Room: [facility]#: [id number] Admission: 09/11/19 Attend Phys: Discharge: 09/11/19 Date of : 42 Report #: [id number] THIS REPORT FOR: //name// [facility] ED Test Date: 2019-09-11 Test Time: 10:47:05 Pat Name: ANGELITA SMITH Department: Room: Gender: F Locomotive Engineer Electric: : 1940 Requested By: Erum Esparza Order Number: [id number] MD: Osbaldo Balderrama Measurements Intervals [place] Rate: 50 P: -15 CT: 213 QRS: 2 QRSD: 116 T: 54 QT: 470 QTc: 429 Interpretive Statements Sinus rhythm Ventricular premature complex Borderline prolonged CT interval Nonspecific intraventricular conduction delay Low voltage, extremity leads Probable anteroseptal infarct, old Compared to ECG 08/22/2019 15:35:20 Intraventricular conduction delay now present Left bundle-branch block no longer present Myocardial infarct finding still present Electronically Signed On 09-12-2019 12:10:03 HARDWARE INSTALLER by Osbaldo Balderrama [email or web address] <ELECTRONICALLY SIGNED> By: Osbaldo Balderrama MD, [facility] 09/12/19 1210 1047 1047 Osbaldo Balderrama MD, [facility] /EPI
== END 2019-09-11 11:50 | disposition home or self-care (01) ==
LOC: M.ERS 09:58
PROVIDERS: Personal Emergency Response Attendant
DX: J20.9 Acute bronchitis, unspecified (principal); E03.9 Hypothyroidism, unspecified; N18.4 Chronic kidney disease, stage 4 (severe); K21.9 Gastro-esophageal reflux disease without esophagitis; M79.7 Fibromyalgia; M19.90 Unspecified osteoarthritis, unspecified site; F32.9 Major depressive disorder, single episode, unspecified; Z90.49 Acquired absence of other specified parts of digestive tract; Z86.2 Personal history of diseases of the blood and blood-forming organs and certain disorders involving the immune mechanism; Z85.828 Personal history of other malignant neoplasm of skin; Z96.651 Presence of right artificial knee joint; Z88.1 Allergy status to other antibiotic agents; Z88.2 Allergy status to sulfonamides; Z88.8 Allergy status to other drugs, medicaments and biological substances

== ENCOUNTER → 2019-09-12 | Outpatient (CLI) | payer OTHER, SELFPAY ==
[~2019-09-12] MED LIST changes: +AZITHROMYCIN 2250 MG PO; +IPRAT-ALBUT 0.5-3 ML INH; -LEVOTHYROXIN0.137 M1 PO; +NEBULIZER MISCELL; +PROMETH-CODEIN 65 ML PO; +SYNTHROID112 MC1 PO
[2019-09-12 09:11] VITALS: BP 98/65
[2019-09-12 10:49] LABS: ALBUMIN 3.1 g/dL (3.4-5.0); CALCIUM 9.4 mg/dL (8.5-10.1); CREATININE 2.3 mg/dL (0.6-1.3); MAGNESIUM 1.6 mg/dL (1.8-2.4); PHOSPHORUS* 3.1 mg/dL (2.5-4.9); TOTAL BILIRUBIN 0.2 mg/dL (<0.1-1.0)
[2019-09-12 13:23] VITALS: BP 106/67
[2019-09-12 15:36] LABS: CALCIUM 9.1 mg/dL (8.5-10.1); CREATININE 2.2 mg/dL (0.6-1.3); MAGNESIUM 1.9 mg/dL (1.8-2.4); PHOSPHORUS* 2.2 mg/dL (2.5-4.9)
== END ==
LOC: M.INFUS 08:30
PROVIDERS: Internal Medicine Nephrology
DX: N18.4 Chronic kidney disease, stage 4 (severe) (principal); E86.0 Dehydration

== ENCOUNTER → 2019-09-14 | Outpatient (CLI) | payer OTHER ==
[2019-09-14 09:35] VITALS: BP 126/66
[2019-09-14 10:03] LABS: CALCIUM 9.7 mg/dL (8.5-10.1); CREATININE 2.4 mg/dL (0.6-1.3); MAGNESIUM 1.7 mg/dL (1.8-2.4); PHOSPHORUS* 3.5 mg/dL (2.5-4.9); POTASSIUM 3.9 mmol/L (3.5-5.1)
[2019-09-14 13:33] LABS: CALCIUM 9.1 mg/dL (8.5-10.1); CREATININE 2.2 mg/dL (0.6-1.3); MAGNESIUM 1.8 mg/dL (1.8-2.4); PHOSPHORUS* 2.6 mg/dL (2.5-4.9); POTASSIUM 3.9 mmol/L (3.5-5.1)
== END ==
LOC: M.INFUS 03:24
PROVIDERS: Internal Medicine Nephrology
DX: N18.4 Chronic kidney disease, stage 4 (severe) (principal); R33.9 Retention of urine, unspecified; E86.0 Dehydration

== ENCOUNTER → 2019-09-16 | Outpatient (CLI) | payer OTHER ==
[~2019-09-16] MED LIST changes: +LEVOTHYROXIN0.137 M1 PO; -SYNTHROID112 MC1 PO
[2019-09-16 09:00] VITALS: BP 123/74
[2019-09-16 09:31] LABS: CALCIUM 9.2 mg/dL (8.5-10.1); CREATININE 2.2 mg/dL (0.6-1.3); MAGNESIUM 1.6 mg/dL (1.8-2.4); PHOSPHORUS* 3.5 mg/dL (2.5-4.9); POTASSIUM 4.3 mmol/L (3.5-5.1)
[2019-09-16 12:15] VITALS: BP 122/70
[2019-09-16 12:55] LABS: CALCIUM 8.7 mg/dL (8.5-10.1); MAGNESIUM 1.7 mg/dL (1.8-2.4); PHOSPHORUS* 2.4 mg/dL (2.5-4.9)
--- NOTE | 2019-09-16 13:00 | NUR ---
INFUSION COMPLTED AND TOLERATED WELL. PORT FLUSHED AND DEACCESSED.
== END ==
LOC: M.INFUS 04:53
PROVIDERS: Internal Medicine Nephrology
DX: N18.4 Chronic kidney disease, stage 4 (severe) (principal); E86.0 Dehydration

== ENCOUNTER → 2019-09-19 | Outpatient (CLI) | payer OTHER ==
[2019-09-19 10:15] VITALS: BP 139/78
[2019-09-19 10:52] LABS: CALCIUM 8.8 mg/dL (8.5-10.1); MAGNESIUM 1.4 mg/dL (1.8-2.4); PHOSPHORUS* 3.4 mg/dL (2.5-4.9); POTASSIUM 3.7 mmol/L (3.5-5.1)
[2019-09-19 13:00] VITALS: BP 122/80
[2019-09-19 13:48] LABS: CALCIUM 8.8 mg/dL (8.5-10.1); MAGNESIUM 1.7 mg/dL (1.8-2.4); PHOSPHORUS* 3.2 mg/dL (2.5-4.9); POTASSIUM 4.3 mmol/L (3.5-5.1)
--- NOTE | 2019-09-19 13:54 | NUR ---
ARRIVED AMBULATORY. MADE SELF COMFORTABLE IN RECLINER. PORT A CATH TO RIGHT CHEST ACCESSED WITH OUT DIFFICULTY. GOOD BRISK BLOOD RETURN NOTED AND FLUSHED WITH EASE. INFUSION COMPLETED AND TOLERATED WELL. PORT FLUSHED AND LEFT ACCESSED FOR USE LATER IN WEEK. DENIES NEEDS AT DISCHARGE.
== END ==
LOC: M.INFUS 04:38
PROVIDERS: Internal Medicine Nephrology
DX: N18.4 Chronic kidney disease, stage 4 (severe) (principal); E86.0 Dehydration

== ENCOUNTER → 2019-09-21 | Outpatient (CLI) | payer OTHER ==
[2019-09-21 09:18] VITALS: BP 112/63
[2019-09-21 09:55] LABS: CALCIUM 8.7 mg/dL (8.5-10.1); MAGNESIUM 1.5 mg/dL (1.8-2.4); PHOSPHORUS* 3.1 mg/dL (2.5-4.9); POTASSIUM 3.8 mmol/L (3.5-5.1)
[2019-09-21 12:45] VITALS: BP 120/66
[2019-09-21 14:12] LABS: CALCIUM 8.4 mg/dL (8.5-10.1); CREATININE 1.8 mg/dL (0.6-1.3); MAGNESIUM 1.7 mg/dL (1.8-2.4); PHOSPHORUS* 2.6 mg/dL (2.5-4.9); POTASSIUM 4.2 mmol/L (3.5-5.1)
== END ==
LOC: M.INFUS 05:19
PROVIDERS: Internal Medicine Nephrology
DX: N18.4 Chronic kidney disease, stage 4 (severe) (principal); E86.0 Dehydration

== ENCOUNTER → 2019-09-26 | Outpatient (CLI) | payer OTHER, SELFPAY ==
[2019-09-26 09:10] VITALS: BP 122/74
[2019-09-26 10:15] LABS: CREATININE 3.6 mg/dL (0.6-1.3); MAGNESIUM 1.8 mg/dL (1.8-2.4); PHOSPHORUS* 5.2 mg/dL (2.5-4.9); POTASSIUM 5.4 mmol/L (3.5-5.1)
[2019-09-26 12:40] VITALS: BP 122/74
[2019-09-26 13:18] LABS: CREATININE 3.3 mg/dL (0.6-1.3); MAGNESIUM 1.7 mg/dL (1.8-2.4); PHOSPHORUS* 4.4 mg/dL (2.5-4.9); POTASSIUM 5.5 mmol/L (3.5-5.1)
--- NOTE | 2019-09-26 14:01 | NUR ---
arrived ambulatory. made self comfortable in recliner. port a cath accessed with out difficulty. good briks blood return and easy flush. pre and post labs evalated and noted to have high kidney function numbers. faxed results to dr. arnett"s office, also called and spoke with avi to alert her to the fax.
== END ==
LOC: M.INFUS 01:53
PROVIDERS: Internal Medicine Nephrology
DX: N18.4 Chronic kidney disease, stage 4 (severe) (principal); E86.0 Dehydration

== ENCOUNTER → 2019-09-28 | Outpatient (CLI) | payer OTHER ==
[~2019-09-28] MED LIST changes: -LEVOTHYROXIN0.137 M1 PO; +SYNTHROID112 MC1 PO
[2019-09-28 09:20] VITALS: BP 122/74
[2019-09-28 09:54] LABS: CALCIUM 9.7 mg/dL (8.5-10.1); CREATININE 3.4 mg/dL (0.6-1.3); MAGNESIUM 1.9 mg/dL (1.8-2.4); PHOSPHORUS* 5.4 mg/dL (2.5-4.9); POTASSIUM 5.5 mmol/L (3.5-5.1)
[2019-09-28 12:55] VITALS: BP 118/65
[2019-09-28 14:22] LABS: CALCIUM 8.6 mg/dL (8.5-10.1); POTASSIUM 5.8 mmol/L (3.5-5.1)
== END ==
LOC: M.INFUS 05:05
PROVIDERS: Internal Medicine Nephrology
DX: N18.4 Chronic kidney disease, stage 4 (severe) (principal); E86.0 Dehydration

== ENCOUNTER → 2019-09-30 | Outpatient (CLI) | payer OTHER ==
[2019-09-30 09:15] VITALS: BP 130/66
[2019-09-30 10:14] LABS: CALCIUM 9.3 mg/dL (8.5-10.1); CREATININE 2.4 mg/dL (0.6-1.3); MAGNESIUM 1.7 mg/dL (1.8-2.4); PHOSPHORUS* 3.7 mg/dL (2.5-4.9); POTASSIUM 4.7 mmol/L (3.5-5.1)
[2019-09-30 12:35] VITALS: BP 128/60
== END ==
LOC: M.INFUS 05:16
PROVIDERS: Internal Medicine Nephrology
DX: N18.4 Chronic kidney disease, stage 4 (severe) (principal); E86.0 Dehydration

== ENCOUNTER → 2019-10-03 | Outpatient (CLI) | payer OTHER ==
[2019-10-03 09:05] VITALS: BP 118/74
[2019-10-03 10:10] LABS: CALCIUM 8.9 mg/dL (8.5-10.1); MAGNESIUM 1.9 mg/dL (1.8-2.4); PHOSPHORUS* 3.1 mg/dL (2.5-4.9); POTASSIUM 4.5 mmol/L (3.5-5.1)
[2019-10-03 13:58] LABS: CALCIUM 8.6 mg/dL (8.5-10.1); CREATININE 1.8 mg/dL (0.6-1.3); MAGNESIUM 2.1 mg/dL (1.8-2.4); PHOSPHORUS* 2.4 mg/dL (2.5-4.9); POTASSIUM 4.6 mmol/L (3.5-5.1)
== END ==
LOC: M.INFUS 04:40
PROVIDERS: Internal Medicine Nephrology
DX: N18.4 Chronic kidney disease, stage 4 (severe) (principal); E86.0 Dehydration

== ENCOUNTER → 2019-10-05 | Outpatient (CLI) | payer OTHER ==
[2019-10-05 09:00] VITALS: BP 122/60
[2019-10-05 09:40] LABS: CALCIUM 9.3 mg/dL (8.5-10.1); CREATININE 1.9 mg/dL (0.6-1.3); MAGNESIUM 1.6 mg/dL (1.8-2.4); PHOSPHORUS* 3.7 mg/dL (2.5-4.9); POTASSIUM 4.4 mmol/L (3.5-5.1)
[2019-10-05 12:42] VITALS: BP 132/62
[2019-10-05 13:03] LABS: CALCIUM 8.7 mg/dL (8.5-10.1); CREATININE 1.7 mg/dL (0.6-1.3); MAGNESIUM 1.8 mg/dL (1.8-2.4); PHOSPHORUS* 3.1 mg/dL (2.5-4.9); POTASSIUM 4.7 mmol/L (3.5-5.1)
--- NOTE | 2019-10-05 13:03 | NUR ---
ARRIVED AMBULATORY. MADE SELF COMFORTABLE IN RECLINER. PORT A CATH ALREADY ACCESSED. PORT PATENT. INFUSION COMPLETED AND TOELRATED WELL. PORT FLUSHED AND LEFT ACCESSED FOR USE LATER IN THE WEEK. DENIES QUESTIONS OR NEEDS AT DISCHARGE.
== END ==
LOC: M.INFUS 05:39
PROVIDERS: Internal Medicine Nephrology
DX: N18.4 Chronic kidney disease, stage 4 (severe) (principal); E86.0 Dehydration

== ENCOUNTER → 2019-10-10 | Outpatient (CLI) | payer OTHER, SELFPAY ==
[2019-10-10 09:10] VITALS: BP 119/58; BP 122/74
[2019-10-10 09:35] LABS: CALCIUM 9.2 mg/dL (8.5-10.1); CREATININE 2.4 mg/dL (0.6-1.3); MAGNESIUM 1.5 mg/dL (1.8-2.4); PHOSPHORUS* 4.1 mg/dL (2.5-4.9); POTASSIUM 4.7 mmol/L (3.5-5.1)
[2019-10-10 12:00] VITALS: BP 122/64
--- NOTE | 2019-10-10 12:21 | NUR ---
ARRIVED AMBULATORY. MADE SLEF COMFORTABLE PORT A CATH ACCESSED WITH OUT DIFFICULTY. GOOD BRISK BLOOD RETURN NOTED AND FLUSH WITH EASE. INFUSION COMPLETED AND TOELRATED WELL. PORT FLUSHED AND LEFT ACCESSED FOR USE LATER IN THE WEEK.
== END ==
LOC: M.INFUS 01:20
PROVIDERS: Internal Medicine Nephrology
DX: N18.4 Chronic kidney disease, stage 4 (severe) (principal); E86.0 Dehydration

== ENCOUNTER → 2019-10-12 | Outpatient (CLI) | payer OTHER, SELFPAY ==
[2019-10-12 09:13] VITALS: BP 121/68
[2019-10-12 10:04] LABS: CALCIUM 9.2 mg/dL (8.5-10.1); CREATININE 2.2 mg/dL (0.6-1.3); MAGNESIUM 1.6 mg/dL (1.8-2.4); PHOSPHORUS* 3.4 mg/dL (2.5-4.9); POTASSIUM 4.6 mmol/L (3.5-5.1)
[2019-10-12 12:30] VITALS: BP 122/76
== END ==
LOC: M.INFUS 04:07
PROVIDERS: Internal Medicine Nephrology
DX: N18.4 Chronic kidney disease, stage 4 (severe) (principal); E86.0 Dehydration

== ENCOUNTER → 2019-10-14 | Outpatient (CLI) | payer OTHER, SELFPAY ==
[2019-10-14 09:35] VITALS: BP 139/74
[2019-10-14 10:07] LABS: CALCIUM 9.8 mg/dL (8.5-10.1); CREATININE 2.2 mg/dL (0.6-1.3); POTASSIUM 4.1 mmol/L (3.5-5.1)
[2019-10-14 10:10] LABS: MAGNESIUM 1.8 mg/dL (1.8-2.4); PHOSPHORUS* 3.6 mg/dL (2.5-4.9)
[2019-10-14 13:28] VITALS: BP 142/76
[2019-10-14 14:03] LABS: CREATININE 2.1 mg/dL (0.6-1.3); MAGNESIUM 1.9 mg/dL (1.8-2.4); PHOSPHORUS* 2.6 mg/dL (2.5-4.9); POTASSIUM 4.2 mmol/L (3.5-5.1)
== END ==
LOC: M.INFUS 05:54
PROVIDERS: Internal Medicine Nephrology
DX: N18.4 Chronic kidney disease, stage 4 (severe) (principal); E86.0 Dehydration

== ENCOUNTER 2019-10-17 15:22 | Inpatient (IN) | payer OTHER, SELFPAY ==
[~2019-10-17] VITALS: Ht 167.6 cm; Wt 67.1 kg
[2019-10-17 15:42] VITALS: BP 115/55
[2019-10-17 16:56] LABS: ABSOLUTE BASOPHILS 0.1 thou/uL (0.0-0.2); ABSOLUTE LYMPHOCYTES 1.4 thou/uL (0.8-5.3); ABSOLUTE MONOCYTES 0.6 thou/uL (0.0-1.2); ABSOLUTE NEUTROPHILS 7.4 thou/uL (1.6-8.1); BASOPHILS 0.6 %; EOSINOPHILS 0.5 %; HEMATOCRIT 29.7 % (37.0-47.0); HEMOGLOBIN 9.7 gm/dL (12.0-15.0); LYMPHOCYTES 14.7 %; MCH 30.6 pg (26.0-34.0); MCHC 32.6 g/dL (28.0-37.0); MCV 93.7 fL (80.0-100.0); MONOCYTES 6.6 %; MPV 8.4 fl. (7.2-11.1); NUCLEATED RBCS 0 /100WBC; PLATELET COUNT* 235 thou/uL (150-400); POLYS 77.6 %; RBC 3.17 mil/uL (4.20-5.00); WBC 9.5 thou/uL (4.0-11.0)
[2019-10-17 17:27] LABS: CALCIUM 9.4 mg/dL (8.5-10.1); CREATININE 2.4 mg/dL (0.6-1.3); POTASSIUM 3.9 mmol/L (3.5-5.1)
[2019-10-17 17:31] LABS: ALBUMIN 3.2 g/dL (3.4-5.0); TOTAL BILIRUBIN 0.3 mg/dL (<0.1-1.0); TOTAL PROTEIN 6.1 g/dL (6.4-8.2)
--- NOTE | 2019-10-17 18:18 | NUR ---
REPORT GIVEN TO TORIE LAL WHO IS TO ASSUME PT CARE INPATIENT NURSE.
[2019-10-17 18:19] LABS: URINE BILIRUBIN NEGATIVE (Negative); URINE BLOOD NEGATIVE (Negative); URINE CLARITY CLEAR; URINE COLOR YELLOW; URINE GLUCOSE-RANDOM NEGATIVE (Negative); URINE KETONES NEGATIVE (Negative); URINE LEUKOCYTES-REFLEX NEGATIVE (Negative); URINE NITRITE-REFLEX NEGATIVE (Negative); URINE PROTEIN TRACE (Negative); URINE SPECIFIC GRAVITY 1.025 (1.005-1.030); URINE UROBILINOGEN 0.2 E.U./dl (0.2-1.0)
[2019-10-17 18:23] VITALS: BP 107/31
[2019-10-17 21:00] VITALS: BP 101/37
--- NOTE | 2019-10-18 00:03 | NUR ---
PT ADMITTED TO ROOM 311 PRIOR TO BEGINNING OF SHIFT. HX ASSESSMENT DONE. MEDS GIVEN PER EMAR. PT UP AD KRANTHI. ALERT AND ORIENTED. DENIES PAIN. PT ON CLEAR LIQUIDS. UNABLE TO KEEP DOWN JELLO. WILL CONTINUE TO MONITOR.
[2019-10-18 05:42] LABS: HEMATOCRIT 30.5 % (37.0-47.0); HEMOGLOBIN 9.8 gm/dL (12.0-15.0); MCH 30.4 pg (26.0-34.0); MCHC 32.2 g/dL (28.0-37.0); MCV 94.4 fL (80.0-100.0); MPV 9.1 fl. (7.2-11.1); RBC 3.23 mil/uL (4.20-5.00); WBC 9.7 thou/uL (4.0-11.0)
--- NOTE | 2019-10-18 05:52 | NUR ---
PT ALERT AND ORIENTED. VSS ON RA. PT SLEPT WELL THIS SHIFT. RT CHEST PORT WITH NS @ 125. UP AD KRANTHI. NEPHRO CONSULT CALLED THIS AM. PT DENIES PAIN. CALL LIGHT WITHIN REACH. WILL CONTINUE PLAN OF CARE.
[2019-10-18 06:10] LABS: CREATININE 2.1 mg/dL (0.6-1.3); MAGNESIUM 1.7 mg/dL (1.8-2.4); POTASSIUM 4.1 mmol/L (3.5-5.1); TOTAL BILIRUBIN 0.2 mg/dL (<0.1-1.0); TOTAL PROTEIN 6.2 g/dL (6.4-8.2)
[2019-10-18 08:30] VITALS: BP 129/50
[2019-10-18 12:36] VITALS: BP 96/38
[2019-10-18 15:15] VITALS: BP 110/41
--- NOTE | 2019-10-18 16:28 | NUR ---
Pt alert, oriented, talking on the phone. Pt did not want to end conversation to speak in more detail with SW at this time. Pt nurse reported that pt often has visitors and is talkative. Pt lives at home with . Pt has dtr listed as contact as well. SW to continue to follow to assist with safe dc planning.
--- NOTE | 2019-10-18 16:48 | EKG ---
[place] [address] ELECTROCARDIOGRAM REPORT Name: SMITHANGELITA Room: [address] ADM IN .R.#: [id number] Admission: 10/17/19 Attend Phys: Marge Bethea MD Discharge: Date of : 42 Report #: [id number] THIS REPORT FOR: //name// [facility] ED Test Date: 2019-10-17 Test Time: 15:53:47 Pat Name: ANGELITA SMTIH Department: Room: [facility] Gender: F Urban Renewal Manager: : 1940 Requested By: Lucho Littlejohn Order Number: [id number] MD: Michael Hollis Measurements Intervals [place] Rate: 56 P: 57 NC: 190 QRS: 13 QRSD: 117 T: 24 QT: 454 QTc: 439 Interpretive Statements Sinus bradycardia Nonspecific intraventricular conduction delay Low voltage, extremity leads Probable anteroseptal infarct, old Compared to ECG 09/11/2019 10:47:05 supraventricular premature complex(es) no longer present Myocardial infarct finding still present Electronically Signed On 10-18-2019 16:48:07 FUR FARMER by Michael Hollis [email or web address] <ELECTRONICALLY SIGNED> By: Michael Hollis MD, [facility] 10/18/19 1648 1553 1553 Michael Hollis MD, [facility] /EPI
[2019-10-18 18:15] LABS: ALBUMIN 2.8 g/dL (3.4-5.0); CALCIUM 8.2 mg/dL (8.5-10.1); CREATININE 2.1 mg/dL (0.6-1.3); PHOSPHORUS* 3.1 mg/dL (2.5-4.9); POTASSIUM 3.8 mmol/L (3.5-5.1)
[2019-10-18 19:40] VITALS: BP 107/48
--- NOTE | 2019-10-18 20:05 | NUR ---
PATIENT ALERT AND ORIENTED X4. PATIENT AMBULATING IN ROOM THROUGHOUT SHIFT. ALL SAFETY MEASURES MAINTAINED. PATIENT DENIES FURTHER NEEDS AT THIS TIME. DR. LOUISE NOTIFIED OF ALYSIA'S BLOOD PRESSURES.
[2019-10-19 04:03] LABS: ABSOLUTE BASOPHILS 0.1 thou/uL (0.0-0.2); ABSOLUTE EOSINOPHILS 0.1 thou/uL (0.0-0.7); ABSOLUTE LYMPHOCYTES 1.3 thou/uL (0.8-5.3); ABSOLUTE MONOCYTES 0.6 thou/uL (0.0-1.2); ABSOLUTE NEUTROPHILS 7.6 thou/uL (1.6-8.1); BASOPHILS 1.3 %; EOSINOPHILS 1.2 %; HEMATOCRIT 29.4 % (37.0-47.0); HEMOGLOBIN 9.5 gm/dL (12.0-15.0); LYMPHOCYTES 13.4 %; MCH 30.9 pg (26.0-34.0); MCHC 32.4 g/dL (28.0-37.0); MCV 95.4 fL (80.0-100.0); MONOCYTES 6.4 %; MPV 8.6 fl. (7.2-11.1); NUCLEATED RBCS 0 /100WBC; PLATELET COUNT* 214 thou/uL (150-400); POLYS 77.7 %; RBC 3.09 mil/uL (4.20-5.00); WBC 9.8 thou/uL (4.0-11.0)
[2019-10-19 04:27] LABS: PREALBUMIN 26.1 mg/dL (18.0-35.7)
[2019-10-19 04:29] LABS: ALBUMIN 2.8 g/dL (3.4-5.0); CALCIUM 8.5 mg/dL (8.5-10.1); CREATININE 1.9 mg/dL (0.6-1.3); POTASSIUM 4.1 mmol/L (3.5-5.1); TOTAL BILIRUBIN 0.2 mg/dL (<0.1-1.0); TOTAL PROTEIN 5.7 g/dL (6.4-8.2)
--- NOTE | 2019-10-19 05:49 | NUR ---
PT ALERT AND ORIENTED. VSS ON RA. ASSESSMENT DOCUMENTED. PT SLEPT VERY LITTLE THIS SHIFT. MEDS GIVEN PER EMAR. UP AD KRANTHI. ANTICIPATED DC TO HOME TODAY. CALL LIGHT WITHIN REACH. HOURLY ROUNDINGS MADE. WILL CONTINUE PLAN OF CARE.
[2019-10-19 06:36] LABS: ESR (SEDRATE) 12 mm/hr (0-30)
[2019-10-19 08:00] VITALS: BP 124/46
[2019-10-19 09:58] VITALS: BP 124/46
[2019-10-19] MEDS ORDERED: SODIUM BICARBO650 M3 PO (12:23)
--- NOTE | 2019-10-19 12:47 | NUR ---
IVF D/C.PORT FLUSHED WITH SALINE. PORT LEFT ACCESSED PT IS USING IT FOR OUTPT INFUSION. OK PER DR SYED.
--- NOTE | 2019-10-24 19:22 | CON ---
[address] [address] CONSULTATION Name: SMITHANGELITA Olivia Room: [address] IN M.R.#: [id number] Admission: 10/17/19 Attend Phys: Marge Bethea MD Discharge: 10/19/19 Date of : 42 Report #: [id number] THIS REPORT FOR: //name// CC: Russ Bethea DATE OF SERVICE: 10/18/2019 REFERRING PHYSICIAN: Marge Bethea MD REASON FOR CONSULTATION: Recurrent nausea and vomiting. IMPRESSION: 1. Recurrent nausea and vomiting, resolved. 2. Gastroparesis with need to be on motilium 10 mg 2 tablets at least twice daily. 3. Chronic acid reflux with need to be on famotidine instead of ranitidine for the same. 4. Status post esophagectomy with gastric pull through for achalasia followed by severe reflux. 5. Chronic kidney disease requiring IV fluids twice weekly under the direction of Nephrology. 6. Anemia of chronic disease, stable. 7. Status post total proctocolectomy with permanent BCIR (V[facility] Continent Ileal [place]). 8. Depression secondary to all these medical issues. RECOMMENDATIONS: 1. We will allow the patient to go ahead and eat at this point in time. 2. We will have the patient's bringing her motilium and begin 10 mg 2 tablets twice daily 30 minutes before breakfast and before dinner; if necessary take up to 20 mg 3 times daily. 3. She will have a substitute for famotidine 40 mg for ranitidine to take twice daily 30 minutes before breakfast and dinner. 4. If she is tolerating diet without any further nausea and vomiting, is likely she will be able to go home tomorrow. 5. I have asked her to bring in her motilium for gastroparesis as she is intolerant of Reglan and cannot afford erythromycin or azithromycin. I have discussed those plans with the patient as well as her who are agreeable to the same. HISTORY OF PRESENT ILLNESS: The patient is a very pleasant 79-year-old white female well known to me with multitude of GI issues. [place] [address] CONSULTATION Name: SMITH,ANGELITA R Room: [address]#: [id number] Admission: 10/17/19 Attend Phys: Marge Bethea MD Discharge: 10/19/19 Date of : 42 Report #: [id number] hospital because she could not keep anything down. She has had problems with nausea and vomiting. She has known history of gastroparesis. She cannot tolerate Reglan because it makes her have too many stools and cannot afford erythromycin for the same. She recently underwent upper endoscopy this past summer, which revealed grade D esophagitis with postsurgical changes compatible with esophagectomy with gastric pull-through with retained food. She also has a history of chronic ulcerative colitis for which she has undergone total proctocolectomy with permanent BCIR (Vásquez Continent Ileal [place]), which has worked well for her. She has had some revisions of the same, but has done well. She is feeling better today and not having any other issues. She is admitted to the hospital for IV fluids, IV antiemetics and for further evaluation and treatment. ALLERGIES: ERTAPENEM, INFLIXIMAB, NONSTEROIDALS, OCTREOTIDE, CEFAZOLIN, SULFA AND BACLOFEN. MEDICATIONS: At this time include estradiol, metoprolol, ranitidine, levothyroxine, allopurinol and she has IV fluids twice weekly. PAST MEDICAL AND SURGICAL HISTORY: Remarkable for achalasia and a history of severe reflux with complications requiring total esophagectomy. She has had previous Heller myotomy for her esophagectomy, but then had problems with postoperative poor emptying of her esophagus, requiring further surgery and has a subtotal esophagectomy with esophagogastric anastomosis with postoperative gastroparesis. She has hypothyroidism. She has a continent ileostomy for ulcerative colitis. She had previous cholecystectomy. She has had some hemangiomas as well. She has problems with anxiety and depression. She has had cataract surgeries, chronic kidney disease stage 3, aortic stenosis, which is followed by Dr. Elliott. She had thoracic surgery, bleeding ulcers, total knee replacement as well. SOCIAL HISTORY: She does not smoke or drink. FAMILY HISTORY: Negative. PHYSICAL EXAMINATION: GENERAL: Pleasant 79-year-old white female who is awake and alert. CARDIOPULMONARY: Revealed a 2/6 systolic ejection murmur compatible with aortic stenosis. LUNGS: Clear. ABDOMEN: Soft and nontender. No rebound or guarding noted. LABORATORY DATA: Reviewed. DISCUSSION: At the present time, the patient is doing well at this point in time and feels that she is ready to go home. We will follow her as an [address] [place] [address] CONSULTATION Name: ANGELITA SMITH Room: [facility] IN M.R.#: [id number] Admission: 10/17/19 Attend Phys: Marge Bethea MD Discharge: 10/19/19 Date of : 42 Report #: [id number] outpatient at this time, but have her started back on her motilium. I have discussed the plans with the patient as well as her who are agreeable to the same. <ELECTRONICALLY SIGNED> By: Mayur Whitaker DO 10/24/19 1922 13 [id number] Whitaker DO /nt
== END 2019-10-19 12:47 | disposition home or self-care (01) | DRG 683 ==
LOC: M.ERS 15:22 → M.3W 18:01 → M.TBA-ER 18:01 → M.3W 18:30
PROVIDERS: Internal Medicine; Internal Medicine Gastroenterology; Physician Assistant; ADMIT Internal Medicine
DX: N17.9 Acute kidney failure, unspecified (principal); E44.0 Moderate protein-calorie malnutrition; E86.0 Dehydration; M79.7 Fibromyalgia; E03.9 Hypothyroidism, unspecified; M19.90 Unspecified osteoarthritis, unspecified site; N18.4 Chronic kidney disease, stage 4 (severe); E83.42 Hypomagnesemia; K31.84 Gastroparesis; D63.8 Anemia in other chronic diseases classified elsewhere; F32.9 Major depressive disorder, single episode, unspecified; K21.9 Gastro-esophageal reflux disease without esophagitis; Z96.651 Presence of right artificial knee joint; Z88.1 Allergy status to other antibiotic agents; Z91.09 Other allergy status, other than to drugs and biological substances; Z85.828 Personal history of other malignant neoplasm of skin; Z90.49 Acquired absence of other specified parts of digestive tract; Z68.23 Body mass index [BMI] 23.0-23.9, adult; Z93.2 Ileostomy status; Z98.42 Cataract extraction status, left eye; Z98.41 Cataract extraction status, right eye; Z88.2 Allergy status to sulfonamides; Z93.3 Colostomy status

== ENCOUNTER → 2019-10-21 | Outpatient (CLI) | payer OTHER, SELFPAY ==
[2019-10-21 08:35] VITALS: BP 144/83
[2019-10-21 09:27] LABS: CALCIUM 9.6 mg/dL (8.5-10.1); CREATININE 1.9 mg/dL (0.6-1.3); MAGNESIUM 1.8 mg/dL (1.8-2.4); PHOSPHORUS* 2.9 mg/dL (2.5-4.9); POTASSIUM 3.8 mmol/L (3.5-5.1)
== END ==
LOC: M.INFUS 05:17
PROVIDERS: Internal Medicine Nephrology
DX: N18.4 Chronic kidney disease, stage 4 (severe) (principal); E86.0 Dehydration

== ENCOUNTER → 2019-10-26 | Outpatient (CLI) | payer OTHER, SELFPAY ==
[2019-10-26 09:40] VITALS: BP 122/74
[2019-10-26 10:47] LABS: CALCIUM 9.8 mg/dL (8.5-10.1); CREATININE 1.8 mg/dL (0.6-1.3); MAGNESIUM 1.4 mg/dL (1.8-2.4); PHOSPHORUS* 3.1 mg/dL (2.5-4.9); POTASSIUM 3.8 mmol/L (3.5-5.1)
[2019-10-26 12:55] VITALS: BP 122/75
--- NOTE | 2019-10-26 13:08 | NUR ---
ARRIVED AMBULATORY. MADE SELF COMFORTABLE IN RECLINER. PORT A CATH ACCESSED. AND PATENT. INFUSION COMPLETED PER STANDING ORDER. TOLERATED WELL. PORT FLUSHED AND LEFT ACCESSED FOR USE LATER THIS WEEK. DENEIS QUESTIONE OR NEEDS AT DISCHARGE.
[2019-10-26 16:42] LABS: CALCIUM 8.6 mg/dL (8.5-10.1); CREATININE 1.6 mg/dL (0.6-1.3); MAGNESIUM 1.6 mg/dL (1.8-2.4); PHOSPHORUS* 2.1 mg/dL (2.5-4.9); POTASSIUM 3.9 mmol/L (3.5-5.1)
== END ==
LOC: M.INFUS 05:29
PROVIDERS: Internal Medicine Nephrology
DX: N18.4 Chronic kidney disease, stage 4 (severe) (principal); E86.0 Dehydration

== ENCOUNTER → 2019-10-28 | Outpatient (CLI) | payer OTHER, SELFPAY ==
[2019-10-28 09:40] LABS: CALCIUM 9.7 mg/dL (8.5-10.1); CREATININE 1.9 mg/dL (0.6-1.3); MAGNESIUM 1.6 mg/dL (1.8-2.4); PHOSPHORUS* 3.3 mg/dL (2.5-4.9); POTASSIUM 4.4 mmol/L (3.5-5.1)
[2019-10-28 09:50] VITALS: BP 118/70
[2019-10-28 12:15] VITALS: BP 110/68
--- NOTE | 2019-10-28 12:47 | NUR ---
INFUSION COMPLETED AND TOLERATED WELL. PORT FLUSHED AND DEACCESSED.
== END ==
LOC: M.INFUS 05:01
PROVIDERS: Internal Medicine Nephrology
DX: N18.4 Chronic kidney disease, stage 4 (severe) (principal); E86.0 Dehydration

== ENCOUNTER → 2019-10-31 | Outpatient (CLI) | payer OTHER, SELFPAY ==
[2019-10-31 09:08] VITALS: BP 118/74
[2019-10-31 09:53] LABS: CALCIUM 10.1 mg/dL (8.5-10.1); CREATININE 2.2 mg/dL (0.6-1.3); MAGNESIUM 1.6 mg/dL (1.8-2.4); PHOSPHORUS* 4.5 mg/dL (2.5-4.9); POTASSIUM 4.6 mmol/L (3.5-5.1)
[2019-10-31 12:40] VITALS: BP 114/70
[2019-10-31 12:58] LABS: CALCIUM 9.1 mg/dL (8.5-10.1); CREATININE 1.9 mg/dL (0.6-1.3); MAGNESIUM 1.7 mg/dL (1.8-2.4); PHOSPHORUS* 3.2 mg/dL (2.5-4.9); POTASSIUM 4.6 mmol/L (3.5-5.1)
== END ==
LOC: M.INFUS 03:04
PROVIDERS: Internal Medicine Nephrology
DX: N18.4 Chronic kidney disease, stage 4 (severe) (principal); E86.0 Dehydration

== ENCOUNTER → 2019-11-04 | Outpatient (CLI) | payer OTHER, SELFPAY ==
[2019-11-04 09:20] VITALS: BP 130/64
[2019-11-04 10:23] LABS: CALCIUM 10.6 mg/dL (8.5-10.1); MAGNESIUM 1.4 mg/dL (1.8-2.4); PHOSPHORUS* 3.8 mg/dL (2.5-4.9); POTASSIUM 4.1 mmol/L (3.5-5.1)
--- NOTE | 2019-11-04 12:39 | NUR ---
INFUSION COMPLETED AND TOLERAED WELL. [PORT FLUSHED AND DEACCESSED.
== END ==
LOC: M.INFUS 04:51
PROVIDERS: Internal Medicine Nephrology
DX: N18.4 Chronic kidney disease, stage 4 (severe) (principal); E86.0 Dehydration

== ENCOUNTER → 2019-11-07 | Outpatient (CLI) | payer OTHER, SELFPAY ==
[2019-11-07 08:32] VITALS: BP 116/63
[2019-11-07 09:21] LABS: CREATININE 1.9 mg/dL (0.6-1.3); MAGNESIUM 1.2 mg/dL (1.8-2.4); PHOSPHORUS* 3.5 mg/dL (2.5-4.9); POTASSIUM 4.2 mmol/L (3.5-5.1)
[2019-11-07 11:35] VITALS: BP 140/72
--- NOTE | 2019-11-07 11:48 | NUR ---
ARRIVED AMBULATORY. MADE SELF COMFORTABLE IN RECLINER. PORT A CATH ACCESSED WTIH OUT DIFFICULTY. GOOD BRISK BLOOD RETRUN AND EASY FLUSH. INFUSION COMPLETED AND TOELRATED WELL. KETTY QUESTIONS OR NEEDS AT DISCHARGE.
[2019-11-07 12:16] LABS: CALCIUM 9.1 mg/dL (8.5-10.1); CREATININE 1.8 mg/dL (0.6-1.3); MAGNESIUM 1.5 mg/dL (1.8-2.4); PHOSPHORUS* 2.7 mg/dL (2.5-4.9); POTASSIUM 4.4 mmol/L (3.5-5.1)
== END ==
LOC: M.INFUS 04:52
PROVIDERS: Internal Medicine Nephrology
DX: E86.0 Dehydration (principal); N18.4 Chronic kidney disease, stage 4 (severe)

== ENCOUNTER → 2019-11-11 | Outpatient (CLI) | payer MEDICARE, SELFPAY ==
[2019-11-11 09:45] VITALS: BP 126/63
[2019-11-11 10:56] LABS: CALCIUM 10.1 mg/dL (8.5-10.1); CREATININE 2.2 mg/dL (0.6-1.3); MAGNESIUM 1.4 mg/dL (1.8-2.4); PHOSPHORUS* 4.2 mg/dL (2.5-4.9); POTASSIUM 4.8 mmol/L (3.5-5.1)
[2019-11-11 13:00] VITALS: BP 131/66
== END ==
LOC: M.INFUS 09:38
PROVIDERS: Internal Medicine Nephrology
DX: N18.4 Chronic kidney disease, stage 4 (severe) (principal); E86.0 Dehydration

== ENCOUNTER → 2019-11-14 | Outpatient (CLI) | payer MEDICARE, SELFPAY ==
[2019-11-14 11:49] LABS: CALCIUM 9.5 mg/dL (8.5-10.1); CREATININE 2.4 mg/dL (0.6-1.3); MAGNESIUM 1.3 mg/dL (1.8-2.4); PHOSPHORUS* 3.8 mg/dL (2.5-4.9); POTASSIUM 4.2 mmol/L (3.5-5.1)
[2019-11-14 13:37] LABS: CALCIUM 8.7 mg/dL (8.5-10.1); CREATININE 2.2 mg/dL (0.6-1.3); MAGNESIUM 1.6 mg/dL (1.8-2.4); PHOSPHORUS* 2.8 mg/dL (2.5-4.9); POTASSIUM 4.7 mmol/L (3.5-5.1)
== END ==
LOC: M.INFUS 01:18
PROVIDERS: Internal Medicine Nephrology
DX: N18.4 Chronic kidney disease, stage 4 (severe) (principal); E86.0 Dehydration

== ENCOUNTER → 2019-11-16 | Outpatient (CLI) | payer MEDICARE, SELFPAY ==
[2019-11-16 09:10] VITALS: BP 107/54
[2019-11-16 11:03] LABS: CALCIUM 9.7 mg/dL (8.5-10.1); CREATININE 2.1 mg/dL (0.6-1.3); MAGNESIUM 1.4 mg/dL (1.8-2.4); PHOSPHORUS* 3.3 mg/dL (2.5-4.9); POTASSIUM 4.7 mmol/L (3.5-5.1)
[2019-11-16 13:00] VITALS: BP 112/70
[2019-11-16 13:50] LABS: CALCIUM 8.8 mg/dL (8.5-10.1); CREATININE 1.8 mg/dL (0.6-1.3); MAGNESIUM 1.7 mg/dL (1.8-2.4); PHOSPHORUS* 2.1 mg/dL (2.5-4.9)
--- NOTE | 2019-11-16 13:50 | NUR ---
INFUSION COMPLETED AND TOELRATED WELL. PORT FLUSHED AND LEFT ACCESSED FOR USE LATER IN WEEK. DENIES QUESTIONS OR NEEDS AT DISCHARGE.
== END ==
LOC: M.INFUS 04:58
PROVIDERS: Internal Medicine Nephrology
DX: D50.9 Iron deficiency anemia, unspecified (principal); N18.4 Chronic kidney disease, stage 4 (severe); E86.0 Dehydration

== ENCOUNTER → 2019-11-18 | Outpatient (CLI) | payer MEDICARE, SELFPAY ==
[2019-11-18 09:35] VITALS: BP 115/57
[2019-11-18 12:50] VITALS: BP 122/68
--- NOTE | 2019-11-18 13:03 | NUR ---
INFUSION COMPLETED AND TOLERATED WELL. PORT FLUSHED AND DEACCESSED. DENIES QUESTIONS OR NEEDS AT DISCHARGE.
[2019-11-18 13:07] LABS: CREATININE 2.1 mg/dL (0.6-1.3); POTASSIUM 4.3 mmol/L (3.5-5.1)
[2019-11-18 13:10] LABS: MAGNESIUM 1.4 mg/dL (1.8-2.4); PHOSPHORUS* 3.2 mg/dL (2.5-4.9)
[2019-11-18 13:14] LABS: CALCIUM 9.3 mg/dL (8.5-10.1); CREATININE 1.9 mg/dL (0.6-1.3); MAGNESIUM 1.7 mg/dL (1.8-2.4); PHOSPHORUS* 1.9 mg/dL (2.5-4.9); POTASSIUM 4.3 mmol/L (3.5-5.1)
== END ==
LOC: M.INFUS 04:11
PROVIDERS: Internal Medicine Nephrology
DX: N18.4 Chronic kidney disease, stage 4 (severe) (principal); E86.0 Dehydration

== ENCOUNTER → 2019-11-21 | Outpatient (CLI) | payer MEDICARE, SELFPAY ==
[2019-11-21 09:25] VITALS: BP 130/69
[2019-11-21 12:50] VITALS: BP 135/75
[2019-11-21 13:04] LABS: CALCIUM 8.4 mg/dL (8.5-10.1); CREATININE 1.9 mg/dL (0.6-1.3); MAGNESIUM 1.5 mg/dL (1.8-2.4); PHOSPHORUS* 1.8 mg/dL (2.5-4.9); POTASSIUM 4.1 mmol/L (3.5-5.1)
--- NOTE | 2019-11-21 13:06 | NUR ---
ARRIVED AMBULATORY. MADE SLEF COMFORTABLE IN RECLINER. PORT ACCESSED WITH OUT DIFFICULTY. INFUSION COMPLETED AND TOLERATED WELL. PORT FLUSHED AND LEFT ACCESSED FOR USE THIS WEEK. DENIES QUESTIONS OR NEEDS AT DISCHARGE.
[2019-11-21 16:11] LABS: CALCIUM 9.5 mg/dL (8.5-10.1); CREATININE 2.1 mg/dL (0.6-1.3); MAGNESIUM 1.3 mg/dL (1.8-2.4); PHOSPHORUS* 2.7 mg/dL (2.5-4.9); POTASSIUM 3.7 mmol/L (3.5-5.1)
== END ==
LOC: M.INFUS 01:24
PROVIDERS: Internal Medicine Nephrology
DX: N18.4 Chronic kidney disease, stage 4 (severe) (principal); E86.0 Dehydration

== ENCOUNTER → 2019-11-23 | Outpatient (CLI) | payer MEDICARE, SELFPAY ==
[2019-11-23 09:30] VITALS: BP 135/62
[2019-11-23 10:14] LABS: CALCIUM 9.4 mg/dL (8.5-10.1); CREATININE 1.9 mg/dL (0.6-1.3); MAGNESIUM 1.4 mg/dL (1.8-2.4); PHOSPHORUS* 2.8 mg/dL (2.5-4.9); POTASSIUM 3.7 mmol/L (3.5-5.1)
[2019-11-23 12:40] VITALS: BP 120/68
[2019-11-23 13:32] LABS: CALCIUM 8.2 mg/dL (8.5-10.1); CREATININE 1.7 mg/dL (0.6-1.3); MAGNESIUM 1.7 mg/dL (1.8-2.4); PHOSPHORUS* 2.3 mg/dL (2.5-4.9); POTASSIUM 4.5 mmol/L (3.5-5.1)
--- NOTE | 2019-11-23 13:43 | NUR ---
ARRIVED AMBULATORY. MADE SELF COMFORTABLE IN RECLINER. PT NOTED YESTERDAY PORT NEEDLE WAS "COMING OUT" SHE REMOVED IT AND DISPOSED. PORT SITE C/D/I AND FREE FROM SIGN OF INFECTION. PORT REACCESSED. GOOD BRISK BLOOD RETURN AND EASY FLUSH. INFUSION COMPLETED AND TOLERATED WELL. PORT FLUSHED AND LEFT ACCESSED FOR USE LATER IN WEEK. DENIES QUESTION OR NEED AT DISCHARGE.
== END ==
LOC: M.INFUS 07:14
PROVIDERS: Internal Medicine Nephrology
DX: N18.4 Chronic kidney disease, stage 4 (severe) (principal); E86.0 Dehydration

== ENCOUNTER → 2019-11-28 | Outpatient (CLI) | payer MEDICARE, SELFPAY ==
[2019-11-28 09:35] VITALS: BP 122/70
[2019-11-28 10:46] LABS: CALCIUM 8.7 mg/dL (8.5-10.1); CREATININE 2.1 mg/dL (0.6-1.3); MAGNESIUM 1.2 mg/dL (1.8-2.4); PHOSPHORUS* 3.2 mg/dL (2.5-4.9); POTASSIUM 3.8 mmol/L (3.5-5.1)
[2019-11-28 12:50] VITALS: BP 118/76
[2019-11-28 15:52] LABS: CREATININE 1.8 mg/dL (0.6-1.3); MAGNESIUM 1.4 mg/dL (1.8-2.4); PHOSPHORUS* 2.6 mg/dL (2.5-4.9); POTASSIUM 4.2 mmol/L (3.5-5.1)
== END ==
LOC: M.INFUS 05:44
PROVIDERS: Internal Medicine Nephrology
DX: N18.4 Chronic kidney disease, stage 4 (severe) (principal); E86.0 Dehydration

== ENCOUNTER → 2019-12-02 | Outpatient (CLI) | payer MEDICARE, SELFPAY ==
[2019-12-02 09:45] VITALS: BP 122/74
[2019-12-02 10:49] LABS: CALCIUM 9.6 mg/dL (8.5-10.1); CREATININE 2.1 mg/dL (0.6-1.3); MAGNESIUM 1.4 mg/dL (1.8-2.4); PHOSPHORUS* 3.4 mg/dL (2.5-4.9); POTASSIUM 4.4 mmol/L (3.5-5.1)
[2019-12-02 13:30] VITALS: BP 128/78
[2019-12-02 14:01] LABS: CALCIUM 8.2 mg/dL (8.5-10.1); CREATININE 1.9 mg/dL (0.6-1.3); MAGNESIUM 1.6 mg/dL (1.8-2.4); PHOSPHORUS* 2.9 mg/dL (2.5-4.9); POTASSIUM 4.9 mmol/L (3.5-5.1)
== END ==
LOC: M.INFUS 04:05
PROVIDERS: Internal Medicine Nephrology
DX: N18.4 Chronic kidney disease, stage 4 (severe) (principal); E86.0 Dehydration; R11.2 Nausea with vomiting, unspecified; D50.9 Iron deficiency anemia, unspecified

== ENCOUNTER → 2019-12-06 | Outpatient (CLI) | payer MEDICARE, SELFPAY ==
[2019-12-06 10:00] VITALS: BP 114/68
[2019-12-06 12:48] LABS: CALCIUM 9.5 mg/dL (8.5-10.1); CREATININE 2.9 mg/dL (0.6-1.3); MAGNESIUM 1.5 mg/dL (1.8-2.4); PHOSPHORUS* 4.4 mg/dL (2.5-4.9); POTASSIUM 4.5 mmol/L (3.5-5.1)
[2019-12-06 14:04] LABS: CALCIUM 8.5 mg/dL (8.5-10.1); CREATININE 2.6 mg/dL (0.6-1.3); POTASSIUM 4.7 mmol/L (3.5-5.1)
[2019-12-06 14:08] LABS: MAGNESIUM 1.5 mg/dL (1.8-2.4); PHOSPHORUS* 3.3 mg/dL (2.5-4.9)
--- NOTE | 2019-12-06 16:11 | NUR ---
REPORT GIVEN TO JIM VOGT TO CONTINUE CARE AND MONITORING OF PATIENT HYDRATION INFUSION. PATIENT A AND O X 3, VSS, DENIES PAIN AT THIS TIME. LABS TO BE DRAWN AT END OF INFUSION AND IMPLANTABLE PORT TO BE PACKED WITH HEPARIN AND LEFT ACCESSED.
== END ==
LOC: M.INFUS 09:50
PROVIDERS: Internal Medicine; Internal Medicine Nephrology
DX: N18.4 Chronic kidney disease, stage 4 (severe) (principal); E86.0 Dehydration

== ENCOUNTER → 2019-12-07 | Outpatient (CLI) | payer MEDICARE, SELFPAY ==
[2019-12-07 09:00] VITALS: BP 122/68
[2019-12-07 11:28] LABS: CALCIUM 8.9 mg/dL (8.5-10.1); CREATININE 2.3 mg/dL (0.6-1.3); MAGNESIUM 1.6 mg/dL (1.8-2.4); PHOSPHORUS* 3.6 mg/dL (2.5-4.9); POTASSIUM 4.1 mmol/L (3.5-5.1)
[2019-12-07 13:17] LABS: CALCIUM 8.2 mg/dL (8.5-10.1); MAGNESIUM 1.7 mg/dL (1.8-2.4); PHOSPHORUS* 3.1 mg/dL (2.5-4.9); POTASSIUM 4.9 mmol/L (3.5-5.1)
== END ==
LOC: M.INFUS 04:35
PROVIDERS: Internal Medicine Nephrology
DX: N18.4 Chronic kidney disease, stage 4 (severe) (principal); E86.0 Dehydration

== ENCOUNTER → 2019-12-09 | Outpatient (CLI) | payer MEDICARE, SELFPAY ==
[2019-12-09 09:20] VITALS: BP 118/55
[2019-12-09 09:59] LABS: CALCIUM 9.2 mg/dL (8.5-10.1); CREATININE 2.2 mg/dL (0.6-1.3); MAGNESIUM 1.5 mg/dL (1.8-2.4); PHOSPHORUS* 3.6 mg/dL (2.5-4.9); POTASSIUM 4.7 mmol/L (3.5-5.1)
[2019-12-09 12:32] VITALS: BP 122/60
[2019-12-09 13:09] LABS: CALCIUM 8.6 mg/dL (8.5-10.1); CREATININE 1.8 mg/dL (0.6-1.3); MAGNESIUM 1.7 mg/dL (1.8-2.4); PHOSPHORUS* 2.6 mg/dL (2.5-4.9); POTASSIUM 4.7 mmol/L (3.5-5.1)
== END ==
LOC: M.INFUS 05:17
PROVIDERS: Internal Medicine Nephrology
DX: N18.4 Chronic kidney disease, stage 4 (severe) (principal); E86.0 Dehydration

== ENCOUNTER → 2019-12-12 | Outpatient (CLI) | payer MEDICARE, SELFPAY ==
[2019-12-12 10:00] VITALS: BP 122/74
[2019-12-12 11:15] LABS: CALCIUM 9.4 mg/dL (8.5-10.1); MAGNESIUM 1.3 mg/dL (1.8-2.4); PHOSPHORUS* 3.5 mg/dL (2.5-4.9); POTASSIUM 4.1 mmol/L (3.5-5.1)
[2019-12-12 12:35] VITALS: BP 118/68
--- NOTE | 2019-12-12 12:47 | NUR ---
ARRIVED AMBULATORY. MADE SLE FCOMFORTABLE IN RECLINER. PORT A CATH ACCESSED WITH OUT DIFFICULTY GOOD BRISK BLOOD RETURN NOTED ANMD FLUSHED WITH EASE. NACL START TIME 1010 STOP TIME 1100 INFUSION COMPELTED AND TOELRATED WELL. DENEIS QUESTIONS OR NEEDS AT DISCHARGE.
[2019-12-12 13:28] LABS: CALCIUM 8.5 mg/dL (8.5-10.1); CREATININE 1.7 mg/dL (0.6-1.3); MAGNESIUM 1.7 mg/dL (1.8-2.4); PHOSPHORUS* 2.8 mg/dL (2.5-4.9)
[2019-12-12 13:35] LABS: POTASSIUM 4.4 mmol/L (3.5-5.1)
== END ==
LOC: M.INFUS 09:32
PROVIDERS: Internal Medicine Nephrology
DX: N18.4 Chronic kidney disease, stage 4 (severe) (principal); E86.0 Dehydration

== ENCOUNTER → 2019-12-14 | Outpatient (CLI) | payer MEDICARE, SELFPAY ==
[2019-12-14 09:17] VITALS: BP 110/85
[2019-12-14 09:53] LABS: CALCIUM 10.2 mg/dL (8.5-10.1); CREATININE 1.8 mg/dL (0.6-1.3); MAGNESIUM 1.3 mg/dL (1.8-2.4); PHOSPHORUS* 3.5 mg/dL (2.5-4.9)
[2019-12-14 13:00] VITALS: BP 118/75
[2019-12-14 14:13] LABS: CALCIUM 8.9 mg/dL (8.5-10.1); CREATININE 1.6 mg/dL (0.6-1.3); MAGNESIUM 1.4 mg/dL (1.8-2.4); PHOSPHORUS* 2.7 mg/dL (2.5-4.9); POTASSIUM 4.3 mmol/L (3.5-5.1)
== END ==
LOC: M.INFUS 02:29
PROVIDERS: Internal Medicine Nephrology
DX: N18.4 Chronic kidney disease, stage 4 (severe) (principal); E86.0 Dehydration

== ENCOUNTER → 2019-12-16 | Outpatient (CLI) | payer MEDICARE, SELFPAY ==
[2019-12-16 09:05] VITALS: BP 110/57
[2019-12-16 09:57] LABS: CALCIUM 9.8 mg/dL (8.5-10.1); CREATININE 1.8 mg/dL (0.6-1.3); MAGNESIUM 1.3 mg/dL (1.8-2.4); POTASSIUM 3.9 mmol/L (3.5-5.1)
--- NOTE | 2019-12-16 12:38 | NUR ---
INFUSION COMPELTED AND TOELRATED WELL. PORT FLUSHED AND DEACCESSED. DENIES QUESTIONS OR NEEDS AT DISCHARGE.
[2019-12-16 13:51] LABS: CALCIUM 8.9 mg/dL (8.5-10.1); CREATININE 1.5 mg/dL (0.6-1.3); MAGNESIUM 1.5 mg/dL (1.8-2.4); PHOSPHORUS* 3.4 mg/dL (2.5-4.9); POTASSIUM 4.5 mmol/L (3.5-5.1)
== END ==
LOC: M.INFUS 05:09
PROVIDERS: Internal Medicine Nephrology
DX: D50.9 Iron deficiency anemia, unspecified (principal); N18.4 Chronic kidney disease, stage 4 (severe); E86.0 Dehydration

== ENCOUNTER → 2019-12-19 | Outpatient (CLI) | payer MEDICARE, SELFPAY ==
[2019-12-19 09:25] VITALS: BP 112/59
[2019-12-19 10:06] LABS: CALCIUM 9.7 mg/dL (8.5-10.1); CREATININE 1.9 mg/dL (0.6-1.3); MAGNESIUM 1.3 mg/dL (1.8-2.4); PHOSPHORUS* 4.1 mg/dL (2.5-4.9); POTASSIUM 4.1 mmol/L (3.5-5.1)
[2019-12-19 12:38] VITALS: BP 122/64
--- NOTE | 2019-12-19 12:45 | NUR ---
ARRIVED AMBULATORY. MADE SELF COMFORTABLE. PORT ACCESSED WITH OUT DIFFICULTY. GOOD BLOOD RETURN AND EASY FLUSH. INFUSION COMPLETED AND TOLERATED WELL. DENIES QUESTIONS OR NEEDS AT DISCHARGE.
== END ==
LOC: M.INFUS 01:05
PROVIDERS: Internal Medicine Nephrology
DX: N18.4 Chronic kidney disease, stage 4 (severe) (principal); E86.0 Dehydration

== ENCOUNTER → 2019-12-23 | Outpatient (CLI) | payer MEDICARE, SELFPAY ==
[2019-12-23 09:22] VITALS: BP 115/53
[2019-12-23 10:01] LABS: CALCIUM 10.5 mg/dL (8.5-10.1); CREATININE 1.9 mg/dL (0.6-1.3); PHOSPHORUS* 4.2 mg/dL (2.5-4.9); POTASSIUM 4.3 mmol/L (3.5-5.1)
[2019-12-23 13:00] VITALS: BP 122/55
[2019-12-23 13:33] LABS: CALCIUM 9.2 mg/dL (8.5-10.1); CREATININE 1.7 mg/dL (0.6-1.3); MAGNESIUM 1.3 mg/dL (1.8-2.4); PHOSPHORUS* 3.5 mg/dL (2.5-4.9); POTASSIUM 5.2 mmol/L (3.5-5.1)
--- NOTE | 2019-12-23 14:16 | NUR ---
INFUSION COMPELTED AND TOLERATED WELL. PORT FLUSHED AND DEACCESSED.
== END ==
LOC: M.INFUS 03:35
PROVIDERS: Internal Medicine Nephrology
DX: N18.4 Chronic kidney disease, stage 4 (severe) (principal); E86.0 Dehydration

== ENCOUNTER → 2019-12-26 | Outpatient (CLI) | payer MEDICARE, SELFPAY ==
[2019-12-26 09:10] VITALS: BP 132/74
[2019-12-26 10:19] LABS: CREATININE 2.3 mg/dL (0.6-1.3); MAGNESIUM 1.4 mg/dL (1.8-2.4); PHOSPHORUS* 4.3 mg/dL (2.5-4.9); POTASSIUM 4.5 mmol/L (3.5-5.1)
[2019-12-26 12:50] VITALS: BP 122/64
--- NOTE | 2019-12-26 13:34 | NUR ---
INFUSION COMPLETED AND TOERLATED WELL. PORT LEFT ACCESSED FOR USE LATER IN WEEK. DENIES QUESTIONS OR NEEDS AT DISCHARGE.
== END ==
LOC: M.INFUS 01:38
PROVIDERS: Internal Medicine Nephrology
DX: N18.4 Chronic kidney disease, stage 4 (severe) (principal); E86.0 Dehydration

== ENCOUNTER → 2019-12-28 | Outpatient (CLI) | payer MEDICARE, SELFPAY ==
[2019-12-28 09:55] VITALS: BP 122/76
[2019-12-28 11:16] LABS: MAGNESIUM 1.5 mg/dL (1.8-2.4); POTASSIUM 4.7 mmol/L (3.5-5.1)
[2019-12-28 13:15] VITALS: BP 122/70
[2019-12-28 14:08] LABS: CALCIUM 8.7 mg/dL (8.5-10.1); CREATININE 1.8 mg/dL (0.6-1.3); MAGNESIUM 1.7 mg/dL (1.8-2.4); PHOSPHORUS* 3.2 mg/dL (2.5-4.9); POTASSIUM 5.3 mmol/L (3.5-5.1)
--- NOTE | 2019-12-28 14:44 | NUR ---
INFUSION COMPLETED AND TOELRATED WELL. DENIES QUESTIONS OR NEEDS AT DISCHARGE.
== END ==
LOC: M.INFUS 00:23
PROVIDERS: Internal Medicine Nephrology
DX: N18.4 Chronic kidney disease, stage 4 (severe) (principal); D50.9 Iron deficiency anemia, unspecified; E86.0 Dehydration

== ENCOUNTER → 2019-12-30 | Outpatient (CLI) | payer MEDICARE, SELFPAY ==
[2019-12-30 09:00] VITALS: BP 132/74
[2019-12-30 10:35] LABS: CALCIUM 10.2 mg/dL (8.5-10.1); CREATININE 2.1 mg/dL (0.6-1.3); MAGNESIUM 1.5 mg/dL (1.8-2.4); PHOSPHORUS* 3.8 mg/dL (2.5-4.9); POTASSIUM 4.3 mmol/L (3.5-5.1)
[2019-12-30 13:00] VITALS: BP 122/76
--- NOTE | 2019-12-30 13:23 | NUR ---
ARRIVED AMBULATROY. MADE SELF COMFORTABLE IN RECLINER. PORT ALREADY ACCESSED AND NOTED TO BE PATENT. INFUSION COMPLETED AND TOLERATED WELL. PORT FLUSHED AND DEACCESSED. DENIES QUESTIONS OR NEEDS AT DISCHARGE.
[2019-12-30 14:22] LABS: CALCIUM 8.8 mg/dL (8.5-10.1); CREATININE 1.8 mg/dL (0.6-1.3); MAGNESIUM 1.7 mg/dL (1.8-2.4); PHOSPHORUS* 3.3 mg/dL (2.5-4.9); POTASSIUM 5.1 mmol/L (3.5-5.1)
== END ==
LOC: M.INFUS 03:35
PROVIDERS: Internal Medicine Nephrology
DX: N18.4 Chronic kidney disease, stage 4 (severe) (principal); E86.0 Dehydration

== ENCOUNTER → 2020-01-02 | Outpatient (CLI) | payer MEDICARE, SELFPAY ==
[2020-01-02 09:13] VITALS: BP 101/60
[2020-01-02 09:51] LABS: CALCIUM 10.2 mg/dL (8.5-10.1); CREATININE 1.9 mg/dL (0.6-1.3); MAGNESIUM 1.4 mg/dL (1.8-2.4); PHOSPHORUS* 4.3 mg/dL (2.5-4.9); POTASSIUM 4.1 mmol/L (3.5-5.1)
[2020-01-02 12:30] VITALS: BP 118/65
--- NOTE | 2020-01-02 12:35 | NUR ---
ARRIVED AMBULATORY. MADE SELF COMFORTABLE IN RELCINER. PORT ACCESSED WITH OUT DIFFICUTY. PRE AND POST LABS PER ORDER. INFUSION COMPLETED AND TOLERATED WELL. DENIES QUESTION OR NEDDS AT DISCHARGE.
== END ==
LOC: M.INFUS 03:44
PROVIDERS: Internal Medicine Nephrology
DX: N18.4 Chronic kidney disease, stage 4 (severe) (principal); E86.0 Dehydration

== ENCOUNTER → 2020-01-04 | Outpatient (CLI) | payer MEDICARE, SELFPAY ==
[2020-01-04 09:15] VITALS: BP 122/70
[2020-01-04 09:54] LABS: MAGNESIUM 1.3 mg/dL (1.8-2.4); PHOSPHORUS* 3.9 mg/dL (2.5-4.9); POTASSIUM 4.2 mmol/L (3.5-5.1)
[2020-01-04 12:25] VITALS: BP 118/70
[2020-01-04 12:57] LABS: CALCIUM 8.9 mg/dL (8.5-10.1); CREATININE 1.8 mg/dL (0.6-1.3); MAGNESIUM 1.6 mg/dL (1.8-2.4); PHOSPHORUS* 2.9 mg/dL (2.5-4.9); POTASSIUM 4.7 mmol/L (3.5-5.1)
== END ==
LOC: M.INFUS 02:10
PROVIDERS: Internal Medicine Nephrology
DX: N18.4 Chronic kidney disease, stage 4 (severe) (principal); E86.0 Dehydration

== ENCOUNTER → 2020-01-06 | Outpatient (CLI) | payer MEDICARE ==
[2020-01-06 09:35] VITALS: BP 110/52
[2020-01-06 10:29] LABS: CALCIUM 10.2 mg/dL (8.5-10.1); CREATININE 2.1 mg/dL (0.6-1.3); MAGNESIUM 1.4 mg/dL (1.8-2.4); POTASSIUM 4.1 mmol/L (3.5-5.1)
[2020-01-06 12:40] VITALS: BP 118/58
--- NOTE | 2020-01-06 12:50 | NUR ---
INFSUION COMPELTED AND TOLERATED WELL. PORT FLUSHED AND DEACCESSED. DENEIS QUESTIONS OR NEEDS AT DISCHARGE.
[2020-01-06 13:08] LABS: CALCIUM 9.2 mg/dL (8.5-10.1); CREATININE 1.8 mg/dL (0.6-1.3); MAGNESIUM 1.8 mg/dL (1.8-2.4); PHOSPHORUS* 3.5 mg/dL (2.5-4.9); POTASSIUM 5.4 mmol/L (3.5-5.1)
== END ==
LOC: M.INFUS 04:02
PROVIDERS: Internal Medicine Nephrology
DX: N18.4 Chronic kidney disease, stage 4 (severe) (principal); E86.0 Dehydration

== ENCOUNTER → 2020-01-09 | Outpatient (CLI) | payer MEDICARE ==
[2020-01-09 09:05] VITALS: BP 112/62
[2020-01-09 11:16] LABS: CALCIUM 9.8 mg/dL (8.5-10.1); CREATININE 2.3 mg/dL (0.6-1.3); MAGNESIUM 1.4 mg/dL (1.8-2.4); PHOSPHORUS* 4.5 mg/dL (2.5-4.9); POTASSIUM 4.1 mmol/L (3.5-5.1)
[2020-01-09 12:22] VITALS: BP 122/68
--- NOTE | 2020-01-09 12:35 | NUR ---
ARRIVED AMBULATORY. MADE SLEF COMFORTABLE. PORT A CATH ACCESSED WITH OUTD DIFFICULTY. GOOD BRISK BLOOD RETURN NOTED AND FLUSHED WITH EASE. INFUSION COMPLETED AND TOLERATED WELL. PORT FLUSHED AND LEFT ACCESSED. KETTY QUESTIONS OR NEEDS AT DISCHARGE.
[2020-01-09 12:47] LABS: CREATININE 1.9 mg/dL (0.6-1.3); MAGNESIUM 1.7 mg/dL (1.8-2.4); PHOSPHORUS* 3.7 mg/dL (2.5-4.9)
== END ==
LOC: M.INFUS 02:21
PROVIDERS: Internal Medicine Nephrology
DX: N18.4 Chronic kidney disease, stage 4 (severe) (principal); E86.0 Dehydration

== ENCOUNTER → 2020-01-11 | Outpatient (CLI) | payer MEDICARE ==
[2020-01-11 09:15] VITALS: BP 103/47
[2020-01-11 11:04] LABS: CREATININE 1.8 mg/dL (0.6-1.3); MAGNESIUM 1.5 mg/dL (1.8-2.4); PHOSPHORUS* 3.9 mg/dL (2.5-4.9); POTASSIUM 4.2 mmol/L (3.5-5.1)
[2020-01-11 12:49] VITALS: BP 115/51
[2020-01-11 13:30] LABS: CALCIUM 8.8 mg/dL (8.5-10.1); CREATININE 1.6 mg/dL (0.6-1.3); MAGNESIUM 1.7 mg/dL (1.8-2.4); POTASSIUM 4.9 mmol/L (3.5-5.1)
== END ==
LOC: M.INFUS 04:28
PROVIDERS: Internal Medicine Nephrology
DX: N18.4 Chronic kidney disease, stage 4 (severe) (principal); E86.0 Dehydration

== ENCOUNTER → 2020-01-13 | Outpatient (CLI) | payer MEDICARE ==
[2020-01-13 08:35] VITALS: BP 103/55
[2020-01-13 12:00] VITALS: BP 118/70
[2020-01-13 12:38] LABS: CALCIUM 9.2 mg/dL (8.5-10.1); CREATININE 1.7 mg/dL (0.6-1.3); MAGNESIUM 1.8 mg/dL (1.8-2.4); PHOSPHORUS* 3.4 mg/dL (2.5-4.9); POTASSIUM 4.9 mmol/L (3.5-5.1)
== END ==
LOC: M.INFUS 03:47
PROVIDERS: Internal Medicine Nephrology
DX: N18.4 Chronic kidney disease, stage 4 (severe) (principal); E86.0 Dehydration

== ENCOUNTER → 2020-01-16 | Outpatient (CLI) | payer MEDICARE ==
[2020-01-16 09:30] VITALS: BP 120/74
[2020-01-16 10:29] LABS: CALCIUM 10.3 mg/dL (8.5-10.1); CREATININE 1.7 mg/dL (0.6-1.3); MAGNESIUM 1.3 mg/dL (1.8-2.4); PHOSPHORUS* 4.2 mg/dL (2.5-4.9); POTASSIUM 3.8 mmol/L (3.5-5.1)
[2020-01-16 12:32] VITALS: BP 118/62
== END ==
LOC: M.INFUS 01:05
PROVIDERS: Internal Medicine Nephrology
DX: N18.4 Chronic kidney disease, stage 4 (severe) (principal); E86.0 Dehydration

== ENCOUNTER → 2020-01-18 | Outpatient (CLI) | payer MEDICARE ==
[2020-01-18 09:50] VITALS: BP 127/50
[2020-01-18 10:36] LABS: CALCIUM 10.1 mg/dL (8.5-10.1); CREATININE 1.7 mg/dL (0.6-1.3); POTASSIUM 4.1 mmol/L (3.5-5.1)
[2020-01-18 10:39] LABS: MAGNESIUM 1.3 mg/dL (1.8-2.4)
[2020-01-18 13:36] LABS: CALCIUM 9.5 mg/dL (8.5-10.1); CREATININE 1.5 mg/dL (0.6-1.3); POTASSIUM 4.5 mmol/L (3.5-5.1)
[2020-01-18 13:39] LABS: MAGNESIUM 1.6 mg/dL (1.8-2.4); PHOSPHORUS* 3.4 mg/dL (2.5-4.9)
== END ==
LOC: M.INFUS 04:49
PROVIDERS: Internal Medicine
DX: N18.4 Chronic kidney disease, stage 4 (severe) (principal); E86.0 Dehydration

== ENCOUNTER → 2020-01-23 | Outpatient (CLI) | payer MEDICARE ==
[2020-01-23 09:50] VITALS: BP 111/51
[2020-01-23 11:34] LABS: CALCIUM 9.7 mg/dL (8.5-10.1); CREATININE 1.9 mg/dL (0.6-1.3); MAGNESIUM 1.3 mg/dL (1.8-2.4); PHOSPHORUS* 4.1 mg/dL (2.5-4.9); POTASSIUM 3.9 mmol/L (3.5-5.1)
[2020-01-23 13:51] VITALS: BP 112/52
[2020-01-23 15:04] LABS: CALCIUM 8.3 mg/dL (8.5-10.1); CREATININE 1.7 mg/dL (0.6-1.3); MAGNESIUM 1.7 mg/dL (1.8-2.4); PHOSPHORUS* 2.9 mg/dL (2.5-4.9); POTASSIUM 4.3 mmol/L (3.5-5.1)
== END ==
LOC: M.INFUS 02:02
PROVIDERS: Registered Nurse
DX: N18.4 Chronic kidney disease, stage 4 (severe) (principal); E86.0 Dehydration

== ENCOUNTER → 2020-01-25 | Outpatient (CLI) | payer MEDICARE ==
[2020-01-25 09:30] VITALS: BP 119/57
[2020-01-25 10:26] LABS: CALCIUM 9.1 mg/dL (8.5-10.1); CREATININE 1.9 mg/dL (0.6-1.3); MAGNESIUM 1.5 mg/dL (1.8-2.4); PHOSPHORUS* 3.4 mg/dL (2.5-4.9); POTASSIUM 4.3 mmol/L (3.5-5.1)
[2020-01-25 13:37] VITALS: BP 114/62
[2020-01-25 14:04] LABS: CALCIUM 8.6 mg/dL (8.5-10.1); CREATININE 1.6 mg/dL (0.6-1.3); MAGNESIUM 1.7 mg/dL (1.8-2.4); PHOSPHORUS* 2.8 mg/dL (2.5-4.9); POTASSIUM 4.5 mmol/L (3.5-5.1)
== END ==
LOC: M.INFUS 04:22
PROVIDERS: Registered Nurse
DX: N18.4 Chronic kidney disease, stage 4 (severe) (principal); E86.0 Dehydration

== ENCOUNTER → 2020-01-27 | Outpatient (CLI) | payer MEDICARE ==
[2020-01-27 09:35] VITALS: BP 133/57
[2020-01-27 11:46] LABS: CALCIUM 9.1 mg/dL (8.5-10.1); CREATININE 2.2 mg/dL (0.6-1.3); POTASSIUM 4.1 mmol/L (3.5-5.1)
[2020-01-27 12:02] LABS: MAGNESIUM 1.6 mg/dL (1.8-2.4); PHOSPHORUS* 3.8 mg/dL (2.5-4.9)
[2020-01-27 14:00] VITALS: BP 110/66
[2020-01-27 14:24] LABS: CALCIUM 8.6 mg/dL (8.5-10.1); CREATININE 1.9 mg/dL (0.6-1.3); MAGNESIUM 1.9 mg/dL (1.8-2.4); PHOSPHORUS* 3.3 mg/dL (2.5-4.9)
[2020-01-27 14:26] LABS: POTASSIUM 5.1 mmol/L (3.5-5.1)
== END ==
LOC: M.INFUS 08:36
PROVIDERS: Registered Nurse
DX: N18.4 Chronic kidney disease, stage 4 (severe) (principal); E86.0 Dehydration

== ENCOUNTER → 2020-01-30 | Outpatient (CLI) | payer MEDICARE ==
[2020-01-30 10:05] LABS: CALCIUM 9.4 mg/dL (8.5-10.1); CREATININE 2.1 mg/dL (0.6-1.3); MAGNESIUM 1.7 mg/dL (1.8-2.4); PHOSPHORUS* 3.8 mg/dL (2.5-4.9); POTASSIUM 4.5 mmol/L (3.5-5.1)
--- NOTE | 2020-01-30 12:45 | NUR ---
ARRIVED AMBULATORY. MADE SELF COMFORTABLE IN RECLINER. PORT ACCESSED WITH OUT DIFFICULTY. INFUSION COMPLETED AND TOLERATED WELL. PORT FLUSHED AND LEFT ACCESSED. DENIES QUESTIONS OR NEEDS AT DISCHARGE.
[2020-01-30 14:17] LABS: CALCIUM 8.4 mg/dL (8.5-10.1); CREATININE 1.8 mg/dL (0.6-1.3); MAGNESIUM 1.9 mg/dL (1.8-2.4); PHOSPHORUS* 3.1 mg/dL (2.5-4.9); POTASSIUM 4.7 mmol/L (3.5-5.1)
== END ==
LOC: M.INFUS 03:08
PROVIDERS: Internal Medicine
DX: N18.4 Chronic kidney disease, stage 4 (severe) (principal); E86.0 Dehydration

== ENCOUNTER → 2020-02-01 | Outpatient (CLI) | payer MEDICARE ==
[2020-02-01 08:55] VITALS: BP 132/70
[2020-02-01 09:27] LABS: CALCIUM 9.4 mg/dL (8.5-10.1); CREATININE 1.9 mg/dL (0.6-1.3); MAGNESIUM 1.6 mg/dL (1.8-2.4); PHOSPHORUS* 3.5 mg/dL (2.5-4.9); POTASSIUM 4.5 mmol/L (3.5-5.1)
[2020-02-01 11:35] VITALS: BP 122/70
[2020-02-01 12:33] LABS: CALCIUM 8.2 mg/dL (8.5-10.1); CREATININE 1.7 mg/dL (0.6-1.3); MAGNESIUM 1.8 mg/dL (1.8-2.4); PHOSPHORUS* 2.8 mg/dL (2.5-4.9); POTASSIUM 5.2 mmol/L (3.5-5.1)
== END ==
LOC: M.INFUS 03:46
PROVIDERS: Internal Medicine; Internal Medicine Nephrology
DX: N18.4 Chronic kidney disease, stage 4 (severe) (principal); E86.0 Dehydration

== ENCOUNTER → 2020-02-03 | Outpatient (CLI) | payer MEDICARE ==
[2020-02-03 10:05] VITALS: BP 132/57
[2020-02-03 10:29] LABS: CALCIUM 9.4 mg/dL (8.5-10.1); CREATININE 1.8 mg/dL (0.6-1.3); MAGNESIUM 1.6 mg/dL (1.8-2.4); PHOSPHORUS* 3.6 mg/dL (2.5-4.9); POTASSIUM 4.3 mmol/L (3.5-5.1)
[2020-02-03 13:25] VITALS: BP 128/64
--- NOTE | 2020-02-03 13:37 | NUR ---
NORMAL SALINE 500ML INFUSED VIA RIGHT CHEST PORT A CATH. START TIME 1025 STOP TIME 1155. INFUSION COMPELTED AND TOLERATED WELL. PORT FLUSHED AND DEACCESSED.
[2020-02-03 14:20] LABS: CALCIUM 8.4 mg/dL (8.5-10.1); CREATININE 1.6 mg/dL (0.6-1.3); MAGNESIUM 1.7 mg/dL (1.8-2.4); PHOSPHORUS* 2.6 mg/dL (2.5-4.9); POTASSIUM 4.5 mmol/L (3.5-5.1)
== END ==
LOC: M.INFUS 02:31
PROVIDERS: Internal Medicine
DX: N18.4 Chronic kidney disease, stage 4 (severe) (principal); E86.0 Dehydration

== ENCOUNTER → 2020-02-06 | Outpatient (CLI) | payer MEDICARE ==
[2020-02-06 09:10] VITALS: BP 146/66
[2020-02-06 09:49] LABS: CREATININE 1.9 mg/dL (0.6-1.3); MAGNESIUM 1.6 mg/dL (1.8-2.4); PHOSPHORUS* 3.3 mg/dL (2.5-4.9); POTASSIUM 4.1 mmol/L (3.5-5.1)
[2020-02-06 12:37] VITALS: BP 138/70
[2020-02-06 13:07] LABS: CALCIUM 8.4 mg/dL (8.5-10.1); CREATININE 1.6 mg/dL (0.6-1.3); MAGNESIUM 1.8 mg/dL (1.8-2.4); PHOSPHORUS* 2.8 mg/dL (2.5-4.9); POTASSIUM 4.4 mmol/L (3.5-5.1)
== END ==
LOC: M.INFUS 04:29
PROVIDERS: Internal Medicine
DX: N18.4 Chronic kidney disease, stage 4 (severe) (principal); E86.0 Dehydration

== ENCOUNTER → 2020-02-08 | Outpatient (CLI) | payer MEDICARE, SELFPAY ==
[2020-02-08 09:10] VITALS: BP 120/68
[2020-02-08 10:29] LABS: CALCIUM 9.2 mg/dL (8.5-10.1); CREATININE 2.1 mg/dL (0.6-1.3); MAGNESIUM 1.7 mg/dL (1.8-2.4); PHOSPHORUS* 3.7 mg/dL (2.5-4.9); POTASSIUM 4.6 mmol/L (3.5-5.1)
[2020-02-08 12:29] VITALS: BP 126/74
[2020-02-08 13:08] LABS: CREATININE 1.9 mg/dL (0.6-1.3); MAGNESIUM 1.8 mg/dL (1.8-2.4); POTASSIUM 4.8 mmol/L (3.5-5.1)
== END ==
LOC: M.INFUS 05:07
PROVIDERS: Internal Medicine
DX: N18.4 Chronic kidney disease, stage 4 (severe) (principal); E86.0 Dehydration

== ENCOUNTER → 2020-02-10 | Outpatient (CLI) | payer MEDICARE, SELFPAY ==
[2020-02-10 09:10] VITALS: BP 125/68
[2020-02-10 09:43] LABS: CALCIUM 8.8 mg/dL (8.5-10.1); CREATININE 1.9 mg/dL (0.6-1.3); MAGNESIUM 1.7 mg/dL (1.8-2.4); PHOSPHORUS* 3.3 mg/dL (2.5-4.9); POTASSIUM 4.1 mmol/L (3.5-5.1)
[2020-02-10 12:15] VITALS: BP 118/72
[2020-02-10 12:47] LABS: CALCIUM 8.2 mg/dL (8.5-10.1); CREATININE 1.6 mg/dL (0.6-1.3); MAGNESIUM 1.9 mg/dL (1.8-2.4); PHOSPHORUS* 3.1 mg/dL (2.5-4.9); POTASSIUM 4.9 mmol/L (3.5-5.1)
== END ==
LOC: M.INFUS 01:15
PROVIDERS: Internal Medicine
DX: N18.4 Chronic kidney disease, stage 4 (severe) (principal); E86.0 Dehydration

== ENCOUNTER → 2020-02-13 | Outpatient (CLI) | payer MEDICARE, SELFPAY ==
[2020-02-13 09:36] LABS: CALCIUM 9.2 mg/dL (8.5-10.1); CREATININE 2.2 mg/dL (0.6-1.3); MAGNESIUM 1.6 mg/dL (1.8-2.4); PHOSPHORUS* 4.5 mg/dL (2.5-4.9); POTASSIUM 4.3 mmol/L (3.5-5.1)
[2020-02-13 14:58] LABS: CALCIUM 8.3 mg/dL (8.5-10.1); CREATININE 1.9 mg/dL (0.6-1.3); MAGNESIUM 1.9 mg/dL (1.8-2.4); PHOSPHORUS* 3.3 mg/dL (2.5-4.9)
== END ==
LOC: M.INFUS 02:51
PROVIDERS: Internal Medicine
DX: N18.4 Chronic kidney disease, stage 4 (severe) (principal); E86.0 Dehydration

== ENCOUNTER → 2020-02-15 | Outpatient (CLI) | payer MEDICARE ==
[2020-02-15 09:15] VITALS: BP 122/56
[2020-02-15 09:40] LABS: CALCIUM 8.9 mg/dL (8.5-10.1); CREATININE 2.1 mg/dL (0.6-1.3); MAGNESIUM 1.7 mg/dL (1.8-2.4); PHOSPHORUS* 3.8 mg/dL (2.5-4.9); POTASSIUM 4.9 mmol/L (3.5-5.1)
[2020-02-15 12:12] VITALS: BP 122/60
[2020-02-15 14:19] LABS: CALCIUM 8.2 mg/dL (8.5-10.1); CREATININE 1.8 mg/dL (0.6-1.3); MAGNESIUM 1.9 mg/dL (1.8-2.4); PHOSPHORUS* 3.2 mg/dL (2.5-4.9); POTASSIUM 5.7 mmol/L (3.5-5.1)
== END ==
LOC: M.INFUS 08:53
PROVIDERS: Internal Medicine
DX: N18.4 Chronic kidney disease, stage 4 (severe) (principal); E86.0 Dehydration

== ENCOUNTER → 2020-02-17 | Outpatient (CLI) | payer MEDICARE ==
[2020-02-17 08:50] VITALS: BP 132/50
[2020-02-17 09:34] LABS: CALCIUM 9.1 mg/dL (8.5-10.1); CREATININE 2.2 mg/dL (0.6-1.3); MAGNESIUM 1.9 mg/dL (1.8-2.4); PHOSPHORUS* 3.7 mg/dL (2.5-4.9); POTASSIUM 5.6 mmol/L (3.5-5.1)
[2020-02-17 12:32] VITALS: BP 122/60
[2020-02-17 14:19] LABS: CALCIUM 8.1 mg/dL (8.5-10.1); CREATININE 1.9 mg/dL (0.6-1.3); PHOSPHORUS* 3.1 mg/dL (2.5-4.9)
== END ==
LOC: M.INFUS 04:29
PROVIDERS: Internal Medicine
DX: N18.4 Chronic kidney disease, stage 4 (severe) (principal); E86.0 Dehydration

== ENCOUNTER → 2020-02-20 | Outpatient (CLI) | payer MEDICARE, SELFPAY ==
[2020-02-20 08:45] VITALS: BP 107/61
[2020-02-20 10:21] LABS: CALCIUM 9.1 mg/dL (8.5-10.1); CREATININE 2.1 mg/dL (0.6-1.3); MAGNESIUM 1.6 mg/dL (1.8-2.4); PHOSPHORUS* 3.9 mg/dL (2.5-4.9); POTASSIUM 4.5 mmol/L (3.5-5.1)
[2020-02-20 12:15] VITALS: BP 115/68
[2020-02-20 13:00] LABS: CREATININE 1.9 mg/dL (0.6-1.3); MAGNESIUM 1.8 mg/dL (1.8-2.4); PHOSPHORUS* 3.7 mg/dL (2.5-4.9); POTASSIUM 5.4 mmol/L (3.5-5.1)
--- NOTE | 2020-02-20 14:20 | NUR ---
PORT ACCESSED WITH OUT DIFFICULTY. PRE AND POST LABS PER ORDER. INFUSION COMPLETED AND TOLERATED WELL. PORT FLUSHED AND LEFT INTACT FOR USE LATER IN THE WEEK.
== END ==
LOC: M.INFUS 00:29
PROVIDERS: Internal Medicine
DX: N18.4 Chronic kidney disease, stage 4 (severe) (principal); E86.0 Dehydration

== ENCOUNTER → 2020-02-22 | Outpatient (CLI) | payer MEDICARE, SELFPAY ==
[2020-02-22 08:15] VITALS: BP 134/64
[2020-02-22 09:05] LABS: CALCIUM 9.1 mg/dL (8.5-10.1); CREATININE 1.8 mg/dL (0.6-1.3); MAGNESIUM 1.6 mg/dL (1.8-2.4); PHOSPHORUS* 3.3 mg/dL (2.5-4.9); POTASSIUM 4.6 mmol/L (3.5-5.1)
[2020-02-22 11:45] VITALS: BP 128/72
[2020-02-22 14:22] LABS: CALCIUM 8.5 mg/dL (8.5-10.1); CREATININE 1.6 mg/dL (0.6-1.3); MAGNESIUM 1.8 mg/dL (1.8-2.4); PHOSPHORUS* 2.8 mg/dL (2.5-4.9); POTASSIUM 5.3 mmol/L (3.5-5.1)
== END ==
LOC: M.INFUS 05:03
PROVIDERS: Internal Medicine
DX: N18.4 Chronic kidney disease, stage 4 (severe) (principal); E86.0 Dehydration

== ENCOUNTER → 2020-02-22 | Outpatient (CLI) | payer MEDICARE, SELFPAY | END | disposition home or self-care (01) | LOC: M.CL 08:09 | DX: R00.2 Palpitations (principal); R06.02 Shortness of breath; I12.9 Hypertensive chronic kidney disease with stage 1 through stage 4 chronic kidney disease, or unspecified chronic kidney disease; N18.4 Chronic kidney disease, stage 4 (severe); E03.9 Hypothyroidism, unspecified; D53.9 Nutritional anemia, unspecified; Z98.890 Other specified postprocedural states; Z87.891 Personal history of nicotine dependence; Z79.899 Other long term (current) drug therapy; Z79.82 Long term (current) use of aspirin; Z88.2 Allergy status to sulfonamides; Z88.8 Allergy status to other drugs, medicaments and biological substances ==

== ENCOUNTER → 2020-02-24 | Outpatient (CLI) | payer MEDICARE, SELFPAY ==
[2020-02-24 09:08] VITALS: BP 122/72
[2020-02-24 09:43] LABS: CALCIUM 9.5 mg/dL (8.5-10.1); CREATININE 1.8 mg/dL (0.6-1.3); MAGNESIUM 1.5 mg/dL (1.8-2.4); PHOSPHORUS* 4.1 mg/dL (2.5-4.9); POTASSIUM 4.5 mmol/L (3.5-5.1)
[2020-02-24 12:20] VITALS: BP 128/80
== END ==
LOC: M.INFUS 05:25
PROVIDERS: Internal Medicine
DX: N18.4 Chronic kidney disease, stage 4 (severe) (principal); E86.0 Dehydration

== ENCOUNTER → 2020-02-27 | Outpatient (CLI) | payer MEDICARE, SELFPAY ==
[2020-02-27 08:58] VITALS: BP 121/69
[2020-02-27 09:47] LABS: CALCIUM 9.5 mg/dL (8.5-10.1); CREATININE 1.8 mg/dL (0.6-1.3); MAGNESIUM 1.6 mg/dL (1.8-2.4); POTASSIUM 4.6 mmol/L (3.5-5.1)
[2020-02-27 12:10] VITALS: BP 126/58
[2020-02-27 12:48] LABS: CALCIUM 8.2 mg/dL (8.5-10.1); CREATININE 1.7 mg/dL (0.6-1.3); MAGNESIUM 1.8 mg/dL (1.8-2.4); POTASSIUM 4.8 mmol/L (3.5-5.1)
== END ==
LOC: M.INFUS 07:42
PROVIDERS: Internal Medicine
DX: N18.4 Chronic kidney disease, stage 4 (severe) (principal); E86.0 Dehydration

== ENCOUNTER → 2020-02-29 | Outpatient (CLI) | payer MEDICARE, SELFPAY ==
[2020-02-29 08:55] VITALS: BP 112/54
[2020-02-29 09:24] LABS: CALCIUM 9.2 mg/dL (8.5-10.1); CREATININE 2.1 mg/dL (0.6-1.3); MAGNESIUM 1.6 mg/dL (1.8-2.4); PHOSPHORUS* 3.6 mg/dL (2.5-4.9); POTASSIUM 4.5 mmol/L (3.5-5.1)
[2020-02-29 12:34] VITALS: BP 118/64
[2020-02-29 13:42] LABS: CALCIUM 8.5 mg/dL (8.5-10.1); CREATININE 1.9 mg/dL (0.6-1.3); PHOSPHORUS* 2.9 mg/dL (2.5-4.9); POTASSIUM 5.1 mmol/L (3.5-5.1)
== END ==
LOC: M.INFUS 03:28
PROVIDERS: Internal Medicine
DX: N18.4 Chronic kidney disease, stage 4 (severe) (principal); E86.0 Dehydration

== ENCOUNTER → 2020-03-02 | Outpatient (CLI) | payer MEDICARE, SELFPAY ==
[2020-03-02 09:00] VITALS: BP 132/75
[2020-03-02 09:36] LABS: CALCIUM 9.2 mg/dL (8.5-10.1); MAGNESIUM 1.6 mg/dL (1.8-2.4); PHOSPHORUS* 3.7 mg/dL (2.5-4.9); POTASSIUM 4.6 mmol/L (3.5-5.1)
[2020-03-02 12:00] VITALS: BP 112/78
[2020-03-02 12:36] LABS: CALCIUM 8.3 mg/dL (8.5-10.1); CREATININE 1.7 mg/dL (0.6-1.3); MAGNESIUM 1.9 mg/dL (1.8-2.4); POTASSIUM 5.1 mmol/L (3.5-5.1)
== END ==
LOC: M.INFUS 01:35
PROVIDERS: Internal Medicine
DX: N18.4 Chronic kidney disease, stage 4 (severe) (principal); E86.0 Dehydration

== ENCOUNTER → 2020-03-05 | Outpatient (CLI) | payer MEDICARE, SELFPAY ==
[2020-03-05 09:00] VITALS: BP 104/64
[2020-03-05 10:05] LABS: CALCIUM 9.9 mg/dL (8.5-10.1); CREATININE 2.4 mg/dL (0.6-1.3); MAGNESIUM 1.8 mg/dL (1.8-2.4); PHOSPHORUS* 4.6 mg/dL (2.5-4.9); POTASSIUM 4.1 mmol/L (3.5-5.1)
[2020-03-05 12:30] VITALS: BP 112/74
--- NOTE | 2020-03-05 12:38 | NUR ---
INFUSION COMPLETED AND TOLERATED WELL.DENIES QUESTIONS OR NEEDS AT DISCHARGE.
[2020-03-05 12:56] LABS: CALCIUM 8.7 mg/dL (8.5-10.1); PHOSPHORUS* 3.7 mg/dL (2.5-4.9); POTASSIUM 4.8 mmol/L (3.5-5.1)
== END ==
LOC: M.INFUS 01:42
PROVIDERS: Internal Medicine
DX: N18.4 Chronic kidney disease, stage 4 (severe) (principal); E86.0 Dehydration

== ENCOUNTER → 2020-03-07 | Outpatient (CLI) | payer MEDICARE, SELFPAY ==
[2020-03-07 09:00] VITALS: BP 108/53
[2020-03-07 10:03] LABS: CALCIUM 9.4 mg/dL (8.5-10.1); CREATININE 2.4 mg/dL (0.6-1.3); MAGNESIUM 1.9 mg/dL (1.8-2.4); PHOSPHORUS* 4.5 mg/dL (2.5-4.9); POTASSIUM 4.4 mmol/L (3.5-5.1)
[2020-03-07 12:15] VITALS: BP 118/76
--- NOTE | 2020-03-07 12:36 | NUR ---
PT REPORTS FEELING MORE FATIGUE AND TIERD THAN LAST THURSDAY. DENEIS NEEDS. PORT PATENT AND INFUSION COMPLETED AND TOERATED WELL.
[2020-03-07 12:57] LABS: CALCIUM 8.7 mg/dL (8.5-10.1); CREATININE 2.1 mg/dL (0.6-1.3); MAGNESIUM 2.2 mg/dL (1.8-2.4); PHOSPHORUS* 3.8 mg/dL (2.5-4.9); POTASSIUM 5.3 mmol/L (3.5-5.1)
== END ==
LOC: M.INFUS 03:23
PROVIDERS: Internal Medicine
DX: E86.0 Dehydration (principal); N18.4 Chronic kidney disease, stage 4 (severe)

== ENCOUNTER → 2020-03-09 | Outpatient (CLI) | payer MEDICARE, SELFPAY ==
[2020-03-09 08:52] VITALS: BP 114/62
[2020-03-09 10:32] LABS: CALCIUM 9.7 mg/dL (8.5-10.1); CREATININE 2.3 mg/dL (0.6-1.3); PHOSPHORUS* 4.2 mg/dL (2.5-4.9); POTASSIUM 4.2 mmol/L (3.5-5.1)
[2020-03-09 12:03] VITALS: BP 122/68
--- NOTE | 2020-03-09 12:07 | NUR ---
INFUSION COMPLETED AND TOLERATED WELL. PORT FLUSHED AND DEACCESSED.
[2020-03-09 15:40] LABS: CALCIUM 8.5 mg/dL (8.5-10.1); CREATININE 1.9 mg/dL (0.6-1.3); MAGNESIUM 2.1 mg/dL (1.8-2.4); PHOSPHORUS* 3.3 mg/dL (2.5-4.9)
[2020-03-09 15:41] LABS: POTASSIUM 5.2 mmol/L (3.5-5.1)
== END ==
LOC: M.INFUS 03:45
PROVIDERS: Internal Medicine
DX: N18.4 Chronic kidney disease, stage 4 (severe) (principal); E86.1 Hypovolemia

== ENCOUNTER → 2020-03-12 | Outpatient (CLI) | payer MEDICARE, SELFPAY ==
[2020-03-12 08:55] VITALS: BP 138/65
[2020-03-12 09:47] LABS: CALCIUM 9.5 mg/dL (8.5-10.1); CREATININE 2.2 mg/dL (0.6-1.3); MAGNESIUM 1.7 mg/dL (1.8-2.4); PHOSPHORUS* 3.7 mg/dL (2.5-4.9); POTASSIUM 4.5 mmol/L (3.5-5.1)
[2020-03-12 12:02] VITALS: BP 122/68
--- NOTE | 2020-03-12 12:07 | NUR ---
INFUSION COMPLETED AND TOELRATED WELL. DENIES QUESTIONS OR NEEDS AT DISCHARGE.
[2020-03-12 12:49] LABS: CALCIUM 8.3 mg/dL (8.5-10.1); CREATININE 1.9 mg/dL (0.6-1.3); MAGNESIUM 1.9 mg/dL (1.8-2.4); PHOSPHORUS* 2.9 mg/dL (2.5-4.9)
== END ==
LOC: M.INFUS 01:34
PROVIDERS: Internal Medicine
DX: N18.4 Chronic kidney disease, stage 4 (severe) (principal); E86.0 Dehydration

== ENCOUNTER → 2020-03-14 | Outpatient (CLI) | payer MEDICARE, SELFPAY ==
[2020-03-14 10:25] VITALS: BP 122/58
[2020-03-14 10:46] LABS: CALCIUM 9.8 mg/dL (8.5-10.1); CREATININE 1.9 mg/dL (0.6-1.3); MAGNESIUM 1.8 mg/dL (1.8-2.4); PHOSPHORUS* 4.2 mg/dL (2.5-4.9); POTASSIUM 4.5 mmol/L (3.5-5.1)
[2020-03-14 13:32] VITALS: BP 118/56
--- NOTE | 2020-03-14 13:38 | NUR ---
INFUSION COMPLETED AND TOELRATED WELL. DENIES QUESTIONS OR NEEDS AT DISCHARGE.
[2020-03-14 14:07] LABS: CALCIUM 8.7 mg/dL (8.5-10.1); CREATININE 1.7 mg/dL (0.6-1.3); MAGNESIUM 1.9 mg/dL (1.8-2.4); PHOSPHORUS* 3.2 mg/dL (2.5-4.9); POTASSIUM 4.7 mmol/L (3.5-5.1)
== END ==
LOC: M.ULTRA 09:12 → M.INFUS 09:12 → M.ULTRA 09:30 → M.INFUS 10:00
PROVIDERS: Internal Medicine
DX: N18.4 Chronic kidney disease, stage 4 (severe) (principal); K72.90 Hepatic failure, unspecified without coma; E86.0 Dehydration; R10.13 Epigastric pain; R53.83 Other fatigue

== ENCOUNTER → 2020-03-16 | Outpatient (CLI) | payer MEDICARE, SELFPAY ==
[2020-03-16 09:25] VITALS: BP 104/50
[2020-03-16 10:39] LABS: CALCIUM 9.4 mg/dL (8.5-10.1); MAGNESIUM 1.7 mg/dL (1.8-2.4); PHOSPHORUS* 3.7 mg/dL (2.5-4.9); POTASSIUM 4.4 mmol/L (3.5-5.1)
--- NOTE | 2020-03-16 12:58 | NUR ---
INFUSION COMPLETED AND TOERLATED WELL. PORT FLUSHED WITH 20ML NACL AND HEPARIN 5ML OF 1:100 AT 1245. PORT THEN DEACCESSED. TOLERATED WELL. DENIES QUESTIONS OR NEEDS AT DISCHARGE.
[2020-03-16 15:04] LABS: CALCIUM 8.4 mg/dL (8.5-10.1); CREATININE 1.7 mg/dL (0.6-1.3); MAGNESIUM 1.9 mg/dL (1.8-2.4); PHOSPHORUS* 2.9 mg/dL (2.5-4.9); POTASSIUM 4.8 mmol/L (3.5-5.1)
== END ==
LOC: M.INFUS 05:33
PROVIDERS: Internal Medicine
DX: N18.4 Chronic kidney disease, stage 4 (severe) (principal); E86.0 Dehydration

== ENCOUNTER → 2020-03-20 | Outpatient (CLI) | payer MEDICARE, SELFPAY ==
[~2020-03-20] MED LIST changes: +CREON DR 36,001 EACH PO; +PEPCID20 MG PO; +VITAMIN D3250 MCG PO
--- NOTE | 2020-03-20 15:50 | 2DMMODE ---
[place] [address] 2 D/M-MODE ECHOCARDIOGRAM Name: ANGELITA SMITH Room: [facility]#: [id number] Admission: 03/20/20 Attend Phys: Desiree Jacobson RN Discharge: Date of : 42 Date of Service: 03/20/20 1548 Report #: [id number] THIS REPORT FOR: cc: Manny Carlos APRN, William R APRN [place], Michael J. MD LOCATED WITHIN [facility] ~ APPROVED REPORT Study performed: 03/20/2020 09:53:19 EXAM: Comprehensive 2D, Doppler, and color-flow Echocardiogram Patient Location: Out-Patient BSA: 1.70 HR: 60 bpm BP: 124/72 mmHg Other Information Study Quality: Good Indications Dyspnea 2D Dimensions IVSd: 10.67 (7-11mm) LVOT Diam: 20.37 (18-24mm) LVDd: 49.28 mm PWd: 10.22 (7-11mm) Ascending Ao: 32.19 (22-36mm) LVDs: 36.16 (25-40mm) Aortic Root: 27.78 mm Volumes Left Atrial Volume (Systole) LA ESV Index: 17.70 mL/m2 Aortic Valve AoV Peak Ruben.: 1.96 m/s AO Peak Gr.: 15.39 mmHg LVOT Max P.54 mmHg AO Mean Gr.: 8.20 mmHg LVOT Mean P.29 mmHg LVOT Max V: 1.18 m/s AO V2 VTI: 49.94 cm LVOT Mean V: 0.68 m/s PIPER (VTI): 1.86 cm2 LVOT V1 VTI: 28.55 cm Mitral Valve MV Decel. Time: 354.94 [place] [address] 2 D/M-MODE ECHOCARDIOGRAM Name: ANGELITA SMITH Room: [facility]#: [id number] Admission: 03/20/20 Attend Phys: Desiree Jacobson RN Discharge: Date of : 42 Date of Service: 03/20/20 1548 Report #: [id number] MV E Max Ruben.: 0.77 m/s MV PHT: 102.93 ms MVA (PHT): 2.14 cm2 TDI E/Lateral E': 7.70 E/Medial E': 7.70 Medial E' Ruben.: 0.10 m/s Lateral E' Ruben.: 0.10 m/s Pulmonary Valve PV Peak Ruben.: 1.01 m/s PV Peak Gr.: 4.09 mmHg Tricuspid Valve RAP Estimate: 5.00 mmHg TR Peak Gr.: 17.47 mmHg RVSP: 22.47 mmHg PA Pressure: 22.47 mmHg Left Ventricle The left ventricle is normal size. There is normal LV segmental wall motion. There is normal left ventricular wall thickness. Left ventricular systolic function is normal. LVEF is 55-60%. Grade I - abnormal relaxation pattern. Right Ventricle The right ventricle is normal size. The right ventricular systolic function is normal. Atria The left atrium size is normal. The right atrium size is normal. Aortic Valve Aortic valve is mildly calcified. No aortic regurgitation is present. Mild aortic stenosis. Mitral Valve The mitral valve is normal in structure. There is no mitral valve regurgitation noted. No evidence of mitral valve stenosis. Tricuspid Valve The tricuspid valve is normal in structure. Mild tricuspid regurgitation. No pulmonary hypertension. Pulmonic Valve The pulmonary valve is normal in structure. [place] [address] 2 D/M-MODE ECHOCARDIOGRAM Name: ANGELITA SMITH Olivia Room: [facility]#: [id number] Admission: 03/20/20 Attend Phys: Desiree Jacobson RN Discharge: Date of : 42 Date of Service: 03/20/20 1548 Report #: [id number] Great Vessels The aortic root is normal in size. IVC is normal in size and collapses >50% with inspiration. Pericardium There is no pericardial effusion. <Conclusion> The left ventricle is normal size. There is normal left ventricular wall thickness. Left ventricular systolic function is normal. LVEF is 55-60%. Grade I - abnormal relaxation pattern. Aortic valve is mildly calcified. Mild aortic stenosis. Mild tricuspid regurgitation. No pulmonary hypertension. IVC is normal in size and collapses >50% with inspiration. <ELECTRONICALLY SIGNED> By: Ronak Elliott MD, FACC 03/20/20 1548 1548 1548 Ronak Elliott MD, FACC /INF
== END ==
LOC: M.CRD 09:43
PROVIDERS: ATTEND Registered Nurse
DX: Z01.812 Encounter for preprocedural laboratory examination (principal); R06.02 Shortness of breath; R53.83 Other fatigue; R10.13 Epigastric pain

== ENCOUNTER → 2020-03-21 | Outpatient (CLI) | payer MEDICARE, SELFPAY ==
[~2020-03-21] MED LIST changes: -CREON DR 36,001 EACH PO; -PEPCID20 MG PO; -VITAMIN D3250 MCG PO
[2020-03-21 09:15] VITALS: BP 122/74
[2020-03-21 09:50] LABS: CALCIUM 9.5 mg/dL (8.5-10.1); CREATININE 1.8 mg/dL (0.6-1.3); MAGNESIUM 1.5 mg/dL (1.8-2.4); PHOSPHORUS* 3.5 mg/dL (2.5-4.9); POTASSIUM 4.3 mmol/L (3.5-5.1)
[2020-03-21 12:35] VITALS: BP 118/70
--- NOTE | 2020-03-21 12:56 | NUR ---
ARRIVED AMBULATORY. MADE SELF COMFORTABLE IN RECLINER. PORT A CATH ACCESSED WITH OUT DIFFICULTY. GOOD BRISK BLOOD RETURN AND EASY FLUSH. INFUSION COMPLETED AND TOLERATED WELL. PORT FLUSHED AND LEFT ACCESSED. PT WAS WALKING OUT OF [facility] AND STOPPED, COMPLAINED OF HIP PAIN WITH AMBULATION RATING AT A 9. PT ASSISTED TO CHAIR. STATED SHE IS SCHEDULED FOR BACK SUGERY April AND WILL SELF MEDICATE WHEN SHE GETS HOME. ASSISTED TO CAR VIA WHEELCHAIR BY RN AND DISCHARGED HOME WITH . AWARE OF INCREASED PAIN. PT INSTRUCTED TO RETURN TO ED IF ANY NEW SYMPTOMS OR WORSNING SYMPTOMS. PT AND VOICE UNDERSTANDING AND AGREED.
[2020-03-21 13:18] LABS: CALCIUM 8.6 mg/dL (8.5-10.1); CREATININE 1.6 mg/dL (0.6-1.3); MAGNESIUM 1.8 mg/dL (1.8-2.4); POTASSIUM 4.7 mmol/L (3.5-5.1)
== END ==
LOC: M.INFUS 02:44
PROVIDERS: Internal Medicine
DX: E86.0 Dehydration (principal); N18.4 Chronic kidney disease, stage 4 (severe)

== ENCOUNTER → 2020-03-26 | Outpatient (CLI) | payer MEDICARE, SELFPAY ==
[2020-03-26 09:10] VITALS: BP 123/48
[2020-03-26 10:08] LABS: CALCIUM 9.2 mg/dL (8.5-10.1); CREATININE 2.2 mg/dL (0.6-1.3); MAGNESIUM 1.7 mg/dL (1.8-2.4); PHOSPHORUS* 3.8 mg/dL (2.5-4.9)
[2020-03-26 12:45] VITALS: BP 132/55
--- NOTE | 2020-03-26 12:54 | NUR ---
ARRIVED PER WHEELCHAIR. TRANSFERED SELF TO RECLINER. C/O PAIN IN RIGHT HIP/BACK AREA WITH MOVEMENT. INFUSION COMPLETED AND TOLERATED WELL. PORT FLUSHED AND LEFT ACCESSED. ASSISTED TO CAR VIA WHEELCHAIR BY RN. DENIES QUESTIONS OR NEEDS AT DISCHARGE.
[2020-03-26 14:39] LABS: CALCIUM 8.7 mg/dL (8.5-10.1); CREATININE 1.7 mg/dL (0.6-1.3); MAGNESIUM 1.9 mg/dL (1.8-2.4); PHOSPHORUS* 3.3 mg/dL (2.5-4.9); POTASSIUM 4.6 mmol/L (3.5-5.1)
== END ==
LOC: M.INFUS 04:38
PROVIDERS: Internal Medicine
DX: N18.4 Chronic kidney disease, stage 4 (severe) (principal); E86.0 Dehydration

== ENCOUNTER → 2020-03-28 | Outpatient (CLI) | payer MEDICARE, SELFPAY ==
[2020-03-28 09:10] VITALS: BP 98/53
[2020-03-28 10:14] LABS: CALCIUM 9.7 mg/dL (8.5-10.1); CREATININE 2.1 mg/dL (0.6-1.3); MAGNESIUM 1.7 mg/dL (1.8-2.4); PHOSPHORUS* 4.1 mg/dL (2.5-4.9); POTASSIUM 4.4 mmol/L (3.5-5.1)
[2020-03-28 12:20] VITALS: BP 100/62
[2020-03-28 12:49] LABS: CALCIUM 8.5 mg/dL (8.5-10.1); CREATININE 1.8 mg/dL (0.6-1.3); MAGNESIUM 1.9 mg/dL (1.8-2.4); PHOSPHORUS* 3.7 mg/dL (2.5-4.9)
--- NOTE | 2020-03-28 13:24 | NUR ---
INFUSION COMPLETED AND TOELRATED WELL. PORT FLUSHED AND LEFT ACCESSED. DENIES QUESTIONS OR NEEDS AT DISCHARGE.
== END ==
LOC: M.INFUS 01:49
PROVIDERS: Internal Medicine
DX: N18.4 Chronic kidney disease, stage 4 (severe) (principal); E86.0 Dehydration

== ENCOUNTER → 2020-03-30 | Outpatient (CLI) | payer MEDICARE, SELFPAY ==
[2020-03-30 09:00] VITALS: BP 112/58
[2020-03-30 10:11] LABS: CALCIUM 9.1 mg/dL (8.5-10.1); MAGNESIUM 1.6 mg/dL (1.8-2.4); PHOSPHORUS* 4.1 mg/dL (2.5-4.9); POTASSIUM 4.4 mmol/L (3.5-5.1)
[2020-03-30 12:40] VITALS: BP 116/62
[2020-03-30 13:17] LABS: CALCIUM 8.5 mg/dL (8.5-10.1); CREATININE 1.8 mg/dL (0.6-1.3); MAGNESIUM 1.9 mg/dL (1.8-2.4); PHOSPHORUS* 3.6 mg/dL (2.5-4.9)
== END ==
LOC: M.INFUS 04:59
PROVIDERS: Internal Medicine
DX: N18.4 Chronic kidney disease, stage 4 (severe) (principal); E86.0 Dehydration

== ENCOUNTER → 2020-04-04 | Outpatient (CLI) | payer MEDICARE, SELFPAY ==
[~2020-04-04] MED LIST changes: +CREON DR 36,001 EACH PO; +PEPCID20 MG PO; +VITAMIN D3250 MCG PO
[2020-04-04 09:20] VITALS: BP 117/54
[2020-04-04 10:15] LABS: CALCIUM 9.6 mg/dL (8.5-10.1); CREATININE 2.5 mg/dL (0.6-1.3); MAGNESIUM 1.8 mg/dL (1.8-2.4); PHOSPHORUS* 4.1 mg/dL (2.5-4.9); POTASSIUM 4.6 mmol/L (3.5-5.1)
[2020-04-04 12:45] VITALS: BP 122/60
--- NOTE | 2020-04-04 12:57 | NUR ---
INFUSION COMP[LETED AND TOLERATED WELL. PORT FLUSHED AND LEFT ACCESSED. DENIES QUESTIONS OR NEEDS AT DISCHARGE.
[2020-04-04 14:16] LABS: CALCIUM 8.4 mg/dL (8.5-10.1); CREATININE 2.1 mg/dL (0.6-1.3); PHOSPHORUS* 3.1 mg/dL (2.5-4.9); POTASSIUM 5.3 mmol/L (3.5-5.1)
== END ==
LOC: M.MRI 04:17 → M.INFUS 10:00
PROVIDERS: ATTEND Internal Medicine
DX: N18.4 Chronic kidney disease, stage 4 (severe) (principal); K21.0 Gastro-esophageal reflux disease with esophagitis; K44.9 Diaphragmatic hernia without obstruction or gangrene; R10.13 Epigastric pain; E86.0 Dehydration

== ENCOUNTER → 2020-04-06 | Outpatient (CLI) | payer MEDICARE, SELFPAY ==
[~2020-04-06] MED LIST changes: -CREON DR 36,001 EACH PO; -PEPCID20 MG PO; -VITAMIN D3250 MCG PO
[2020-04-06 09:05] VITALS: BP 126/55
[2020-04-06 10:37] LABS: CREATININE 2.3 mg/dL (0.6-1.3); MAGNESIUM 1.8 mg/dL (1.8-2.4); PHOSPHORUS* 3.7 mg/dL (2.5-4.9); POTASSIUM 4.8 mmol/L (3.5-5.1)
[2020-04-06 12:20] VITALS: BP 120/68
--- NOTE | 2020-04-06 12:37 | NUR ---
INFUSION COMPLETED AND TOELRATED WELL. PORT FLUSED AND DEACCESSED.
[2020-04-06 12:49] LABS: CALCIUM 7.9 mg/dL (8.5-10.1); PHOSPHORUS* 3.1 mg/dL (2.5-4.9); POTASSIUM 5.4 mmol/L (3.5-5.1)
== END ==
LOC: M.INFUS 03:30
PROVIDERS: Internal Medicine
DX: N18.4 Chronic kidney disease, stage 4 (severe) (principal); E86.0 Dehydration

== ENCOUNTER → 2020-04-09 | Outpatient (CLI) | payer MEDICARE, SELFPAY ==
[2020-04-09 09:10] VITALS: BP 119/60
[2020-04-09 09:55] LABS: CALCIUM 9.2 mg/dL (8.5-10.1); CREATININE 1.8 mg/dL (0.6-1.3); MAGNESIUM 1.7 mg/dL (1.8-2.4); PHOSPHORUS* 3.5 mg/dL (2.5-4.9); POTASSIUM 4.3 mmol/L (3.5-5.1)
[2020-04-09 12:25] VITALS: BP 122/64
[2020-04-09 12:59] LABS: CALCIUM 8.5 mg/dL (8.5-10.1); CREATININE 1.6 mg/dL (0.6-1.3); MAGNESIUM 1.9 mg/dL (1.8-2.4)
--- NOTE | 2020-04-09 13:36 | NUR ---
INFUSION COMPELTED AND TOELRATED WELL. PORT FLUSHED AND LEFT ACCESSED. DENIES QUESTIONS OR NEEDS AT DISCHARGE.
== END ==
LOC: M.INFUS 02:14
PROVIDERS: Internal Medicine
DX: N18.4 Chronic kidney disease, stage 4 (severe) (principal); E86.0 Dehydration

== ENCOUNTER → 2020-04-13 | Outpatient (CLI) | payer MEDICARE, SELFPAY ==
[~2020-04-13] MED LIST changes: +CREON DR 36,001 EACH PO; +PEPCID20 MG PO; +VITAMIN D3250 MCG PO
[2020-04-13 09:30] VITALS: BP 120/69
[2020-04-13 10:28] LABS: CALCIUM 8.8 mg/dL (8.5-10.1); CREATININE 1.7 mg/dL (0.6-1.3); MAGNESIUM 1.4 mg/dL (1.8-2.4); PHOSPHORUS* 2.6 mg/dL (2.5-4.9); POTASSIUM 4.5 mmol/L (3.5-5.1)
[2020-04-13 15:22] LABS: CALCIUM 8.3 mg/dL (8.5-10.1); CREATININE 1.5 mg/dL (0.6-1.3); MAGNESIUM 1.6 mg/dL (1.8-2.4); POTASSIUM 4.8 mmol/L (3.5-5.1)
== END ==
LOC: M.INFUS 05:27
PROVIDERS: ATTEND Internal Medicine
DX: N18.4 Chronic kidney disease, stage 4 (severe) (principal); E86.0 Dehydration

== ENCOUNTER → 2020-04-18 | Outpatient (CLI) | payer MEDICARE, SELFPAY ==
[2020-04-18 09:50] VITALS: BP 100/54
[2020-04-18 10:47] LABS: CALCIUM 8.7 mg/dL (8.5-10.1); CREATININE 1.6 mg/dL (0.6-1.3); MAGNESIUM 1.4 mg/dL (1.8-2.4); PHOSPHORUS* 3.5 mg/dL (2.5-4.9); POTASSIUM 4.2 mmol/L (3.5-5.1)
[2020-04-18 12:55] VITALS: BP 112/64
== END ==
LOC: M.INFUS 04:28
PROVIDERS: ATTEND Internal Medicine
DX: N18.4 Chronic kidney disease, stage 4 (severe) (principal); E86.0 Dehydration

== ENCOUNTER → 2020-04-20 | Outpatient (CLI) | payer MEDICARE, SELFPAY ==
[2020-04-20 08:42] VITALS: BP 148/65
[2020-04-20 10:38] LABS: CALCIUM 8.8 mg/dL (8.5-10.1); CREATININE 1.7 mg/dL (0.6-1.3); MAGNESIUM 1.6 mg/dL (1.8-2.4); PHOSPHORUS* 3.3 mg/dL (2.5-4.9); POTASSIUM 4.1 mmol/L (3.5-5.1)
[2020-04-20 12:00] VITALS: BP 133/65
--- NOTE | 2020-04-20 12:05 | NUR ---
INFUSION COMPLETED AND TOELRATED WELL. PORT FLUSHED AND DEACCESSED. DENIES QUESTIONS OR NEEDS AT DISCHARGE.
[2020-04-20 12:20] LABS: CREATININE 1.5 mg/dL (0.6-1.3); MAGNESIUM 1.8 mg/dL (1.8-2.4); PHOSPHORUS* 2.9 mg/dL (2.5-4.9); POTASSIUM 4.9 mmol/L (3.5-5.1)
== END ==
LOC: M.INFUS 05:16
PROVIDERS: ATTEND Internal Medicine
DX: N18.4 Chronic kidney disease, stage 4 (severe) (principal); E86.0 Dehydration

== ENCOUNTER → 2020-04-25 | Outpatient (CLI) | payer MEDICARE, SELFPAY ==
[2020-04-25 09:25] VITALS: BP 148/69
[2020-04-25 10:26] LABS: ALBUMIN 2.9 g/dL (3.4-5.0); CALCIUM 8.3 mg/dL (8.5-10.1); CREATININE 1.7 mg/dL (0.6-1.3); MAGNESIUM 1.4 mg/dL (1.8-2.4); PHOSPHORUS* 2.9 mg/dL (2.5-4.9); TOTAL BILIRUBIN 0.5 mg/dL (<0.1-1.0)
[2020-04-25 12:40] VITALS: BP 133/74
--- NOTE | 2020-04-25 13:49 | NUR ---
INFUSION COMPLETED AND TOLERATED WELL. DENIES QUESTIONS OR NEEDS AT DISCHARGE.
== END ==
LOC: M.INFUS 04:51
PROVIDERS: ATTEND Internal Medicine
DX: N18.4 Chronic kidney disease, stage 4 (severe) (principal); E86.0 Dehydration

== ENCOUNTER → 2020-04-27 | Outpatient (CLI) | payer MEDICARE ==
[2020-04-27 09:10] VITALS: BP 133/62
[2020-04-27 11:17] LABS: CALCIUM 8.4 mg/dL (8.5-10.1); CREATININE 1.6 mg/dL (0.6-1.3); MAGNESIUM 1.6 mg/dL (1.8-2.4)
[2020-04-27 12:10] VITALS: BP 122/74
--- NOTE | 2020-04-27 12:33 | NUR ---
INFUSION COMPLETED AND TOLERATED WELL. PORT FLUSHED AND DEACCESSED. DENEIS QUESTIONS OR NEEDS AT DISCHARGE.
[2020-04-27 14:03] LABS: CALCIUM 7.9 mg/dL (8.5-10.1); CREATININE 1.5 mg/dL (0.6-1.3); MAGNESIUM 1.8 mg/dL (1.8-2.4); PHOSPHORUS* 2.4 mg/dL (2.5-4.9); POTASSIUM 4.5 mmol/L (3.5-5.1)
== END ==
LOC: M.INFUS 00:53
PROVIDERS: ATTEND Internal Medicine
DX: N18.4 Chronic kidney disease, stage 4 (severe) (principal); E86.0 Dehydration

== ENCOUNTER → 2020-04-30 | Outpatient (CLI) | payer MEDICARE, SELFPAY ==
[2020-04-30 09:50] VITALS: BP 149/76
[2020-04-30 11:44] LABS: CALCIUM 8.8 mg/dL (8.5-10.1); CREATININE 1.5 mg/dL (0.6-1.3); MAGNESIUM 1.4 mg/dL (1.8-2.4); PHOSPHORUS* 3.1 mg/dL (2.5-4.9); POTASSIUM 3.9 mmol/L (3.5-5.1)
[2020-04-30 13:21] VITALS: BP 129/62
[2020-04-30 13:56] LABS: CALCIUM 7.8 mg/dL (8.5-10.1); CREATININE 1.5 mg/dL (0.6-1.3); MAGNESIUM 1.5 mg/dL (1.8-2.4); PHOSPHORUS* 2.6 mg/dL (2.5-4.9); POTASSIUM 4.5 mmol/L (3.5-5.1)
== END ==
LOC: M.INFUS 04:17
PROVIDERS: Registered Nurse; ATTEND Internal Medicine
DX: N18.4 Chronic kidney disease, stage 4 (severe) (principal); E86.0 Dehydration

== ENCOUNTER → 2020-05-03 | Outpatient (CLI) | payer MEDICARE, SELFPAY ==
[2020-05-03 10:00] VITALS: BP 144/65
[2020-05-03 13:46] VITALS: BP 138/62
[2020-05-03 14:12] LABS: CALCIUM 8.7 mg/dL (8.5-10.1); CREATININE 1.5 mg/dL (0.6-1.3); MAGNESIUM 1.3 mg/dL (1.8-2.4); POTASSIUM 3.7 mmol/L (3.5-5.1)
--- NOTE | 2020-05-03 14:12 | NUR ---
PATIENT RESCHEDULED HER Thursday05-04-2020 APPOINTMENT FOR INFUSION TO TODAY BECAUSE OF CONFLIT WITH UPCOMMING TESTS. PATIENT MISSED HER THURSDAY APPOINTMENT FOR INFUSION.
[2020-05-03 14:43] LABS: CREATININE 1.4 mg/dL (0.6-1.3); MAGNESIUM 1.6 mg/dL (1.8-2.4); PHOSPHORUS* 3.1 mg/dL (2.5-4.9); POTASSIUM 4.6 mmol/L (3.5-5.1)
== END ==
LOC: M.INFUS 09:31
PROVIDERS: ATTEND Internal Medicine
DX: N18.4 Chronic kidney disease, stage 4 (severe) (principal); E86.0 Dehydration

== ENCOUNTER → 2020-05-07 | Outpatient (CLI) | payer MEDICARE, SELFPAY ==
[2020-05-07 09:35] VITALS: BP 133/74
[2020-05-07 10:30] LABS: CALCIUM 8.7 mg/dL (8.5-10.1); CREATININE 1.5 mg/dL (0.6-1.3); MAGNESIUM 1.5 mg/dL (1.8-2.4); POTASSIUM 4.3 mmol/L (3.5-5.1)
[2020-05-07 12:45] VITALS: BP 128/76
[2020-05-07 13:12] LABS: CALCIUM 8.2 mg/dL (8.5-10.1); CREATININE 1.4 mg/dL (0.6-1.3); MAGNESIUM 1.7 mg/dL (1.8-2.4); PHOSPHORUS* 2.5 mg/dL (2.5-4.9); POTASSIUM 4.8 mmol/L (3.5-5.1)
--- NOTE | 2020-05-07 13:28 | NUR ---
INFUSION COMPLETED AND TOERLATED WELL. PORT FLUSHED AND LEFT ACCESSED. DENIES QUESTIONS OR NEEDS AT DISCAHRGE. Q
== END ==
LOC: M.INFUS 06:43
PROVIDERS: ATTEND Internal Medicine
DX: N18.4 Chronic kidney disease, stage 4 (severe) (principal); E86.0 Dehydration

== ENCOUNTER → 2020-05-08 | Outpatient (CLI) | payer MEDICARE, SELFPAY ==
[~2020-05-08] VITALS: Ht 167.6 cm; Wt 63.5 kg
[2020-05-08 11:57] VITALS: BP 146/51
[2020-05-08 12:01] LABS: HEMATOCRIT 36.5 % (37.0-47.0); HEMOGLOBIN 11.8 gm/dL (12.0-15.0); MCH 30.5 pg (26.0-34.0); MCHC 32.4 g/dL (28.0-37.0); MCV 94.1 fL (80.0-100.0); MPV 8.1 fl. (7.2-11.1); RBC 3.88 mil/uL (4.20-5.00); RDW-CV 17.2 % (10.5-14.5); WBC 7.1 thou/uL (4.0-11.0)
[2020-05-08 12:04] LABS: CALCIUM 9.1 mg/dL (8.5-10.1); CREATININE 1.5 mg/dL (0.6-1.3)
[2020-05-08 12:15] LABS: ALBUMIN 3.6 g/dL (3.4-5.0); TOTAL BILIRUBIN 0.5 mg/dL (<0.1-1.0); TOTAL PROTEIN 7.6 g/dL (6.4-8.2)
[2020-05-08 14:15] VITALS: BP 130/51
[2020-05-08 14:30] VITALS: BP 134/51
[2020-05-08 15:05] VITALS: BP 132/60
--- NOTE | 2020-05-08 15:26 | EKG ---
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: : 1940 Requested By: Ronak Elliott Order Number: [id number] Reading MD: Michael Hollis Measurements Intervals [place] Rate: 61 P: UT: 190 QRS: -31 QRSD: 115 T: 44 QT: 472 QTc: 476 Interpretive Statements Atrial-paced complexes Nonspecific intraventricular conduction delay Borderline low voltage, extremity leads Probable anteroseptal infarct, old Compared to ECG 10/17/2019 15:53:47 Sinus bradycardia no longer present Myocardial infarct finding still present Electronically Signed On 05-08-2020 15:26:16 CDT by Michael Hollis [email or web address] <ELECTRONICALLY SIGNED> By: Michael Hollis MD, [facility] 05/08/20 1526 151 151 Michael Hollis MD, [facility] /EPI
--- NOTE | 2020-05-08 15:33 | CARD ---
[address] [address] CARDIAC CATH REPORT Name: ANGELITA SMITH Room: [facility]#: [id number] Admission: 05/08/20 Attend Phys: Ronak Elliott MD Discharge: Date of : 42 Report #: [id number] THIS REPORT FOR: //name// cc: Manny Carlos APRN, William R APRN ~ APPROVED REPORT Study performed: 05/08/2020 11:59:05 Patient Status: Out-Patient Room #: Event Personnel: Ronak Elliott Laboratory Manager, Louisa Garcia RN Credit Control Clerk, Edison Jonas Scrub, Donna Benton RTR Monitor Exam: Insertion of Dual Chamber Permanent Pacemaker The patient is a 79 year-old female with a history of . Conscious Sedation Start time: 13:21 End Time: 13:59 Fentanyl 25 mcg Versed 1 mg Implanted Devices: Biotronik Solia S 53 Ventricular Lead. Serial: [id number]. Biotronik Solia S 45 Atrial Lead. Serial: [id number]. Biotronik Edora 8 DR-T Generator. Serial: [id number]. Procedure The patient underwent informed consent. We discussed the details of the procedure including the risks, which include, but not limited to bleeding, infection, vascular damage, cardiac perforation, and pneumothorax. She understood these risks and was willing to proceed. As such, she was brought to the EP/Cardiac Catheterization laboratory in a fasting and sedated state and prepped and draped in a sterile fashion, received IV antibiotics prior to initiation of the procedure and a venogram was performed showing patency of the left subclavian axillary vein. The patient underwent conscious sedation, with no related complications. The patient was brought to the EP/Cardiac Catheterization laboratory and the left chest and shoulder were prepped and draped in a sterile manner. During this case, Fluoroscopy and Omnipaque 20 ml were used for imaging. The left subclavian region was infiltrated with 2% Lidocaine with Epinephrine subcutaneous anesthesia. [place] [address] CARDIAC CATH REPORT Name: ANGELITA SMITH Room: [facility]#: [id number] Admission: 05/08/20 Attend Phys: Ronak Elliott MD Discharge: Date of : 42 Report #: [id number] in the left upper chest cavity. The subcutaneous pocket was formed via blunt dissection. Percutaneous venous access was achieved and an introducer sheath was inserted into the left Subclavian vein. Through the introducer sheaths the atrial and ventricular lead wires were positioned in the right atrial appendage and right ventricular apex respectively. Capturing and sensing thresholds were verified. Electrode Parameters P Wave: 2.0 mV R Wave: 10.0 mV Atrial Threshold: 0.4 V at 0.40 ms. Ventricular Threshold: 0.4 V at 0.40 ms. Atrial Resistance: 460 ohms Ventricular Resistance: 590 ohms Dual Chamber The atrial and ventricular leads were then secured using 0 silk sutures. The subcutaneous pocket was irrigated with vancomycin 1 gram antibiotic solution.The atrial and ventricular leads were attached to the appropriate receptacles on the pulse generator and set screws firmly tightened to insure adequate contact and stability. The lead and pulse generator were placed into the subcutaneous pocket. Sharp and sponge counts were confirmed to be correct. At this time the pocket was closed subcutaneously with a 2.0 Vicryl and the skin was closed with a 4.0 Vicryl. The operative site was dressed in sterile fashion with benzoin spray, steri strips, telfa, and tegaderm and the patient was transferred to the floor in stable condition. Complications The patient tolerated the procedure well and there were no complications associated with the procedure. The patient received 1 gram Vancomycin IV during procedure and the pocket was irrigated with 1 gram Vancomycin. Conclusion 1. Paroxysmal atrial fibrillation. 2. Sick sinus syndrome. 3. Successful placement of a dual-chamber pacemaker with atrial and ventricular [place] [address] CARDIAC CATH REPORT Name: ANGELITA SMITH Room: [facility]#: [id number] Admission: 05/08/20 Attend Phys: Ronak Elliott MD Discharge: Date of : 42 Report #: [id number] 1. Follow-up site check in 1 week. 2. Follow-up device interrogation 1 to 2 months. <ELECTRONICALLY SIGNED> By: Ronak Elliott MD, FACC 05/08/20 153 31 153Michaemichelle Elliott MD, FACC /INF
== END | disposition home or self-care (01) ==
LOC: M.CL 05-01 13:00
PROVIDERS: ATTEND Internal Medicine Cardiovascular Disease
DX: I48.0 Paroxysmal atrial fibrillation (principal); I49.5 Sick sinus syndrome; E03.9 Hypothyroidism, unspecified; F32.9 Major depressive disorder, single episode, unspecified; N18.4 Chronic kidney disease, stage 4 (severe); K21.9 Gastro-esophageal reflux disease without esophagitis; M19.90 Unspecified osteoarthritis, unspecified site; Z90.49 Acquired absence of other specified parts of digestive tract; Z87.440 Personal history of urinary (tract) infections; Z79.899 Other long term (current) drug therapy; Z98.890 Other specified postprocedural states

== ENCOUNTER → 2020-05-10 | Outpatient (CLI) | payer MEDICARE ==
[2020-05-10 09:38] VITALS: BP 108/40
[2020-05-10 10:32] LABS: CALCIUM 8.4 mg/dL (8.5-10.1); CREATININE 1.6 mg/dL (0.6-1.3); MAGNESIUM 1.3 mg/dL (1.8-2.4); PHOSPHORUS* 3.2 mg/dL (2.5-4.9); POTASSIUM 4.2 mmol/L (3.5-5.1)
--- NOTE | 2020-05-10 13:04 | NUR ---
ARRIVED AMBULATORY. MADE SELF COMFORTABLE. PORT PATENT. INFUSION COMPLETED AND TOLERATED WELL. DENIES QUESTIONS OR NEEDS AT DISCHARGE.
[2020-05-10 15:02] LABS: CALCIUM 7.9 mg/dL (8.5-10.1); CREATININE 1.4 mg/dL (0.6-1.3); MAGNESIUM 1.5 mg/dL (1.8-2.4); PHOSPHORUS* 2.9 mg/dL (2.5-4.9); POTASSIUM 4.9 mmol/L (3.5-5.1)
== END ==
LOC: M.INFUS 03:44
PROVIDERS: ATTEND Internal Medicine
DX: N18.4 Chronic kidney disease, stage 4 (severe) (principal); E86.0 Dehydration

== ENCOUNTER → 2020-05-14 | Outpatient (CLI) | payer MEDICARE ==
[2020-05-14 09:40] VITALS: BP 122/74
[2020-05-14 10:01] LABS: ABSOLUTE BASOPHILS 0.1 thou/uL (0.0-0.2); ABSOLUTE EOSINOPHILS 0.3 thou/uL (0.0-0.7); ABSOLUTE LYMPHOCYTES 1.3 thou/uL (0.8-5.3); ABSOLUTE MONOCYTES 0.4 thou/uL (0.0-1.2); BASOPHILS 0.9 %; EOSINOPHILS 4.3 %; HEMATOCRIT 36.5 % (37.0-47.0); HEMOGLOBIN 11.9 gm/dL (12.0-15.0); LYMPHOCYTES 21.8 %; MCH 30.2 pg (26.0-34.0); MCHC 32.5 g/dL (28.0-37.0); MCV 92.8 fL (80.0-100.0); MPV 8.1 fl. (7.2-11.1); NUCLEATED RBCS 0 /100WBC; PLATELET COUNT* 282 thou/uL (150-400); RBC 3.93 mil/uL (4.20-5.00); RDW-CV 16.8 % (10.5-14.5)
[2020-05-14 10:09] LABS: CALCIUM 9.2 mg/dL (8.5-10.1); MAGNESIUM 1.3 mg/dL (1.8-2.4); PHOSPHORUS* 3.8 mg/dL (2.5-4.9); POTASSIUM 4.3 mmol/L (3.5-5.1)
[2020-05-14 10:25] LABS: CREATININE 2.1 mg/dL (0.6-1.3); PHOSPHORUS* 3.7 mg/dL (2.5-4.9)
[2020-05-14 12:38] LABS: URINE BILIRUBIN NEGATIVE (Negative); URINE BLOOD 2+ (Negative); URINE CLARITY CLEAR; URINE COLOR YELLOW; URINE GLUCOSE-RANDOM NEGATIVE (Negative); URINE KETONES NEGATIVE (Negative); URINE LEUKOCYTES-REFLEX NEGATIVE (Negative); URINE NITRITE-REFLEX NEGATIVE (Negative); URINE PROTEIN NEGATIVE (Negative); URINE UROBILINOGEN 0.2 E.U./dl (0.2-1.0)
[2020-05-14 12:46] LABS: SQUAMOUS >10 Many /LPF (0-3)
[2020-05-14 12:47] LABS: BACTERIA-REFLEX >30 Many /HPF (None Seen); CASTS None Seen /LPF (None Seen); MUCUS 0-3 Light strn/LPF (None Seen); URINE WBC-REFLEX 0-5 Rare /HPF (0-5)
[2020-05-14 12:48] LABS: CRYSTALS None Seen /LPF (None Seen)
[2020-05-14 12:50] VITALS: BP 122/56
--- NOTE | 2020-05-14 13:03 | NUR ---
INFUSION COMPLETED AND TOLERATED WELL. PT HAD EXTRA LAB ORDER FROM DR. RANGEL. LABS DRAWN PER ORDER. PORT FLUSHED AND LEFT ACCESSED. DENEIS QUESTIONS OR NEEDS AT DISCHARGE.
[2020-05-14 13:17] LABS: CALCIUM 8.4 mg/dL (8.5-10.1); CREATININE 1.8 mg/dL (0.6-1.3); MAGNESIUM 1.8 mg/dL (1.8-2.4); PHOSPHORUS* 3.6 mg/dL (2.5-4.9); POTASSIUM 5.1 mmol/L (3.5-5.1)
== END ==
LOC: M.INFUS 04:30
PROVIDERS: ATTEND Internal Medicine
DX: N18.4 Chronic kidney disease, stage 4 (severe) (principal); E86.0 Dehydration

== ENCOUNTER → 2020-05-16 | Outpatient (CLI) | payer MEDICARE ==
[2020-05-16 09:15] VITALS: BP 107/59
[2020-05-16 10:19] LABS: CALCIUM 8.7 mg/dL (8.5-10.1); CREATININE 1.8 mg/dL (0.6-1.3); MAGNESIUM 1.5 mg/dL (1.8-2.4); PHOSPHORUS* 4.1 mg/dL (2.5-4.9); POTASSIUM 4.2 mmol/L (3.5-5.1)
[2020-05-16 12:55] VITALS: BP 112/62
[2020-05-16 13:28] LABS: CALCIUM 7.9 mg/dL (8.5-10.1); CREATININE 1.5 mg/dL (0.6-1.3); MAGNESIUM 1.9 mg/dL (1.8-2.4); PHOSPHORUS* 3.5 mg/dL (2.5-4.9); POTASSIUM 4.6 mmol/L (3.5-5.1)
--- NOTE | 2020-05-16 14:21 | NUR ---
ARRIVED PER WHEELCHAIR. TRANSFERED SELF TO RECLINER. PORT FLUSHED WITH EASE AND HAS GOOD BRISK BLOOD RETURN. INFUSION COMPLETED AND TOLERATED WELL. PORT FLUSHED AND LEFT ACCESSED.
== END ==
LOC: M.INFUS 06:04
PROVIDERS: ATTEND Internal Medicine
DX: N18.4 Chronic kidney disease, stage 4 (severe) (principal); E86.0 Dehydration

== ENCOUNTER → 2020-05-18 | Outpatient (CLI) | payer MEDICARE, SELFPAY ==
[2020-05-18 09:20] VITALS: BP 136/72
[2020-05-18 09:41] LABS: CALCIUM 8.6 mg/dL (8.5-10.1); CREATININE 1.9 mg/dL (0.6-1.3); MAGNESIUM 1.7 mg/dL (1.8-2.4); PHOSPHORUS* 4.5 mg/dL (2.5-4.9); POTASSIUM 4.2 mmol/L (3.5-5.1)
[2020-05-18 12:54] VITALS: BP 132/74
[2020-05-18 15:11] LABS: CALCIUM 8.2 mg/dL (8.5-10.1); CREATININE 1.8 mg/dL (0.6-1.3); PHOSPHORUS* 3.5 mg/dL (2.5-4.9); POTASSIUM 4.3 mmol/L (3.5-5.1)
== END ==
LOC: M.INFUS 05:33
PROVIDERS: ATTEND Internal Medicine
DX: N18.4 Chronic kidney disease, stage 4 (severe) (principal); E86.0 Dehydration

== ENCOUNTER → 2020-05-23 | Outpatient (CLI) | payer MEDICARE ==
[2020-05-23 08:50] VITALS: BP 122/62
[2020-05-23 10:25] LABS: CALCIUM 9.1 mg/dL (8.5-10.1); CREATININE 1.9 mg/dL (0.6-1.3); MAGNESIUM 1.7 mg/dL (1.8-2.4); PHOSPHORUS* 3.6 mg/dL (2.5-4.9); POTASSIUM 3.8 mmol/L (3.5-5.1)
[2020-05-23 13:00] VITALS: BP 130/64
--- NOTE | 2020-05-23 13:29 | NUR ---
ARRIVED AMBULATORY. MADE SELF COMFORTABLE IN RECLINER. PORT A CATH ACCESSED WITH OUT DIFFICULTY. GOOD BRISK BLOOD RETURN AND EASY FLUSH. INFUSION COMPLETED AND TOLERATED WELL. DENIES QUESTIONS OR NEEDS AT DISCHARGE.
[2020-05-23 15:22] LABS: CALCIUM 8.5 mg/dL (8.5-10.1); CREATININE 1.7 mg/dL (0.6-1.3); MAGNESIUM 1.7 mg/dL (1.8-2.4); POTASSIUM 4.1 mmol/L (3.5-5.1)
== END ==
LOC: M.INFUS 03:59
PROVIDERS: ATTEND Internal Medicine
DX: N18.4 Chronic kidney disease, stage 4 (severe) (principal); E86.0 Dehydration

== ENCOUNTER → 2020-05-25 | Outpatient (CLI) | payer MEDICARE | LOC: M.INFUS 04:21 | DX: N18.4 Chronic kidney disease, stage 4 (severe) (principal); E86.0 Dehydration ==

== ENCOUNTER → 2020-05-28 | Outpatient (CLI) | payer MEDICARE, SELFPAY ==
[2020-05-28 09:15] VITALS: BP 128/70
[2020-05-28 09:53] LABS: CALCIUM 9.1 mg/dL (8.5-10.1); CREATININE 1.6 mg/dL (0.6-1.3); MAGNESIUM 1.4 mg/dL (1.8-2.4); PHOSPHORUS* 3.3 mg/dL (2.5-4.9); POTASSIUM 4.2 mmol/L (3.5-5.1)
[2020-05-28 12:45] VITALS: BP 118/68
--- NOTE | 2020-05-28 12:57 | NUR ---
ARRIVED AMBULATORY. MADE SELF COMFORTABLE. PORT ACCESSED WITH OUT DIFFICULTY. GOOD BRISK BLOOD RETURN NOTED AND EASY FLUSH. INFUSION COMPLETED AND TOLERATED WELL. PORT FLUSHED AND LEFT ACCESSED. DENIES QUESTIONS OR NEEDS AT DISCHARGE.
[2020-05-28 13:11] LABS: CALCIUM 8.2 mg/dL (8.5-10.1); CREATININE 1.5 mg/dL (0.6-1.3); MAGNESIUM 1.6 mg/dL (1.8-2.4); PHOSPHORUS* 2.7 mg/dL (2.5-4.9); POTASSIUM 4.6 mmol/L (3.5-5.1)
== END ==
LOC: M.INFUS 04:07
PROVIDERS: ATTEND Internal Medicine
DX: N18.4 Chronic kidney disease, stage 4 (severe) (principal); E86.0 Dehydration

== ENCOUNTER → 2020-06-01 | Outpatient (CLI) | payer MEDICARE ==
[2020-06-01 09:30] VITALS: BP 122/74
[2020-06-01 10:10] LABS: ABSOLUTE BASOPHILS 0.1 thou/uL (0.0-0.2); ABSOLUTE EOSINOPHILS 0.3 thou/uL (0.0-0.7); ABSOLUTE LYMPHOCYTES 2.2 thou/uL (0.8-5.3); ABSOLUTE MONOCYTES 0.6 thou/uL (0.0-1.2); EOSINOPHILS 3.4 %; HEMATOCRIT 38.4 % (37.0-47.0); HEMOGLOBIN 12.5 gm/dL (12.0-15.0); LYMPHOCYTES 26.7 %; MCH 29.7 pg (26.0-34.0); MCHC 32.5 g/dL (28.0-37.0); MCV 91.6 fL (80.0-100.0); MONOCYTES 7.9 %; NUCLEATED RBCS 0 /100WBC; PLATELET COUNT* 285 thou/uL (150-400); RDW-CV 16.9 % (10.5-14.5); WBC 8.2 thou/uL (4.0-11.0)
[2020-06-01 10:25] LABS: CALCIUM 8.9 mg/dL (8.5-10.1); CREATININE 2.5 mg/dL (0.6-1.3); POTASSIUM 4.5 mmol/L (3.5-5.1)
[2020-06-01 12:30] VITALS: BP 108/74
--- NOTE | 2020-06-01 12:49 | NUR ---
INFUSION COMPLETED AND TORELRATED WELL. PORT FLUSHED AND DEACCESSED. DENIES QUESTIONS OR NEEDS AT DISCHARGE.
[2020-06-01 13:16] LABS: ABSOLUTE BASOPHILS 0.1 thou/uL (0.0-0.2); ABSOLUTE EOSINOPHILS 0.2 thou/uL (0.0-0.7); ABSOLUTE LYMPHOCYTES 2.1 thou/uL (0.8-5.3); ABSOLUTE MONOCYTES 0.6 thou/uL (0.0-1.2); ABSOLUTE NEUTROPHILS 4.8 thou/uL (1.6-8.1); BASOPHILS 0.7 %; EOSINOPHILS 2.7 %; HEMATOCRIT 35.4 % (37.0-47.0); HEMOGLOBIN 11.6 gm/dL (12.0-15.0); MCH 29.9 pg (26.0-34.0); MCHC 32.9 g/dL (28.0-37.0); MCV 91.1 fL (80.0-100.0); MONOCYTES 8.2 %; MPV 8.7 fl. (7.2-11.1); NUCLEATED RBCS 0 /100WBC; PLATELET COUNT* 233 thou/uL (150-400); POLYS 61.4 %; RBC 3.89 mil/uL (4.20-5.00); RDW-CV 16.7 % (10.5-14.5); WBC 7.8 thou/uL (4.0-11.0)
[2020-06-01 13:30] LABS: CREATININE 2.2 mg/dL (0.6-1.3); POTASSIUM 4.9 mmol/L (3.5-5.1)
== END ==
LOC: M.INFUS 05:49
PROVIDERS: ATTEND Internal Medicine
DX: N18.4 Chronic kidney disease, stage 4 (severe) (principal); E86.0 Dehydration

== ENCOUNTER → 2020-06-04 | Outpatient (CLI) | payer MEDICARE ==
[2020-06-04 09:25] VITALS: BP 112/64
[2020-06-04 10:32] LABS: ABSOLUTE BASOPHILS 0.1 thou/uL (0.0-0.2); ABSOLUTE EOSINOPHILS 0.2 thou/uL (0.0-0.7); ABSOLUTE LYMPHOCYTES 1.7 thou/uL (0.8-5.3); ABSOLUTE MONOCYTES 0.5 thou/uL (0.0-1.2); ABSOLUTE NEUTROPHILS 4.5 thou/uL (1.6-8.1); HEMATOCRIT 37.1 % (37.0-47.0); HEMOGLOBIN 12.1 gm/dL (12.0-15.0); LYMPHOCYTES 24.7 %; MCH 29.7 pg (26.0-34.0); MCHC 32.7 g/dL (28.0-37.0); MCV 90.8 fL (80.0-100.0); MONOCYTES 6.5 %; MPV 9.3 fl. (7.2-11.1); NUCLEATED RBCS 0 /100WBC; PLATELET COUNT* 234 thou/uL (150-400); POLYS 64.8 %; RBC 4.09 mil/uL (4.20-5.00); RDW-CV 16.6 % (10.5-14.5)
[2020-06-04 10:48] LABS: CALCIUM 8.9 mg/dL (8.5-10.1); CREATININE 2.1 mg/dL (0.6-1.3); POTASSIUM 4.2 mmol/L (3.5-5.1)
[2020-06-04 12:40] VITALS: BP 115/70
[2020-06-04 14:05] LABS: ABSOLUTE EOSINOPHILS 0.2 thou/uL (0.0-0.7); ABSOLUTE MONOCYTES 0.5 thou/uL (0.0-1.2); ABSOLUTE NEUTROPHILS 4.3 thou/uL (1.6-8.1); BASOPHILS 0.6 %; EOSINOPHILS 2.8 %; HEMATOCRIT 32.8 % (37.0-47.0); HEMOGLOBIN 10.8 gm/dL (12.0-15.0); LYMPHOCYTES 28.5 %; MCH 30.1 pg (26.0-34.0); MCHC 33.1 g/dL (28.0-37.0); MCV 90.9 fL (80.0-100.0); MONOCYTES 7.2 %; NUCLEATED RBCS 0 /100WBC; PLATELET COUNT* 204 thou/uL (150-400); POLYS 60.9 %; RDW-CV 16.2 % (10.5-14.5)
[2020-06-04 14:08] LABS: CALCIUM 7.9 mg/dL (8.5-10.1); CREATININE 1.7 mg/dL (0.6-1.3); POTASSIUM 4.7 mmol/L (3.5-5.1)
== END ==
LOC: M.INFUS 05:07
PROVIDERS: ATTEND Internal Medicine
DX: N18.4 Chronic kidney disease, stage 4 (severe) (principal); E86.0 Dehydration

== ENCOUNTER → 2020-06-06 | Outpatient (CLI) | payer MEDICARE ==
[2020-06-06 09:15] VITALS: BP 132/74
[2020-06-06 09:20] LABS: ABSOLUTE LYMPHOCYTES 1.8 thou/uL (0.8-5.3); ABSOLUTE MONOCYTES 0.7 thou/uL (0.0-1.2); ABSOLUTE NEUTROPHILS 9.6 thou/uL (1.6-8.1); BASOPHILS 0.3 %; EOSINOPHILS 0.1 %; HEMATOCRIT 34.4 % (37.0-47.0); HEMOGLOBIN 11.4 gm/dL (12.0-15.0); MCHC 33.1 g/dL (28.0-37.0); MCV 90.5 fL (80.0-100.0); MONOCYTES 5.5 %; MPV 8.5 fl. (7.2-11.1); NUCLEATED RBCS 0 /100WBC; PLATELET COUNT* 251 thou/uL (150-400); POLYS 79.1 %; RDW-CV 16.4 % (10.5-14.5); WBC 12.2 thou/uL (4.0-11.0)
[2020-06-06 09:28] LABS: CALCIUM 9.2 mg/dL (8.5-10.1); CREATININE 2.2 mg/dL (0.6-1.3); POTASSIUM 4.7 mmol/L (3.5-5.1)
[2020-06-06 12:15] VITALS: BP 112/60
--- NOTE | 2020-06-06 12:23 | NUR ---
ARRIVED AMBULATORY. MADE SELF COMFORTRABLE. PORT PATENT. INFUSION COMPLETED AND TOLERATED WELL. PORT FLUSHED AND LEFT ACCESSED. DENIES QUESTION OR NEEDS AT DISCHARGE.
[2020-06-06 13:00] LABS: ABSOLUTE EOSINOPHILS 0.1 thou/uL (0.0-0.7); ABSOLUTE MONOCYTES 0.7 thou/uL (0.0-1.2); BASOPHILS 0.2 %; EOSINOPHILS 0.4 %; HEMATOCRIT 31.8 % (37.0-47.0); HEMOGLOBIN 10.4 gm/dL (12.0-15.0); LYMPHOCYTES 16.7 %; MCHC 32.7 g/dL (28.0-37.0); MCV 91.6 fL (80.0-100.0); MONOCYTES 5.9 %; NUCLEATED RBCS 0 /100WBC; PLATELET COUNT* 210 thou/uL (150-400); POLYS 76.8 %; RBC 3.47 mil/uL (4.20-5.00); RDW-CV 16.3 % (10.5-14.5); WBC 11.8 thou/uL (4.0-11.0)
[2020-06-06 13:04] LABS: CALCIUM 8.4 mg/dL (8.5-10.1); CREATININE 2.1 mg/dL (0.6-1.3); POTASSIUM 4.7 mmol/L (3.5-5.1)
== END ==
LOC: M.INFUS 05:28
PROVIDERS: ATTEND Internal Medicine
DX: N18.4 Chronic kidney disease, stage 4 (severe) (principal); E86.0 Dehydration

== ENCOUNTER → 2020-06-08 | Outpatient (CLI) | payer MEDICARE ==
[2020-06-08 09:08] VITALS: BP 107/58
[2020-06-08 09:29] LABS: ABSOLUTE BASOPHILS 0.1 thou/uL (0.0-0.2); ABSOLUTE EOSINOPHILS 0.4 thou/uL (0.0-0.7); ABSOLUTE LYMPHOCYTES 1.9 thou/uL (0.8-5.3); ABSOLUTE MONOCYTES 0.5 thou/uL (0.0-1.2); BASOPHILS 0.7 %; HEMATOCRIT 35.1 % (37.0-47.0); HEMOGLOBIN 11.5 gm/dL (12.0-15.0); LYMPHOCYTES 24.3 %; MCH 29.9 pg (26.0-34.0); MCHC 32.7 g/dL (28.0-37.0); MCV 91.3 fL (80.0-100.0); MONOCYTES 6.9 %; MPV 8.8 fl. (7.2-11.1); NUCLEATED RBCS 0 /100WBC; PLATELET COUNT* 240 thou/uL (150-400); POLYS 63.1 %; RBC 3.84 mil/uL (4.20-5.00); RDW-CV 16.4 % (10.5-14.5); WBC 7.9 thou/uL (4.0-11.0)
[2020-06-08 09:39] LABS: CALCIUM 9.1 mg/dL (8.5-10.1); POTASSIUM 4.3 mmol/L (3.5-5.1)
[2020-06-08 12:08] VITALS: BP 118/68
[2020-06-08 12:33] LABS: ABSOLUTE EOSINOPHILS 0.3 thou/uL (0.0-0.7); ABSOLUTE LYMPHOCYTES 1.8 thou/uL (0.8-5.3); ABSOLUTE MONOCYTES 0.5 thou/uL (0.0-1.2); ABSOLUTE NEUTROPHILS 4.7 thou/uL (1.6-8.1); BASOPHILS 0.6 %; EOSINOPHILS 4.1 %; HEMATOCRIT 30.7 % (37.0-47.0); HEMOGLOBIN 10.2 gm/dL (12.0-15.0); LYMPHOCYTES 24.6 %; MCH 30.2 pg (26.0-34.0); MCHC 33.2 g/dL (28.0-37.0); MCV 90.7 fL (80.0-100.0); MONOCYTES 6.3 %; MPV 8.5 fl. (7.2-11.1); NUCLEATED RBCS 0 /100WBC; PLATELET COUNT* 202 thou/uL (150-400); POLYS 64.4 %; RBC 3.38 mil/uL (4.20-5.00); RDW-CV 16.7 % (10.5-14.5); WBC 7.3 thou/uL (4.0-11.0)
[2020-06-08 12:39] LABS: CALCIUM 8.2 mg/dL (8.5-10.1); CREATININE 1.7 mg/dL (0.6-1.3); POTASSIUM 4.7 mmol/L (3.5-5.1)
== END ==
LOC: M.INFUS 03:59
PROVIDERS: ATTEND Internal Medicine
DX: N18.4 Chronic kidney disease, stage 4 (severe) (principal); E86.0 Dehydration

== ENCOUNTER → 2020-06-11 | Outpatient (CLI) | payer MEDICARE ==
[2020-06-11 09:25] VITALS: BP 102/60
[2020-06-11 10:52] LABS: ABSOLUTE BASOPHILS 0.1 thou/uL (0.0-0.2); ABSOLUTE EOSINOPHILS 0.4 thou/uL (0.0-0.7); ABSOLUTE LYMPHOCYTES 1.8 thou/uL (0.8-5.3); ABSOLUTE MONOCYTES 0.6 thou/uL (0.0-1.2); ABSOLUTE NEUTROPHILS 6.5 thou/uL (1.6-8.1); BASOPHILS 0.9 %; EOSINOPHILS 4.4 %; HEMATOCRIT 33.7 % (37.0-47.0); LYMPHOCYTES 19.1 %; MCH 29.8 pg (26.0-34.0); MCHC 32.6 g/dL (28.0-37.0); MCV 91.4 fL (80.0-100.0); MONOCYTES 6.1 %; NUCLEATED RBCS 0 /100WBC; PLATELET COUNT* 277 thou/uL (150-400); POLYS 69.5 %; RBC 3.69 mil/uL (4.20-5.00); RDW-CV 17.4 % (10.5-14.5); WBC 9.3 thou/uL (4.0-11.0)
[2020-06-11 11:39] LABS: CREATININE 2.3 mg/dL (0.6-1.3); POTASSIUM 4.5 mmol/L (3.5-5.1)
[2020-06-11 12:30] VITALS: BP 122/65
--- NOTE | 2020-06-11 12:40 | NUR ---
INFUSION COMPLETED AND TOLERATED WELL. DENIES QUESTIONS OR NEEDS AT DISCHARGE.
[2020-06-11 13:21] LABS: ABSOLUTE BASOPHILS 0.1 thou/uL (0.0-0.2); ABSOLUTE EOSINOPHILS 0.3 thou/uL (0.0-0.7); ABSOLUTE LYMPHOCYTES 1.8 thou/uL (0.8-5.3); ABSOLUTE MONOCYTES 0.5 thou/uL (0.0-1.2); ABSOLUTE NEUTROPHILS 5.6 thou/uL (1.6-8.1); BASOPHILS 0.8 %; EOSINOPHILS 3.2 %; HEMATOCRIT 29.5 % (37.0-47.0); HEMOGLOBIN 9.7 gm/dL (12.0-15.0); LYMPHOCYTES 21.4 %; MCH 30.1 pg (26.0-34.0); MCHC 32.9 g/dL (28.0-37.0); MCV 91.7 fL (80.0-100.0); MONOCYTES 5.9 %; MPV 8.9 fl. (7.2-11.1); NUCLEATED RBCS 0 /100WBC; PLATELET COUNT* 216 thou/uL (150-400); POLYS 68.7 %; RBC 3.21 mil/uL (4.20-5.00); RDW-CV 16.8 % (10.5-14.5); WBC 8.2 thou/uL (4.0-11.0)
[2020-06-11 13:33] LABS: CALCIUM 8.1 mg/dL (8.5-10.1); POTASSIUM 5.1 mmol/L (3.5-5.1)
== END ==
LOC: M.INFUS 00:50
PROVIDERS: ATTEND Internal Medicine
DX: N18.4 Chronic kidney disease, stage 4 (severe) (principal); E86.0 Dehydration

== ENCOUNTER → 2020-06-13 | Outpatient (CLI) | payer MEDICARE ==
[2020-06-13 09:10] VITALS: BP 104/49
[2020-06-13 09:55] LABS: ABSOLUTE BASOPHILS 0.1 thou/uL (0.0-0.2); ABSOLUTE EOSINOPHILS 0.4 thou/uL (0.0-0.7); ABSOLUTE LYMPHOCYTES 1.9 thou/uL (0.8-5.3); ABSOLUTE MONOCYTES 0.6 thou/uL (0.0-1.2); ABSOLUTE NEUTROPHILS 5.7 thou/uL (1.6-8.1); EOSINOPHILS 4.9 %; HEMATOCRIT 31.1 % (37.0-47.0); HEMOGLOBIN 10.2 gm/dL (12.0-15.0); LYMPHOCYTES 21.8 %; MCH 30.1 pg (26.0-34.0); MCHC 32.9 g/dL (28.0-37.0); MCV 91.3 fL (80.0-100.0); MONOCYTES 6.7 %; MPV 8.8 fl. (7.2-11.1); NUCLEATED RBCS 0 /100WBC; POLYS 65.6 %; RBC 3.41 mil/uL (4.20-5.00); RDW-CV 16.9 % (10.5-14.5); WBC 8.6 thou/uL (4.0-11.0)
[2020-06-13 10:03] LABS: PLATELET COUNT* 305 thou/uL (150-400)
[2020-06-13 10:05] LABS: CALCIUM 8.9 mg/dL (8.5-10.1); POTASSIUM 4.4 mmol/L (3.5-5.1)
[2020-06-13 12:30] VITALS: BP 112/74
[2020-06-13 12:41] LABS: ABSOLUTE BASOPHILS 0.1 thou/uL (0.0-0.2); ABSOLUTE EOSINOPHILS 0.3 thou/uL (0.0-0.7); ABSOLUTE MONOCYTES 0.5 thou/uL (0.0-1.2); ABSOLUTE NEUTROPHILS 5.9 thou/uL (1.6-8.1); BASOPHILS 0.6 %; EOSINOPHILS 3.5 %; HEMATOCRIT 29.3 % (37.0-47.0); HEMOGLOBIN 9.7 gm/dL (12.0-15.0); LYMPHOCYTES 22.4 %; MCH 30.2 pg (26.0-34.0); MCHC 33.1 g/dL (28.0-37.0); MCV 91.3 fL (80.0-100.0); MONOCYTES 6.1 %; MPV 8.4 fl. (7.2-11.1); NUCLEATED RBCS 0 /100WBC; PLATELET COUNT* 268 thou/uL (150-400); POLYS 67.4 %; RBC 3.21 mil/uL (4.20-5.00); RDW-CV 16.9 % (10.5-14.5); WBC 8.8 thou/uL (4.0-11.0)
[2020-06-13 12:46] LABS: CALCIUM 8.2 mg/dL (8.5-10.1); CREATININE 1.8 mg/dL (0.6-1.3); POTASSIUM 5.2 mmol/L (3.5-5.1)
--- NOTE | 2020-06-13 12:46 | NUR ---
INFUSION COMPLETED AND TOLERATED WELL.
== END ==
LOC: M.INFUS 03:56
PROVIDERS: ATTEND Internal Medicine
DX: N18.4 Chronic kidney disease, stage 4 (severe) (principal); E86.0 Dehydration

== ENCOUNTER → 2020-06-15 | Outpatient (CLI) | payer MEDICARE ==
[2020-06-15 09:30] VITALS: BP 106/60
[2020-06-15 09:40] LABS: ABSOLUTE BASOPHILS 0.1 thou/uL (0.0-0.2); ABSOLUTE EOSINOPHILS 0.4 thou/uL (0.0-0.7); ABSOLUTE LYMPHOCYTES 1.8 thou/uL (0.8-5.3); ABSOLUTE MONOCYTES 0.6 thou/uL (0.0-1.2); ABSOLUTE NEUTROPHILS 4.4 thou/uL (1.6-8.1); BASOPHILS 1.2 %; EOSINOPHILS 5.1 %; HEMATOCRIT 30.1 % (37.0-47.0); HEMOGLOBIN 9.9 gm/dL (12.0-15.0); LYMPHOCYTES 25.2 %; MCH 30.1 pg (26.0-34.0); MCHC 32.9 g/dL (28.0-37.0); MCV 91.5 fL (80.0-100.0); MONOCYTES 7.6 %; MPV 8.4 fl. (7.2-11.1); NUCLEATED RBCS 0 /100WBC; PLATELET COUNT* 315 thou/uL (150-400); POLYS 60.9 %; RBC 3.29 mil/uL (4.20-5.00); RDW-CV 17.1 % (10.5-14.5); WBC 7.3 thou/uL (4.0-11.0)
[2020-06-15 10:32] LABS: CALCIUM 8.5 mg/dL (8.5-10.1); CREATININE 2.1 mg/dL (0.6-1.3); POTASSIUM 4.4 mmol/L (3.5-5.1)
[2020-06-15 12:15] VITALS: BP 118/70
[2020-06-15 13:22] LABS: ABSOLUTE BASOPHILS 0.1 thou/uL (0.0-0.2); ABSOLUTE EOSINOPHILS 0.3 thou/uL (0.0-0.7); ABSOLUTE LYMPHOCYTES 1.8 thou/uL (0.8-5.3); ABSOLUTE MONOCYTES 0.4 thou/uL (0.0-1.2); ABSOLUTE NEUTROPHILS 3.9 thou/uL (1.6-8.1); BASOPHILS 1.1 %; EOSINOPHILS 4.3 %; HEMATOCRIT 27.8 % (37.0-47.0); HEMOGLOBIN 9.2 gm/dL (12.0-15.0); MCH 30.2 pg (26.0-34.0); MCV 91.5 fL (80.0-100.0); MONOCYTES 6.5 %; MPV 8.4 fl. (7.2-11.1); NUCLEATED RBCS 0 /100WBC; PLATELET COUNT* 272 thou/uL (150-400); POLYS 60.1 %; RBC 3.04 mil/uL (4.20-5.00); RDW-CV 17.2 % (10.5-14.5); WBC 6.6 thou/uL (4.0-11.0)
[2020-06-15 13:30] LABS: CALCIUM 7.9 mg/dL (8.5-10.1); CREATININE 1.8 mg/dL (0.6-1.3); POTASSIUM 4.9 mmol/L (3.5-5.1)
== END ==
LOC: M.INFUS 01:27
PROVIDERS: ATTEND Internal Medicine
DX: N18.4 Chronic kidney disease, stage 4 (severe) (principal); E86.0 Dehydration

== ENCOUNTER → 2020-06-18 | Outpatient (CLI) | payer MEDICARE, SELFPAY ==
[2020-06-18 10:05] VITALS: BP 92/51
[2020-06-18 10:30] LABS: ABSOLUTE BASOPHILS 0.1 thou/uL (0.0-0.2); ABSOLUTE EOSINOPHILS 0.4 thou/uL (0.0-0.7); ABSOLUTE LYMPHOCYTES 2.1 thou/uL (0.8-5.3); ABSOLUTE MONOCYTES 0.5 thou/uL (0.0-1.2); ABSOLUTE NEUTROPHILS 6.6 thou/uL (1.6-8.1); BASOPHILS 0.8 %; EOSINOPHILS 4.3 %; HEMATOCRIT 34.7 % (37.0-47.0); LYMPHOCYTES 21.6 %; MCH 29.9 pg (26.0-34.0); MCHC 32.5 g/dL (28.0-37.0); MCV 92.1 fL (80.0-100.0); MONOCYTES 4.9 %; MPV 8.3 fl. (7.2-11.1); NUCLEATED RBCS 0 /100WBC; POLYS 68.4 %; RBC 3.77 mil/uL (4.20-5.00); RDW-CV 17.4 % (10.5-14.5); WBC 9.7 thou/uL (4.0-11.0)
[2020-06-18 10:31] LABS: HEMOGLOBIN 11.3 gm/dL (12.0-15.0); PLATELET COUNT* 389 thou/uL (150-400)
[2020-06-18 10:43] LABS: CREATININE 2.4 mg/dL (0.6-1.3); POTASSIUM 4.6 mmol/L (3.5-5.1)
[2020-06-18 13:20] VITALS: BP 100/64
--- NOTE | 2020-06-18 13:40 | NUR ---
ARRIVED AMBULATORY. MADE SELF COMFORTABLE IN RECLINER. PORT A CATH PATENT. INFUSION COMPLETED AND TOLERATED WELL. PORT FLUSHED AND LEFT ACCESSED FOR USE THRU WEEK. DENIES QUESTION OR NEEDS AT DISCHARGE.
[2020-06-18 14:04] LABS: ABSOLUTE BASOPHILS 0.1 thou/uL (0.0-0.2); ABSOLUTE EOSINOPHILS 0.3 thou/uL (0.0-0.7); ABSOLUTE LYMPHOCYTES 1.8 thou/uL (0.8-5.3); ABSOLUTE MONOCYTES 0.5 thou/uL (0.0-1.2); ABSOLUTE NEUTROPHILS 7.2 thou/uL (1.6-8.1); BASOPHILS 0.5 %; HEMATOCRIT 30.5 % (37.0-47.0); HEMOGLOBIN 9.9 gm/dL (12.0-15.0); LYMPHOCYTES 18.1 %; MCH 29.9 pg (26.0-34.0); MCHC 32.3 g/dL (28.0-37.0); MCV 92.3 fL (80.0-100.0); MONOCYTES 4.8 %; MPV 8.5 fl. (7.2-11.1); NUCLEATED RBCS 0 /100WBC; PLATELET COUNT* 309 thou/uL (150-400); POLYS 73.6 %; RBC 3.31 mil/uL (4.20-5.00); RDW-CV 17.6 % (10.5-14.5); WBC 9.8 thou/uL (4.0-11.0)
[2020-06-18 14:11] LABS: CALCIUM 7.8 mg/dL (8.5-10.1); CREATININE 2.1 mg/dL (0.6-1.3); POTASSIUM 5.2 mmol/L (3.5-5.1)
== END ==
LOC: M.INFUS 02:40
PROVIDERS: ATTEND Internal Medicine
DX: N18.4 Chronic kidney disease, stage 4 (severe) (principal); E86.0 Dehydration

== ENCOUNTER → 2020-06-20 | Outpatient (CLI) | payer MEDICARE ==
[2020-06-20 09:20] VITALS: BP 114/86
[2020-06-20 09:56] LABS: ABSOLUTE BASOPHILS 0.1 thou/uL (0.0-0.2); ABSOLUTE EOSINOPHILS 0.3 thou/uL (0.0-0.7); ABSOLUTE LYMPHOCYTES 2.1 thou/uL (0.8-5.3); ABSOLUTE MONOCYTES 0.4 thou/uL (0.0-1.2); ABSOLUTE NEUTROPHILS 5.5 thou/uL (1.6-8.1); EOSINOPHILS 4.1 %; HEMATOCRIT 32.7 % (37.0-47.0); HEMOGLOBIN 10.7 gm/dL (12.0-15.0); LYMPHOCYTES 24.9 %; MCH 29.9 pg (26.0-34.0); MCHC 32.7 g/dL (28.0-37.0); MCV 91.6 fL (80.0-100.0); MONOCYTES 5.2 %; MPV 8.1 fl. (7.2-11.1); NUCLEATED RBCS 0 /100WBC; PLATELET COUNT* 341 thou/uL (150-400); POLYS 64.8 %; RBC 3.57 mil/uL (4.20-5.00); RDW-CV 17.8 % (10.5-14.5); WBC 8.5 thou/uL (4.0-11.0)
[2020-06-20 10:11] LABS: CALCIUM 8.8 mg/dL (8.5-10.1); CREATININE 2.4 mg/dL (0.6-1.3); POTASSIUM 4.7 mmol/L (3.5-5.1)
[2020-06-20 12:38] VITALS: BP 118/74
--- NOTE | 2020-06-20 12:42 | NUR ---
ARRIVED AMBULATORY. MADE SELF COMFORTABLE IN RECLINER. PORT INTACT AND PATENT. INFUSION COMPELTED AND TOLERATED WELL. PORT FLUSHED AND LEFT ACCESSED FOR USE LATER THIS WEEK.
[2020-06-20 12:55] LABS: ABSOLUTE BASOPHILS 0.1 thou/uL (0.0-0.2); ABSOLUTE EOSINOPHILS 0.2 thou/uL (0.0-0.7); ABSOLUTE LYMPHOCYTES 1.7 thou/uL (0.8-5.3); ABSOLUTE MONOCYTES 0.5 thou/uL (0.0-1.2); ABSOLUTE NEUTROPHILS 5.8 thou/uL (1.6-8.1); EOSINOPHILS 2.8 %; HEMATOCRIT 27.9 % (37.0-47.0); HEMOGLOBIN 9.1 gm/dL (12.0-15.0); LYMPHOCYTES 19.9 %; MCH 30.2 pg (26.0-34.0); MCHC 32.8 g/dL (28.0-37.0); MCV 92.1 fL (80.0-100.0); MONOCYTES 6.3 %; NUCLEATED RBCS 0 /100WBC; PLATELET COUNT* 258 thou/uL (150-400); RBC 3.03 mil/uL (4.20-5.00); RDW-CV 17.4 % (10.5-14.5); WBC 8.3 thou/uL (4.0-11.0)
[2020-06-20 13:02] LABS: CALCIUM 7.7 mg/dL (8.5-10.1); CREATININE 2.1 mg/dL (0.6-1.3); POTASSIUM 5.1 mmol/L (3.5-5.1)
== END ==
LOC: M.INFUS 04:47
PROVIDERS: ATTEND Internal Medicine
DX: N18.4 Chronic kidney disease, stage 4 (severe) (principal); E86.0 Dehydration

== ENCOUNTER → 2020-06-22 | Outpatient (CLI) | payer MEDICARE ==
[2020-06-22 09:18] VITALS: BP 102/49
[2020-06-22 09:43] LABS: ABSOLUTE BASOPHILS 0.1 thou/uL (0.0-0.2); ABSOLUTE EOSINOPHILS 0.3 thou/uL (0.0-0.7); ABSOLUTE LYMPHOCYTES 1.8 thou/uL (0.8-5.3); ABSOLUTE MONOCYTES 0.5 thou/uL (0.0-1.2); ABSOLUTE NEUTROPHILS 5.3 thou/uL (1.6-8.1); BASOPHILS 0.7 %; EOSINOPHILS 3.9 %; HEMATOCRIT 30.3 % (37.0-47.0); HEMOGLOBIN 9.9 gm/dL (12.0-15.0); LYMPHOCYTES 22.5 %; MCHC 32.7 g/dL (28.0-37.0); MCV 91.6 fL (80.0-100.0); MONOCYTES 6.1 %; MPV 7.8 fl. (7.2-11.1); NUCLEATED RBCS 0 /100WBC; PLATELET COUNT* 280 thou/uL (150-400); POLYS 66.8 %; RBC 3.31 mil/uL (4.20-5.00); RDW-CV 17.2 % (10.5-14.5)
[2020-06-22 09:54] LABS: CALCIUM 8.7 mg/dL (8.5-10.1); CREATININE 2.2 mg/dL (0.6-1.3); POTASSIUM 4.5 mmol/L (3.5-5.1)
[2020-06-22 12:30] VITALS: BP 112/58
--- NOTE | 2020-06-22 12:56 | NUR ---
ARRIVED AMBULATORY. MADE SELF COMFORTABLE. PORT A CATAH PATENT. INFUSION COMPLETED AND TOLERATED WELL. PORT FLUSHED AND DEACCESSED. DENEIS QUESTION OR NEEDS AT DISCHARGE.
[2020-06-22 13:15] LABS: ABSOLUTE EOSINOPHILS 0.2 thou/uL (0.0-0.7); ABSOLUTE LYMPHOCYTES 1.9 thou/uL (0.8-5.3); ABSOLUTE MONOCYTES 0.5 thou/uL (0.0-1.2); ABSOLUTE NEUTROPHILS 4.3 thou/uL (1.6-8.1); BASOPHILS 0.6 %; EOSINOPHILS 3.4 %; HEMATOCRIT 26.9 % (37.0-47.0); HEMOGLOBIN 8.8 gm/dL (12.0-15.0); LYMPHOCYTES 26.9 %; MCH 30.1 pg (26.0-34.0); MCHC 32.6 g/dL (28.0-37.0); MCV 92.4 fL (80.0-100.0); MPV 8.2 fl. (7.2-11.1); NUCLEATED RBCS 0 /100WBC; PLATELET COUNT* 240 thou/uL (150-400); POLYS 62.1 %; RBC 2.92 mil/uL (4.20-5.00); RDW-CV 17.5 % (10.5-14.5); WBC 6.9 thou/uL (4.0-11.0)
[2020-06-22 13:18] LABS: CALCIUM 7.9 mg/dL (8.5-10.1)
== END ==
LOC: M.INFUS 01:11
PROVIDERS: ATTEND Internal Medicine
DX: N18.4 Chronic kidney disease, stage 4 (severe) (principal); E86.0 Dehydration

== ENCOUNTER 2020-10-03 15:14 | Inpatient (IN) | payer MEDICARE ==
[~2020-10-03] VITALS: Ht 167.6 cm; Wt 62.4 kg
--- NOTE | ~2020-10-03 | CON ---
[address] [address] CONSULTATION Name: ANGELITA SMITH Room: [address] IN M.R.#: [id number] Admission: 10/03/20 Attend Phys: Edison Gudino MD Discharge: Date of : 42 Report #: [id number] THIS REPORT FOR: //name// cc: Manny Carlos APRN, William R APRN ~ DATE OF SERVICE: 10/04/2020 HISTORY OF PRESENT ILLNESS: This is a pleasant 80-year-old female who is a patient of Dr. Whitaker who was presenting for evaluation of abdominal cramps. The patient has a fairly complex GI history. She has a history of ulcerative colitis for which she underwent total proctocolectomy with continent pouch. The patient empties her pouch about 2 to 3 times per day. She had been reporting chronic abdominal pain with increasing abdominal cramps for the last couple of weeks. She denies any nausea, vomiting. She denies seeing any blood in her continent pouch recently. Her weight has been rather stable. Overnight, the patient's symptoms have significantly improved and she denies any significant abdominal pain or cramps at this time. The patient also has a past medical history significant for achalasia for which she underwent esophagectomy with gastric pull-up and as an outpatient she had also undergone ERCP and sphincterotomy for possible sphincter of Oddi dysfunction, which unfortunately did not improve her abdominal pain significantly at that time. PAST MEDICAL HISTORY: She has anemia of chronic disease, chronic kidney disease, hypertension, hypothyroidism, and remote history of ulcerative colitis. PAST SURGICAL HISTORY: She had a cholecystectomy, esophagectomy with gastric pull-up total proctocolectomy with continent pouch. The patient recently had an EGD on 07/05/2020 that demonstrated LA grade B esophagitis and was otherwise normal. She had also undergone a capsule endoscopy, which was unremarkable and an ileoscopy on 07/19/2020, which was essentially normal. The patient denies any smoking or alcohol abuse. FAMILY HISTORY: No family history of colon cancer or Colon related neoplasia. REVIEW OF SYSTEMS: Comprehensive 10-point review of systems is negative except for what was mentioned in the HPI. PHYSICAL EXAMINATION: VITAL SIGNS: Temperature 37.4, pulse rate 53, respirations 16, blood pressure 116/34, pulse ox 100%. GENERAL: The patient is alert, awake, oriented x 3. HEENT: Pupils are equal, round, reactive to light and accommodation. Mucous membranes are moist. [place] [address] CONSULTATION Name: ANGELITA SMITH Room: [address] IN [facility]#: [id number] Admission: 10/03/20 Attend Phys: Edison Gudino MD Discharge: Date of : 42 Report #: [id number] LUNGS: Clear to auscultation bilaterally. CARDIOVASCULAR: Rate and rhythm regular, S1, S2 present. ABDOMEN: Soft. Continent pouch visualized. No bleeding seen at the site of the stoma. EXTREMITIES: Warm. There is no edema. LABORATORY DATA: Hemoglobin 10.3, hematocrit 30.2, platelet count 215, WBC count 5.4. INR 1. Sodium 142, potassium 4.1, chloride 112, bicarbonate 19, BUN 42, creatinine 2. IMAGING: Abdomen and pelvis CT, this demonstrates ostomy in the right anterior abdominal wall with bowel loops leading up to the ostomy, distended with gas and stool, small bowel loops are also fluid filled mentioned represent partial obstruction or mild ileus. These findings are new from the prior CT scan. Surgical changes of cholecystectomy. ASSESSMENT AND PLAN: Pleasant 80-year-old female with history of ulcerative colitis with total proctocolectomy with continent reservoir pouch. The patient presented with worsening abdominal cramps and was noted to have partial bowel obstruction, but this appears to have resolved at this time. She denies any significant abdominal pain, nausea or abdominal cramps. At this time, she is able to tolerate clear liquid diet. I would recommend advancing diet as she tolerates it. She recently had an endoscopic evaluation. I do not anticipate repeating at this time. By: [id number] Villalta MD /dereck
[2020-10-03 15:33] VITALS: BP 123/46
[2020-10-03 17:23] LABS: ABSOLUTE EOSINOPHILS 0.2 thou/uL (0.0-0.7); ABSOLUTE LYMPHOCYTES 2.1 thou/uL (0.8-5.3); ABSOLUTE MONOCYTES 0.5 thou/uL (0.0-1.2); ABSOLUTE NEUTROPHILS 4.2 thou/uL (1.6-8.1); BASOPHILS 0.6 %; EOSINOPHILS 2.2 %; HEMATOCRIT 32.6 % (37.0-47.0); HEMOGLOBIN 10.4 gm/dL (12.0-15.0); LYMPHOCYTES 29.8 %; MCH 29.5 pg (26.0-34.0); MCHC 31.9 g/dL (28.0-37.0); MCV 92.6 fL (80.0-100.0); MONOCYTES 7.8 %; MPV 7.9 fl. (7.2-11.1); NUCLEATED RBCS 0 /100WBC; PLATELET COUNT* 229 thou/uL (150-400); POLYS 59.6 %; RBC 3.52 mil/uL (4.20-5.00); RDW-CV 19.3 % (10.5-14.5)
[2020-10-03 17:33] LABS: CALCIUM 7.9 mg/dL (8.5-10.1); CREATININE 2.1 mg/dL (0.6-1.3); POTASSIUM 4.8 mmol/L (3.5-5.1)
[2020-10-03 17:47] LABS: ALBUMIN 3.1 g/dL (3.4-5.0); TOTAL BILIRUBIN 0.2 mg/dL (<0.1-1.0); TOTAL PROTEIN 6.5 g/dL (6.4-8.2)
[2020-10-03 18:27] LABS: URINE BILIRUBIN NEGATIVE (Negative); URINE BLOOD TRACE (Negative); URINE CLARITY SL CLOUDY; URINE COLOR YELLOW; URINE GLUCOSE-RANDOM NEGATIVE (Negative); URINE KETONES NEGATIVE (Negative); URINE PROTEIN NEGATIVE (Negative); URINE SPECIFIC GRAVITY 1.025 (1.005-1.030); URINE UROBILINOGEN 0.2 E.U./dl (0.2-1.0)
[2020-10-03 18:28] LABS: URINE LEUKOCYTES-REFLEX 2+ (Negative); URINE NITRITE-REFLEX POSITIVE (Negative)
[2020-10-03 18:36] LABS: BACTERIA-REFLEX >30 Many /HPF (None Seen); SQUAMOUS >10 Many /LPF (0-3)
[2020-10-03 18:37] LABS: CASTS None Seen /LPF (None Seen); CRYSTALS None Seen /LPF (None Seen); MUCUS None Seen strn/LPF (None Seen); URINE RBC 3-10 Few /HPF (0-2); URINE WBC-REFLEX >25 Many /HPF (0-5); WBC CLUMPS Few (None Seen)
[2020-10-03 20:41] VITALS: BP 122/36
[2020-10-03 21:00] VITALS: BP 114/43
[2020-10-04] MEDS ORDERED: TYLENOL325 MG PO (00:22)
[2020-10-04] MEDS ORDERED: PROAIR HFA8.5 GM PO (00:25)
[2020-10-04] MEDS ORDERED: CHILDREN'S ASPI81 M1 PO (00:27)
[2020-10-04] MEDS ORDERED: VOLTAREN GEL 1100 G1 TOP (00:29)
[2020-10-04] MEDS ORDERED: LEVO-T100 MCG PO (00:36)
[2020-10-04] MEDS ORDERED: METHOCARBAMOL500 M2 PO (00:39)
[2020-10-04] MEDS ORDERED: ROXICODONE5 M2 PO (00:42)
[2020-10-04] MEDS ORDERED: CVS SENNA PLUS1 EACH PO (00:44)
[2020-10-04 05:07] LABS: HEMATOCRIT 32.2 % (37.0-47.0); HEMOGLOBIN 10.3 gm/dL (12.0-15.0); MCH 29.6 pg (26.0-34.0); MCV 92.5 fL (80.0-100.0); MPV 8.3 fl. (7.2-11.1); RBC 3.48 mil/uL (4.20-5.00); RDW-CV 18.9 % (10.5-14.5); WBC 5.4 thou/uL (4.0-11.0)
[2020-10-04 05:33] LABS: CALCIUM 8.5 mg/dL (8.5-10.1); POTASSIUM 4.1 mmol/L (3.5-5.1)
[2020-10-04 07:30] VITALS: BP 116/34
[2020-10-04 16:00] VITALS: BP 124/56
[2020-10-04 20:30] VITALS: BP 130/51
[2020-10-05 08:30] VITALS: BP 120/60
[2020-10-05 10:59] VITALS: BP 130/51
--- NOTE | 2020-10-06 11:28 | EKG ---
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1940 Requested By: Elizabeth Morrow Order Number: [id number] MD: Michael Hollis Measurements Intervals [place] Rate: 50 P: [place]: 188 QRS: -29 QRSD: 119 T: 34 QT: 487 QTc: 445 Interpretive Statements Atrial-paced rhythm Nonspecific intraventricular conduction delay Anterior infarct, old Compared to ECG 05/08/2020 15:11:52 No significant changes Electronically Signed On 10-06-2020 11:28:03 ENGRAVER [employer] by Michael Hollis [email or web address] <ELECTRONICALLY SIGNED> By: Michael Hollis MD, FAC 10/06/20 1128 1604 1604 Michael Hollis MD, [facility] /EPI
== END 2020-10-05 11:29 | disposition home or self-care (01) | DRG 389 ==
LOC: M.ERS 15:14 → M.3W 18:39 → M.TBA-ER 18:39 → M.3W 20:52
PROVIDERS: Nurse Practitioner Family; ADMIT Internal Medicine; ATTEND Internal Medicine
DX: K56.609 Unspecified intestinal obstruction, unspecified as to partial versus complete obstruction (principal); E44.0 Moderate protein-calorie malnutrition; N18.4 Chronic kidney disease, stage 4 (severe); E03.9 Hypothyroidism, unspecified; M19.90 Unspecified osteoarthritis, unspecified site; F32.9 Major depressive disorder, single episode, unspecified; Z96.651 Presence of right artificial knee joint; K21.9 Gastro-esophageal reflux disease without esophagitis; D64.9 Anemia, unspecified; N30.91 Cystitis, unspecified with hematuria; Z79.82 Long term (current) use of aspirin; Z79.899 Other long term (current) drug therapy; Z90.49 Acquired absence of other specified parts of digestive tract; Z98.42 Cataract extraction status, left eye; Z95.0 Presence of cardiac pacemaker; Z98.41 Cataract extraction status, right eye; Z88.2 Allergy status to sulfonamides; Z88.8 Allergy status to other drugs, medicaments and biological substances; Z93.2 Ileostomy status; Z68.22 Body mass index [BMI] 22.0-22.9, adult; Z20.828 Contact with and (suspected) exposure to other viral communicable diseases

== ENCOUNTER → 2020-11-16 | Outpatient (CLI) | payer OTHER ==
[~2020-11-16] MED LIST changes: +CHILDREN'S ASPI81 M1 PO; +CVS SENNA PLUS1 EACH PO; +LEVO-T100 MCG PO; +METHOCARBAMOL500 M2 PO; +PROAIR HFA8.5 GM PO; +ROXICODONE5 M2 PO; +TYLENOL325 MG PO; +VOLTAREN GEL 1100 G1 TOP
== END ==
LOC: M.CT 13:41
PROVIDERS: ATTEND Nurse Practitioner Adult Health
DX: K44.9 Diaphragmatic hernia without obstruction or gangrene (principal); N39.0 Urinary tract infection, site not specified; I86.2 Pelvic varices; M47.816 Spondylosis without myelopathy or radiculopathy, lumbar region

== ENCOUNTER 2021-01-23 09:02 | Emergency (ER) | payer OTHER ==
[~2021-01-23] VITALS: Ht 167.6 cm; Wt 60.8 kg
[2021-01-23] MEDS ORDERED: CLEOCIN HCL300 MG PO (09:57)
[2021-01-23] MEDS ORDERED: HYDROCODON-ACE1 EAC7 PO (09:57)
[2021-01-23 10:06] VITALS: BP 111/70
== END 2021-01-23 10:07 | disposition home or self-care (01) ==
LOC: M.ERS 09:02
DX: L02.31 Cutaneous abscess of buttock (principal); M79.7 Fibromyalgia; M19.90 Unspecified osteoarthritis, unspecified site; K21.9 Gastro-esophageal reflux disease without esophagitis; N18.4 Chronic kidney disease, stage 4 (severe); Z88.1 Allergy status to other antibiotic agents; Z88.2 Allergy status to sulfonamides; Z88.6 Allergy status to analgesic agent; Z88.8 Allergy status to other drugs, medicaments and biological substances; Z90.49 Acquired absence of other specified parts of digestive tract; Z86.2 Personal history of diseases of the blood and blood-forming organs and certain disorders involving the immune mechanism; Z85.89 Personal history of malignant neoplasm of other organs and systems; Z96.651 Presence of right artificial knee joint

== ENCOUNTER 2021-02-24 10:02 | Emergency (ER) | payer OTHER ==
[~2021-02-24] VITALS: Ht 167.6 cm; Wt 61.2 kg
[2021-02-24] MEDS ORDERED: ANTACID325 MG PO (10:24)
[2021-02-24] MEDS ORDERED: DOMPERIDONE (10:25)
[2021-02-24 10:35] VITALS: BP 129/55
== END 2021-02-24 10:35 | disposition home or self-care (01) ==
LOC: M.ERS 10:02
DX: L05.01 Pilonidal cyst with abscess (principal); Z48.01 Encounter for change or removal of surgical wound dressing; M79.7 Fibromyalgia; M19.90 Unspecified osteoarthritis, unspecified site; K21.9 Gastro-esophageal reflux disease without esophagitis; Z85.828 Personal history of other malignant neoplasm of skin; Z96.651 Presence of right artificial knee joint; Z88.2 Allergy status to sulfonamides; Z88.1 Allergy status to other antibiotic agents; Z88.6 Allergy status to analgesic agent; Z90.49 Acquired absence of other specified parts of digestive tract; Z86.2 Personal history of diseases of the blood and blood-forming organs and certain disorders involving the immune mechanism; Z88.8 Allergy status to other drugs, medicaments and biological substances

== ENCOUNTER 2021-04-30 11:19 | Emergency (ER) | payer OTHER ==
[~2021-04-30] VITALS: Ht 167.6 cm; Wt 62.6 kg
[~2021-04-30 11:19] MED LIST changes: +ANTACID325 MG PO; +DOMPERIDONE
[2021-04-30] MEDS ORDERED: MEDROLDOSEPACK PO (11:46)
[2021-04-30] MEDS ORDERED: PERCOCET PO (11:46)
[2021-04-30 12:10] VITALS: BP 144/65
== END 2021-04-30 12:10 | disposition home or self-care (01) ==
LOC: M.ERS 11:19
DX: M54.16 Radiculopathy, lumbar region (principal); Z88.6 Allergy status to analgesic agent; Z88.2 Allergy status to sulfonamides; Z88.1 Allergy status to other antibiotic agents; Z88.8 Allergy status to other drugs, medicaments and biological substances; Z79.899 Other long term (current) drug therapy

== ENCOUNTER 2021-05-05 17:00 | Emergency (ER) | payer OTHER ==
[~2021-05-05] VITALS: Ht 167.6 cm; Wt 61.2 kg
[~2021-05-05 17:00] MED LIST changes: +PERCOCET PO
[2021-05-05 17:51] LABS: ABSOLUTE EOSINOPHILS 0.1 thou/uL (0.0-0.7); ABSOLUTE LYMPHOCYTES 1.9 thou/uL (0.8-5.3); ABSOLUTE MONOCYTES 0.4 thou/uL (0.0-1.2); ABSOLUTE NEUTROPHILS 4.1 thou/uL (1.6-8.1); BASOPHILS 0.6 %; HEMATOCRIT 27.6 % (37.0-47.0); HEMOGLOBIN 9.2 gm/dL (12.0-15.0); LYMPHOCYTES 28.7 %; MCH 30.5 pg (26.0-34.0); MCHC 33.1 g/dL (28.0-37.0); MCV 91.9 fL (80.0-100.0); MONOCYTES 6.8 %; MPV 7.4 fl. (7.2-11.1); NUCLEATED RBCS 0 /100WBC; PLATELET COUNT* 220 thou/uL (150-400); POLYS 62.9 %; RBC 3.01 mil/uL (4.20-5.00); RDW-CV 17.1 % (10.5-14.5); WBC 6.5 thou/uL (4.0-11.0)
[2021-05-05 18:01] LABS: CALCIUM 8.6 mg/dL (8.5-10.1); CREATININE 1.4 mg/dL (0.6-1.3); POTASSIUM 4.8 mmol/L (3.5-5.1)
[2021-05-05 18:06] LABS: ALBUMIN 3.2 g/dL (3.4-5.0); TOTAL BILIRUBIN 0.3 mg/dL (<0.1-1.0); TOTAL PROTEIN 6.3 g/dL (6.4-8.2)
[2021-05-05 18:17] LABS: URINE BILIRUBIN NEGATIVE (Negative); URINE BLOOD TRACE (Negative); URINE CLARITY CLEAR; URINE COLOR STRAW; URINE GLUCOSE-RANDOM NEGATIVE (Negative); URINE KETONES NEGATIVE (Negative); URINE NITRITE-REFLEX NEGATIVE (Negative); URINE PROTEIN NEGATIVE (Negative); URINE SPECIFIC GRAVITY 1.015 (1.005-1.030); URINE UROBILINOGEN 0.2 E.U./dl (0.2-1.0)
[2021-05-05 18:18] LABS: URINE LEUKOCYTES-REFLEX 2+ (Negative)
[2021-05-05 18:32] LABS: CASTS None Seen /LPF (None Seen); CRYSTALS None Seen /LPF (None Seen); MUCUS 0-3 Light strn/LPF (None Seen); SQUAMOUS >10 Many /LPF (0-3)
[2021-05-05 18:33] LABS: BACTERIA-REFLEX >30 Many /HPF (None Seen); URINE RBC 0-2 Rare /HPF (0-2); YEAST-REFLEX Present (None Seen)
[2021-05-05 19:28] VITALS: BP 110/65
--- NOTE | 2021-05-06 10:29 | EKG ---
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: : 1940 Requested By: Madi Gaxiola Order Number: [id number] MD: Michael Hollis Measurements Intervals [place] Rate: 54 P: [place]: 177 QRS: 48 QRSD: 117 T: 28 QT: 458 QTc: 435 Interpretive Statements Atrial-paced rhythm Nonspecific intraventricular conduction delay Anteroseptal infarct, age indeterminate Compared to ECG 10/03/2020 16:04:59 no change Electronically Signed On 05-06-2021 10:29:08 CDT by Michael Hollis [email or web address] <ELECTRONICALLY SIGNED> By: Michael Hollis MD, [facility] 05/06/21 1029 1741 1741 Michael Hollis MD, [facility] /EPI
== END 2021-05-05 19:33 | disposition home or self-care (01) ==
LOC: M.ERS 17:00
PROVIDERS: Emergency Medicine Emergency Medical Services
DX: E86.0 Dehydration (principal); R53.1 Weakness; M25.562 Pain in left knee; M79.7 Fibromyalgia; E03.9 Hypothyroidism, unspecified; M19.90 Unspecified osteoarthritis, unspecified site; K21.9 Gastro-esophageal reflux disease without esophagitis; Z88.1 Allergy status to other antibiotic agents; Z88.2 Allergy status to sulfonamides; Z88.6 Allergy status to analgesic agent; Z88.8 Allergy status to other drugs, medicaments and biological substances; Z90.49 Acquired absence of other specified parts of digestive tract; Z86.2 Personal history of diseases of the blood and blood-forming organs and certain disorders involving the immune mechanism; Z85.828 Personal history of other malignant neoplasm of skin; Z96.651 Presence of right artificial knee joint

== ENCOUNTER 2021-05-10 11:22 | Emergency (ER) | payer OTHER ==
[~2021-05-10] VITALS: Ht 167.6 cm; Wt 61.2 kg
[2021-05-10 14:08] LABS: ABSOLUTE BASOPHILS 0.1 thou/uL (0.0-0.2); ABSOLUTE EOSINOPHILS 0.2 thou/uL (0.0-0.7); ABSOLUTE LYMPHOCYTES 1.6 thou/uL (0.8-5.3); ABSOLUTE MONOCYTES 0.7 thou/uL (0.0-1.2); ABSOLUTE NEUTROPHILS 4.8 thou/uL (1.6-8.1); BASOPHILS 1.2 %; EOSINOPHILS 2.7 %; HEMATOCRIT 34.4 % (37.0-47.0); HEMOGLOBIN 11.5 gm/dL (12.0-15.0); LYMPHOCYTES 22.3 %; MCH 30.5 pg (26.0-34.0); MCHC 33.4 g/dL (28.0-37.0); MCV 91.4 fL (80.0-100.0); MONOCYTES 8.9 %; MPV 7.2 fl. (7.2-11.1); NUCLEATED RBCS 0 /100WBC; PLATELET COUNT* 240 thou/uL (150-400); POLYS 64.9 %; RBC 3.77 mil/uL (4.20-5.00); RDW-CV 17.6 % (10.5-14.5); WBC 7.3 thou/uL (4.0-11.0)
[2021-05-10 14:18] LABS: CALCIUM 8.9 mg/dL (8.5-10.1); CREATININE 1.9 mg/dL (0.6-1.3); POTASSIUM 4.5 mmol/L (3.5-5.1)
[2021-05-10 14:28] LABS: ALBUMIN 3.5 g/dL (3.4-5.0); TOTAL BILIRUBIN 0.3 mg/dL (<0.1-1.0); TOTAL PROTEIN 7.2 g/dL (6.4-8.2)
[2021-05-10 15:15] LABS: URINE BILIRUBIN NEGATIVE (Negative); URINE BLOOD NEGATIVE (Negative); URINE COLOR YELLOW; URINE GLUCOSE-RANDOM NEGATIVE (Negative); URINE KETONES NEGATIVE (Negative); URINE LEUKOCYTES-REFLEX 1+ (Negative); URINE NITRITE-REFLEX NEGATIVE (Negative); URINE PROTEIN TRACE (Negative); URINE SPECIFIC GRAVITY >= 1.030 (1.005-1.030); URINE UROBILINOGEN 0.2 E.U./dl (0.2-1.0)
[2021-05-10 15:16] LABS: URINE CLARITY HAZY
[2021-05-10 15:49] LABS: SQUAMOUS 4-10 Moderate /LPF (0-3)
[2021-05-10 15:50] LABS: CASTS None Seen /LPF (None Seen); CRYSTALS None Seen /LPF (None Seen); URINE RBC None Seen /HPF (0-2); URINE WBC-REFLEX 0-5 Rare /HPF (0-5)
--- NOTE | 2021-05-10 15:57 | EKG ---
[place] [address] ELECTROCARDIOGRAM REPORT Name: ANGELITA SMITH Room: [facility]#: [id number] Admission: 05/10/21 Attend Phys: Discharge: Date of : 42 Date of Service: 05/10/21 1344 Report #: [id number] THIS REPORT FOR: //name// [facility] ED Test Date: 2021-05-10 Test Time: 13:44:14 Pat Name: ANGELITA SMITH Department: Room: Gender: F Plans Examiner: : 1940 Requested By: Lucho Littlejohn Order Number: [id number] MD: Michael Hollis Measurements Intervals [place] Rate: 66 P: [place]: 171 QRS: -41 QRSD: 121 T: 40 QT: 454 QTc: 476 Interpretive Statements Atrial-paced complexes Nonspecific IVCD with LAD Anterior infarct, old Compared to ECG 05/05/2021 17:41:30 Myocardial infarct finding still present Electronically Signed On 05-10-2021 15:56:58 CDT by Michael Hollis [email or web address] <ELECTRONICALLY SIGNED> By: Michael Hollis MD, [facility] 05/10/21 1556 1344 1344 Michael Hollis MD, [facility] /EPI
[2021-05-10 16:05] VITALS: BP 127/57
== END 2021-05-10 16:06 | disposition home or self-care (01) ==
LOC: M.ERS 11:22
PROVIDERS: Physician Assistant
DX: R53.1 Weakness (principal); Z88.1 Allergy status to other antibiotic agents; Z88.2 Allergy status to sulfonamides; Z88.6 Allergy status to analgesic agent; Z88.8 Allergy status to other drugs, medicaments and biological substances; M79.7 Fibromyalgia; E03.9 Hypothyroidism, unspecified; M19.90 Unspecified osteoarthritis, unspecified site; Z90.49 Acquired absence of other specified parts of digestive tract; Z86.2 Personal history of diseases of the blood and blood-forming organs and certain disorders involving the immune mechanism; K21.9 Gastro-esophageal reflux disease without esophagitis; Z96.651 Presence of right artificial knee joint

== ENCOUNTER → 2021-06-18 | Outpatient (CLI) | payer OTHER ==
--- NOTE | 2021-06-18 16:13 | 2DMMODE ---
[place] [address] 2 D/M-MODE ECHOCARDIOGRAM Name: ANGELITA SMITH Room: [facility]#: [id number] Admission: 06/18/21 Attend Phys: Ronak Elliott, Discharge: Date of : 42 Date of Service: 06/18/21 1613 Report #: [id number] THIS REPORT FOR: cc: Manny Carlos APRN, William R APRN [place], Michael J. MD [facility] ~ APPROVED REPORT Study performed: 06/18/2021 12:25:47 EXAM: Comprehensive 2D, Doppler, and color-flow Echocardiogram Patient Location: Out-Patient BSA: 1.74 HR: 72 bpm BP: 130/78 mmHg Other Information Study Quality: Good Indications Aortic Valve Disease 2D Dimensions IVSd: 10.77 (7-11mm) LVOT Diam: 20.29 (18-24mm) LVDd: 46.73 mm PWd: 11.50 (7-11mm) Ascending Ao: 31.78 (22-36mm) LVDs: 30.27 (25-40mm) Aortic Root: 31.80 mm Volumes Left Atrial Volume (Systole) LA ESV Index: 15.40 mL/m2 Aortic Valve AoV Peak Ruben.: 1.77 m/s AO Peak Gr.: 12.48 mmHg LVOT Max P.75 mmHg AO Mean Gr.: 7.50 mmHg LVOT Mean P.14 mmHg LVOT Max V: 1.09 m/s AO V2 VTI: 37.44 cm LVOT Mean V: 0.66 m/s PIPER (VTI): 2.01 cm2 LVOT V1 VTI: 23.27 cm Mitral Valve E/A Ratio: 0.65 [place] [address] 2 D/M-MODE ECHOCARDIOGRAM Name: ANGELITA SMITH Room: [facility]#: [id number] Admission: 06/18/21 Attend Phys: Ronak Elliott, Discharge: Date of : 42 Date of Service: 06/18/21 1613 Report #: [id number] MV Decel. Time: 211.34 ms MV E Max Ruben.: 0.53 m/s MV PHT: 61.29 ms MVA (PHT): 3.59 cm2 TDI E/Lateral E': 6.63 E/Medial E': 7.57 Medial E' Ruben.: 0.07 m/s Lateral E' Ruben.: 0.08 m/s Pulmonary Valve PV Peak Ruben.: 0.93 m/s PV Peak Gr.: 3.43 mmHg Tricuspid Valve RAP Estimate: 5.00 mmHg TR Peak Gr.: 22.26 mmHg RVSP: 27.26 mmHg PA Pressure: 27.26 mmHg Left Ventricle The left ventricle is normal size. There is normal LV segmental wall motion. There is normal left ventricular wall thickness. Left ventricular systolic function is normal. LVEF is 55-60%. Grade I - abnormal relaxation pattern. Right Ventricle The right ventricle is normal size. The right ventricular systolic function is normal. Pacemaker lead is present in the right ventricle. Atria Left atrium is mildly dilated. Pacemaker lead is present in the right atrium. Aortic Valve Mild aortic valve sclerosis. No aortic regurgitation is present. There is no aortic valvular stenosis. Mitral Valve The mitral valve is normal in structure. Mild mitral regurgitation. No evidence of mitral valve stenosis. Tricuspid Valve The tricuspid valve is normal in structure. Mild tricuspid regurgitation. No pulmonary hypertension. Pulmonic Valve The pulmonary valve is normal in structure[place] [address] 2 D/M-MODE ECHOCARDIOGRAM Name: ANGELITA SMITH Room: [facility]#: [id number] Admission: 06/18/21 Attend Phys: Ronak Elliott, Discharge: Date of : 42 Date of Service: 06/18/21 1613 Report #: [id number] regurgitation. Great Vessels The aortic root is normal in size. IVC is normal in size and collapses >50% with inspiration. Pericardium There is no pericardial effusion. <Conclusion> The left ventricle is normal size. There is normal left ventricular wall thickness. Left ventricular systolic function is normal. LVEF is 55-60%. Grade I - abnormal relaxation pattern. Pacemaker lead is present in the right ventricle. Left atrium is mildly dilated. Mild aortic valve sclerosis. Mild mitral regurgitation. Mild tricuspid regurgitation. No pulmonary hypertension. IVC is normal in size and collapses >50% with inspiration. <ELECTRONICALLY SIGNED> By: Ronak Elliott MD, [facility] 06/18/21 161 12 12 Ronak Elliott MD, FACC /INF
== END ==
LOC: M.CRD 12:33
PROVIDERS: ATTEND Internal Medicine Cardiovascular Disease
DX: I08.8 Other rheumatic multiple valve diseases (principal); Z88.8 Allergy status to other drugs, medicaments and biological substances

== ENCOUNTER 2021-11-08 14:52 | Emergency (ER) | payer OTHER ==
[~2021-11-08] VITALS: Ht 167.6 cm; Wt 60.3 kg
[2021-11-08 19:56] LABS: ABSOLUTE BASOPHILS 0.1 thou/uL (0.0-0.2); ABSOLUTE EOSINOPHILS 0.1 thou/uL (0.0-0.7); ABSOLUTE LYMPHOCYTES 1.6 thou/uL (0.8-5.3); ABSOLUTE MONOCYTES 0.6 thou/uL (0.0-1.2); EOSINOPHILS 2.3 %; HEMATOCRIT 31.3 % (37.0-47.0); HEMOGLOBIN 10.3 gm/dL (12.0-15.0); LYMPHOCYTES 25.1 %; MCH 31.4 pg (26.0-34.0); MCV 95.4 fL (80.0-100.0); MONOCYTES 9.7 %; MPV 6.5 fl. (7.2-11.1); NUCLEATED RBCS 0 /100WBC; PLATELET COUNT* 519 thou/uL (150-400); POLYS 61.9 %; RBC 3.28 mil/uL (4.20-5.00); RDW-CV 16.2 % (10.5-14.5); WBC 6.5 thou/uL (4.0-11.0)
[2021-11-08 20:12] LABS: CREATININE 2.4 mg/dL (0.6-1.3); POTASSIUM 4.4 mmol/L (3.5-5.1)
[2021-11-08 20:18] LABS: TOTAL BILIRUBIN 0.3 mg/dL (<0.1-1.0); TOTAL PROTEIN 6.9 g/dL (6.4-8.2)
[2021-11-08 21:03] LABS: URINE BILIRUBIN NEGATIVE (Negative); URINE BLOOD NEGATIVE (Negative); URINE COLOR YELLOW; URINE GLUCOSE-RANDOM NEGATIVE (Negative); URINE KETONES NEGATIVE (Negative); URINE LEUKOCYTES-REFLEX 1+ (Negative); URINE NITRITE-REFLEX NEGATIVE (Negative); URINE PROTEIN NEGATIVE (Negative); URINE UROBILINOGEN 0.2 E.U./dl (0.2-1.0)
[2021-11-08 21:12] LABS: URINE CLARITY HAZY
[2021-11-08 21:24] LABS: CASTS None Seen /LPF (None Seen); CRYSTALS None Seen /LPF (None Seen); MUCUS 0-3 Light strn/LPF (None Seen); SQUAMOUS >10 Many /LPF (0-3); URINE RBC None Seen /HPF (0-2); URINE WBC-REFLEX >25 Many /HPF (0-5)
[2021-11-08 21:25] LABS: YEAST-REFLEX Present (None Seen)
[2021-11-08 23:55] VITALS: BP 120/56
--- NOTE | 2021-11-09 12:11 | EKG ---
[place] [address] ELECTROCARDIOGRAM REPORT Name: SMITHANGELITA Olivia Room: [facility]#: [id number] Admission: 11/08/21 Attend Phys: Discharge: 11/08/21 Date of : 42 Date of Service: 11/08/211958 Report #: [id number] THIS REPORT FOR: //name// [facility] ED Test Date: 2021-11-08 Test Time: 19:59:41 Pat Name: ANGELITA SMITH Department: Room: Gender: Kidney Puller: : 1940 Requested By: Erum Esparza Order Number: [id number] MD: Ronak Elliott Measurements Intervals [place] Rate: 71 P: 13 [place]: 186 QRS: 15 QRSD: 121 T: 26 QT: 428 QTc: 466 Interpretive Statements Sinus rhythm Nonspecific intraventricular conduction delay Probable anteroseptal infarct, recent Compared to ECG 05/10/2021 13:44:14 Atrial-paced complex(es) or rhythm no longer present Myocardial infarct finding still present Electronically Signed On 11-09-2021 12:11:45 GRINDER OPERATOR [employer]FACE [employer]OL by Ronak Elliott [email or web address] <ELECTRONICALLY SIGNED> By: Ronak Elliott MD, FACC 11/09/21 1211 58 58 Ronak Elliott MD, FACC /EPI
== END 2021-11-08 23:55 | disposition home or self-care (01) ==
LOC: M.ERS 14:52
PROVIDERS: Personal Emergency Response Attendant
DX: Z48.01 Encounter for change or removal of surgical wound dressing (principal); G89.18 Other acute postprocedural pain; R10.31 Right lower quadrant pain; R53.83 Other fatigue; R10.33 Periumbilical pain; M79.7 Fibromyalgia; E03.9 Hypothyroidism, unspecified; M19.90 Unspecified osteoarthritis, unspecified site; F32.9 Major depressive disorder, single episode, unspecified; N18.4 Chronic kidney disease, stage 4 (severe); K21.9 Gastro-esophageal reflux disease without esophagitis; Z90.49 Acquired absence of other specified parts of digestive tract; Z90.89 Acquired absence of other organs; Z98.890 Other specified postprocedural states; Z96.651 Presence of right artificial knee joint; Z95.0 Presence of cardiac pacemaker; Z79.899 Other long term (current) drug therapy; Z88.8 Allergy status to other drugs, medicaments and biological substances; Z88.2 Allergy status to sulfonamides; Z88.1 Allergy status to other antibiotic agents; Z85.828 Personal history of other malignant neoplasm of skin